=== PATIENT | male | born 1965 | race Caucasian/White ===

== ENCOUNTER → 2017-08-15 | Outpatient (CLI) | payer BC | LOC: M RAD 08:12 | DX: I15.0 Renovascular hypertension (principal); N18.9 Chronic kidney disease, unspecified | CPT/HCPCS: 76775 ==

== ENCOUNTER → 2018-01-09 | Outpatient (REF) | payer BC ==
[2018-01-09 14:30] LABS: ALKALINE PHOSPHATASE 55 U/L (45-117)
[2018-01-14 00:07] LABS: ANGIOTENSIN 1 CONVERTING ENZYM 8 U/L (14-82); VITAMIN D 1,25 DIHYDROXY 38.5 pg/mL (19.9-79.3)
== END ==
LOC: M LAB REF 13:51
DX: E83.52 Hypercalcemia (principal)

== ENCOUNTER → 2018-12-11 | Outpatient (CLI) | payer BC ==
[~2018-12-11] MED LIST: ISOVUE-370 76% 100ML VIAL (Q9967) As Ordered ONE
--- NOTE | 2018-12-11 14:57 | REPVR ---
EXAM: CT Neck With Contrast EXAM DATE/TIME: 12/11/2018 8:09 AM CLINICAL HISTORY: 53 years old, male; Dysphagia / difficulty swallowing TECHNIQUE: Imaging protocol: Axial computed tomography images of the neck with intravenous contrast. Radiation optimization: All CT scans at this facility use at least one of these dose optimization techniques: automated exposure control; mA and/or kV adjustment per patient size (includes targeted exams where dose is matched to clinical indication); or iterative reconstruction. Contrast material: ISOVUE 370; Contrast volume: 75 ml; Contrast route: IV; COMPARISON: No relevant prior studies available. FINDINGS: Brain: The visualized intracranial structures appear grossly unremarkable. Orbits: The globes appear grossly intact, and no definite intraorbital hematoma is identified. Sinuses: Chronic mucosal disease involves the right more than left maxillary sinuses. The right sphenoid sinus is not pneumatized. Minor chronic disease involves the left frontal sinus. The paranasal sinuses are otherwise clear. Nasopharynx: Normal. Oropharynx: Along the left aspect of the oropharynx, there appears to be some asymmetric soft tissue, including along the soft palate. No discrete mass or collection is identified. Hypopharynx: Normal. Larynx: The epiglottis is not significantly thickened. Retropharyngeal space: Normal. Submandibular/Parotid glands: Normal. Glands are normal in size. Thyroid: Normal. No enlarged or calcified nodules. Lymph nodes: A mildly enlarged right submandibular lymph node measures 1.2 cm short axis. Multiple subcentimeter short axis lymph nodes are present elsewhere in the neck. Trachea: Visualized trachea is unremarkable. Lungs: The lung apices demonstrate some scarring with subpleural emphysematous change. Vasculature: Atherosclerotic vascular calcifications are noted. Mastoid air cells: The mastoid air cells are clear. Bones/joints: The temporomandibular joints are normally aligned. The orbital floors and lamina papyracea are intact. No apical pneumothorax is identified. Soft tissues: The prevertebral soft tissues are not significantly swollen. IMPRESSION: 1. Apparent asymmetric soft tissue along the left aspect of the oropharynx, including the soft palate. No discrete mass or collection is identified, and it is unclear whether this could be variant. Recommend direct visualization to exclude pathology. 2. Mildly enlarged right submandibular lymph node, nonspecific. Correlate clinically and followup. 3. Apical pulmonary emphysematous change. Electronically signed by: Harmeet Zuniga On 12/11/2018 14:56:59 PM
== END ==
LOC: M RAD 08:06
PROVIDERS: ATTEND Otolaryngology
DX: R13.10 Dysphagia, unspecified (principal); R59.9 Enlarged lymph nodes, unspecified
CPT/HCPCS: 70491; Q9967

== ENCOUNTER → 2019-04-02 | Outpatient (CLI) | payer BC ==
--- NOTE | 2019-04-02 09:54 | REP ---
CT soft tissue neck: 04/02/2019. Indication: Dysphasia. Comparison: 12/11/2018. Technique: Axial images of the neck soft tissues were obtained following IV administration of 75 ml Isovue 370 with coronal and sagittal reconstructions provided. Findings: Prominent soft tissue is noted within the left vallecula and left piriform sinus with mild thickening of the left aryepiglottic fold. The airway is patent. The epiglottis is unremarkable. No abnormal fluid collections are present within the neck soft tissues. There is no cervical lymphadenopathy. Soft tissue fills the left maxillary sinus. There is periosteal mucosal thickening within the left ethmoid air cells. No significant submandibular or parotid gland abnormalities are present. The thyroid gland is unremarkable. Nodular soft tissue is noted within the left lung apex. Bilateral carotid atherosclerotic disease is present. No significant ocular, intraorbital or intracranial abnormalities are detected. Impression: Abnormal tissue within the left vallecula and left piriform sinus for which direct inspection correlation is recommended. Left maxillary sinus disease. Abnormal soft tissue within the left lung apex which is incompletely evaluated on this study. Scarring is suspected , however, dedicated chest CT is recommended. Electronically Signed by Iglesia Camejo DO 04/02/2019 09:45 A
== END ==
LOC: M RAD 07:30
PROVIDERS: ATTEND Otolaryngology
DX: R13.10 Dysphagia, unspecified (principal)
CPT/HCPCS: 70491; Q9967

== ENCOUNTER → 2019-07-12 | Outpatient (CLI) | payer BC ==
[~2019-07-12] MED LIST changes: +ALLO10TA PO; +AMLO5TAB6 PO; +ATEN50TA2 PO; +ATOR1TAB21 PO; +FLOM0.4C39 PO; +FOLI1TAB11 PO; -ISOVUE-370 76% 100ML VIAL (Q9967) As Ordered ONE; +LISI40TA PO; +SPIR1CAP INH; +VENTAER INH
--- NOTE | 2019-07-13 08:25 | REP ---
PET/CT: History: Evaluation of abnormal lung field findings. CT study of the chest from [facility] read as showing left hilar mass with abnormal opacity extending into the left upper lobe. Lymphadenopathy. COMPARISONS: Comparison CT neck study April 02, 2019. TECHNIQUE: 54 minutes following the intravenous injection of a 8.99 mCi dose of F-18 FDG, three-dimensional PET scintigraphy is acquired from the skull base to the proximal thighs. Triplanar noncontrast CT scanning is acquired through the same anatomic range for attenuation correction, and image registration with scan parameters optimized to minimize radiation exposure to the patient. PET scintigraphy and CT datasets were fused and displayed on a workstation with multiplanar and projection display capability. PET/CT FINDINGS: There is normal variant bilateral diffuse salivary gland uptake. There is abnormal uptake in the supraglottic larynx in the pre-epiglottic space. Maximum standard uptake value 10.95. This corresponds to the area of soft tissue density seen on recent CT study of the neck April 02, 2019. 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 There is no visible cervical lymphadenopathy or neck hypermetabolic uptake. Vascular calcification is observed. In the thorax there is a hypermetabolic rounded left hilar focus consistent with mass or adenopathy. Maximum standard uptake value is 11.11. There is postobstructive atelectasis and consolidation in the left upper lobe as described on recent CT study. There is mildly increased uptake in this atelectatic lung, 3.91. No other abnormal intrathoracic hypermetabolic uptake is seen. In the abdomen and pelvis there is no abnormal hypermetabolic uptake. There is a pin in the right hip and there is a cyst in the left kidney with peripheral cyst wall calcification. No abnormal hypermetabolic uptake is seen in the abdomen or pelvis. No abnormal adrenal uptake. IMPRESSION: 1. There is a suspicious supraglottic lesion with hypermetabolic uptake focus in the supraglottic larynx in the pre-epiglottic space corresponding recent CT findings. 2. There is hypermetabolic uptake and a left hilar mass lesion. There are postobstructive changes in the left upper lobe of the lung. Electronically Signed by Andrade Juan MD 07/13/2019 10:22 A
== END ==
LOC: M PLARAD 07:28
PROVIDERS: ATTEND Family Medicine
DX: R91.8 Other nonspecific abnormal finding of lung field (principal)
CPT/HCPCS: 78815; A9552

== ENCOUNTER → 2019-07-22 | Outpatient (CLI) | payer BC ==
--- NOTE | 2019-07-22 13:15 | PFTRPT ---
Site: [facility], [address] [place], [address] ID: [id number] Name: KAITY AGUAYO Visit Date: 07/22/2019 Second ID: [id number] Referring Doctor: Al Rojas MD Reviewing Doctor: Al Rojas MD Salesperson Hearing Aids: Murray VILLARREAL, MILO Age: 53 : 1965 Sex: Male Race: Height: 73.00 Inches Weight: 195.00 Lbs BSA: 2.13 Order IDs: [id number] Requested Test(s): <RESP-PFT.DLCO> Diagnosis: R91.8 of albuterol for postbronchodilator. The results of this test appear to be valid, although the ATS standard for "end of test" was not met. Review Status: Not Reviewed Pre-Bronch Post-Bronch Pred Actual %Pred Actual %Chng SPIROMETRY FVC (L) 5.42 4.40 81 4.23 -3 FEV1 (L) 4.14 2.62 63 2.72 4 FEV1/FVC (%) 77 59 77 64 8 FEF 25% (L/sec) 7.79 2.73 35 3.04 11 FEF 50% (L/sec) 4.53 1.77 39 2.17 22 FEF 75% (L/sec) 1.58 0.66 41 0.79 19 FEF 25-75% (L/sec) 3.48 1.44 41 1.60 11 FEF Max (L/sec) 10.21 5.88 57 5.65 -3 FIVC (L) 4.38 4.29 -1 FIF 50% (L/sec) 4.83 4.44 91 2.95 -33 FIF Max (L/sec) 4.48 3.05 -31 MVV (L/min) 156 79 50 Expiratory Time (sec) 7.34 5.69 -22 Back Extrap Vol (L) 0.05 0.05 -7 Time To FEFmax (sec) 0.057 0.059 2 LUNG VOLUMES SVC (L) 5.27 4.42 83 IC (L) 3.63 3.79 104 ERV (L) 1.64 0.63 38 TGV (L) 3.96 4.80 121 RV (Pleth) (L) 2.32 4.16 179 TLC (Pleth) (L) 7.59 8.58 113 RV/TLC (Pleth) (%) 31 49 156 DIFFUSION DLCOunc (ml/min/mmHg) 30.68 13.63 44 DLCOcor (ml/min/mmHg) 30.68 14.57 47 DL/VA (ml/min/mmHg/L) 4.04 2.30 56 VA (L) 7.59 6.34 83 BHT (sec) 10.71 IVC (L) 4.18 TLC (SB) (L) 6.49 AIRWAYS RESISTANCE Raw (cmH2O/L/s) 1.45 2.25 155 Gaw (L/s/cmH2O) 1.03 0.46 45 sRaw (cmH2O*s) 4.76 10.81 227 sGaw (1/cmH2O*s) 0.20 0.10 48 BLOOD GASES Hgb (gm/dL) 12.5
== END ==
LOC: M CARPUL 12:24
PROVIDERS: ATTEND Internal Medicine Pulmonary Disease
DX: R91.8 Other nonspecific abnormal finding of lung field (principal)

== ENCOUNTER → 2019-07-27 | Outpatient (CLI) | payer BC ==
--- NOTE | 2019-07-27 10:36 | REP ---
CT CHEST WITHOUT IV CONTRAST: CT chest performed without IV contrast. Saggital and coronal reconstruction images are performed. Comparison made with a prior study of 07/02/2019. Once again, there is a left hilar mass noted. Approximate diameter is 2.3 cm. Postobstructive consolidation in the left upper lobe has mildly improved. No other significant abnormal parenchymal opacities are seen. There are subcentimeter mediastinal lymph nodes present. No axillary adenopathy is seen. Supraglottic mass is again seen on the left. Atherosclerotic calcifications are seen of the thoracic aorta without aneurysm. The heart is normal in size. There is no pleural or pericardial effusion. There are degenerative changes of the spine. Small cyst is noted at the upper pole of the left kidney. IMPRESSION: No definite change left hilar mass. There is mild improvement of postobstructive consolidation in the left upper lobe. Left supraglottic mass again noted. Electronically Signed by Raphael Arreola MD 07/27/2019 10:38 A
== END ==
LOC: M RAD 08:23
PROVIDERS: ATTEND Internal Medicine Pulmonary Disease
DX: R91.1 Solitary pulmonary nodule (principal)

== ENCOUNTER 2019-08-03 07:17 | Day surgery (SDC) | payer BC ==
[~2019-08-03] VITALS: Ht 185.4 cm; Wt 90.7 kg
[~2019-08-03 07:17] MED LIST changes: +CELE1CAP7 PO; +LR 1,000 ML IV ONE; +ROCURONIUM BROMIDE 50 MG/5 ML VIAL As Ordered ONE; +propofoL 200 MG/20 ML VIAL As Ordered ONE
[2019-08-03] MEDS ORDERED: dexameTHASONE 4 MG/ML 1ML VIAL (J1100 PER 1MG) As Ordered ONE (08:08)
[2019-08-03] MEDS ORDERED: ONDANSETRON 4MG/2ML VIAL (J2405) As Ordered ONE (08:10)
[2019-08-03] MEDS ORDERED: MIDAZOLAM INJ 2 MG/2 ML VIAL (J2250) As Ordered ONE (08:11)
[2019-08-03] MEDS ORDERED: fentaNYL 250 MCG/5 ML INJECTION (J3010) As Ordered ONE (08:11)
[2019-08-03] MEDS ORDERED: LIDOCAINE 2% INJ 100 MG/5 ML SDV (FOR ANES.) As Ordered ONE (08:13)
[2019-08-03] MEDS ORDERED: ALBUTEROL SULFATE 2.5 MG/0.5 ML INH NEB SOLN As Ordered ONE (08:16)
[2019-08-03] MEDS ORDERED: ALBUTEROL SULFATE 2.5 MG/0.5 ML INH NEB SOLN INH ONE ×2 (08:30→11:00)
[2019-08-03] MEDS ORDERED: CETACAINE SPRAY 5GM As Ordered ONE (09:39)
[2019-08-03] MEDS ORDERED: LIDOCAINE 1% MDV 20ML VIAL As Ordered ONE (09:39)
[2019-08-03] MEDS ORDERED: EPINEPHrine 1MG/10ML SYRINGE 1.5IN As Ordered ONE (09:40)
[2019-08-03] MEDS ORDERED: THROMBIN SOLN 5,000 UNITS VIAL As Ordered ONE (10:04)
[2019-08-03] MEDS ORDERED: SUGAMMADEX SODIUM 500 MG/5 ML VIAL (BRIDION) As Ordered ONE (10:20)
[2019-08-03] MEDS ORDERED: LEVALBUTEROL 1.25 MG/0.5 ML CONCENTRATE NEB As Ordered ONE (10:34)
--- NOTE | 2019-08-03 10:48 | RO ---
DATE OF PROCEDURE: 08/03/2019 PREOPERATIVE DIAGNOSIS: Left lung mass. POSTOPERATIVE DIAGNOSIS: Left lung mass with chronic obstructive bronchitis. PROCEDURE: Fiberoptic bronchoscopy with washes, brushes, biopsies, and photos. SURGEON: Dr. Al Rojas ACID DUMPER: ANESTHESIA: General. OTHER MEDICATIONS: Topical thrombin 5000 units given via the bronchoscope. Informed consent was obtained prior to the procedure. DESCRIPTION OF PROCEDURE: After the patient identified and the above anesthesia given, the fiberoptic bronchoscope was easily passed via the existing endotracheal tube. The procedure was initially planned for navigational assistance. During the tertiary examination prior to navigation very significant endobronchial disease was identified and therefore, the navigational portion of the procedure was cancelled. The alessandra was mildly broadened. Both mainstem bronchi widely patent. Right lung entered first. Upper lobe somewhat anomalous with four sub segments but all widely patent. Diffuse changes of chronic bronchitis were noted. Bronchus intermedius, middle and lower lobes as well as the subsegmental lower lobe segments all widely patent and without other endobronchial mucosa abnormalities. The left lung was then entered. Proximal left mainstem widely patent. In the lateral portion of the distal left mainstem obvious endobronchial disease was encountered. The left upper lobe bronchus was almost completely compromised in a circumferential fashion with endobronchial tumor burden. It would not admit the scope. Left lower lobe was examined and was widely patent. Some secretions were encountered. Changes of chronic obstructive bronchitis were noted. Attention was then turned to the left upper lobe. Multiple biopsies were taken. Immediate cytologic examination showed tumor to be present. After multiple biopsies, a cytology brush was then produced. It should be noted that prior to the procedure when the scope was first introduced Percepta brushes of the left and right mainstem were done. Mild bleeding was encountered, easily controlled with saline lavage and topical thrombin. When adequate hemostasis was assured, the scope was then withdrawn and the procedure terminated. Care was turned over to anesthesia for extubation. No immediate complications noted.
[2019-08-03] MEDS ORDERED: RACEPINEPHrine 2.25 % UD INHA As Ordered ONE (10:56)
[2019-08-03] MEDS ORDERED: LR 1,000 ML IV SCH (11:00)
[2019-08-03] MEDS ORDERED: RACEPINEPHrine 2.25 % UD INHA INH ONE (11:00)
[2019-08-03] MEDS ORDERED: LEVALBUTEROL 1.25 MG/0.5 ML CONCENTRATE NEB INH ONE (11:00)
[2019-08-03] MEDS ORDERED: ONDANSETRON 4MG/2ML VIAL (J2405) IV PRN (11:00)
[2019-08-03] MEDS ORDERED: fentaNYL 100 MCG/2 ML INJECTION (J3010) IV PRN (11:00)
[2019-08-03 12:35] VITALS: BP 124/66
== END 2019-08-03 12:50 | disposition home or self-care (01) ==
LOC: M SDC 07:17
PROVIDERS: ATTEND Internal Medicine Pulmonary Disease
DX: C34.12 Malignant neoplasm of upper lobe, left bronchus or lung (principal); I12.9 Hypertensive chronic kidney disease with stage 1 through stage 4 chronic kidney disease, or unspecified chronic kidney disease; E78.5 Hyperlipidemia, unspecified; K21.9 Gastro-esophageal reflux disease without esophagitis; N18.9 Chronic kidney disease, unspecified; N40.0 Benign prostatic hyperplasia without lower urinary tract symptoms; F17.218 Nicotine dependence, cigarettes, with other nicotine-induced disorders; Z79.51 Long term (current) use of inhaled steroids; Z79.899 Other long term (current) drug therapy
CPT/HCPCS: 31623; 31625; 87070; 87205; 88104; 88305; J1100; J2250; J2405; J3010

== ENCOUNTER → 2019-08-14 | Outpatient (CLI) | payer BC ==
[~2019-08-14] MED LIST changes: -LR 1,000 ML IV ONE; -ROCURONIUM BROMIDE 50 MG/5 ML VIAL As Ordered ONE; -propofoL 200 MG/20 ML VIAL As Ordered ONE
== END ==
LOC: M LABSMTC 09:53
PROVIDERS: ATTEND Anesthesiology
DX: Z01.818 Encounter for other preprocedural examination (principal); Z11.59 Encounter for screening for other viral diseases

== ENCOUNTER 2019-08-16 09:49 | Day surgery (SDC) | payer BC ==
[~2019-08-16] VITALS: Ht 185.4 cm; Wt 92.0 kg
[~2019-08-16 09:49] MED LIST changes: +LR 1,000 ML IV ONE; +dexameTHASONE 4 MG/ML 1ML VIAL (J1100 PER 1MG) IV ONE
[2019-08-16] MEDS ORDERED: SUGAMMADEX SODIUM 500 MG/5 ML VIAL (BRIDION) As Ordered ONE (10:01)
[2019-08-16] MEDS ORDERED: ROCURONIUM BROMIDE 50 MG/5 ML VIAL As Ordered ONE (10:04)
[2019-08-16] MEDS ORDERED: propofoL 200 MG/20 ML VIAL As Ordered ONE (10:04)
[2019-08-16] MEDS ORDERED: MIDAZOLAM INJ 2MG/2ML VIAL (J2250 PER 1MG) As Ordered ONE ×2 (10:04→10:55)
[2019-08-16] MEDS ORDERED: LIDOCAINE 2% 100MG/5ML SDV (FOR ANES.) As Ordered ONE (10:04)
[2019-08-16] MEDS ORDERED: dexameTHASONE 4 MG/ML 1ML VIAL (J1100 PER 1MG) As Ordered ONE (10:05)
[2019-08-16] MEDS ORDERED: fentaNYL 100 MCG/2 ML INJECTION (J3010) As Ordered ONE ×2 (10:05→11:25)
[2019-08-16] MEDS ORDERED: ONDANSETRON 4MG/2ML VIAL As Ordered ONE (10:05)
[2019-08-16] MEDS ORDERED: LIDOCAINE W/EPINEPHRINE 1% 20ML VIAL As Ordered ONE (10:30)
[2019-08-16] MEDS ORDERED: METHYLENE BLUE 0.5% (5MG/ML) 10 ML AMP (PROVAYBLUE)(Q9968 PER 1MG) As Ordered ONE (10:30)
[2019-08-16] MEDS ORDERED: OXYMETAZOLINE NASAL SPRAY (AFRIN) As Ordered ONE (10:30)
[2019-08-16] MEDS ORDERED: ceFAZolin 1GM VIAL (J0690 PER 500MG) As Ordered ONE (11:33)
[2019-08-16] MEDS ORDERED: metroNIDAZOLE/NACL 500MG(5MG/ML) 100ML BAG (S0030) As Ordered ONE (11:33)
[2019-08-16] MEDS ORDERED: ACETAMINOPHEN 1000MG 100ML IV BTL (OFIRMEV) (J0131 PER 10MG) As Ordered ONE (11:46)
[2019-08-16] MEDS ORDERED: LR 1,000 ML IV SCH ×2 (12:30)
[2019-08-16] MEDS ORDERED: METOCLOPRAMIDE INJ 10MG/2ML VIAL (J2765 PER 1) IV PRN (12:30)
[2019-08-16] MEDS ORDERED: ONDANSETRON 4MG/2ML VIAL IV PRN (12:30)
[2019-08-16] MEDS ORDERED: fentaNYL 100 MCG/2 ML INJECTION (J3010) IV PRN (12:30)
[2019-08-16 14:00] VITALS: BP 119/69
--- NOTE | 2019-08-18 13:14 | RO ---
DATE OF PROCEDURE: 08/16/2019 PREOPERATIVE DIAGNOSIS: Swelling of the left vallecula and left piriformis sinus and abnormal PET scan finding. POSTOPERATIVE DIAGNOSIS: Swelling of the left vallecula and left piriformis sinus and abnormal PET scan finding. PROCEDURE PERFORMED: Direct suspension microlaryngoscopy with biopsy. SURGEON: Hardik Sandhu MD SPOOL MAKER: ANESTHESIA: General. CLINICAL PREAMBLE: This 53-year-old man has a recent diagnosis of bronchogenic carcinoma of the lung is noted to have hypermetabolic activity in the left vallecular area. He also is noted to have abnormal CT finding involving the left vallecula as well as left piriformis sinus. As part of the oncologic workup, the patient would benefit from direct suspension microlaryngoscopy with biopsy. The patient agreed and consented to the procedure. INTRAOPERATIVE FINDING: Abnormal mucosa noted at the left posterior pharyngeal wall at the level of the epiglottis, left base of tongue, and right arytenoid. Biopsies were obtained from these three subsites in the head and neck area. OPERATING ROOM (OR) NARRATION: Patient was identified in preoperative holding and brought to the operating room in stable condition. In supine position on the operating table, he received general anesthesia followed by orotracheal intubation without incident. Patient prepped and draped in the usual fashion for the procedure. Bimanual palpation of the oral tongue, base of tongue, and posterior pharyngeal wall showed some fullness over the left base of tongue extending towards the left posterior pharyngeal wall. Upper dentition was then protected using a dental guard. Using the Dedo-Pilling laryngoscope, inspection of mucosa of the oral cavity, oropharynx, supraglottic and piriformis sinuses was carried out. Mucosal lesion was noted over the left posterior pharyngeal wall, at the level of the epiglottis, at the left of the base of the tongue as well as the right arytenoid area. The Dedo-Pilling laryngoscope was suspended on the Howard stand. Biopsies were performed from the three subsites of the oropharynx and larynx where the abnormal mucosa lesions were noted. Hemostasis was achieved. At the end of procedure, sponge and instrument counts were correct. No complication was encountered. Estimated blood loss less than 5 mL. General anesthesia was reversed, and patient was extubated and brought to recovery room in stable condition.
== END 2019-08-16 14:23 | disposition home or self-care (01) ==
LOC: M SDC 09:49
PROVIDERS: ATTEND Otolaryngology
DX: C13.2 Malignant neoplasm of posterior wall of hypopharynx (principal); C01 Malignant neoplasm of base of tongue; C32.9 Malignant neoplasm of larynx, unspecified; C34.82 Malignant neoplasm of overlapping sites of left bronchus and lung; J44.9 Chronic obstructive pulmonary disease, unspecified; I10 Essential (primary) hypertension; E78.49 Other hyperlipidemia; D64.9 Anemia, unspecified; N40.0 Benign prostatic hyperplasia without lower urinary tract symptoms; F17.218 Nicotine dependence, cigarettes, with other nicotine-induced disorders; Z79.899 Other long term (current) drug therapy; Z79.51 Long term (current) use of inhaled steroids
CPT/HCPCS: 31536; 88305; J0131; J0690; J1100; J2250; J2405; J3010; Q9968

== ENCOUNTER → 2019-08-17 | Outpatient (CLI) | payer BC ==
[~2019-08-17] MED LIST changes: -LR 1,000 ML IV ONE; -dexameTHASONE 4 MG/ML 1ML VIAL (J1100 PER 1MG) IV ONE
[2019-08-17 09:07] LABS: BASO % 0.1 % (0.0-1.0); HEMATOCRIT 36.9 % (42.0-52.0); HEMOGLOBIN 12.4 g/dl (13.5-17.5); LYMPH # 1.4 10^3/uL (1.5-5.0); LYMPH % 9.9 % (24.0-44.0); MEAN CORPUSCULAR HGB CONC 33.6 g/dl (32.0-36.5); MEAN CORPUSCULAR VOLUME 89.1 fl (80.0-96.0); NEUTROPHILS # 11.5 10^3/uL (1.5-8.5); NEUTROPHILS % 81.7 % (36.0-66.0); PLATELET COUNT, AUTOMATED 367 10^3/uL (150-450); RED BLOOD COUNT 4.14 10^6/uL (4.30-6.10); WHITE BLOOD COUNT 14.1 10^3/uL (4.0-10.0)
[2019-08-17 09:43] LABS: ALBUMIN 3.6 GM/DL (3.2-5.2); BILIRUBIN,TOTAL 0.2 MG/DL (0.2-1.0); CALCIUM LEVEL 8.8 MG/DL (8.5-10.1); CREATININE FOR GFR 1.56 MG/DL (0.70-1.30); GLOMERULAR FILTRATION RATE 49.4 (>56); POTASSIUM SERUM 4.8 MEQ/L (3.5-5.1)
== END ==
LOC: M LAB 08:40
PROVIDERS: ATTEND Internal Medicine Hematology
DX: C34.90 Malignant neoplasm of unspecified part of unspecified bronchus or lung (principal)

== ENCOUNTER → 2019-08-19 | Outpatient (CLI) | payer BC ==
--- NOTE | 2019-08-24 19:06 | RADONC ---
RADIATION ONCOLOGY CONSULTATION NOTE DATE: 08/19/2019 This is a telemedicine visit. The patient was informed of the risks including security breech, technological failure, inability to perform a comprehensive physical exam which could delay or prevent an accurate diagnosis, and potential complications from treatment decisions rendered over a telemedicine platform. The patient understands and consented to the use of telehealth services phone only. CHART NUMBER: [id number] DIAGNOSIS: 1. 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 2. Left upper lobe lung cancer. Stage in progress. ECOG PERFORMANCE STATUS: Not evaluated. CONSULTATION NOTE: Mr. 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 He is presenting for discussion of multidisciplinary coordinated attack plan on this disease. HISTORY OF PRESENT ILLNESS: The patient reports that he was generally in his usual state of health until approximately 3 years ago in the summer 2017 when he said he is was having increasing sore throats. This continued over the last 1-1/2 to 2 years or so and continued to get worse. This caused him difficulty with swallowing and significant difficulty with swallowing solid foods. The patient presented for medical evaluation for a sore throat, which included a chest x-ray that showed a mass in the left lung. A CT scan of the neck, however, was done 04/02/2019, which showed the abnormal left soft tissue mass. Subsequent CT scan was done on 07/02/2019. This revealed a central mass measuring 3.7 cm x 2.1 cm x 3.5 cm. There was an opacity extending into the apicoposterior segment of the left upper lobe, which was irregular in shape and had a relatively broad pleural base superiorly and posteriorly. The mass measured 8.9 cm x 3.8 cm x 5.7 cm. The opacity extended into the anterior segment of the left upper lobe measuring 3.6 cm x 5.1 cm x 1.4 cm. This was thought to represent postobstructive pneumonia. Tumor infiltration, however, could not be excluded. A PET scan was done on 07/12/2019, which showed suspicious supraglottic lesion with hypermetabolic focus in the supraglottic larynx in the preepiglottic space. There was also noted to be hypermetabolic uptake in the left hilar mass and post obstructive changes were noted in the left upper lung. On 08/03/2019, the patient underwent a left upper lobe bronchoscopic biopsy of his lung mass and moderately differentiated squamous cell carcinoma was found. The patient was subsequently seen by Dr. Hardik Sandhu and underwent biopsy of his head and neck suspicious areas on 08/16/2019. 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 There was also moderately to well-differentiated invasive squamous cell carcinoma of the left tongue base. In addition, on the contralateral right side, there was right arytenoid biopsy that showed a well to moderately-differentiated invasive squamous cell carcinoma. The patient was seen by Dr. Bliss of medical oncology and is now presenting to me for a discussion and coordination of his care. ALLERGIES: The patient has no known drug allergies. PAST MEDICAL HISTORY: The patient's past medical history is positive for avascular necrosis of the right hip. He has a history of COPD as well as gout. He has a history of pneumonia and arthritis. He had a right hip replacement in the year 1999 at the age of 33. SOCIAL HISTORY: The patient smokes two packs of cigarettes per day since he was 12 years old and continues to smoke. He drinks six alcoholic beverages a day. FAMILY HISTORY: The patient's family history is positive for someone with a brain tumor. REVIEW OF SYSTEMS: The patient's review of systems is positive for shortness of breath with bronchospastic airway disease. He has intermittent coughing. He also has a sore throat. He has difficulty swallowing solid foods. He has weight loss. His review of systems is otherwise noncontributory. He denies nausea, vomiting, fevers, chills, night sweats, diplopia, headaches, anxiety or depression, anorexia, visual disturbances, chest pain, urinary or bowel difficulties, bone pain, or neurological problems. PHYSICAL EXAMINATION: This was a phone consultation. Physical examination was deferred at this time as per COVID-19 precautions. MEDICAL NECESSITY: IMRT/IGRT is clinically indicated for the highly conformal dose planning required. The target volume is in close proximity to critical structures, such as the normal brain, brainstem, eyes, optic nerves, spinal cord, parotid glands, and mandible. The volume of interest must be covered with narrow margins to adequately protect immediately adjacent structures. The plan requires interpretation of complex testing such as CT localization. As noted above, special planning (IMRT) and localizing (IGRT) is required and essential to maximally protect sensitive normal tissue structures which cannot be accomplished using conventional 3-dimensional planning. ASSESSMENT: I had a lengthy discussion with Dr. Bliss, as well as with this patient. I am unclear at this point whether or not we are dealing with multiple primaries or metastatic disease. Either way head and neck region as well as the lung need to obtain control. The patient reports a very long history of problems with throat, which would tend to lead me to the expectation that there was a window of opportunity for development of metastatic disease. The throat complaints go back at least a year and half to [address] Bliss's note puts it back to 2017, which would actually be 3 years at this point. Of note, however, there is no hypermetabolic uptake in the cervical lymph nodes of neck, which would usually be seen before metastatic disease but not always. I think, therefore, we are obliged to take this as being two separate primaries and to treat them accordingly. With regards to the patient's head and neck cancer, radiation therapy would be indicated with the use of IMRT/IGRT. We should be able to obtain local control with that disease. Unfortunately the patient reports that he has rotten teeth and has very poor dental hygiene. Clearly, I have not seen this at this time, but we need to set him up with at least a dentist but preferably an oral surgeon to undertake extractions. If extractions are necessary, and from the patient's description they appear to be, then it will take a period of time to get them fully extracted and subsequently allow for 3 weeks of healing prior to initiation of radiation. This will put the patient off for a significant period of time before we can start radiation to the head and neck. Concern at this time during this COVID-19 crisis, some of the scheduling issues with dental care may be a bit difficult to obtain or may be a little protracted. We will attempt to expedite this as quickly as possible. I have placed an order for dental care to be undertaken even though radiation will not be starting immediately. If this patient is to receive radiation to both the head and neck as well as the lung area, there will be significant difficulty with swallowing. I am, therefore, referring him to either surgery or interventional radiology for consultation and subsequent placement of a feeding tube. The patient already has difficulty swallowing now, and I expect this will worsen. As per my discussion with Dr. Bliss, the patient is being referred for placement of a port for chemotherapy. I do agree with Dr. Ambrosio Bliss's assessment, and I would think that neoadjuvant chemotherapy can treat both areas while he is undergoing the preparation for radiation to the head and neck region. Dr. Bliss is also sending this patient to Dr. José Manuel Contreras, our thoracic surgeon, for consultation to see if there is any benefit this patient could have from surgery. I do not personally believe this patient is a candidate, I will defer to the expertise of Dr. Contreras. Considering his young age, it is best to be very thorough. The patient is scheduled see Dr. Bliss tomorrow, August 19, for discussion of these plans. In addition, he is scheduled to be seen by Dr. Hardik Sandhu on Friday for further discussion as well. In light of the fact that we are not planning to initiate radiation in the immediate future, I have not set up anything specifically in our department. Once these preparatory steps are completed and the patient is approaching completion of neoadjuvant chemotherapy, we will begin treatment planning for the head and neck region and most likely the lung as well pending surgical consultation. cc: MD José Manuel Motley MD Lawrence G. Kramer, MD Hardik Patel, MD
== END ==
LOC: M ONCR 13:04
PROVIDERS: ATTEND Radiology Radiation Oncology
DX: C34.12 Malignant neoplasm of upper lobe, left bronchus or lung (principal)

== ENCOUNTER → 2019-08-30 | Outpatient (CLI) | payer BC ==
[~2019-08-30] MED LIST changes: +DECA4TAB PO; +MIDAZOLAM INJ 2MG/2ML VIAL (J2250 PER 1MG) As Ordered ONE; +ONDA4TAB6 PO; +ceFAZolin 2 GM/D5W 50 ML IV BAG (J0690 PER 500MG) As Ordered ONE; +diphenhydrAMINE 50MG/ML VIAL (J1200) As Ordered ONE; +fentaNYL 100 MCG/2 ML INJECTION (J3010) As Ordered ONE
--- NOTE | 2019-08-30 15:17 | REP ---
IR Ultrasound and fluoroscopy-guided port placement. IR Ultrasound of the neck. IR Moderate sedation. Clinical information: Lung cancer. Physician: Dr. Brandt. Procedure: The patient was advised of the benefits, risks, and alternatives of the procedure and informed consent was obtained. A time-out was performed with verification of the patient's name, MRN, site of procedure and type of procedure to be performed. The patient was positioned in the supine position on the angiographic table. The site was prepped and draped in the usual sterile fashion. Moderate sedation was performed by the physician including the presence of an independent trained observer who assisted and monitored the patient's level of consciousness and physiologic status. Following the administration of fentanyl and Versed, the physician spent 45 minutes of continuous face to face time with the patient. Ultrasound of the neck reveals a patent and compressible right internal jugular vein. A manager mortgage radiograph reveals aerated right lung. The neck and anterior chest wall were anesthetized with lidocaine. The right internal jugular vein was accessed using a microintroducer needle under ultrasound guidance, via a lateral approach. An 018 wire was advanced into the superior vena cava, the needle was removed and a microsheath was placed. An Amplatz wire was then passed into the inferior vena cava. An incision at the internal jugular vein access site and anterior chest wall were made using a scalpel. An incision was made at the anterior chest wall. A small pocket was created using a combination of blunt and sharp dissection. A tunneling device was then used to pass the catheter from the pocket to the neck puncture site. An 8-[place] Angio dynamics Smart power port was then positioned in the pocket. The catheter was then measured and cut. The introducer sheath was exchanged for a peel-away sheath. The catheter was passed through the peel-away sheath into the internal jugular vein and the peel-away sheath was removed. The port tip was positioned at the cavoatrial junction. The port was then accessed with a Gómez needle. The port flushes and aspirates well. The puncture site in the neck was closed. The chest wall incision was then closed with 2-0 Vicryl and 4-0 Monocryl. Glue and Steri-Strips were applied. A sterile dressing was then applied. The patient tolerated the procedure well and was returned to the PRU in stable condition. Estimated blood loss: <5 ml. Complications: None. Conclusion: 1. Successful placement of an 8-[place] Angio dynamics Smart power port via the right internal jugular vein. The port is ready for immediate use. 2. Patient to follow up in IR clinic in 2 weeks. Thank you for this referral. Electronically Signed by Melanie Brandt MD 08/30/2019 03:16 P
--- NOTE | 2019-08-30 16:14 | IRHP ---
[facility] IR Pre-Procedure H & P General Date of Service: August 30, 2019 Procedure: Same Day Surgery Interval History and Physical I have seen the patient and reviewed last H & P performed within 30 days. There is [no significant interval change] [significant interval change including] []. Patient [is stable for procedure] [not appropriate for procedure]. History of Present Illness Chief Complaint The patient is a 53-year-old male admitted with a reason for visit of Lung Ca. PRE-PROCEDURE DIAGNOSIS: lung ca HEART: normal rate. LUNGS: normal breathing at rest. ASA Classification ASA Classification: III-Severe systemic dis. Mallampati Score: II NPO: Yes Problems with prior sedation: No Obstructive Sleep Apnea: No Plan moderate sedation Allergies Coded Allergies: No Known Allergies (Unverified , 08/12/19) Home Medications Scheduled Allopurinol (Allopurinol), 100 MG PO DAILY, (Reported) Amlodipine Besylate (Amlodipine Besylate), 5 MG PO DAILY, (Reported) Atenolol (Atenolol), 25 MG PO DAILY, (Reported) Atorvastatin Calcium (Atorvastatin Calcium), 20 MG PO QPM, (Reported) Celecoxib (Celecoxib), 100 MG PO BID, (Reported) Folic Acid (Folic Acid), 1 MG PO DAILY, (Reported) Lisinopril (Lisinopril), 40 MG PO DAILY, (Reported) Tamsulosin HCl (Flomax), 0.4 MG PO DAILY, (Reported) Tiotropium [place] (Spiriva), 1 INHALATION INH DAILY, (Reported) Scheduled PRN Albuterol Sulfate (Ventolin Hfa), 2 PUFF INH QHS PRN for wheezing, (Reported) VS, I&O, 24H, Fishbone Vital Signs/I&O Vital Signs Date Time Temp Pulse Resp B/P (MAP) Pulse Ox O2 Delivery O2 Flow Rate FiO2 08/30/19 15:10 61 20 99 Room Air 08/30/19 14:45 2 08/30/19 13:14 98.0 KIERA GALVEZ MD August 30, 2019 16:14
[2019-08-30 16:49] VITALS: BP 121/78
== END ==
LOC: M IRPRO 12:46
PROVIDERS: ATTEND Internal Medicine Hematology
DX: C34.90 Malignant neoplasm of unspecified part of unspecified bronchus or lung (principal); Z79.899 Other long term (current) drug therapy
CPT/HCPCS: 36561; 99152; 99153; C1769; C1788; C1894; J0690; J1200; J1642; J1644; J2250; J3010

== ENCOUNTER 2019-09-27 18:06 | Inpatient (IN) | payer BC ==
[~2019-09-27] VITALS: Ht 185.4 cm; Wt 84.5 kg
[~2019-09-27 18:06] MED LIST changes: +LEVO750T13 PO; +MAGICMW SS; -MIDAZOLAM INJ 2MG/2ML VIAL (J2250 PER 1MG) As Ordered ONE; +PRED20TA PO; +SIME80TA PO; +TRAM50TA2 PO; -ceFAZolin 2 GM/D5W 50 ML IV BAG (J0690 PER 500MG) As Ordered ONE; -diphenhydrAMINE 50MG/ML VIAL (J1200) As Ordered ONE; -fentaNYL 100 MCG/2 ML INJECTION (J3010) As Ordered ONE
[2019-09-27] MEDS ORDERED: NS 1,000 ML IV ONE (18:45)
[2019-09-27 19:09] LABS: HEMOGLOBIN 11.6 g/dl (13.5-17.5); MEAN CORPUSCULAR HEMOGLOBIN 31.2 pg (27.0-33.0); MEAN CORPUSCULAR HGB CONC 34.1 g/dl (32.0-36.5); MEAN CORPUSCULAR VOLUME 91.4 fl (80.0-96.0); PLATELET COUNT, AUTOMATED 396 10^3/uL (150-450); RED BLOOD COUNT 3.72 10^6/uL (4.30-6.10); WHITE BLOOD COUNT 20.4 10^3/uL (4.0-10.0)
[2019-09-27 19:23] LABS: INR 1.07; PROTHROMBIN TIME 13.6 SECONDS (11.8-14.0)
[2019-09-27 19:34] LABS: ALBUMIN 3.2 GM/DL (3.2-5.2); BILIRUBIN,DIRECT 0.1 MG/DL (0.0-0.2); BILIRUBIN,TOTAL 0.4 MG/DL (0.2-1.0); CALCIUM LEVEL 8.9 MG/DL (8.5-10.1); CREATININE FOR GFR 2.29 MG/DL (0.70-1.30); GLOMERULAR FILTRATION RATE 31.7 (>56); POTASSIUM SERUM 4.6 MEQ/L (3.5-5.1); TOTAL PROTEIN 6.6 GM/DL (6.4-8.2)
[2019-09-27 19:37] LABS: EOSINOPHILS 1 % (0-3); LYMPHOCYTES 19 % (16-44); METAMYELOCYTES 1 % (0-0); MONOCYTES 3 % (0-5); NEUTROPHILS 74 % (28-66)
[2019-09-27 19:38] LABS: PLATELET CLUMPS MODERATE AMT; PLATELET ESTIMATE INCREASED (NORMAL)
[2019-09-27] MEDS ORDERED: SUCRALFATE SUSP 1GM/10ML UD PO ONE (20:15)
[2019-09-27] MEDS ORDERED: LIDOCAINE VISCOUS 2% SOLN 15ML UDC SS ONE (20:15)
[2019-09-27] MEDS ORDERED: MAGIC MOUTHWASH SUSPENSION BTL SS PRN (20:45)
[2019-09-27] MEDS ORDERED: ALBUTEROL SULFATE 2.5 MG/0.5 ML INH NEB SOLN INH PRN (20:45)
--- NOTE | 2019-09-27 20:52 | HPEPDOC ---
General Date of Admission 09/27/2019 Date of Service: Sep 27, 2019 Chief Complaint The patient is a 53-year-old male admitted with a reason for visit of Abnormal Labs. History of Present Illness Patient is a 53-year-old male with PMHx of Squamous cell carcinoma of oropharynx (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 Rojas), COPD, HTN, DLP, BPH, Gout, presented to the hospital after he was found to have abnormal lab work as an outpatient. Patient was recently admitted to the hospital on 09/12/19 for febrile neutropenia and was ultimately discharged on 09/15/2019. Patient had chemotherapy on Friday, 09/05 to Friday, 09/09. He had docetaxel, cisplatin and 5-fluorouracil. He states he then put his Neulasta on Friday (09/09) and removed it on Friday as instructed. Patient has lab work completed on 09/23 as per oncology. On 09/26 patient was called in because of abnormal lab work was found. Upon arrival to emergency room, repeat lab work was obtained that had shown a BUN of 75, creatinine of 2.29, slightly improved compared to 09/23. At this time patient denies any headache, nausea, vomiting, chest pain, shortness of breath, palpitations, abdominal pain, constipation, diarrhea or urinary discomfort. He has not experienced any fevers or chills. Patient does note that he does continue to experience mouth sores and has run out of his Magic mouthwash.. He has reported that he has had very poor oral intake and drinks less than a glass of water a day. He denies the use of any ibuprofen, Aleve or other NSAIDs. Patient reports that he does have an appetite but cannot eat because of his multiple ulcers. He is unaware of any changes in his weight. Home Medications Scheduled Allopurinol (Allopurinol) 100 Mg Tablet, 100 MG PO DAILY, (Reported) Amlodipine Besylate (Amlodipine Besylate) 5 Mg Tablet, 5 MG PO DAILY, (Reported) Atenolol (Atenolol) 50 Mg Tablet, 25 MG PO DAILY, (Reported) Atorvastatin Calcium (Atorvastatin Calcium) 20 Mg Tablet, 20 MG PO QPM, (Reported) Celecoxib (Celecoxib) 100 Mg Capsule, 100 MG PO BID, (Reported) Folic Acid (Folic Acid) 1 Mg Tablet, 1 MG PO DAILY, (Reported) Lisinopril (Lisinopril) 40 Mg Tablet, 40 MG PO DAILY, (Reported) Tamsulosin HCl (Flomax) 0.4 Mg Capsule, 0.4 MG PO DAILY, (Reported) Tiotropium [place] (Spiriva) 18 Mcg Cap.w.dev, 1 INHALATION INH DAILY, (Reported) Tramadol HCl (Tramadol HCl) 50 Mg Tablet, 50 MG PO QPM, (Reported) Scheduled PRN Albuterol Sulfate (Ventolin Hfa) 18 Gm Hfa.aer.ad, 2 PUFF INH Q6HP PRN for wheezing, (Reported) Allergies Coded Allergies: No Known Allergies (Unverified , 08/12/19) Past Medical History Medical History Squamous cell carcinoma of oropharynx (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 Rojas), COPD, HTN, DLP, BPH, Gout Surgical History Bronchoscopy with biopsy Biopsy of the oropharyngeal mass Right hip replacement Right chest port placed 2020 Family History - Father with a history of heart disease and rheumatic fever. 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 Review of Systems Other systems 10 point review of systems complete, all negative otherwise stated in HPI Vital Signs - Vitals: BP 105/63, HR 87, RR 18, Sat 99%RA, Temp 97.4F - General: Sitting up in bed, No acute distress, Speaking in full sentences, AAOx3 - HEENT: NC, AT, PERRLA, EOMI - CVS: RRR, +S1S2 - Lungs: Fair air entry bilaterally, No appreciable wheezing / rales / rhonchi - Abdomen: Soft, Non-distended, Non-tender - Extremities: No lower extremity edema, No calf tenderness - Neuro: No focal motor or sensory deficit - Skin: No visible rashes Laboratory Data Labs 24H Laboratory Tests 2 09/27/19 18:48: Immature Granulocyte % (Auto) , Neutrophils (%) (Auto) , Nucleated Red Blood Cells % (auto) 0.0, Neutrophils 74H, Band Neutrophils 2, Lymphocytes (Manual) 19, Monocytes (Manual) 3, Eosinophils (Manual) 1, Metamyelocytes 1H, Platelet Estimate INCREASED, Clumped Platelets MODERATE AMT, Prothrombin Time 13.6, Prothromb Time International Ratio 1.07, Anion Gap 10, Glomerular Filtration Rate 31.7L, Calcium Level 8.9, Total Bilirubin 0.4, Direct Bilirubin 0.1, Aspartate Amino Transf (AST/SGOT) 17, Alanine Aminotransferase (ALT/SGPT) 29, Alkaline Phosphatase 80, Total Protein 6.6, Albumin 3.2, Albumin/Globulin Ratio 0.9, Lipase 752H CBC/BMP Laboratory Tests 09/27/19 18:48 Plan / VTE VTE Prophylaxis Ordered?: Yes Plan Plan Acute renal failure - likely 2/2 pre-renal etiology - likely 2/2 decreased PO intake - Presented to the emergency room after he was called in for abnormal lab work - Patient has no new complaints - Patient is hemodynamically stable and afebrile - Baseline creatinine of 1.1-1.2; Cr on admission 2.29; however was 4.31 on 09/24/2019 - Avoid nephrotoxic medications (DC Celecoxib; Hold Lisinopril) - Will check urine electrolytes, urine analysis with reflex culture, renal ultrasound - Will start IV fluid hydration Hyponatremia - likely 2/2 hypotonic hypovolemic etiology - Patient appears to be significantly dehydrated - Will check serum / urine osmolality - c/w IV fluid hydration Non-AG metabolic acidosis - possibly 2/2 Acute renal failure - Delta / Delta of 0.4 - Will check urine anion gap - Will c/w IV fluid hydration Oral ulcers - Will start magic mouth wash to provide some relief PRN Elevated Lipase - Patient is not experiencing any nausea, vomiting or abdominal pain - Lipase is note elevated to >3x upper limits of normal - Unlikely pancreatitis Leukocytosis - likely 2/2 neulasta - ROS negative for source of infection - Hemodynamically stable / afebrile - Will check UA w/ reflex and CXR - Will hold off on antibiotics Normocytic anemia - Hg appears to be at baseline - Will continue to monitor Squamous cell carcinoma of oropharynx - Follows with Dr. Macdonald Squamous cell carcinoma of L Lung - Follows with Dr. Rojas HTN - BP well controlled - Will hold Lisinopril - c/w amlodipine and atenolol with holding parameters BPH - c/w Tamsulosin DLP - c/w Atorvastatin Gout - Will hold Allopurinol COPD - No evidence of exacerbation - Mild wheezing - c/w inhaled therapy as ordered DVT prophylaxis - Will start Heparin RYAN RICH MD Sep 27, 2019 20:52
[2019-09-27] MEDS ORDERED: traMADol 50 MG TAB PO SCH (21:00)
[2019-09-27] MEDS ORDERED: ATORVASTATIN 20 MG TAB PO SCH (21:00)
[2019-09-27] MEDS: HEPARIN SOD (PORCINE) 5000UNITS/ML VIAL (J1644 PER 1000UNITS) SC SCH (22:00)
[2019-09-27 22:25] VITALS: BP 117/66
[2019-09-27] MEDS: NS 1,000 ML IV SCH (22:43)
--- NOTE | 2019-09-28 00:08 | REPVR ---
PROCEDURE INFORMATION: Exam: US Retroperitoneal Limited, Kidneys Exam date and time: 09/27/2019 11:54 PM Age: 53 years old Clinical indication: Abnormal findings; Abnormal lab test; Abnormal kidney function lab tests; Additional info: Mando TECHNIQUE: Imaging protocol: Real-time ultrasound of the retroperitoneum with image documentation. Examination was focused on the kidneys. COMPARISON: 1. RENAL US 08/15/2017 8:[address] ABD PELVIS W/O CONTRAST 09/12/2019 4:44:46 PM FINDINGS: Right kidney: The right kidney is normal in appearance and measures 12.2 cm in length. There is no renal cortical thinning. The renal cortical echogenicity is within normal limits. No renal lesion is seen. There is no hydronephrosis. No obvious stones are seen in the renal collecting system. There is no perinephric fluid collection. Left kidney: The left kidney measures 12.5 cm in length. There is no renal cortical thinning. The renal cortical echogenicity is within normal limits. There is a 5.7 cm x 4.6 cm x 5.1 cm benign-appearing exophytic cyst arising from the inferior pole of the left kidney with rim calcifications that is stable compared to the prior CT abdomen and pelvis on 09/12/2019 allowing for differences in technique and for which further follow-up is not necessary. There is no hydronephrosis. No obvious stones are seen in the renal collecting system. There is no perinephric fluid collection. Bladder: Unremarkable. IMPRESSION: No acute findings. No hydronephrosis. Electronically signed by: Luis Antonio Mckeon On 09/28/2019 00:07:34 AM
--- NOTE | 2019-09-28 01:59 | REP ---
Clinical: Leukocytosis . Comparison: 09/12/2019 . Findings: Ljhvjz-H-Bocr with tip in the SVC. The mediastinum and cardiac silhouette are stable and within normal limits for portable technique. The lung sahni are clear without acute consolidation, effusion, or pneumothorax. Skeletal structures are intact. Impression: No acute cardiopulmonary process appreciated. Electronically Signed by Sy Perla MD 09/28/2019 01:50 A
[2019-09-28] MEDS: HEPARIN SOD (PORCINE) 5000UNITS/ML VIAL (J1644 PER 1000UNITS) SC SCH ×2 (05:17→13:04)
[2019-09-28] MEDS: NS 1,000 ML IV SCH ×2 (05:58→09:45)
[2019-09-28 06:00] VITALS: BP 106/64
[2019-09-28 07:36] LABS: HEMATOCRIT 28.5 % (42.0-52.0); MEAN CORPUSCULAR HEMOGLOBIN 31.1 pg (27.0-33.0); MEAN CORPUSCULAR HGB CONC 33.7 g/dl (32.0-36.5); MEAN CORPUSCULAR VOLUME 92.2 fl (80.0-96.0); PLATELET COUNT, AUTOMATED 312 10^3/uL (150-450); RED BLOOD COUNT 3.09 10^6/uL (4.30-6.10); WHITE BLOOD COUNT 15.4 10^3/uL (4.0-10.0)
[2019-09-28 07:46] LABS: HEMOGLOBIN 9.6 g/dl (13.5-17.5)
[2019-09-28 07:54] LABS: CALCIUM LEVEL 8.2 MG/DL (8.5-10.1); CREATININE FOR GFR 1.58 MG/DL (0.70-1.30); GLOMERULAR FILTRATION RATE 48.7 (>56); MAGNESIUM LEVEL 1.4 MG/DL (1.8-2.4); POTASSIUM SERUM 4.5 MEQ/L (3.5-5.1)
[2019-09-28 08:10] LABS: BASOPHILS 1 % (0-1); LYMPHOCYTES 25 % (16-44); MONOCYTES 2 % (0-5); NEUTROPHILS 72 % (28-66); PLATELET ESTIMATE NORMAL (NORMAL)
[2019-09-28 09:00] VITALS: BP 96/56
[2019-09-28] MEDS ORDERED: TIOTROPIUM INHALER/CAPSULE (SPIRIVA) INH SCH (09:00)
[2019-09-28] MEDS ORDERED: amLODIPine 5 MG TAB PO SCH (09:00)
[2019-09-28] MEDS ORDERED: atenoloL 25 MG TAB PO SCH (09:00)
[2019-09-28] MEDS ORDERED: TAMSULOSIN 0.4 MG CAP PO SCH (09:00)
[2019-09-28] MEDS ORDERED: FOLIC ACID 1 MG TAB PO SCH (09:00)
[2019-09-28] MEDS ORDERED: MAG SULF 1GM/100ML (MAG RUN) 1 GM in IV 1 EA IV ONE (10:45)
--- NOTE | 2019-09-28 10:49 | IPNPDOC ---
Text Note Date of Service The patient was seen on 09/28/19. NOTE Subjective: Patient seen and examined at bedside. Anxious to return home. No new medical complaints. No acute overnight events reported. Objective: General: NAD, sitting comfortably at edge of bed HEENT: NC/AT, EOMI Lungs: CTA B/L Heart: +S1S2, RRR Abd: soft,, NT, +BS Ext: no edema A/P: 53 yo male for JURGEN #Acute renal failure - likely 2/2 pre-renal etiology - likely 2/2 decreased PO intake - Presented to the emergency room after he was called in for abnormal lab work - Patient has no new complaints - Patient is hemodynamically stable and afebrile - Baseline creatinine of 1.1-1.2; Cr on admission 2.29; however was 4.31 on 09/24/2019 - Avoid nephrotoxic medications (DC Celecoxib; Hold Lisinopril) - check urine electrolytes, urine analysis with reflex culture, renal ultrasound - continue IV fluid hydration - creatinine improving - will dc fluids this afternoon - recheck creatinine tomorrow am #Hyponatremia - likely 2/2 hypotonic hypovolemic etiology - Patient appears to be significantly dehydrated - Will check serum / urine osmolality - c/w IV fluid hydration #Non-AG metabolic acidosis - possibly 2/2 Acute renal failure - Delta / Delta of 0.4 - Will check urine anion gap - Will c/w IV fluid hydration #Oral ulcers - magic mouth wash to provide some relief PRN #Elevated Lipase - Patient is not experiencing any nausea, vomiting or abdominal pain - Lipase is note elevated to >3x upper limits of normal - Unlikely pancreatitis #Leukocytosis - likely 2/2 neulasta - ROS negative for source of infection - Hemodynamically stable / afebrile - Will check UA w/ reflex and CXR - Will hold off on antibiotics #Normocytic anemia - Hg appears to be at baseline - Will continue to monitor #Squamous cell carcinoma of oropharynx - Follows with Dr. Macdonald #Squamous cell carcinoma of L Lung - Follows with Dr. Rojas #HTN - BP well controlled - Lisinopril on hold given JURGEN - c/w amlodipine and atenolol with holding parameters #BPH - c/w Tamsulosin #DLP - c/w Atorvastatin #Gout - hold Allopurinol #COPD - No evidence of exacerbation - Mild wheezing - c/w inhaled therapy as ordered #DVT prophylaxis - Heparin SC Dispo: pending renal sono, improvement in creatinine off IV fluids VS,Fishbone, I+O VS, Fishbone, I+O Laboratory Tests 09/27/19 18:48 09/28/19 06:56 Vital Signs Date Time Temp Pulse Resp B/P (MAP) Pulse Ox O2 Delivery O2 Flow Rate FiO2 09/28/19 09:00 77 96/56 09/28/19 06:00 98.1 20 98 09/27/19 22:25 Room Air I&O- Last 24 Hours up to 6 AM 09/28/19 05:59 Intake Total 1250 ml Output Total 300 ml Balance 950 ml BENJAMIN FLORES MD Sep 28, 2019 10:48
[2019-09-28 11:08] VITALS: BP 122/70
--- NOTE | 2019-09-28 14:04 | DS.PDOC ---
Discharge Summary General Date of Admission Sep 27, 2019 at 20:35 Date of Discharge 09/28/19 Discharge Summary PROCEDURES PERFORMED DURING STAY: [None]. ADMITTING DIAGNOSES: 1. JURGEN DISCHARGE DIAGNOSES: 1. . COMPLICATIONS/CHIEF COMPLAINT: Renal Failure. HISTORY OF PRESENT ILLNESS: . HOSPITAL COURSE: . DISCHARGE MEDICATIONS: Please see below. ALLERGIES: Please see below. PHYSICAL EXAMINATION ON DISCHARGE: VITAL SIGNS: Please see below. GENERAL: NAD, lying comfortably in bed, grumpy HEENT: NC/AT, EOMI Lungs: CTA B/L Heart: +S1S2, RRR Abd: soft, NT, +BS Ext: no edema LABORATORY DATA: Please see below. ACTIVITY: [As tolerated]. DIET: DISCHARGE PLAN: DISPOSITION: Against Medical Advice. DISCHARGE INSTRUCTIONS: 1. PCP in 3-5 days DISCHARGE CONDITION: [Stable]. TIME SPENT ON DISCHARGE: 35 minutes. Vital Signs/I&Os Vital Signs Date Time Temp Pulse Resp B/P (MAP) Pulse Ox O2 Delivery O2 Flow Rate FiO2 09/28/19 11:08 122/70 (87) 09/28/19 09:00 77 09/28/19 06:00 98.1 20 98 09/27/19 22:25 Room Air I&O- Last 24 Hours up to 6 AM 09/28/19 06:00 Intake Total 2300 ml Output Total 300 ml Balance 2000 ml Laboratory Data Labs 24H Laboratory Tests 2 09/27/19 18:48: Immature Granulocyte % (Auto) , Neutrophils (%) (Auto) , Nucleated Red Blood Cells % (auto) 0.0, Neutrophils 74H, Band Neutrophils 2, Lymphocytes (Manual) 19, Monocytes (Manual) 3, Eosinophils (Manual) 1, Metamyelocytes 1H, Platelet Estimate INCREASED, Clumped Platelets MODERATE AMT, Prothrombin Time 13.6, Prothromb Time International Ratio 1.07, Anion Gap 10, Glomerular Filtration Rate 31.7L, Osmolality 299H, Calcium Level 8.9, Total Bilirubin 0.4, Direct Bilirubin 0.1, Aspartate Amino Transf (AST/SGOT) 17, Alanine Aminotransferase (ALT/SGPT) 29, Alkaline Phosphatase 80, Total Protein 6.6, Albumin 3.2, Albumin/Globulin Ratio 0.9, Lipase 752H 09/28/19 00:08: Urine Color YELLOW, Urine Appearance CLEAR, Urine pH 5.0, Urine Specific [place] 1.012, Urine Protein NEGATIVE, Urine Glucose (UA) NEGATIVE, Urine Ketones NEGATIVE, Urine Blood NEGATIVE, Urine Nitrite NEGATIVE, Urine Bilirubin NEGATIVE, Urine Urobilinogen 0.2, Urine Leukocyte Esterase NEGATIVE, Urine WBC (Auto) 2, Urine RBC (Auto) 1, Urine Hyaline Casts (Auto) 0, Urine Bacteria (Auto) NEGATIVE, Urine Squamous Epithelial Cells 0, Urine Mucus (Auto) SMALL, Urine Sperm (Auto) , Urine Random Osmolality 465L, Urine Random Creatinine 102.0, Urine Random Sodium 39, Urine Random Potassium 14.0, Urine Random Urea Nitrogen 872 09/28/19 06:56: Immature Granulocyte % (Auto) , Neutrophils (%) (Auto) , Nucleated Red Blood Cells % (auto) 0.0, Neutrophils 72H, Lymphocytes (Manual) 25, Monocytes (Manual) 2, Platelet Estimate NORMAL, Anion Gap 8, Glomerular Filtration Rate 48.7L, Calcium Level 8.2L, Basophils (Manual) 1, Red Blood Cell Morphology NORMAL, Magnesium Level 1.4L CBC/BMP Laboratory Tests 09/27/19 18:48 09/28/19 06:56 Discharge Medications Scheduled Allopurinol (Allopurinol) 100 Mg Tablet, 100 MG PO DAILY, (Reported) Amlodipine Besylate (Amlodipine Besylate) 5 Mg Tablet, 5 MG PO DAILY, (Reported) Atenolol (Atenolol) 50 Mg Tablet, 25 MG PO DAILY, (Reported) Atorvastatin Calcium (Atorvastatin Calcium) 20 Mg Tablet, 20 MG PO QPM, (Reported) Celecoxib (Celecoxib) 100 Mg Capsule, 100 MG PO BID, (Reported) Folic Acid (Folic Acid) 1 Mg Tablet, 1 MG PO DAILY, (Reported) Lisinopril (Lisinopril) 40 Mg Tablet, 40 MG PO DAILY, (Reported) Tamsulosin HCl (Flomax) 0.4 Mg Capsule, 0.4 MG PO DAILY, (Reported) Tiotropium [place] (Spiriva) 18 Mcg Cap.w.dev, 1 INHALATION INH DAILY, (Reported) Tramadol HCl (Tramadol HCl) 50 Mg Tablet, 50 MG PO QPM, (Reported) Scheduled PRN Albuterol Sulfate (Ventolin Hfa) 18 Gm Hfa.aer.ad, 2 PUFF INH Q6HP PRN for wheezing, (Reported) Allergies Coded Allergies: No Known Allergies (Unverified , 08/12/19) BENJAMIN FLORES MD Sep 28, 2019 14:04
== END 2019-09-28 13:57 | disposition left against medical advice (07) | DRG 469 ==
LOC: M ED 18:06 → M MSPAV 20:35 → ENRESERV 20:51
PROVIDERS: ADMIT Internal Medicine; ATTEND Internal Medicine
DX: N17.9 Acute kidney failure, unspecified (principal); E87.2 Acidosis; C34.90 Malignant neoplasm of unspecified part of unspecified bronchus or lung; C10.9 Malignant neoplasm of oropharynx, unspecified; E87.1 Hypo-osmolality and hyponatremia; D64.9 Anemia, unspecified; J44.9 Chronic obstructive pulmonary disease, unspecified; D72.829 Elevated white blood cell count, unspecified; K12.1 Other forms of stomatitis; N40.0 Benign prostatic hyperplasia without lower urinary tract symptoms; M10.9 Gout, unspecified

== ENCOUNTER → 2019-12-31 | Outpatient (CLI) | payer BC, MEDICAID, OTHER ==
[~2019-12-31] MED LIST changes: +AMLO1TAB24 PO; -AMLO5TAB6 PO; +ATIV1TAB10 PO; +CETACAINE SPRAY 5GM As Ordered ONE; +INCR1INH INH; +ISOVUE-370 76% 100ML VIAL As Ordered ONE; +LIDO2.5C15 TOP; +LISI10TA4 PO; +MAGICMW PO; +OMEP-218 PO; +OXYC1SOL3 PO; +[UNRECOGNIZED DRUG - CODE] PO
--- NOTE | 2019-12-31 10:01 | REPVR ---
PROCEDURE INFORMATION: Exam: CT Neck With Contrast Exam date and time: 12/31/2019 8:51 AM Age: 54 years old Clinical indication: Neck pain; Additional info: Head/neck CA, lung CA, restaging TECHNIQUE: Imaging protocol: Computed tomography images of the neck with intravenous contrast. Radiation optimization: All CT scans at this facility use at least one of these dose optimization techniques: automated exposure control; mA and/or kV adjustment per patient size (includes targeted exams where dose is matched to clinical indication); or iterative reconstruction. Contrast material: ISOVUE 370; Contrast volume: 100 ml; Contrast route: INTRAVENOUS (IV); COMPARISON: CT Neck with contrast 04/02/2019 7:59 AM FINDINGS: Sinuses: There is mild sinus disease. Nasopharynx: Unremarkable. Oropharynx: Unremarkable. No significant tonsillar enlargement. Hypopharynx: Unremarkable. Larynx: Unremarkable. Normal epiglottis. Retropharyngeal space: Unremarkable. Submandibular/Parotid glands: Normal. Glands are normal in size. Thyroid: Normal. No enlarged or calcified nodules. Lymph nodes: There are scattered nonspecific cervical lymph nodes, similar to prior study. Trachea: Visualized trachea is unremarkable. Lungs: There are bilateral emphysematous changes. Bones/joints: Unremarkable. No acute fracture. Soft tissues: Unremarkable. No significant soft tissue swelling. IMPRESSION: No acute findings are identified. Please see above report for incidental findings. Electronically signed by: Mike Wagner On 12/31/2019 10:01:01 AM
--- NOTE | 2020-01-19 08:31 | REP ---
CONTRAST ENHANCED CHEST CT CLINICAL: History of head and neck cancer for restaging. TECHNIQUE: Axial contrast enhanced images from the thoracic inlet to the upper abdomen using 100 cc Isovue-370 intravenous contrast material with coronal and sagittal reformations. COMPARISON: 09/13/2019, 07/27/2019, 07/02/2019 FINDINGS: A small residual left suprahilar mass is suggested and currently measures approximately 12 mm maximal diameter which is considerably decreased from prior examinations. The associated postobstructive fibroatelectatic changes and scarring extending along the medial and posterior aspects of the left upper lung zone also appear improved as compared to the prior examinations. Chronic changes in the left apex include elements of bronchiectasis and emphysematous changes. There is a small subpleural nodule along the posterior left upper lobe (image 21) which also appears to be slightly decreased in size and measures approximately 5.5 mm maximal diameter. This may reflect small nodular scarring or small focus of rounded atelectasis, but active nodule cannot be excluded as well. The remainder of the lung sahni are relatively clear and stable with moderate emphysematous changes and bronchiectasis noted. No further suspicious consolidation, nodule, or mass lesions. No effusion. No pneumothorax. Mediastinal lymph nodes are nonspecific in appearance and relatively stable measuring up to approximately 6 mm short axis diameter in the pretracheal space. Further evaluation of the mediastinum demonstrates stable atherosclerotic changes to the thoracic aorta and coronary arteries without aortic aneurysm or cardiomegaly. No pericardial effusion. Surrounding musculoskeletal structures without acute osseous abnormality. Patient's [id number] is identified with tip in the SVC/right atrium. Limited evaluation of the upper abdomen demonstrates normal bilateral adrenal glands. IMPRESSION: * The left suprahilar lesion is decreased from prior examinations, and the associated postobstructive atelectasis and chronic fibrosis/scarring appears improved. * No new suspicious nodule or mass lesion noted throughout the remainder of the lung sahni. * Underlying chronic emphysematous changes remains stable. MTDD
== END ==
LOC: M RAD 08:26
PROVIDERS: ATTEND General Practice
DX: C34.92 Malignant neoplasm of unspecified part of left bronchus or lung (principal)
CPT/HCPCS: 70491; 71260; J1642; Q9967

== ENCOUNTER → 2020-01-04 | Outpatient (CLI) | payer OTHER, BC ==
[~2020-01-04] MED LIST changes: -CETACAINE SPRAY 5GM As Ordered ONE; +CETACAINE SPRAY 5GM XX ONE; -ISOVUE-370 76% 100ML VIAL As Ordered ONE
--- NOTE | 2020-01-04 11:38 | RADONC ---
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 He has received several cycles of induction chemotherapy, which was poorly tolerated, and has delayed receiving dental extractions needed prior to chemoradiation. He is seen today following restaging scans from 12/31/19 showing a favorable response in the lung (shrinking hilar mass), and a iban-hbag-shdnm response in the neck, to discuss treatment and undergo laryngoscopy. Diagnosis/Treatment History Oncologic History Patient is a current everyday smoker. He notes that pain in the throat began in Summer 2017. This led to a CXR which showed a left lung mass. This was followed by CT neck on 04/02/19 which showed a left oropharyngeal lesion. CT chest done on 07/02/19 showed a ~4 cm left hilar mass and a FRANCISCO lesion with a solid component measuring just under 5 cm. PET-CT on 07/12/19 showed corresponding avidity in the lung lesions, as well as in multiple overlapping sites in the left oropharynx and right supraglottic larynx. Bronchoscopy on 08/03/19 revealed SCC in the hilar mass. Dr. Sandhu performed biopsy of the left tongue base left posterior pharyngeal wall and right arytenoid which all showed SCC no comment on P16 status was noted. He then was recommended to have dental extractions, which for various reasons, including COVID, insurance, and his own personal wishes to remain able to chew through the summertime so as to enjoy fresh vegetables (see multiple notes documenting this), were delayed. In the meantime he received 1 cycle of TPF on 09/06/19 complicated by mucositis, neutropenic fever and acute kidney injury. He then had 2 cycles of carbo/taxol last on 10/27/19. Restaging CT scans on 12/31/19 showed interval reduction in the size of the left hilar mass. There appears to be some response in the left oropharynx, particular in the portion of the left tongue base tumor extending inferiorly into the pre- epiglottic space, however despite the formal read on the scan there is still significant asymmetry in the left tongue base concerning for residual tumor, in addition there are multiple new subcentimeter lymph nodes in the BL neck, none of which meet size criteria. The right arytenoid region, which was PET avid and biopsy proven has neither CT correlate of disease on the original CT from 04/02/19, nor on the restaging CT. Interval History Rakan reports he is still able to eat and drink as he pleases despite having the left-sided teeth removed in recent weeks by Dr. Xavier. He has a plan in place to complete the extractions the week of 01/17/20. He has pain in the throat and overall states he has lost 30 lbs in the last year, but in the past 3 months he endorses stable weight and excellent appetite. His throat pain improved in the time around his second and third cycles of chemotherapy (once the mucositis induced by the TPF cycle 1 had healed). He notes no lumps or bumps in the neck. No pain in the mouth itself post-extractions. No fevers, chills, or chest pain. He has a chronic dry cough. He has mild LYON. He continues to smoke. Current Therapy Pending, chemoradiation to both HN and L chest Stage OPX [id number] Stage Nedra FRANCISCO [id number] Stage IIB Social History: Current everyday smoker 2 ppd for last 50 years Drinks 6-10 drinks per day Allergies / Meds Allergies: Coded Allergies: No Known Allergies (Unverified , 08/12/19) Home Meds Active Scripts Lidocaine/Prilocaine (Lidocaine-Prilocaine Cream) 2.5%/2.5% Cream..g., 1 APLCT TOP ASDIRECTED, #30 GRAM apply 2.5 grams over port 30 minutes before chemo Prov:CORINNE WRIGHT MD 10/11/19 Reported Medications Lisinopril (Lisinopril) 10 Mg Tablet, 1-2 TAB PO DAILY for 30 Days, #30 TAB 10/27/19 Tramadol HCl (Tramadol HCl) 50 Mg Tablet, 50 MG PO QPM 09/24/19 Celecoxib (Celecoxib) 100 Mg Capsule, 100 MG PO BID, CAP 07/30/19 Tamsulosin HCl (Flomax) 0.4 Mg Capsule, 0.4 MG PO DAILY, CAP 06/11/19 Atenolol (Atenolol) 50 Mg Tablet, 50 MG PO DAILY, TAB 06/11/19 Albuterol Sulfate (Ventolin Hfa) 18 Gm Hfa.aer.ad, 2 PUFF INH Q6HP PRN for wheezing 06/11/19 Folic Acid (Folic Acid) 1 Mg Tablet, 1 MG PO DAILY 06/11/19 Atorvastatin Calcium (Atorvastatin Calcium) 20 Mg Tablet, 20 MG PO QPM, TAB 06/11/19 Tiotropium [place] (Spiriva) 18 Mcg Cap.w.dev, 1 INHALATION INH DAILY, CAP 06/11/19 Allopurinol (Allopurinol) 100 Mg Tablet, 100 MG PO DAILY, TAB 06/11/19 Review of Systems Review of Systems General: Reports: Normal Appetite; Denies: Chills, Night Sweats, Fatigue, Malaise Eyes: Denies: Vision change HEENT: Reports: Sore Throat; Denies: Head Aches, Ear Pain, Sinus Congestion Skin: Denies: Rash, Lesions Pulmonary: Reports: Dyspnea, Cough; Denies: Pleuritic Chest Pain Cardiovascular: Denies: Chest Pain, Palpitations Gastrointestinal: Denies: Nausea, Vomiting, Abdominal Pain Genitourinary: Denies: Dysuria, Frequency, Incontinence Hematologic: Denies: Bruising, Bleeding Excessively Endocrine: Denies: Polydipsia, Heat Intolerance Musculoskeletal: Denies: Neck pain, Leg pain Neurological: Denies: Weakness, Numbness Psych: Denies: Anxiety, Depression Physical Examination Vital Signs Ht 73" Weight 183.4lb BMI 24 T 98 P 71 RR 20 BP 130/77 O2 97% General Exam: Positive: Alert, Cooperative, No Acute Distress Eye Exam: Positive: PERRLA, EOMI ENT EXAM: Positive: Atraumatic, Mucous membr. moist/pink; Negative: Pharynx Normal (Edentulous left hemimouth. Remaining dentition on the right poor, with multiple caries and broken teeth), Other ENT (No pharyngeal or mucosal lesions noted on exam. No palpable masses in FOM on bimanual exam. Was unable to palpate the BOT due to brisk gag. ) Neck Exam: Positive: Supple; Negative: Thyromegaly, Lymphadenopathy Chest Exam: Positive: Clear to auscultation, Normal air movement Heart Exam: Positive: Rate Normal, Regular Rhythm Abdomen Exam: Positive: Normal bowel sounds, Soft; Negative: Tenderness Extremity Exam: Negative: Edema Skin Exam: Positive: Nl turgor and temperature; Negative: Rash Neuro Exam: Positive: Normal Gait, Normal Speech, Strength at 5/5 X4 ext, Normal Tone, Cranial Nerves 3-12 NL Psych Exam: Positive: Mental status NL, Mood NL; Negative: Anxiety Other Physical Findings Laryngoscopy: Patient gave verbal consent for laryngoscopy to assess EOD in the pharynx as CT unclear. Cetacaine was introduced in the left nare. The scope was passed without difficulty through the nasopharynx with no lesions notes. The posterior pharyngeal wall was visualized and had no ulceration or lesions, there was copious clear mucus adherent. The BOT was well visualized BL, there is a sessile mucosal lesion present on the left without ulceration, there is adherent choi tissue covering the lesion in places consistent with the known primary SCC, the lesion tracks inferiorly from the left BOT to the vallecula and pre- epiglottic space on the left. I did not appreciate any lesions on the right BOT, or in the posterior pharyngeal wall. The epiglottis is WNL as are the function of the vocal folds, there are no lesions of either fold. The piriform sinuses are clear BL. I focused special attention to the right arytenoid region and note no discernable mucosal lesions or asymmetry here. The scope was withdrawn without incident the patient tolerated the procedure well. Diagnostic and Laboratory Diagnostic Review Radiologic images, relevant labs and pathology reports were personally reviewed and discussed with Mr. Hernández. Assessment and Plan Impression Assessment Mr. 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 He has received several cycles of induction chemotherapy, which was poorly tolerated, and has delayed receiving dental extractions needed prior to chemoradiation. He is seen today following restaging scans from 12/31/19 showing a favorable response in the lung (shrinking hilar mass), and a fwmc-knbm-htnib response in the neck, to discuss treatment and undergo laryngoscopy. On exam today he has residual tumor in the left BOT which is consistent with my interpretation of the restaging CT neck. Overall there appears to be some favorable response to the induction chemotherapy both in the HN and the left lung. I reviewed this with him in detail. I do not think a PET-CT would be of much help now given that there is clearly residual tumor in the OPX. I will use the initial PET-CT and restaging CTs to assist in planning his treatment to both sites. He has retained a favorable performance status and ability to eat at will through this diagnosis thus far. He is agreeable to completing his dental extractions and proceeding with treatment. I recommend that we treat both synchronous primaries concurrently to 70 Gy in 35 fractions with concurrent chemo and VMAT planning. We agreed mutually that this is the best way forward given the protracted lead up to definitive therapy. I do not think surgery is a good option for him to either site as he is a smoker (not willing to quit), and this would further extend his clinical course. He agrees. I would advocate for weekly chemo given that it increases the chance he will be able to tolerate the full regimen and treatment of both sites simultaneously. I did discuss that under normal circumstances his weight loss since diagnosis (albeit with much improved appetite and ability to eat in recent months) would necessitate PEG tube prior to treatment, he however strongly wishes to avoid a PEG. Thus we will proceed without one to start. He does agree to having one placed in the midst of treatment if his weight begins to decline and I deem it necessary. We will simulate him for treatment once his dental extractions are complete (scheduled to be complete week of 01/17/20), either later in the week, week of 01/24/20 or the week of 01/31/20. We reviewed the side effects of treatment in detail including fatigue, pneumonitis, mucositis, dysphagia, xerostomia, fibrosis, loss of taste and skin reaction. All his questions were answered and we will move forward with the plan. Performance Status ECOG 0 Plan Complete dental extractions week of 01/17/[address] Xavier Concurrent chemoradiation 70 Gy in 35 fractions to both sites Simulation following dental extractions Defer PEG tube placement for now Mr. Hernández was encouraged to call with questions or concerns in the interim period. JANAK MICHELLE MD Jan 04, 2020 11:37
== END ==
LOC: M ONCR 08:59
PROVIDERS: ATTEND General Practice
DX: C34.02 Malignant neoplasm of left main bronchus (principal); C01 Malignant neoplasm of base of tongue; Z92.3 Personal history of irradiation; Z92.21 Personal history of antineoplastic chemotherapy

== ENCOUNTER 2020-02-18 13:34 | Outpatient (RCR) | payer OTHER ==
[~2020-02-18 13:34] MED LIST changes: -ATIV1TAB10 PO; -CETACAINE SPRAY 5GM XX ONE; -MAGICMW PO; -OMEP-218 PO; -OXYC1SOL3 PO; -[UNRECOGNIZED DRUG - CODE] PO
[2020-02-21] MEDS ORDERED: MAGICMW PO (15:45)
== END 2020-02-19 ==
LOC: M ONCR 13:34
PROVIDERS: ATTEND General Practice
DX: C01 Malignant neoplasm of base of tongue (principal)

== ENCOUNTER 2020-03-17 06:50 | Emergency (ER) | payer MEDICAID, OTHER ==
[~2020-03-17] VITALS: Ht 182.9 cm; Wt 74.0 kg
[~2020-03-17 06:50] MED LIST changes: +ATIV1TAB10 PO; +MAGICMW PO; +OMEP-218 PO; +OXYC1SOL3 PO; +[UNRECOGNIZED DRUG - CODE] PO
[2020-03-17] MEDS ORDERED: LIDO2SOL9 (07:18)
--- NOTE | 2020-03-17 08:18 | REP ---
INDICATION: trouble swallowing, known throat/lung cancer. COMPARISON: None. TECHNIQUE: AP and lateral soft tissue neck radiographs (3 total views) FINDINGS: The prevertebral and surrounding soft tissues are grossly normal. Chronic age-related calcific changes to thyroid, hyoid, and cricoid cartilaginous structures are appreciated. The airway is patent, midline, and without evidence for mass effect or narrowing. No significant foreign bodies identified. Skeletal structures demonstrate moderate to advanced degenerative changes primarily involving C5-6 and C4-5. IMPRESSION: No obvious acute abnormality. <Electronically signed by Sy Perla > 03/17/20 [id number]
[2020-03-17 08:31] VITALS: BP 112/74
== END 2020-03-17 08:44 | disposition home or self-care (01) ==
LOC: M ED 06:50
DX: R13.10 Dysphagia, unspecified (principal); K13.70 Unspecified lesions of oral mucosa; C34.92 Malignant neoplasm of unspecified part of left bronchus or lung; C10.9 Malignant neoplasm of oropharynx, unspecified; J44.9 Chronic obstructive pulmonary disease, unspecified; I10 Essential (primary) hypertension; E78.5 Hyperlipidemia, unspecified; F17.210 Nicotine dependence, cigarettes, uncomplicated; Z79.51 Long term (current) use of inhaled steroids; Z79.899 Other long term (current) drug therapy

== ENCOUNTER → 2020-03-20 | Outpatient (RCR) | payer OTHER ==
--- NOTE | 2020-03-03 14:10 | RADENCPD ---
Date/Time of Encounter Date of Encounter: Mar 03, 2020 Time of Encounter: 13:52 Encounter Rakan was not able to receive treatment of the HN today. Reports he has significant anxiety from wearing the mask, feels it is very tight, provoking panic attack. I will prescribe ativan to be taken 30 min prior to RT which will hopefully facilitate remaining treatments. We will treat the L lung isocenter today as it does not require mask. JANAK MICHELLE MD Mar 03, 2020 14:10
[~2020-03-20] MED LIST changes: +LIDO2SOL9
== END ==
LOC: M ONCR 02-21 14:26
PROVIDERS: ATTEND General Practice
DX: C01 Malignant neoplasm of base of tongue (principal); C34.02 Malignant neoplasm of left main bronchus

== ENCOUNTER 2020-04-13 07:21 | Outpatient (RCR) | payer OTHER ==
--- NOTE | 2020-03-30 14:08 | RADENCPD ---
Date/Time of Encounter Date of Encounter: Mar 30, 2020 Time of Encounter: 13:58 Encounter Asked to see Rakan prior to tx today as he is feeling weak and his left knee and elbow are hurting him. He has not had anything to eat today, but has been taking PO. Stable dysphagia as has been the case for several weeks. He notes no CP or SOB, has a productive cough as before. His left knee and left elbow have arthritis and he was unable to get in touch with his PCP regarding a steroid pulse which usually works well for this. Vitals BP 96/66 P 134 RR 22 T 98 Exam: Breathing unlabored but rapid. No acute distress, pleasant and conversational Assessment: Dehydration 2/2 RT side effects. Would benefit from IVF and steroids. Arthritis left knee and elbow. Plan: 1L NS today and tomorrow 8 mg IV decadron today Tomorrow start 40 mg prednisone x 5 days JANAK MICHELLE MD Mar 30, 2020 14:08
[2020-03-30 14:25] VITALS: BP 98/66
[2020-03-30] MEDS: SODIUM CHLORIDE 0.9% INJ 10 ML SYR IV PRN (15:42)
[2020-03-31 12:28] VITALS: BP 112/77
[2020-03-31] MEDS: SODIUM CHLORIDE 0.9% INJ 10 ML SYR IV PRN (12:32)
--- NOTE | 2020-04-04 15:09 | RADENCPD ---
Date/Time of Encounter Date of Encounter: Apr 04, 2020 Time of Encounter: 15:02 Encounter Rakan has struggled mightily with completing the last 11 radiation fractions to his head and neck primary site (the thoracic fractions have been completed and were not problematic). He has significant anticipatory anxiety from his mask and fear of choking. This has been refractory to ativan 0.5 mg and increased hydration and narcotic pain medications (he has dysphagia and odynophagia from treatment). Today he was unable to complete RT despite the full removal of the anterior portion of his immobilization. We had a mason discussion about whether or not to continue treatment. He was adamant that he wants to complete treatment, states he lost a son to cancer earlier this year, hence his ardent desire to complete this course. As a last ditch effort, and to make up for lost fractions I will accelerate his course, he will receive BID treatment for the remaining fractions. I will premedicate him with 2 mg Ativan PO 15 minutes before each treatment. He will need a skip load driver to and from appointments for this. There will be 6 hours between fractions. He agreed to try. This will start tomorrow. I expect his side effects will intensify, he is ok with this possibility. If he is unable to proceed with treatment even with these extreme measures (I explained that I cannot and will not increase sedatives beyond this level), then we both agreed to cancel his remaining treatments. JANAK MICHELLE MD Apr 04, 2020 15:09
[2020-04-07 09:00] VITALS: BP 81/57
[~2020-04-13 07:21] MED LIST changes: +DEXAMETHASONE 4 MG/ML IV ONE; +LOPE1CAP5 PO; +LORA2CON5 PO; +MORP-69 PO; +NS 1,000 ML IV ONE; +NS BOLUS IV SCH; +ONDANSETRON 4MG/2ML VIAL IV ONE; +SODIUM CHLORIDE 0.9% INJ 10 ML SYR IV PRN; +dexameTHASONE 4 MG/ML 1ML VIAL (J1100 PER 1MG) IV ONE
== END 2020-04-20 ==
LOC: M ONCR 07:21
PROVIDERS: ATTEND General Practice
DX: C01 Malignant neoplasm of base of tongue (principal)

== ENCOUNTER → 2020-04-20 | Outpatient (CLI) | payer OTHER ==
[~2020-04-20] MED LIST changes: -DEXAMETHASONE 4 MG/ML IV ONE; -NS 1,000 ML IV ONE; -NS BOLUS IV SCH; -ONDANSETRON 4MG/2ML VIAL IV ONE; -SODIUM CHLORIDE 0.9% INJ 10 ML SYR IV PRN; -dexameTHASONE 4 MG/ML 1ML VIAL (J1100 PER 1MG) IV ONE
== END ==
LOC: M ONCR 08:57
PROVIDERS: ATTEND General Practice
DX: C01 Malignant neoplasm of base of tongue (principal); C34.02 Malignant neoplasm of left main bronchus

== ENCOUNTER 2020-05-03 10:27 | Inpatient (IN) | payer OTHER ==
[2020-05-03] VITALS (13 sets, daily range): BP systolic 97–110; BP diastolic 67–76
[~2020-05-03] VITALS: Ht 185.4 cm; Wt 68.2 kg
[~2020-05-03 10:27] MED LIST changes: -ELIQ5TAB PO
--- OUTSIDE RECORDS SUMMARY | 2020-05-03 10:35 | CCD ---
Author Author [facility] Organization [facility] Address Unknown Phone Unavailable Care Team Providers Care President Name Role Phone Dread ASNDHU MD Unavailable Unavailable Dread SANDHU MD Unavailable Unavailable Dread SANDHU MD Unavailable Unavailable Dread SANDHU MD Unavailable Unavailable Dread SANDHU MD Unavailable Unavailable Dread SANDHU MD Unavailable Unavailable Dread SANDHU MD Unavailable Unavailable Dread SANDHU MD Unavailable Unavailable Dread SANDHU MD Unavailable Unavailable Dread SANDHU MD Unavailable Unavailable Dread SANDHU MD Unavailable Unavailable Dread SANDHU MD Unavailable Unavailable Dread SANDHU MD Unavailable Unavailable Dread SANDHU MD Unavailable Unavailable Dread SANDHU MD Unavailable Unavailable Dread SANDHU MD Unavailable Unavailable Dread SANDHU MD Unavailable Unavailable Dread SANDHU MD Unavailable Unavailable Dread SANDHU MD Unavailable Unavailable Dread SANDHU MD Unavailable Unavailable Dread SANDHU MD Unavailable Unavailable Dread SANDHU MD Unavailable Unavailable Dread SANDHU MD Unavailable Unavailable Dread SANDHU MD Unavailable Unavailable Dread SADNHU MD Unavailable Unavailable Dread SANDHU MD Unavailable Unavailable Dread SANDHU MD Unavailable Unavailable Dread SANDHU MD Unavailable Unavailable Dread SANDHU MD Unavailable Unavailable Dread SANDHU MD Unavailable Unavailable Dread SANDHU MD Unavailable Unavailable Dread SANDHU MD Unavailable Unavailable Dread SANDHU MD Unavailable Unavailable Dread SANDHU MD Unavailable Unavailable Dread SANDHU MD Unavailable Unavailable OBEN, T MEGHNA MD Unavailable Unavailable OBEN, T MEGHNA MD Unavailable Unavailable OBEN, T MEGHNA MD Unavailable Unavailable OBEN, T MEGHNA MD Unavailable Unavailable OBEN, T MEGHNA MD Unavailable Unavailable OBEN, T MEGHNA MD Unavailable Unavailable OBEN, T MEGHNA MD Unavailable Unavailable OBEN, T MEGHNA MD Unavailable Unavailable OBEN, T MEGHNA MD Unavailable Unavailable OBEN, T MEGHNA MD Unavailable Unavailable OBEN, T MEGHNA MD Unavailable Unavailable OBEN, T MEGHNA MD Unavailable Unavailable OBEN, T MEGHNA MD Unavailable Unavailable OBEN, T MEGHNA MD Unavailable Unavailable OBEN, T MEGHNA MD Unavailable Unavailable OBEN, T MEGHNA MD Unavailable Unavailable OBEN, T MEGHNA MD Unavailable Unavailable OBEN, T MEGHNA MD Unavailable Unavailable OBEN, T MEGHNA MD Unavailable Unavailable OBEN, T MEGHNA MD Unavailable Unavailable OBEN, T MEGHNA MD Unavailable Unavailable OBEN, T MEGHNA MD Unavailable Unavailable OBEN, T MEGHNA MD Unavailable Unavailable OBEN, T MEGHNA MD Unavailable Unavailable OBEN, T MEGHNA MD Unavailable Unavailable OBEN, T MEGHNA MD Unavailable Unavailable OBEN, T MEGHNA MD Unavailable Unavailable OBEN, T MEGHNA MD Unavailable Unavailable OBEN, T MEGHNA MD Unavailable Unavailable OBEN, T MEGHNA MD Unavailable Unavailable OBEN, T MEGHNA MD Unavailable Unavailable OBEN, T MEGHNA MD Unavailable Unavailable OBEN, T MEGHNA MD Unavailable Unavailable OBEN, T MEGHNA MD Unavailable Unavailable OBEN, T MEGHNA MD Unavailable Unavailable OBEN, T MEGHNA MD Unavailable Unavailable OBEN, T MEGHNA MD Unavailable Unavailable OBEN, T MEGHNA MD Unavailable Unavailable OBEN, T MEGHNA MD Unavailable Unavailable OBEN, T MEGHNA MD Unavailable Unavailable OBEN, T MEGHNA MD Unavailable Unavailable OBEN, T MEGHNA MD Unavailable Unavailable OBEN, T MEGHNA MD Unavailable Unavailable OBEN, T MEGHNA MD Unavailable Unavailable OBEN, T MEGHNA MD Unavailable Unavailable OBEN, T MEGHNA MD Unavailable Unavailable OBEN, T MEGHNA MD Unavailable Unavailable OBEN, T MEGHNA MD Unavailable Unavailable OBEN, T MEGHNA MD Unavailable Unavailable OBEN, T MEGHNA Unavailable Unavailable OBEN, T MEGHNA Unavailable Unavailable OBEN, T MEGHNA Unavailable Unavailable OBEN, T MEGHNA Unavailable Unavailable OBEN, T MEGHNA Unavailable Unavailable OBEN, T MEGHNA Unavailable Unavailable OBEN, T MEGHNA Unavailable Unavailable Bartoszewski, Dana Isabelle MS, RPA-C Unavailable Unav ailable Bartoszewski, Dana Isabelle MS, RPA-C Unavailable Unav ailable Bartoszewski, Dana Isabelle MS, RPA-C Unavailable Unav ailable Bartoszewski, Dana Isabelle MS, RPA-C Unavailable Unav ailable Bartoszewski, Dana Isabelle MS, RPA-C Unavailable Unav ailable Bartoszewski, Dana Isabelle MS, RPA-C Unavailable Unav ailable Bartoszewski, Dana Isabelle MS, RPA-C Unavailable Unav ailable Bartoszewski, Dana Isabelle MS, RPA-C Unavailable Unav ailable Bartoszewski, Dana Isabelle MS, RPA-C Unavailable Unav ailable Bartoszewski, Dana Isabelle MS, RPA-C Unavailable Unav ailable Bartoszewski, Dana Isabelle MS, RPA-C Unavailable Unav ailable Bartoszewski, Dana Isabelle MS, RPA-C Unavailable Unav ailable Bartoszewski, Dana Isabelle MS, RPA-C Unavailable Unav ailable Bartoszewski, Dana Isabelle MS, RPA-C Unavailable Unav ailable Bartoszewski, Dana Isabelle MS, RPA-C Unavailable Unav ailable Bartoszewski, Dana Isabelle MS, RPA-C Unavailable Unav ailable Bartoszewski, Dana Isabelle MS, RPA-C Unavailable Unav ailable Bartoszewski, Dana Isabelle MS, RPA-C Unavailable Unav ailable Bartoszewski, Dana Isabelle MS, RPA-C Unavailable Unav ailable Bartoszewski, Dana Isabelle MS, RPA-C Unavailable Unav ailable Bartoszewski, Dana Isabelle MS, RPA-C Unavailable Unav ailable Bartoszewski, Dana Isabelle MS, RPA-C Unavailable Unav ailable Bartoszewski, Dana Isabelle MS, RPA-C Unavailable Unav ailable Bartoszewski, Dana Isabelle MS, RPA-C Unavailable Unav ailable Bartoszewski, Dana Isabelle MS, RPA-C Unavailable Unav ailable Bartoszewski, Dana Isabelle MS, RPA-C Unavailable Unav ailable Bartoszewski, Dana Isabelle MS, RPA-C Unavailable Unav ailable Bartoszewski, Dana Isabelle MS, RPA-C Unavailable Unav ailable Bartoszewski, Dana Isabelle MS, RPA-C Unavailable Unav ailable RICH, LEONARD MD Unavailable Unavailable RICH, LEONARD MD Unavailable Unavailable RICH, LEONARD MD Unavailable Unavailable RICH, LEONARD MD Unavailable Unavailable RICH, LEONARD MD Unavailable Unavailable RICH, LEONARD MD Unavailable Unavailable RICH, LEONARD MD Unavailable Unavailable RICH, LEONARD MD Unavailable Unavailable RICH, LEONARD MD Unavailable Unavailable RICH, LEONARD MD Unavailable Unavailable RICH, LEONARD MD Unavailable Unavailable RICH, LEONARD MD Unavailable Unavailable RICH, LEONARD MD Unavailable Unavailable RICH, LEONARD MD Unavailable Unavailable RICH, LEONARD MD Unavailable Unavailable RICH, LEONARD MD Unavailable Unavailable RICH, LEONARD MD Unavailable Unavailable RICH, LEONARD MD Unavailable Unavailable RICH, LEONARD MD Unavailable Unavailable RICH, LEONARD MD Unavailable Unavailable RICH, LEONARD MD Unavailable Unavailable RICH, LEONARD MD Unavailable Unavailable RICH, LEONARD MD Unavailable Unavailable RICH, LEONARD MD Unavailable Unavailable RICH, LEONARD MD Unavailable Unavailable RICH, LEONARD MD Unavailable Unavailable RICH, LEONARD MD Unavailable Unavailable RICH, LEONARD MD Unavailable Unavailable RICH, LEONARD MD Unavailable Unavailable RICH, LEONARD MD Unavailable Unavailable RICH, LEONARD MD Unavailable Unavailable RICH, LEONARD MD Unavailable Unavailable RICH, LEONARD MD Unavailable Unavailable RICH, LEONARD MD Unavailable Unavailable RICH, LEONARD MD Unavailable Unavailable RICH, LEONARD MD Unavailable Unavailable RICH, LEONARD MD Unavailable Unavailable RICH, LEONARD MD Unavailable Unavailable RICH, LEONARD MD Unavailable Unavailable RICH, LEONARD MD Unavailable Unavailable RICH, LEONARD MD Unavailable Unavailable RICH, LEONARD MD Unavailable Unavailable RICH, LEONARD MD Unavailable Unavailable RICH, LEONARD MD Unavailable Unavailable RICH, LEONARD MD Unavailable Unavailable LEONARD RICH MD Unavailable Unavailable LEONARD RICH MD Unavailable Unavailable LEONARD RICH MD Unavailable Unavailable LEONARD RICH MD Unavailable Unavailable LEONARD RICH MD Unavailable Unavailable LEONARD RICH MD Unavailable Unavailable LEONARD RICH MD Unavailable Unavailable LEONARD RICH MD Unavailable Unavailable LEONARD RICH MD Unavailable Unavailable LEONARD RICH MD Unavailable Unavailable LEONARD RICH MD Unavailable Unavailable LEONARD RICH MD Unavailable Unavailable LEONARD RICH MD Unavailable Unavailable LEONARD RICH MD Unavailable Unavailable LEONARD RICH MD Unavailable Unavailable LEONARD RICH MD Unavailable Unavailable LEONARD RICH MD Unavailable Unavailable LEONARD RICH MD Unavailable Unavailable LEONARD RICH MD Unavailable Unavailable LEONARD RICH MD Unavailable Unavailable LEONARD RICH MD Unavailable Unavailable LEONARD RICH MD Unavailable Unavailable LEONARD RICH MD Unavailable Unavailable Raffi Rojas MD Unavailable Unavailable Raffi Rojas MD Unavailable Unavailable Raffi Rojas MD Unavailable Unavailable Raffi Rojas MD Unavailable Unavailable Raffi Rojas MD Unavailable Unavailable Raffi Rojas MD Unavailable Unavailable Raffi Rojas MD Unavailable Unavailable Raffi Rojas MD Unavailable Unavailable Raffi Rojas MD Unavailable Unavailable Raffi Rojas MD Unavailable Unavailable Raffi Rojas MD Unavailable Unavailable Raffi Rojas MD Unavailable Unavailable Raffi Rojas MD Unavailable Unavailable Raffi Rojas MD Unavailable Unavailable Raffi Rojas MD Unavailable Unavailable Raffi Rojas MD Unavailable Unavailable Raffi Rojas MD Unavailable Unavailable Raffi Rojas MD Unavailable Unavailable Raffi Rojas MD Unavailable Unavailable Raffi Rojas MD Unavailable Unavailable Raffi Rojas MD Unavailable Unavailable Raffi Rojas MD Unavailable Unavailable Raffi Rojas MD Unavailable Unavailable Raffi Rojas MD Unavailable Unavailable Raffi Rojas MD Unavailable Unavailable Raffi Rojas MD Unavailable Unavailable Raffi Rojas MD Unavailable Unavailable Raffi Rojas MD Unavailable Unavailable Raffi Rojas MD Unavailable Unavailable Raffi Rojas MD Unavailable Unavailable Raffi Rojas MD Unavailable Unavailable Raffi Rojas MD Unavailable Unavailable Raffi Rojas MD Unavailable Unavailable Raffi Rojas MD Unavailable Unavailable Raffi Rojas MD Unavailable Unavailable Raffi Rojas MD Unavailable Unavailable Raffi Rojas MD Unavailable Unavailable Raffi Rojas MD Unavailable Unavailable Raffi Rojas MD Unavailable Unavailable Raffi Rojas MD Unavailable Unavailable Raffi Rojas MD Unavailable Unavailable Raffi Rojas MD Unavailable Unavailable Raffi Rojas MD Unavailable Unavailable Raffi Rojas MD Unavailable Unavailable Rojas, Raffi Melendez MD Unavailable Unavailable Rojas, Raffi Melendez MD Unavailable Unavailable Rojas, Raffi Melendez MD Unavailable Unavailable Rojas, Raffi Melendez MD Unavailable Unavailable Rojas, Raffi Melendez MD Unavailable Unavailable Rojas, Raffi Melendez MD Unavailable Unavailable Bartoszewski, Dana Isabelle MS, RPA-C Unavailable Unav ailable Bartoszewski, Dana Isabelle MS, RPA-C Unavailable Unav ailable Bartoszewski, Dana Isabelle MS, RPA-C Unavailable Unav ailable Bartoszewski, Dana Isabelle MS, RPA-C Unavailable Unav ailable Bartoszewski, Dana Isabelle MS, RPA-C Unavailable Unav ailable Bartoszewski, Dana Isabelle MS, RPA-C Unavailable Unav ailable Bartoszewski, Dana Isabelle MS, RPA-C Unavailable Unav ailable Bartoszewski, Dana Isabelle MS, RPA-C Unavailable Unav ailable Bartoszewski, Dana Isabelle MS, RPA-C Unavailable Unav ailable Bartoszewski, Dana Isabelle MS, RPA-C Unavailable Unav ailable Bartoszewski, Dana Isabelle MS, RPA-C Unavailable Unav ailable Bartoszewski, Dana Isabelle MS, RPA-C Unavailable Unav ailable Bartoszewski, Dana Isabelle MS, RPA-C Unavailable Unav ailable Bartoszewski, Dana Isabelle MS, RPA-C Unavailable Unav ailable Bartoszewski, Dana Isabelle MS, RPA-C Unavailable Unav ailable Bartoszewski, Dana Isabelle MS, RPA-C Unavailable Unav ailable Bartoszewski, Dana Isabelle MS, RPA-C Unavailable Unav ailable Bartoszewski, Dana Isabelle MS, RPA-C Unavailable Unav ailable Bartoszewski, Dana Isabelle MS, RPA-C Unavailable Unav ailable Bartoszewski, Dana Isabelle MS, RPA-C Unavailable Unav ailable Bartoszewski, Dana Isabelle MS, RPA-C Unavailable Unav ailable Bartoszewski, Dana Isabelle MS, RPA-C Unavailable Unav ailable Bartoszewski, Dana Isabelle MS, RPA-C Unavailable Unav ailable Bartoszewski, Dana Walton MS, RPA-C Unavailable Unav ailable Bartoszewski, Dana Walton MS, RPA-C Unavailable Unav ailable Bartoszewski, Dana Walton MS, RPA-C Unavailable Unav ailable Bartoszewski, Danapiotr Walton MS, RPA-C Unavailable Unav ailable Bartoszewski, Dana Walton MS, RPA-C Unavailable Unav ailable Bartoszewski, Dana Walton MS, RPA-C Unavailable Unav ailable Re-disclosure Warning The records that you are about to access may contain information from federally-assisted alcohol or drug abuse programs. If such information is present, then the following federally mandated warning applies: This information has been disclosed to you from records protected by federal confidentiality rules (42 CFR part 2). The federal rules prohibit you from making any further disclosure of this information unless further disclosure is expressly permitted by the written consent of the person to whom it pertains or as otherwise permitted by 42 CFR part 2. A general authorization for the release of medical or other information is NOT sufficient for this purpose. The Federal rules restrict any use of the information to criminally investigate or prosecute any alcohol or drug abuse patient.The records that you are about to access may contain highly sensitive health information, the redisclosure of which is protected by Article 27-F of the [facility] Public Health law. If you continue you may have access to information: Regarding HIV / AIDS; Provided by facilities licensed or operated by the [facility] Office of Mental Health; or Provided by the [facility] Office for People With Developmental Disabilities. If such information is present, then the following [facility] mandated warning applies: This information has been disclosed to you from confidential records which are protected by state law. State law prohibits you from making any further disclosure of this information without the specific written consent of the person to whom it pertains, or as otherwise permitted by law. Any unauthorized further disclosure in violation of state law may result in a fine or penitentiary sentence or both. A general authorization for the release of medical or other information is NOT sufficient authorization for further disc losure. Allergies and Adverse Reactions Type Description Substance Reaction Status Data Source(s ) No Known Drug Allergies No Known Drug Allergies [facility] No Known Environmental Allergies No Known Environmental Al lergies [facility] No Known Food Allergies No Known Food Allergies [facility] Family History Family Member Name Family Member Gender Family Member Status Date o f Status Description Data Source(s) Unknown Male Problem [facility] ([facility]) Unknown Female Problem [facility] ([facility]) Unknown Female Problem [facility] ([facility]) Encounters Encounter Providers Location Date Indications Data Source(s ) Outpatient Attender: LEONARD RICH MDConsultant: LEONARD Quintana MD 03/09/2020 07:06:00 AM EST - 03/09/2020 07:06:00 AM EST [facility] Outpatient Attender: MEGHNA RIVAS MDConsultant: LEONARD RICH MD 02/09/2020 07:57:00 AM EDT - 02/09/2020 07:57:00 AM EDT [facility] Outpatient Attender: LEONARD RICH MDConsultant: LEONARD Quintana MD 2019 06:53:00 AM EDT - 2019 06:53:00 AM EDT [facility] Outpatient Attender: LEONARD RICH MDConsultant: LEONARD Quintana MD 10/20/2019 06:48:00 AM EDT - 10/20/2019 06:48:00 AM EDT [facility] Outpatient 10/14/2019 04:48:00 AM EDT [facility] Outpatient 10/14/2019 04:48:00 AM EDT [facility] Outpatient 09/24/2019 05:36:00 AM EDT [facility] Outpatient Attender: LEONARD RICH MD Family Practice 09/22/2019 0 4:00:00 PM EDT [facility] ([facility]) Outpatient Attender: LEONARD RICH MDConsultant: LEONARD Quintana MD 09/22/2019 03:40:00 PM EDT - 09/22/2019 03:40:00 PM EDT [facility] Outpatient 08/10/2019 05:25:00 AM EDT [facility] Outpatient Attender: Al Sandhu/Mariaelena/Chad/Radha hwangl 08/09/2019 08:30:00 AM EDT [facility] ([facility]) Outpatient 07/30/2019 05:46:00 AM EDT [facility] Outpatient Attender: Al Sandhu/Mariaelena/Chad/aRdha hines 07/16/2019 10:00:00 AM EDT [facility] ([facility] ) Outpatient Attender: LEONARD RICH MDConsultant: LEONARD Quintana MD 07/06/2019 07:06:00 AM EDT - 07/06/2019 07:06:00 AM EDT [facility] Outpatient Attender: LEONARD RICH MDConsultant: LEONARD Quintana MD 07/02/2019 09:10:00 AM EDT - 07/02/2019 10:10:00 AM EDT [facility] Outpatient Attender: LEONARD RICH MD Family [facility] 06/29/2019 0 8:20:00 AM EDT [facility] ([facility]) Outpatient Attender: LEONARD RICH MDConsultant: LEONARD Quintana MD 06/29/2019 08:05:00 AM EDT - 06/29/2019 08:05:00 AM EDT [facility] Outpatient Attender: LEONARD RICH MDConsultant: LEONARD Quintana MD 06/16/2019 12:41:00 PM EST - 06/16/2019 12:41:00 PM [facility] Outpatient Attender: MEGHNA RIVAS MDConsultant: LEONARD RICH MD 05/05/2019 08:22:00 AM EST - 05/05/2019 08:22:00 AM [facility] Outpatient Attender: Isabelle Vail MS, RPA-C Family [facility] 05/05/2019 07:30:00 AM EST [facility] ([facility] Outpatient Attender: Isabelle Prajapati i, MS, RPA-CAttender: LEONARD RICH MDReferrer: MEGHNA RIVAS MDConsultant: LEONARD RICH MD 0 05/03/2019 02:07:00 PM EST - 05/03/2019 02:17:00 PM EST [facility] Attender: LEONARD RICH MDConsultant: LEONARD Quintana MD 05/03/2019 07:35:00 AM EST - 05/03/2019 07:35:00 AM EST [facility] Outpatient Attender: JERSON Sandhu/Mariaelena/Chad/Ike quintana 04/28/2019 08:15:00 AM EST [facility] ([facility] Outpatient 04/18/2019 06:26:00 PM EST [facility] Medications Medication Brand Name Start Date Product Form Dose Route Admi nistrative Instructions Pharmacy Instructions Status Indications Reaction Description Data Source(s) 20 mg 04/08/2020 12:00:00 AM EST tablet 10 TAKE TWO TABLETS BY MOUTH EVERY DAY TAKE TWO TABLETS BY MOUTH EVERY DAY SOLD: 04/19/2020 [facility] 4 mg 04/03/2020 12:00:00 AM EST tablet,disintegrating 3 0 DISSOLVE ONE TABLET ON TONGUE EVERY 6 TO 8 HOURS NEEDED FOR NAUSEA/VOMITING DISSOLVE ONE TABLET ON TONGUE EVERY 6 TO 8 HOURS NEEDED FOR NAUSEA/VOMITING SOLD: 04/03/2020 [facility] 20 mg 04/03/2020 12:00:00 AM EST tablet 14 TAKE TWO TABLETS BY MOUTH EVERY DAY FOR 7 DAYS TAKE TWO TABLETS BY MOUTH EVERY DAY FOR 7 DAYS SOLD: 020 [facility] 15 mg 04/03/2020 12:00:00 AM EST tablet extended release 30 TAKE ONE TABLET BY MOUTH TWICE A DAY - MAXIMUM DAILY DOSE = 2 TAKE ONE TABLET BY MOUTH TWICE A DAY - MAXIMUM DAILY DOSE = 2 SOLD: 04/03/2020 [facility] 20 mg 03/30/2020 12:00:00 AM EST tablet 10 TAKE TWO TABLETS BY MOUTH EVERY DAY TAKE TWO TABLETS BY MOUTH EVERY DAY SOLD: 04/03/2020 [facility] 0.5 mg 03/27/2020 12:00:00 AM EST tablet 60 TAKE TWO TABLETS BY MOUTH EVERY DAY NEEDED FOR ANXIETY 30 MINUTES PRIOR TO RADIATION APPTS MAXIMUM DAILY DOSE = 2 TAKE TWO TABLETS BY MOUTH EVERY DAY N EEDED FOR ANXIETY 30 MINUTES PRIOR TO RADIATION APPTS MAXIMUM DAILY DOSE = 2 SOLD: 03/27/2020 [facility] 0.4 mg 03/17/2020 12:00:00 AM EST capsule 30 TAKE ONE CAPSULE BY MOUTH EVERY DAY 30 MINUTES AFTER THE SAME MEAL EACH DAY TAKE ONE CAPSULE BY MOUTH EVERY DAY 30 MINUTES AFTER THE SAME MEAL EACH DAY SOLD: 04/19/2020 [facility] 0.4 mg 03/17/2020 12:00:00 AM EST capsule 30 TAKE ONE CAPSULE BY MOUTH EVERY DAY 30 MINUTES AFTER THE SAME MEAL EACH DAY TAKE ONE CAPSULE BY MOUTH EVERY DAY 30 MINUTES AFTER THE SAME MEAL EACH DAY SOLD: 03/20/2020 [facility] [id number] 03/13/2020 12:00:00 AM EST suspension 480 TAKE 10ML BY MOUTH 4 TIMES DAILY NEEDED FOR MUCOSITIS TAKE 10ML BY MOUTH 4 TIMES DAILY NEED ED FOR MUCOSITIS SOLD: 04/19/2020 [facility] [id number] 03/13/2020 12:00:00 AM EST suspension 480 TAKE 10ML BY MOUTH 4 TIMES DAILY NEEDED FOR MUCOSITIS TAKE 10ML BY MOUTH 4 TIMES DAILY NEED ED FOR MUCOSITIS SOLD: 03/29/2020 [facility] 5 mg/5 mL 03/13/2020 12:00:00 AM EST solution 840 TAKE 10ML BY MOUTH EVERY 4 HOURS FOR PAIN MAXIMUM DAILY DOSE = 60ML TAKE 10ML BY MOUTH EVERY 4 HOURS FOR PAIN MAXIMUM DAILY DOSE = 60ML SOLD: 03/29/2020 [facility] [id number] 03/13/2020 12:00:00 AM EST suspension 480 TAKE 10ML BY MOUTH 4 TIMES DAILY NEEDED FOR MUCOSITIS TAKE 10ML BY MOUTH 4 TIMES DAILY NEED ED FOR MUCOSITIS SOLD: 03/29/2020 [facility] 25 mg 03/10/2020 12:00:00 AM EST tablet 60 TAKE ONE TABLET BY MOUTH EVERY 8 HOURS NEEDED TAKE ONE TABLET BY MOUTH EVERY 8 HOURS NEEDED SOLD: 03/13/2020 [facility] 62.5 mcg/actuation 03/07/2020 12:00:00 AM EST blister with d evice 30 INHALE ONE PUFF BY MOUTH EVERY DAY INHALE ONE PUFF BY MOUTH EVERY DAY SOLD: 04/19/2020 [facility] 62.5 mcg/actuation 03/07/2020 12:00:00 AM EST blister with d evice 30 INHALE ONE PUFF BY MOUTH EVERY DAY INHALE ONE PUFF BY MOUTH EVERY DAY SOLD: 03/29/2020 [facility] 0.5 mg 03/03/2020 12:00:00 AM EST tablet 30 TAKE ONE TABLET BY MOUTH EVERY DAY NEEDED FOR ANXIETY, TAKE 30 MINUTES PRIOR TO RADIATION APPOINTMENTS MAXIMUM DAILY DOSE = 1 TABLET TAKE ONE TABLET BY MOUTH EVERY DAY NE EDED FOR ANXIETY, TAKE 30 MINUTES PRIOR TO RADIATION APPOINTMENTS MAXIMUM DAILY DOSE = 1 TABLET SOLD: 03/05/2020 [facility] 20 mg 03/01/2020 12:00:00 AM EST capsule,delayed release (DR/EC) 30 TAKE ONE CAPSULE BY MOUTH EVERY DAY TAKE ONE CAPSULE BY MOUTH EVERY DAY SOLD: 03/05/2020 [facility] 5 mg/5 mL 02/28/2020 12:00:00 AM EST solution 210 TAKE 5ML BY MOUTH EVERY 4 HOURS FOR PAIN MAXIMUM DAILY DOSE = 30ML TAKE 5ML BY MOUTH EVERY 4 HOURS FOR PAIN MAXIMUM DAILY DOSE = 30ML SOLD: 03/08/2020 [facility] Atenolol 50 MG Oral Tablet ATENOLOL 02/25/2020 12:00:00 AM EST tablet 45 TAKE 1/2 TABLT BY MOUTH ONCE DAILY TAKE 1/2 TABLT BY MOUTH ONCE DAILY SOLD: 02/27/2020 [facility] 4 mg 01/30/2020 12:00:00 AM EDT tablet 40 TAKE 5 TABLETS BY MOUTH NIGHT BEFORE AND MORNING OF CHEMOTHERAPY WEEKLY FOR 6 WEEKS TAKE 5 TABLETS BY MOUTH NIGHT BEFORE AND MORNING OF CHEMOTHERAPY WEEKLY FOR 6 WEEKS SOLD: 01/31/2020 [facility] 5-325 mg 01/21/2020 12:00:00 AM EDT tablet 16 TAKE ONE TABLET BY MOUTH EVERY 6 HOURS NEEDED FOR PAIN MAXIMUM DAILY DOSE = 4 TAKE ONE TABLET BY MOUTH EVERY 6 HOURS NEEDED FOR PAIN MAXIMUM DAILY DOSE = 4 SOLD: 01/24/2020 [facility] 500 mg 01/14/2020 12:00:00 AM EDT tablet 4 TAKE FOUR TABLETS BY MOUTH 1 HOUR PRIOR TO DENTAL PROCEDURE TAKE FOUR TABLETS BY MOUTH 1 HOUR PRIOR TO DENTAL PROCEDURE SOLD: 01/17/2020 [facility] 500 mg 01/14/2020 12:00:00 AM EDT tablet 4 TAKE FOUR TABLETS BY MOUTH 1 HOUR PRIOR TO DENTAL PROCEDURE TAKE FOUR TABLETS BY MOUTH 1 HOUR PRIOR TO DENTAL PROCEDURE SOLD: 01/31/2020 [facility] 90 mcg/actuation 01/12/2020 12:00:00 AM EDT HFA aerosol inha ler 18 INHALE TWO PUFFS BY MOUTH EVERY 4-6 HOURS NEEDED INHALE TWO PUFFS BY MOUTH EVERY 4-6 HOURS NEEDED SOLD: 01/12/2020 [facility] 90 mcg/actuation 01/12/2020 12:00:00 AM EDT HFA aerosol inha ler 18 INHALE TWO PUFFS BY MOUTH EVERY 4-6 HOURS NEEDED INHALE TWO PUFFS BY MOUTH EVERY 4-6 HOURS NEEDED SOLD: 03/29/2020 [facility] 0.12 % 12/10/2019 12:00:00 AM EDT mouthwash 473 SWISH WITH 15 MLS FOR 30 SECONDS AND EXPECTORATE FOUR TIMES A DAY SWISH WITH 15 MLS FOR 30 SECONDS AND EXPECTORATE FOUR TIMES A DAY SOLD: 12/14/2019 [facility] 0.12 % 12/10/2019 12:00:00 AM EDT mouthwash 473 SWISH WITH 15 MLS FOR 30 SECONDS AND EXPECTORATE FOUR TIMES A DAY SWISH WITH 15 MLS FOR 30 SECONDS AND EXPECTORATE FOUR TIMES A DAY SOLD: 01/12/2020 [facility] 5-325 mg 12/10/2019 12:00:00 AM EDT tablet 20 TAKE ONE TABLET BY MOUTH EVERY 6 HOURS NEEDED FOR PAIN MAXIMUM DAILY DOSE = 4 TAKE ONE TABLET BY MOUTH EVERY 6 HOURS NEEDED FOR PAIN MAXIMUM DAILY DOSE = 4 SOLD: 12/14/2019 [facility] 62.5 mcg/actuation 12/06/2019 12:00:00 AM EDT blister with d evice 30 INHALE ONE PUFF BY MOUTH EVERY DAY INHALE ONE PUFF BY MOUTH EVERY DAY SOLD: 12/16/2019 [facility] 62.5 mcg/actuation 12/06/2019 12:00:00 AM EDT blister with d evice 30 INHALE ONE PUFF BY MOUTH EVERY DAY INHALE ONE PUFF BY MOUTH EVERY DAY SOLD: 01/31/2020 [facility] 62.5 mcg/actuation 12/06/2019 12:00:00 AM EDT blister with d evice 30 INHALE ONE PUFF BY MOUTH EVERY DAY INHALE ONE PUFF BY MOUTH EVERY DAY SOLD: 01/03/2020 [facility] 500 mg 2019 12:00:00 AM EDT capsule 4 TAKE FOUR TABLETS BY MOUTH ONE HOUR BEFORE APPOINTMENT TAKE FOUR TABLETS BY MOUTH ONE HOUR BEFORE APPOINTMENT SOLD: 01/03/2020 [facility] 500 mg 2019 12:00:00 AM EDT capsule 4 TAKE FOUR TABLETS BY MOUTH ONE HOUR BEFORE APPOINTMENT TAKE FOUR TABLETS BY MOUTH ONE HOUR BEFORE APPOINTMENT SOLD: 12/14/2019 [facility] 500 mg 2019 12:00:00 AM EDT capsule 4 TAKE FOUR TABLETS BY MOUTH ONE HOUR BEFORE APPOINTMENT TAKE FOUR TABLETS BY MOUTH ONE HOUR BEFORE APPOINTMENT SOLD: 12/14/2019 [facility] 50 mg 11/04/2019 12:00:00 AM EDT tablet 7 TAKE ONE TABLET BY MOUTH AT BEDTIME - MAXIMUM DAILY DOSE = 1 TAKE ONE TABLET BY MOUTH AT BEDTIME - MA XIKHURRAMM DAILY DOSE = 1 SOLD: 11/11/2019 [facility] Lisinopril 10 MG Oral Tablet LISINOPRIL 10/20/2019 12:00:00 AM EDT tab let 30 TAKE ONE TABLET BY MOUTH EVERY DAY TAKE ONE TABLET BY MOUTH EVERY DAY SOLD: 01/12/2020 [facility] 10 mg 10/20/2019 12:00:00 AM EDT tablet 90 TAKE ONE TABLET BY MOUTH EVERY DAY TAKE ONE TABLET BY MOUTH EVERY DAY SOLD: 10/20/2019 [facility] 1,250 mcg (50,000 unit) 10/20/2019 12:00:00 AM EDT capsule 6 TAKE 1 CAPSULE BY MOUTH EVERY OTHER WEEK TAKE 1 CAPSULE BY MOUTH EVERY OTHER WEEK SOLD: 10/20/2019 [facility] 2.5-2.5 % 10/11/2019 12:00:00 AM EDT cream 30 APPLY 2.5GMS OVER PORT 30 MINUTES BEFORE CHEMO APPLY 2.5GMS OVER PORT 30 MINUTES BEFORE CHEMO SOLD: 10/13/2019 [facility] atorvastatin 20 MG Oral Tablet ATORVASTATIN CALCIUM 10/05/2019 1 2:00:00 AM EDT tablet 90 TAKE ONE TABLET BY MOUTH EVERY D AY TAKE ONE TABLET BY MOUTH EVERY DAY SOLD: 10/05/2019 [facility] 100 mg 10/05/2019 12:00:00 AM EDT tablet 90 TAKE ONE TABLET BY MOUTH EVERY DAY TAKE ONE TABLET BY MOUTH EVERY DAY SOLD: 10/05/2019 [facility] [phone] mg/30 mL 09/27/2019 12:00:00 AM EDT mouthwash 237 SWISH AND SPIT 5MLS BY MOUTH EVERY 4 HOURS NEEDED SWISH AND SPIT 5MLS BY MOUTH EVERY 4 HOURS NEEDED SOLD: 10/05/2019 [facility] [phone] mg/30 mL 09/27/2019 12:00:00 AM EDT mouthwash 238 SWISH AND SPIT 5MLS BY MOUTH EVERY 4 HOURS NEEDED SWISH AND SPIT 5MLS BY MOUTH EVERY 4 HOURS NEEDED SOLD: 11/16/2019 [facility] [phone] mg/30 mL 09/27/2019 12:00:00 AM EDT mouthwash 119 SWISH AND SPIT 5MLS BY MOUTH EVERY 4 HOURS NEEDED SWISH AND SPIT 5MLS BY MOUTH EVERY 4 HOURS NEEDED SOLD: 03/29/2020 [facility] [phone] mg/30 mL 09/27/2019 12:00:00 AM EDT mouthwash 119 SWISH AND SPIT 5MLS BY MOUTH EVERY 4 HOURS NEEDED SWISH AND SPIT 5MLS BY MOUTH EVERY 4 HOURS NEEDED SOLD: 03/08/2020 [facility] 50 mg 09/23/2019 12:00:00 AM EDT tablet 7 TAKE ONE TABLET BY MOUTH AT NIGHT MAXIMUM DAILY DOSE = 1 TAKE ONE TABLET BY MOUTH AT NIGHT MAXIMUM DAILY DOSE = 1 SOLD: 09/23/2019 [facility] 50 mg 09/23/2019 12:00:00 AM EDT tablet 7 TAKE ONE TABLET BY MOUTH AT NIGHT MAXIMUM DAILY DOSE = 1 TAKE ONE TABLET BY MOUTH AT NIGHT MAXIMUM DAILY DOSE = 1 SOLD: 02/15/2020 [facility] 20 mg 09/23/2019 12:00:00 AM EDT tablet 10 TAKE TWO TABLETS BY MOUTH EVERY DAY TAKE TWO TABLETS BY MOUTH EVERY DAY SOLD: 09/23/2019 [facility] tramadol hydrochloride 50 MG Oral Tablet Tramadol HCL 09/22/2019 12:00:00 AM EDT ORAL active [facility] ([facility]) 125 mg 09/21/2019 12:00:00 AM EDT tablet,chewable 360 CHEW ONE TABLET BY MOUTH FOUR TIMES A DAY CHEW ONE TABLET BY MOUTH FOUR TIMES A DAY SOLD: 09/25/2019 [facility] Simethicone 125 MG Chewable Tablet Simethicone 09/20/2019 12:00:00 AM EDT ORAL active [facility] ([facility]) 750 mg 09/15/2019 12:00:00 AM EDT tablet 7 TAKE ONE TABLET BY MOUTH EVERY DAY TAKE ONE TABLET BY MOUTH EVERY DAY SOLD: 09/15/2019 [facility] 80 mg 09/15/2019 12:00:00 AM EDT tablet,chewable 20 ONE BY MOUTH THREE TIMES A DAY NEEDED FOR GAS PAIN ONE BY MOUTH THREE TIMES A DAY NEEDED FOR GAS PAIN SOLD: 09/20/2019 [facility] [id number] mg/30 mL 09/15/2019 12:00:00 AM EDT mouthwash 237 SWISH AND SPIT 5ML NEEDED FOR DISCOMFORT SWISH AND SPIT 5ML NEEDED FOR DISCOMFORT SOLD: 09/15/2019 [facility] 0.4 mg 09/06/2019 12:00:00 AM EDT capsule 30 TAKE ONE CAPSULE BY MOUTH EVERY DAY 30 MINUTES AFTER THE SAME MEAL EACH DAY TAKE ONE CAPSULE BY MOUTH EVERY DAY 30 MINUTES AFTER THE SAME MEAL EACH DAY SOLD: 02/15/2020 [facility] 0.4 mg 09/06/2019 12:00:00 AM EDT capsule 30 TAKE ONE CAPSULE BY MOUTH EVERY DAY 30 MINUTES AFTER THE SAME MEAL EACH DAY TAKE ONE CAPSULE BY MOUTH EVERY DAY 30 MINUTES AFTER THE SAME MEAL EACH DAY SOLD: 12/07/2019 [facility] 1 mg 09/06/2019 12:00:00 AM EDT tablet 90 TAKE ONE TABLET BY MOUTH EVERY DAY TAKE ONE TABLET BY MOUTH EVERY DAY SOLD: 09/06/2019 [facility] 0.4 mg 09/06/2019 12:00:00 AM EDT capsule 90 TAKE ONE CAPSULE BY MOUTH EVERY DAY 30 MINUTES AFTER THE SAME MEAL EACH DAY TAKE ONE CAPSULE BY MOUTH EVERY DAY 30 MINUTES AFTER THE SAME MEAL EACH DAY SOLD: 09/06/2019 [facility] 0.4 mg 09/06/2019 12:00:00 AM EDT capsule 30 TAKE ONE CAPSULE BY MOUTH EVERY DAY 30 MINUTES AFTER THE SAME MEAL EACH DAY TAKE ONE CAPSULE BY MOUTH EVERY DAY 30 MINUTES AFTER THE SAME MEAL EACH DAY SOLD: 01/12/2020 [facility] 4 mg 08/30/2019 12:00:00 AM EDT tablet,disintegrating 1 6 DISSOLVE ONE TABLET ON TONGUE EVERY 6 HOURS NEEDED FOR NAUSEA AND VOMITING DISSOLVE ONE TABLET ON TONGUE EVERY 6 HOURS NEEDED FOR NAUSEA AND VOMITING SOLD: 11/11/2019 [facility] 5 mg 08/30/2019 12:00:00 AM EDT tablet 30 TAKE ONE TABLET BY MOUTH EVERY DAY TAKE ONE TABLET BY MOUTH EVERY DAY SOLD: 09/01/2019 [facility] 4 mg 08/30/2019 12:00:00 AM EDT tablet 10 TAKE THREE TABLETS BY MOUTH ON THE DAY PRIOR TO EACH CHEMOTHERAPY CYCLE TAKE THREE TABLETS BY MOUTH ON THE DAY PRIOR TO EACH CHEMOTHERAPY CYCLE SOLD: 09/01/2019 [facility] 4 mg 08/30/2019 12:00:00 AM EDT tablet,disintegrating 1 6 DISSOLVE ONE TABLET ON TONGUE EVERY 6 HOURS NEEDED FOR NAUSEA AND VOMITING DISSOLVE ONE TABLET ON TONGUE EVERY 6 HOURS NEEDED FOR NAUSEA AND VOMITING SOLD: 09/01/2019 [facility] 5 mg 08/30/2019 12:00:00 AM EDT tablet 30 TAKE ONE TABLET BY MOUTH EVERY DAY TAKE ONE TABLET BY MOUTH EVERY DAY SOLD: 10/04/2019 [facility] 5 mg 08/30/2019 12:00:00 AM EDT tablet 30 TAKE ONE TABLET BY MOUTH EVERY DAY TAKE ONE TABLET BY MOUTH EVERY DAY SOLD: 01/03/2020 [facility] 5 mg 08/30/2019 12:00:00 AM EDT tablet 30 TAKE ONE TABLET BY MOUTH EVERY DAY TAKE ONE TABLET BY MOUTH EVERY DAY SOLD: 01/31/2020 [facility] 18 mcg 08/24/2019 12:00:00 AM EDT capsule, w/inhalation d evice 90 INHALE THE CONTENTS OF ONE CAPSULE VIA HANDIHALER BY MOUTH EVERY DAY INHALE THE CONTENTS OF ONE CAPSULE VIA HANDIHALER BY MOUTH EVERY DAY SOLD: 09/01/2019 [facility] 40 mg 08/23/2019 12:00:00 AM EDT tablet 90 TAKE ONE TABLET BY MOUTH EVERY DAY TAKE ONE TABLET BY MOUTH EVERY DAY SOLD: 09/01/2019 [facility] Amoxicillin 875 MG / Clavulanate 125 MG Oral Tablet Am oxicillin/Clavulanate Potassium 08/16/2019 12:00:00 AM EDT ORAL active [facility] ([facility], ) Amoxicillin 875 MG / Clavulanate 125 MG Oral Tablet 87 5-125 mg AMOXICILLIN/POTASSIUM CLAVULANATE 08/16/2019 12:00:00 AM EDT tablet 20 TAKE ONE TABLET BY MOUTH TWICE A DAY FOR 10 DAYS TAKE ONE TABLET BY MOUTH TWICE A DAY FOR 10 DAYS SOLD: 08/16/2019 [facility] 100 mg 07/06/2019 12:00:00 AM EDT capsule 60 TAKE ONE CAPSULE BY MOUTH TWICE A DAY TAKE ONE CAPSULE BY MOUTH TWICE A DAY SOLD: 07/12/2019 [facility] 100 mg 07/06/2019 12:00:00 AM EDT capsule 60 TAKE ONE CAPSULE BY MOUTH TWICE A DAY TAKE ONE CAPSULE BY MOUTH TWICE A DAY SOLD: 08/16/2019 [facility] 100 mg 07/06/2019 12:00:00 AM EDT capsule 60 TAKE ONE CAPSULE BY MOUTH TWICE A DAY TAKE ONE CAPSULE BY MOUTH TWICE A DAY SOLD: 09/07/2019 [facility] celecoxib 100 MG Oral Capsule Celecoxib 07/06/2019 12:00:00 AM EDT ORAL active [facility] ([facility]) Prednisone 20 MG Oral Tablet Prednisone 06/29/2019 12:00:00 AM EDT ORAL active [facility] ([facility]) 20 mg 06/29/2019 12:00:00 AM EDT tablet 10 TAKE TWO TABLETS BY MOUTH EVERY DAY TAKE TWO TABLETS BY MOUTH EVERY DAY SOLD: 07/05/2019 [facility] Levofloxacin 750 MG Oral Tablet Levofloxacin 06/16/2019 12:00:[address] ORAL completed [facility] ([facility]) 750 mg 06/16/2019 12:00:00 AM EST tablet 7 TAKE ONE TABLET BY MOUTH EVERY DAY FOR 7 DAYS TAKE ONE TABLET BY MOUTH EVERY DAY FOR 7 DAYS SOLD: 06/21/2019 [facility] sildenafil 50 MG Oral Tablet Sildenafil Citrate 05/26/2019 12:00:00 A M EST active [facility] ([facility]) 50 mg 05/26/2019 12:00:00 AM EST tablet 6 TAKE ONE TABLET BY MOUTH EVERY DAY NEEDED TAKE ONE TABLET BY MOUTH EVERY DAY NEEDED SOLD: 05/31/2019 [facility] 5 mg 05/05/2019 12:00:00 AM EST tablet 30 TAKE ONE TABLET BY MOUTH EVERY DAY TAKE ONE TABLET BY MOUTH EVERY DAY SOLD: 07/31/2019 [facility] 5 mg 05/05/2019 12:00:00 AM EST tablet 30 TAKE ONE TABLET BY MOUTH EVERY DAY TAKE ONE TABLET BY MOUTH EVERY DAY SOLD: 05/11/2019 [facility] 5 mg 05/05/2019 12:00:00 AM EST tablet 30 TAKE ONE TABLET BY MOUTH EVERY DAY TAKE ONE TABLET BY MOUTH EVERY DAY SOLD: 07/03/2019 [facility] 5 mg 05/05/2019 12:00:00 AM EST tablet 30 TAKE ONE TABLET BY MOUTH EVERY DAY TAKE ONE TABLET BY MOUTH EVERY DAY SOLD: 05/31/2019 [facility] atorvastatin 20 MG Oral Tablet ATORVASTATIN CALCIUM 03/08/2019 1 2:00:00 AM EST tablet 90 TAKE ONE TABLET BY MOUTH EVERY D AY TAKE ONE TABLET BY MOUTH EVERY DAY SOLD: 06/21/2019 [facility] 100 mg 03/08/2019 12:00:00 AM EST tablet 90 TAKE ONE TABLET BY MOUTH EVERY DAY TAKE ONE TABLET BY MOUTH EVERY DAY SOLD: 03/17/2019 [facility] 100 mg 03/08/2019 12:00:00 AM EST tablet 90 TAKE ONE TABLET BY MOUTH EVERY DAY TAKE ONE TABLET BY MOUTH EVERY DAY SOLD: 06/21/2019 [facility] atorvastatin 20 MG Oral Tablet ATORVASTATIN CALCIUM 03/08/2019 1 2:00:00 AM EST tablet 90 TAKE ONE TABLET BY MOUTH EVERY D AY TAKE ONE TABLET BY MOUTH EVERY DAY SOLD: 03/17/2019 [facility] 0.4 mg 02/23/2019 12:00:00 AM EST capsule 90 TAKE ONE CAPSULE BY MOUTH EVERY DAY 30 MINUTES AFTER THE SAME MEAL EACH DAY TAKE ONE CAPSULE BY MOUTH EVERY DAY 30 MINUTES AFTER THE SAME MEAL EACH DAY SOLD: 06/21/2019 [facility] 50 mg 02/23/2019 12:00:00 AM EST tablet 45 TAKE ONE-HALF TABLET BY MOUTH EVERY DAY TAKE ONE-HALF TABLET BY MOUTH EVERY DAY SOLD: 05/31/2019 [facility] 50 mg 02/23/2019 12:00:00 AM EST tablet 45 TAKE ONE-HALF TABLET BY MOUTH EVERY DAY TAKE ONE-HALF TABLET BY MOUTH EVERY DAY SOLD: 09/07/2019 [facility] 50 mg 02/23/2019 12:00:00 AM EST tablet 45 TAKE ONE-HALF TABLET BY MOUTH EVERY DAY TAKE ONE-HALF TABLET BY MOUTH EVERY DAY SOLD: 12/07/2019 [facility] 40 mg 02/23/2019 12:00:00 AM EST tablet 90 TAKE ONE TABLET BY MOUTH EVERY DAY TAKE ONE TABLET BY MOUTH EVERY DAY SOLD: 05/31/2019 [facility] 18 mcg 02/23/2019 12:00:00 AM EST capsule, w/inhalation d evice 90 INHALE THE CONTENTS OF TWO BY MOUTH EVERY DAY INHALE THE CONTENTS OF TWO BY MOUTH EVER Y DAY SOLD: 05/31/2019 [facility] 5 mg 12/28/2018 12:00:00 AM EDT tablet 30 TAKE ONE TABLET BY MOUTH EVERY DAY TAKE ONE TABLET BY MOUTH EVERY DAY SOLD: 04/06/2019 [facility] 1 mg 11/25/2018 12:00:00 AM EDT tablet 90 TAKE ONE TABLET BY MOUTH EVERY DAY TAKE ONE TABLET BY MOUTH EVERY DAY SOLD: 06/21/2019 [facility] 1 mg 11/25/2018 12:00:00 AM EDT tablet 90 TAKE ONE TABLET BY MOUTH EVERY DAY TAKE ONE TABLET BY MOUTH EVERY DAY SOLD: 03/17/2019 [facility] 90 mcg/actuation 11/18/2018 12:00:00 AM EDT HFA aerosol inha ler 18 INHALE TWO PUFFS BY MOUTH EVERY 4-6 HOURS NEEDED INHALE TWO PUFFS BY MOUTH EVERY 4-6 HOURS NEEDED SOLD: 10/04/2019 [facility] 90 mcg/actuation 11/18/2018 12:00:00 AM EDT HFA aerosol inha ler 18 INHALE TWO PUFFS BY MOUTH EVERY 4-6 HOURS NEEDED INHALE TWO PUFFS BY MOUTH EVERY 4-6 HOURS NEEDED SOLD: 07/31/2019 [facility] 100-50 mcg/dose 11/18/2018 12:00:00 AM EDT blister with lu ce 60 INHALE ONE PUFF BY MOUTH TWICE A DAY INHALE ONE PUFF BY MOUTH TWICE A DAY SOLD: 04/15/2019 [facility] Insurance Providers Payer name Policy type / Coverage type Policy ID Covered libertarian ID Covered libertarian's relationship to pena Policy Pena Plan Information OMKAR [id number] SP [id number] EMEDNY [id number] SP [id number] [place]/307 [id number] SP [id number] [place] [id number] S [id number] [place] [id number] 18 [id number] [place] MAN -PHYSICIAN [place] [id number] 18 [id number] EXCELL[place] BCBS B [id number] S [id number] [place] P[place]/307 [id number] SP [id number] BLUE CROSS BLUE SHIELD [place] BS [id number] 18 [id number] BLUE CROSS BLUE SHIELD-O/P [id number] 18 [id number] BLUE CROSS BLUE SHIELD-O/P [id number] 18 [id number] [place]/307 [id number] SP [id number] [place]/307 [id number] SP [id number] [employer] BCBS Health Maintenance Organization (HMO) [id number] Self [id number] Blue Cross Blue Shield CL Commercial [id number] Self [id number] BLUE CROSS BLUE SHIELD-O/P [id number] 18 [id number] Blue Cross Blue Shield CL Commercial [id number] Self [id number] Blue Cross Blue Shield CL Commercial [id number] Self [id number] Blue Cross Blue Shield CL Commercial [id number] Self [id number] BLUE CROSS BLUE SHIELD -O/P BS [id number] 18 [id number] BLUE CROSS BLUE [employer]IELD CL BS [id number] 18 [id number] Blue Cross Blue Shield CL Commercial [id number] Self [id number] Blue Cross Blue Shield CL Commercial [id number] Self [id number] [place]/307 [id number] SP [id number] Blue Cross Blue Shield CL Commercial [id number] Self [id number] Blue Cross Blue Shield CL Commercial [id number] Self [id number] Blue Cross Blue Shield CL Commercial [id number] Self [id number] EXCELLUS C [id number] Self [id number] [place] P[place] 302/307 [id number] SP [id number] Blue Cross Blue Shield CL Commercial [id number] Self [id number] Blue Cross Blue Shield CL Commercial [id number] Self [id number] Blue Cross Blue Shield CL Commercial [id number] Self [id number] Blue Cross Blue Shield CL Commercial [id number] Self [id number] Blue Cross Blue Shield CL Commercial [id number] Self [id number] BLUE CROSS BLUE SHIELD -PHYSICIAN [id number] 18 [id number] Blue Cross Blue Shield CL Commercial [id number] Self [id number] Blue Cross Blue Shield CL Commercial [id number] Self [id number] BLUE CROSS BLUE SHIELD-CLINIC [id number] 18 [id number] BLUE CROSS BLUE SHIELD CL BS [id number] 18 [id number] Blue Cross Blue Shield CL Commercial [id number] Self [id number] Blue Cross Blue Shield CL Commercial Self EXCELLUS BCBS B [id number] S [id number] 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 [id number] SP [id number] ANJELICA CONCRETE [id number] SP [id number] [place] PPO 302/307 [id number] SP [id number] OTHER WORKERS COMPENSATION [id number] SP [id number] BLUE CROSS BLUE SHIELD-O/P [id number] 18 [id number] BLUE CROSS BLUE SHIELD-CLINIC [id number] 18 [id number] BLUE CROSS BLUE SHIELD-CLINIC [id number] 18 [id number] BLUE CROSS BLUE SHIELD -RECURRING [id number] 18 [id number] BLUE CROSS BLUE SHIELD-O/P [id number] 18 [id number] BLUE CROSS BLUE SHIELD-O/P [id number] 18 [id number] Problems, Conditions, and Diagnoses Code Display Name Description Problem Type Effective Dates Data Source(s) G4700 Insomnia, unspecified Insomnia, unspecified Diagnosis 03/09/2020 07:06:00 AM [facility] E559 Vitamin D deficiency, unspecified Vitamin D defi ciency, unspecified Diagnosis 03/09/2020 07:06:00 AM [facility] I10 Essential (primary) hypertension Essential (primary) h ypertension Diagnosis 03/09/2020 07:06:00 AM [facility] N400 Benign prostatic hyperplasia without low er urinary tract symptoms Benign prostatic hyperplasia without lower urinary tract symptoms Diagnosis 03/09/2020 07:06:00 AM 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 C3490 Malignant neoplasm of unspecified part o f unspecified bronchus or lung Malignant neoplasm of unspecified part of unspecified bronchus or lung Diagnosis 03/09/2020 07:06:00 AM [facility] R9720 Elevated prostate specific antigen [PSA] Elevated prostate specific antigen [PSA] Diagnosis 02/09/2020 07:57:00 AM EDT [facility] [id number] Nicotine dependence, cigarettes, uncompl icated Nicotine dependence, cigarettes, uncomplicated Diagnosis 2019 06:53:00 AM EDT [facility] J449 Chronic obstructive pulmonary disease, u nspecified Chronic obstructive pulmonary disease, unspecified Diagnosis 2019 06:53:00 AM EDT [facility] N183 Chronic kidney disease, stage 3 (moderat e) Chronic kidney disease, stage 3 (moderate) Diagnosis 2019 06:53:00 AM EDT [facility] 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, left elbow Idiopathic gout, left elbo w Diagnosis 2019 06:53:00 AM EDT [facility] E785 Hyperlipidemia, unspecified Hyperlipidemia, unspecifie d Diagnosis 2019 06:53:00 AM EDT [facility] 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 Secondary malignant neoplasm of other specified sites Diagnosis 10/20/2019 06:48:00 AM EDT [facility] 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, left b ronchus or lung Malignant neoplasm of upper lobe, left bronchus or lung Diagnosis 10/20/2019 06:48:00 AM [facility] R918 Other nonspecific abnormal finding of cynthia ng field Other nonspecific abnormal finding of lung field Diagnosis 07/06/2019 07:06:00 AM EDT [facility] 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, left knee Ost eochondritis dissecans, left knee Diagnosis 07/06/2019 07:06:00 AM EDT [facility] J189 Pneumonia, unspecified organism Pneumonia, unspecified organism Diagnosis 07/02/2019 09:10:00 AM EDT [facility] R911 Solitary pulmonary nodule Solitary pulmonary nodule Di agnosis 07/02/2019 09:10:00 AM [facility] [id number] Effusion, left knee Effusion, left knee Diagnosis 0 06/29/2019 08:05:00 AM [facility] C77481 Encounter for other preprocedural examin ation Encounter for other preprocedural examination Diagnosis 06/16/2019 12:41:00 PM [facility] Surgeries/Procedures Procedure Description Date Indications Data Source(s) Bronchoscopy W/Brushing Or Protected Brushings 020 12:00:00 AM EDT [facility] ) Bronchoscopy W/Transbronchial Lung Biopsy 08/03/2019 1 2:00:00 AM EDT [facility] Spirometry 07/16/2019 12:00:00 AM EDT [facility] ([facility] ) Electrocardiogram Complete 06/16/2019 12:00:00 AM EST [facility] ([facility]) LARYNGOSCOPY FLEXIBLE FIBEROPTIC DIAGNOSTIC 04/28/2019 12:00:00 AM [facility] ([facility]) Results ID Date Data Source [id number] 11/24/2019 02:33:00 PM EDT [facility] Name Value Range Interpretation Code Description Data Elizabeth rce(s) Supporting Document(s) Prostate specific Ag [Mass/volume] in Serum or Plasma 6.5 ng/mL 0.0- 4.0 H [facility] Mark ECLIA methodology.According to the [place] [employer], Serum PSA shoulddecrease and remain at undetectable levels after radicalprostatectomy. The AUA defines biochemical recurrence as an initialPSA value 0.2 ng/mL or greater followed by a subsequent confirmatoryPSA value 0.2 ng/mL or greater.Values obtained with different assay methods or kits cannot be usedinterchangeably. Results cannot be interpreted as absolute evidenceof the presence or absence of malignant disease. Reflex Criteria COMMENT [facility] The percent free PSA is performed on a r eflex basis only when thetotal PSA is between 4.0 and 10.0 ng/mL. Prostate Specific Ag Free [Mass/volume] in Serum or Plasma 1.15 ng/mL N/A [facility] Mark ECLIA methodology. Prostate Specific Ag Free/Prostate specific Ag.total in Seru m or Plasma 17.7 % [facility] The table below lists the probability of prostate cancer formen with non- suspicious ANGELO results and total PSA between4 and 10 ng/mL, by patient age (Denise et al, ZOEY 1998,279:1542). % Free PSA 50-64 yr 65-75 yr 0.00-10.00% 56% 55% 10.01-15.00% 24% 35% 15.01-20.00% 17% 23% 20.01-25.00% 10% 20% >25.00% 5% 9%Please note: Denise et al did not make specific recommendations regarding the use of percent free PSA for any other population of men. ID Date Data Source [id number] 2019 01:40:00 PM EDT [facility] Name Value Range Interpretation Code Description Data Elizabeth rce(s) Supporting Document(s) COMPREHENSIVE METABOLIC PANEL [facility] COMPREHENSIVE METABOLIC PANEL Sodium [Moles/volume] in Serum or Plasma 133 mEq/L 134 - 153 L [facility] Potassium [Moles/volume] in Serum or Plasma 5.1 mEq/L 3.6 - 5.0 H [facility] Chloride [Moles/volume] in Serum or Plasma 98 mEq/L 98 - 107 [facility] Carbon dioxide, total [Moles/volume] in Serum or Plasma 23 MEQ/L 22 - 30 [facility] Glucose [Mass/volume] in Serum or Plasma 99 MG/DL 65 - 110 [facility] BUN 15 MG/DL [facility] Creatinine [Mass/volume] in Serum or Plasma 1.7 MG/DL 0.7 - 1.5 H [facility] BUN/CREAT 9 8 - 27 [facility] Protein [Mass/volume] in Serum or Plasma 6.6 G/DL 6.3 - 8.2 [facility] Albumin [Mass/volume] in Serum or Plasma 4.3 G/DL 3.9 - 5.0 [facility] Globulin [Mass/volume] in Serum by calculation 2.3 GM/DL 2.4 - 3.2 L [facility] A/G RATIO 1.9 0.8 - 2.0 [facility] Calcium [Mass/volume] in Serum or Plasma 9.7 MG/DL 8.4 - 10.2 [facility] Bilirubin.total [Mass/volume] in Serum or Plasma <0.7 MG/DL 0.2 - 1.3 [facility] Alkaline phosphatase [Enzymatic activity/volume] in Serum or Plasma 77 U/L 38 - 126 [facility] Aspartate aminotransferase [Enzymatic activity/volume] in Serum or Plasma 19 U/L 5 - 40 [facility] Alanine aminotransferase [Enzymatic activity/volume] in Seru m or Plasma 17 U/L 7 - 56 [facility] Anion gap 3 in Serum or Plasma 12.0 mmol/L 8.0 - 16.0 [facility] [address] [facility] 45 mL/min [facility] AFR AMER GFR 54 mL/min [facility] Male GFR In terprentation 20-49 yrs >60 mL/min Normal 50-59 yrs >56 mL/min Normal 60-69 yrs >49 mL/min Normal 70-79yrs >42 mL/min Normal 80 and above >35 mL/min Normal Female GFR Interpretation 20-39 yrs >60 mL/min Normal 40-49 yrs >58 mL/min Normal 50-59 yrs >51 mL/min Normal 60-69 yrs >45 mL/min Normal 70-79 yrs >39 mL/min Normal 80 and above >32 mL/min Normal ID Date Data Source [id number] 2019 01:36:00 PM EDT [facility] Name Value Range Interpretation Code Description Data Elizabeth rce(s) Supporting Document(s) Thyroxine (T4) free index in Serum or Plasma by calculation 1.01 NG/DL 0.93 - 1.70 [facility] ID Date Data Source [id number] 2019 01:36:00 PM EDT [facility] Name Value Range Interpretation Code Description Data Elizabeth rce(s) Supporting Document(s) Thyrotropin [Units/volume] in Serum or Plasma by Detec tion limit <= 0.05 mIU/L 3.45 uIU/mL 0.47 - 5.01 [facility] ID Date Data Source [id number] 2019 01:29:00 PM EDT [facility] [facility] Name Value Range Interpretation Code Description Data Elizabeth rce(s) Supporting Document(s) CVE PANEL [facility] al LIPID PANEL Cholesterol [Mass/volume] in Serum or Plasma 183 MG/DL 131 - 200 [facility] Deprecated Triglyceride [Mass/volume] in Serum or Plasma 113 MG/DL 3 5 - 160 [facility] HDL 44 MG[facility]DL 29 - [facility] Ch[facility] in LDL [Mass/volume] in Serum or Plasma by Direc t assay 120 mg/dL 65 - 175 [facility] Cholesterol.total/Cholesterol in HDL [Mass Ratio] in Serum o r Plasma 4.2 3.4 - 4.9 [facility] LDL/HDL 2.73 1.00 - 3.55 [facility] ital CVE RISK CHOL/HDL LDL/HDLMEN: 1/2 AVERAGE 3.43 1.00 AVERAGE 4.97 3.55 2X AVERAGE 9.55 6.25 3X AVERAGE 23.99 7.99WOMEN: 1/2 AVERAGE 3.27 1.47 AVERAGE 4.44 3.22 2X AVERAGE 7.05 5.03 3X AVERAGE 11.04 6.14 ID Date Data Source [id number] 09/24/2019 08:43:00 AM EDT [facility] ([facility]) Name Value Range Interpretation Code Description Data Elizabeth rce(s) Supporting Document(s) Magnesium [Mass/volume] in Serum or Plasma 2.2 mg/dL 1.8-2 .4 Normal (applies to non-numeric results) [facility]) ID Date Data Source [id number] 09/24/2019 08:43:00 AM EDT [facility] ([facility]) Name Value Range Interpretation Code Description Data Elizabeth rce(s) Supporting Document(s) Blood Urea Nitrogen 100 mg/dL 7-18 Above high normal [facility] ([facility]) Glucose, Fasting 113 mg/dL 70-100 Above high normal [facility] ([facility]) Creatinine For GFR 4.31 mg/dL 0.70-1.30 Above high normal [facility] ([facility]) Sodium Level 133 meq/L 136-145 Below low normal [facility] ([facility]) Glomerular Filtration Rate 15.3 Below low normal [facility] ([facility]) <content>Units are mL/min/1.73 m2</content>
<content></content>
<content>Chronic Kidney Disease Staging per NKF:</content>
<content></content>
<content>Stage I & II GFR >=60 Normal to Mildly Decreased</content>
<content>Stage III GFR 30- 59 Moderately Decreased</content>
<content>Stage IV GFR 15-29 Severely Decreased</content>
<content>Stage V GFR <15 Very Little GFR Left</content>
<content>ESRD GFR <15 on ADMINISTRATION VICE PRESIDENT</content>
<content></content> Carbon Dioxide Level 14 meq/L 21-32 Below low normal [facility] ([facility]) Chloride Level 102 meq/L 98-107 Normal (applies to non-numeric r esults) [facility] ([facility]) Potassium Serum 5.3 meq/L 3.5-5.1 Above high normal [facility] ([facility]) Anion Gap 17 meq/L 8-16 Above high normal [facility] ([facility]) Calcium Level 9.3 mg/dL 8.5-10.1 Normal (applies to non-numeric re sults) [facility] ([facility]) Ast/Sgot 15 U/L 7-37 Normal (applies to non-numeric resul ts) [facility] ([facility]) Alt/SGPT 28 U/L 12-78 Normal (applies to non-numeric resul ts) [facility] ([facility]) Bilirubin,Total 0.4 mg/dL 0.2-1.0 Normal (applies to non-numeric results) [facility] ([facility]) Alkaline Phosphatase 93 U/L 45-117 Normal (applies to non-num mercy results) [facility] ([facility]) Albumin/Globulin Ratio 0.7 Normal (applies to non-n umeric results) [facility] ([facility]) Total Protein 6.5 GM/DL 6.4-8.2 Normal (applies to non-numeric re sults) [facility] ([facility]) Albumin 2.6 GM/DL 3.2-5.2 Below low normal [facility] ( [facility]) ID Date Data Source [id number] 09/24/2019 08:43:00 AM EDT [facility] ([facility]) Name Value Range Interpretation Code Description Data Elizabeth rce(s) Supporting Document(s) Neutrophils % 75.6 % 36.0-66.0 Above high normal [facility] ([facility]) Eos % 0.0 % 0.0-3.0 Normal (applies to non-numeric resul ts) [facility] ([facility]) Lymph % 5.1 % 24.0-44.0 Below low normal [facility] ( [facility]) Garza % 1.3 % 0.0-5.0 Normal (applies to non-numeric resul ts) [facility] ([facility]) Baso % 0.2 % 0.0-1.0 Normal (applies to non-numeric resul ts) [facility] ([facility]) Immature Granulocyte % 17.8 % 0-3.0 Above high normal [facility] ([facility]) Lymph # 1.1 10 1.5-5.0 Below low normal [facility] ( [facility]) Neutrophils # 16.7 10 1.5-8.5 Above high normal [facility] ([facility]) Garza # 0.3 10 0.0-0.8 Normal (applies to non-numeric resul ts) [facility] ([facility]) Baso # 0.0 10 0.0-0.2 Normal (applies to non-numeric resul ts) [facility] ([facility]) Eos # 0.0 10 0.0-0.5 Normal (applies to non-numeric resul ts) [facility] ([facility]) ID Date Data Source [id number] 09/24/2019 08:43:00 AM EDT [facility] ([facility]) Name Value Range Interpretation Code Description Data Elizabeth rce(s) Supporting Document(s) Red Blood Count 3.64 10 4.30-6.10 Below low normal [facility] ([facility]) White Blood Count 22.1 10 4.0-10.0 Above high normal [facility] ([facility]) Hemoglobin 11.1 g/dL 13.5-17.5 Below low normal [facility] ( [facility]) Mean Corpuscular Volume 91.5 fl 80.0-96.0 Normal ( applies to non-numeric results) [facility] ([facility]) Hematocrit 33.3 % 42.0-52.0 Below low [facility] Red Cell Distribution Width 15.2 % 11.5-14.5 Above high normal [facility] ([facility]) Mean Corpuscular Hemoglobin 30.5 pg 27.0-33.0 Norm al (applies to non-numeric results) [facility] ([facility]) Mean Corpuscular HGB Conc 33.3 g/dL 32.0-36.5 Normal (applies to non-numeric results) [facility] ([facility]) Nucleated Red Blood Cell % 0.0 % 0-0 Normal (applies to n on-numeric results) [facility] ([facility]) Platelet Count, Automated 463 10 150-450 Above high normal [facility] ([facility]) ID Date Data Source [id number] 09/12/2019 04:34:00 PM EDT [facility] ([facility]) Name Value Range Interpretation Code Description Data Elizabeth rce(s) Supporting Document(s) Laboratory test finding (navigational concept) 35.0 % 3 8.0-51.0 Below low normal [facility] ([facility]) Laboratory test finding (navigational concept) 129 meq/L 1 36-145 Below low normal [facility] ([facility]) Laboratory test finding (navigational concept) 97 mg/dL 7 0-105 Normal (applies to non-numeric results) [facility]) Laboratory test finding (navigational concept) 4.1 meq/L 3 .5-5.1 Normal (applies to non-numeric results) [facility]) Laboratory test finding (navigational concept) 97 meq/L 98-109 Below low normal [facility] ([facility]) Laboratory test finding (navigational concept) 18.0 MM/L 2 3.0-27.0 Below low normal [facility] ([facility]) Laboratory test finding (navigational concept) 4.4 mg/dL 4 .5-5.3 Below low normal [facility] ([facility]) Laboratory test finding (navigational concept) 1.2 mg/dL 0 .6-1.3 Normal (applies to non-numeric results) [facility]) Laboratory test finding (navigational concept) 19 mg/dL 8 -26 Normal (applies to non-numeric results) [facility] ([facility]) ID Date Data Source [id number] 09/12/2019 04:33:00 PM EDT [facility] ([facility]) Name Value Range Interpretation Code Description Data Elizabeth rce(s) Supporting Document(s) Color, Urine RFX Laboratory test result Normal ( applies to non-numeric results) [facility] ([facility]) Appearance, Urine RFX Laboratory test result Nor mal (applies to non-numeric results) [facility] ([facility]) Specific [place] Ur Auto RFX 1.012 1.002-1.035 Nor mal (applies to non-numeric results) [facility] ([facility]) PH,Urine RFX 6.0 units 5.0-9.0 Normal (applies to non-numeric res ults) [facility] ([facility]) Protein, Urine Auto RFX Laboratory test result N ormal (applies to non-numeric results) [facility] ([facility]) Glucose, Urine (Ua) Auto RFX Laboratory test result Normal (applies to non- numeric results) [facility] ([facility]) Ketone, Urine Auto RFX Laboratory test result No rmal (applies to non-numeric results) [facility] ([facility]) Urobilinogen, Urine Auto RFX 0.2 mg/dL 0.0-2.0 Nor mal (applies to non-numeric results) [facility] ([facility]) Bilirubin, Urine Auto RFX Laboratory test result Normal (applies to non- numeric results) [facility] ([facility]) Nitrite, Urine Auto RFX Laboratory test result N ormal (applies to non-numeric results) [facility]) WBC, Urine Auto RFX 1 /HPF 0-3 Normal (applies to non-nume radha results) [facility] ([facility]) Leukocyte Esterase Ur Auto RFX Laboratory test result Normal (applies to non- numeric results) [facility] ([facility]) Blood, Urine Blood RFX Laboratory test result Above high n ormal [facility] ([facility]) Bacteria, Urine Auto RFX Laboratory test result Normal (applies to non-numeric results) [facility] ([facility]) RBC, Urine Auto RFX 1 /HPF 0-3 Normal (applies to non-nume radha results) [facility] ([facility]) Squam Epithelial Cell Ur Aurfx 0 /HPF 0-6 N ormal (applies to non-numeric results) [facility] ([facility]) Hyaline Cast, Urine Auto RFX 0 /LPF 0-1 Normal (appl ies to non-numeric results) [facility] ([facility]) Mucus, Urine RFX Laboratory test result Normal ( applies to non-numeric results) [facility] ([facility]) ID Date Data Source [id number] 09/12/2019 04:13:00 PM EDT [facility] ([facility]) Name Value Range Interpretation Code Description Data Elizabeth rce(s) Supporting Document(s) White Blood Count 0.8 10 4.0-10.0 Below lower panic limits [facility] ([facility]) Red Blood Count 3.67 10 4.30-6.10 Below low normal [facility] ([facility]) Hemoglobin 11.2 g/dL 13.5-17.5 Below low normal [facility] ( [facility]) Hematocrit 32.2 % 42.0-52.0 Below low normal [facility] ( [facility]) Mean Corpuscular HGB Conc 34.8 g/dL 32.0-36.5 Normal (applies to non-numeric results) [facility] ([facility]) Mean Corpuscular Volume 87.7 fl 80.0-96.0 Normal ( applies to non-numeric results) [facility] ([facility]) Mean Corpuscular Hemoglobin 30.5 pg 27.0-33.0 Norm al (applies to non-numeric results) [facility] ([facility]) Red Cell Distribution Width 14.6 % 11.5-14.5 Above high normal [facility] ([facility]) Platelet Count, Automated 107 10 150-450 Below low normal [facility] ([facility]) Nucleated Red Blood Cell % 0.0 % 0-0 Normal (applies to n on-numeric results) [facility] ([facility]) ID Date Data Source [id number] 09/12/2019 04:13:00 PM EDT [facility] ([facility]) Name Value Range Interpretation Code Description Data Eilzabeth rce(s) Supporting Document(s) Neutrophils 13 % 28-66 Below low normal [facility] ([facility]) Bands 1 % Normal (applies to non-numeric resul ts) [facility] ([facility]) Lymphocytes 81 % 16-44 Above high normal [facility] ([facility]) Eosinophils 2 % 0-3 Normal (applies to non-numeric resu lts) [facility] ([facility]) Monocytes 1 % 0-5 Normal (applies to non-numeric resul ts) [facility] ([facility]) Basophils 2 % 0-1 Above high normal [facility] ([facility]) RBC Morphology Laboratory test result Normal (applies to non-numeric results) [facility] ([facility]) ID Date Data Source [id number] 09/12/2019 04:13:00 PM EDT [facility] ([facility]) Name Value Range Interpretation Code Description Data Elizabeth rce(s) Supporting Document(s) Platelets [#/volume] in Blood by Estimate Laboratory test result Normal (applies to non-numeric results) [facility] ([facility]) ID Date Data Source [id number] 09/12/2019 04:13:00 PM EDT [facility] ([facility]) Name Value Range Interpretation Code Description Data Elizabeth rce(s) Supporting Document(s) CPK Creatine Phosphokinase 66 U/L 39-308 Adelia l (applies to non-numeric results) [facility] ([facility]) CK-MB Value Mass Laboratory test result Normal ( applies to non-numeric results) [facility] ([facility]) MB/CK Relative Index 1.52 Normal (applies to non-num mercy results) [facility] ([facility]) <content>DIAGNOSIS CRITERIA</content>
<content>MMB ng/ml Relative Index (RI)</content>
<content>NON-AMI < or = 5 N/A</content>
<content>STRONG ZONE > 5 < or = 4</content>
<content>AMI > 5 > 4</content>
<content></content> Troponin I Laboratory test result Normal (applies to non-n umeric results) [facility] ([facility]) <content>Troponin I Reference Interval f or [employer]ens [place] LOCI:</content>
<content></content>
<content>99th Percentile= 0.00-0.045 ng/ml</content>
<content></content>
<content>Risk Stratification:</content>
<content><= 0.10 ng/ml Decreased Risk for Adverse Clinical</content>
<content>Events.</content>
<content>0.10-1.50 ng/ml Increased Risk for Adverse Clinical</content>
<content>Events. Evaluation of additional</content>
<content>criterion and/or repeat testing in 2-6</content>
<content>hours is suggested to rule out myocardial</content>
<content>damage.</content>
<content>>= 1.50 ng/ml Indicative of Myocardial Injury.</content>
<content></content> ID Date Data Source [id number] 09/12/2019 04:13:00 PM EDT [facility] ([facility]) Name Value Range Interpretation Code Description Data Elizabeth rce(s) Supporting Document(s) Ast/Sgot 20 U/L 7-37 Normal (applies to non-numeric resul ts) [facility] ([facility]) Alt/SGPT 33 U/L 12-78 Normal (applies to non-numeric resul ts) [facility] ([facility]) Bilirubin,Total 0.6 mg/dL 0.2-1.0 Normal (applies to non-numeric results) [facility] ([facility]) Alkaline Phosphatase 58 U/L 45-117 Normal (applies to non-num mercy results) [facility] ([facility]) Bilirubin,Direct 0.2 mg/dL 0.0-0.2 Normal (applies to non-numeric results) [facility] ([facility]) Albumin/Globulin Ratio 1.0 Normal (applies to non-n umeric results) [facility] ([facility]) Total Protein 6.3 GM/DL 6.4-8.2 Below low normal [facility] ([facility]) Albumin 3.1 GM/DL 3.2-5.2 Below low normal [facility] ID Date Data Source [id number] 09/12/2019 04:13:00 PM EDT [facility] ([facility]) Name Value Range Interpretation Code Description Data Elizabeth rce(s) Supporting Document(s) Thyrotropin [Units/volume] in Serum or Plasma 1.590 uIU/ML 0. 358-3.740 Normal (applies to non-numeric results) [facility] ([facility]) Thyroxine (T4) [Mass/volume] in Serum or Plasma 8.4 ug/dL 4.5-12.0 Normal (applies to non-numeric results) [facility] ([facility]) Lactate [Mass/volume] in Serum or Plasma 0.6 mmol/L 0.4-2.0 Normal (applies to non-numeric results) [facility] ([facility]) Y/N query for Sepsis Lactate Rule: Y ID Date Data Source [id number] 09/10/2019 08:22:00 AM EDT [facility] ([facility]) Name Value Range Interpretation Code Description Data Elizabeth rce(s) Supporting Document(s) Glucose, Fasting 107 mg/dL 70-100 Above high normal [facility] ([facility]) Creatinine For GFR 1.20 mg/dL 0.70-1.30 Normal (applies to non -numeric results) [facility] ([facility]) Blood Urea Nitrogen 25 mg/dL 7-18 Above high normal [facility] ([facility]) Sodium Level 134 meq/L 136-145 Below low normal [facility] ([facility]) Glomerular Filtration Rate Laboratory test result Normal (applies to non- numeric results) [facility] ([facility]) <content>Units are mL/min/1.73 m2</content>
<content></content>
<content>Chronic Kidney Disease Staging per NKF:</content>
<content></content>
<content>Stage I & II GFR >=60 Normal to Mildly Decreased</content>
<content>Stage III GFR 30- 59 Moderately Decreased</content>
<content>Stage IV GFR 15-29 Severely Decreased</content>
<content>Stage V GFR <15 Very Little GFR Left</content>
<content>ESRD GFR <15 on ADMINISTRATION VICE PRESIDENT</content>
<content></content> Potassium Serum 3.7 meq/L 3.5-5.1 Normal (applies to non-numeric results) [facility] ([facility]) Chloride Level 104 meq/L 98-107 Normal (applies to non-numeric r esults) [facility] ([facility]) Carbon Dioxide Level 21 meq/L 21-32 Normal (applies to non-num mercy results) [facility] Calcium Level 7.4 mg/dL 8.5-10.1 Below low normal [facility] ([facility]) Anion Gap 9 meq/L 8-16 Normal (applies to non-numeric resul ts) [facility] ([facility]) Alkaline Phosphatase 62 U/L 45-117 Normal (applies to non-num emrcy results) [facility] ([facility]) Alt/SGPT 47 U/L 12-78 Normal (applies to non-numeric resul ts) [facility] ([facility]) Ast/Sgot 35 U/L 7-37 Normal (applies to non-numeric resul ts) [facility] ([facility]) Bilirubin,Total 0.5 mg/dL 0.2-1.0 Normal (applies to non-numeric results) [facility] ([facility]) Total Protein 6.1 GM/DL 6.4-8.2 Below low normal [facility] ([facility]) Albumin 3.0 GM/DL 3.2-5.2 Below low normal [facility] ( [facility]) Albumin/Globulin Ratio 1.0 Normal (applies to non-n umeric results) [facility] ([facility]) ID Date Data Source [id number] 09/08/2019 08:14:00 AM EDT [facility] ([facility]) Name Value Range Interpretation Code Description Data Elizabeth rce(s) Supporting Document(s) Glucose, Fasting 110 mg/dL 70-100 Above high normal [facility] ([facility]) Blood Urea Nitrogen 17 mg/dL 7-18 Normal (applies to non-nume radha results) [facility] ([facility]) Glomerular Filtration Rate Laboratory test result Normal (applies to non- numeric results) [facility] ([facility]) <content>Units are mL/min/1.73 m2</content>
<content></content>
<content>Chronic Kidney Disease Staging per NKF:</content>
<content></content>
<content>Stage I & II GFR >=60 Normal to Mildly Decreased</content>
<content>Stage III GFR 30- 59 Moderately Decreased</content>
<content>Stage IV GFR 15-29 Severely Decreased</content>
<content>Stage V GFR <15 Very Little GFR Left</content>
<content>ESRD GFR <15 on ADMINISTRATION VICE PRESIDENT</content>
<content></content> Creatinine For GFR 1.28 mg/dL 0.70-1.30 Normal (applies to non -numeric results) [facility] ([facility]) Sodium Level 136 meq/L 136-145 Normal (applies to non-numeric res ults) [facility] ([facility]) Potassium Serum 3.8 meq/L 3.5-5.1 Normal (applies to non-numeric results) [facility] ([facility]) Chloride Level 106 meq/L 98-107 Normal (applies to non-numeric r esults) [facility] ([facility]) Carbon Dioxide Level 20 meq/L 21-32 Below low normal [facility] ([facility]) Ast/Sgot 27 U/L 7-37 Normal (applies to non-numeric resul ts) [facility] ([facility]) Calcium Level 7.3 mg/dL 8.5-10.1 Below low normal [facility] ([facility]) Anion Gap 10 meq/L 8-16 Normal (applies to non-numeric resul ts) [facility] ([facility]) Alt/SGPT 40 U/L 12-78 Normal (applies to non-numeric resul ts) [facility] ([facility]) Bilirubin,Total 0.4 mg/dL 0.2-1.0 Normal (applies to non-numeric results) [facility] Alkaline Phosphatase 63 U/L 45-117 Normal (applies to non-num mercy results) [facility] ([facility]) Total Protein 6.6 GM/DL 6.4-8.2 Normal (applies to non-numeric re sults) [facility] ([facility]) Albumin 3.2 GM/DL 3.2-5.2 Normal (applies to non-numeric resul ts) [facility] ([facility]) Albumin/Globulin Ratio 0.9 Normal (applies to non-n umeric results) [facility] ([facility]) ID Date Data Source [id number] 09/07/2019 10:25:00 AM EDT [facility] ([facility]) Name Value Range Interpretation Code Description Data Elizabeth rce(s) Supporting Document(s) Glucose, Fasting 118 mg/dL 70-100 Above high normal [facility] ([facility]) Blood Urea Nitrogen 16 mg/dL 7-18 Normal (applies to non-nume radha results) [facility] ([facility]) Creatinine For GFR 1.14 mg/dL 0.70-1.30 Normal (applies to non -numeric results) [facility] ([facility]) Glomerular Filtration Rate Laboratory test result Normal (applies to non- numeric results) [facility]) <content>Units are mL/min/1.73 m2</content>
<content></content>
<content>Chronic Kidney Disease Staging per NKF:</content>
<content></content>
<content>Stage I & II GFR >=60 Normal to Mildly Decreased</content>
<content>Stage III GFR 30- 59 Moderately Decreased</content>
<content>Stage IV GFR 15-29 Severely Decreased</content>
<content>Stage V GFR <15 Very Little GFR Left</content>
<content>ESRD GFR <15 on ADMINISTRATION VICE PRESIDENT</content>
<content></content> Sodium Level 137 meq/L 136-145 Normal (applies to non-numeric res ults) [facility] ([facility]) Potassium Serum 4.5 meq/L 3.5-5.1 Normal (applies to non-numeric results) [facility] ([facility]) Chloride Level 110 meq/L 98-107 Above high normal [facility] ([facility]) Carbon Dioxide Level 21 meq/L 21-32 Normal (applies to non-num mercy results) [facility] ([facility]) Ast/Sgot 23 U/L 7-37 Normal (applies to non-numeric resul ts) [facility] ([facility]) Calcium Level 7.1 mg/dL 8.5-10.1 [facility] ([facility]) Anion Gap 6 meq/L 8-16 Below low normal [facility] ( [facility]) Alkaline Phosphatase 65 U/L 45-117 Normal (applies to non-num mercy results) [facility] ([facility]) Alt/SGPT 36 U/L 12-78 Normal (applies to non-numeric resul ts) [facility] ([facility]) Bilirubin,Total 0.3 mg/dL 0.2-1.0 Normal (applies to non-numeric results) [facility] ([facility]) Total Protein 6.3 GM/DL 6.4-8.2 Below low normal [facility] ([facility]) Albumin 3.1 GM/DL 3.2-5.2 Below low normal [facility] ( [facility]) Albumin/Globulin Ratio 1.0 Normal (applies to non-n umeric results) [facility] ([facility]) ID Date Data Source [id number] 09/06/2019 07:49:00 AM EDT [facility] ([facility]) Name Value Range Interpretation Code Description Data Elizabeth rce(s) Supporting Document(s) Magnesium [Mass/volume] in Serum or Plasma 1.2 mg/dL 1.8-2.4 [place] w low normal [facility] ([facility]) ID Date Data Source [id number] 09/06/2019 07:49:00 AM EDT [facility] ([facility]) Name Value Range Interpretation Code Description Data Elizabeth rce(s) Supporting Document(s) Blood Urea Nitrogen 18 mg/dL 7-18 Normal (applies to non-nume radha results) [facility] ([facility]) Glucose, Fasting 183 mg/dL 70-100 Above high normal [facility] ([facility]) Creatinine For GFR 1.54 mg/dL 0.70-1.30 Above high normal [facility] ([facility]) Sodium Level 132 meq/L 136-145 Below low normal [facility] ([facility]) Glomerular Filtration Rate 50.2 Below low normal [facility] ([facility]) <content>Units are mL/min/1.73 m2</content>
<content></content>
<content>Chronic Kidney Disease Staging per NKF:</content>
<content></content>
<content>Stage I & II GFR >=60 Normal to Mildly Decreased</content>
<content>Stage III GFR 30- 59 Moderately Decreased</content>
<content>Stage IV GFR 15-29 Severely Decreased</content>
<content>Stage V GFR <15 Very Little GFR Left</content>
<content>ESRD GFR <15 on ADMINISTRATION VICE PRESIDENT</content>
<content></content> Carbon Dioxide Level 20 meq/L 21-32 Below low normal [facility] ([facility]) Chloride Level 104 meq/L 98-107 Normal (applies to non-numeric r esults) [facility] ([facility]) Potassium Serum 5.2 meq/L 3.5-5.1 Above high normal [facility] ([facility]) Ast/Sgot 15 U/L 7-37 Normal (applies to non-numeric resul ts) [facility] ([facility]) Calcium Level 8.9 mg/dL 8.5-10.1 Normal (applies to non-numeric re sults) [facility] ([facility]) Anion Gap 8 meq/L 8-16 Normal (applies to non-numeric resul ts) [facility] ([facility]) Alkaline Phosphatase 83 U/L 45-117 Normal (applies to non-num mercy results) [facility] ([facility]) Alt/SGPT 39 U/L 12-78 Normal (applies to non-numeric resul ts) [facility] ([facility]) Bilirubin,Total 0.3 mg/dL 0.2-1.0 Normal (applies to non-numeric results) [facility] ([facility]) Total Protein 7.3 GM/DL 6.4-8.2 Normal (applies to non-numeric re sults) [facility] ([facility]) Albumin 3.5 GM/DL 3.2-5.2 Normal (applies to non-numeric resul ts) [facility] ([facility]) Albumin/Globulin Ratio 0.9 Normal (applies to non-n umeric results) [facility] ([facility]) ID Date Data Source [id number] 09/06/2019 07:49:00 AM EDT [facility] ([facility]) Name Value Range Interpretation Code Description Data Elizabeth rce(s) Supporting Document(s) Lymph % 9.2 % 24.0-44.0 Below low normal [facility] ( [facility]) Garza % 1.0 % 0.0-5.0 Normal (applies to non-numeric resul ts) [facility] ([facility]) Neutrophils % 88.1 % 36.0-66.0 Above high normal [facility] ([facility]) Eos % 0.0 % 0.0-3.0 Normal (applies to non-numeric resul ts) [facility] ([facility]) Baso % 0.1 % 0.0-1.0 Normal (applies to non-numeric resul ts) [facility] ([facility]) Lymph # 0.9 10 1.5-5.0 Below low normal [facility] ( [facility]) Neutrophils # 8.5 10 1.5-8.5 Normal (applies to non-numeric re sults) [facility] ([facility]) Immature Granulocyte % 1.6 % 0-3.0 Normal (applies to non-n umeric results) [facility] ([facility]) Garza # 0.1 10 0.0-0.8 Normal (applies to non-numeric resul ts) [facility] ([facility]) Eos # 0.0 10 0.0-0.5 Normal (applies to non-numeric resul ts) [facility] ([facility]) Baso # 0.0 10 0.0-0.2 Normal (applies to non-numeric resul ts) [facility] ([facility]) ID Date Data Source [id number] 09/06/2019 07:49:00 AM EDT [facility] ([facility]) Name Value Range Interpretation Code Description Data Elizabeth rce(s) Supporting Document(s) Red Blood Count 4.16 10 4.30-6.10 Below low normal [facility] ([facility]) White Blood Count 9.7 10 4.0-10.0 Normal (applies to non-numeri c results) [facility] ([facility]) Hemoglobin 12.7 g/dL 13.5-17.5 Below low normal [facility] Mean Corpuscular Volume 89.9 fl 80.0-96.0 Normal ( applies to non-numeric results) [facility] ([facility]) Hematocrit 37.4 % 42.0-52.0 Below low normal [facility] Mean Corpuscular Hemoglobin 30.5 pg 27.0-33.0 Norm al (applies to non-numeric results) [facility] ([facility]) Mean Corpuscular HGB Conc 34.0 g/dL 32.0-36.5 Normal (applies to non-numeric results) [facility] ([facility]) Red Cell Distribution Width 15.2 % 11.5-14.5 Above high normal [facility] ([facility]) Nucleated Red Blood Cell % 0.0 % 0-0 Normal (applies to n on-numeric results) [facility] ([facility]) Platelet Count, Automated 301 10 150-450 Normal (applies to non-numeric results) [facility] ([facility]) ID Date Data Source [id number] 08/27/2019 11:22:00 AM EDT [facility] ([facility]) Name Value Range Interpretation Code Description Data Elizabeth rce(s) Supporting Document(s) Prothrombin Time 12.5 s 11.8-14.0 Normal (applies to non-numeric results) [facility] ([facility]) Inr 0.96 Normal (applies to non-numeric resul ts) [facility] ([facility]) THERAPUTIC HUMAN INR VALUES INDICATIONS NORMAL RANGES PROPHYLAXIS/TREATMENT OF: VENOUS THROMBOSIS 2.0-3.0 PULMONARY EMBOLISM 2.0-3.0 PREVENTION OF SYSTEMIC EMBOLISM FROM: TISSUE HEART VALVES 2.0-3.0 ACUTE MYOCARDIAL INFARCTION 2.0-3.0 VALVULAR HEART DISEASE 2.0-3.0 ATRIAL FIBRILLATION 2.0-3.0 MECHANICAL VALVES(HIGH RISK) 2.5-3.5 RECURRENT MYOCARDIAL INFARCTION 2.5-3.5 Partial Thromboplastin Time 34.2 s 25.0-38.4 Norm al (applies to non-numeric results) [facility]) ID Date Data Source [id number] 08/27/2019 09:11:00 AM EDT [facility] ([facility]) Name Value Range Interpretation Code Description Data Elizabeth rce(s) Supporting Document(s) Red Blood Count 4.22 10 4.30-6.10 Below low normal [facility] ([facility]) White Blood Count 7.6 10 4.0-10.0 Normal (applies to non-numeri c results) [facility] ([facility]) Hematocrit 38.1 % 42.0-52.0 Below low normal [facility] ( [facility]) Hemoglobin 13.1 g/dL 13.5-17.5 Below low normal [facility] ( [facility]) Mean Corpuscular Volume 90.3 fl 80.0-96.0 Normal ( applies to non-numeric results) [facility] ([facility]) Mean Corpuscular HGB Conc 34.4 g/dL 32.0-36.5 Normal (applies to non-numeric results) [facility] ([facility]) Red Cell Distribution Width 16.8 % 11.5-14.5 Above high normal [facility] Mean Corpuscular Hemoglobin 31.0 pg 27.0-33.0 Norm al (applies to non-numeric results) [facility] ([facility]) Nucleated Red Blood Cell % 0.0 % 0-0 Normal (applies to n on-numeric results) [facility] ([facility]) Platelet Count, Automated 318 10 150-450 Normal (applies to non-numeric results) [facility] ([facility]) ID Date Data Source [id number] 08/27/2019 09:11:00 AM EDT [facility] ([facility]) Name Value Range Interpretation Code Description Data Elizabeth rce(s) Supporting Document(s) Neutrophils % 61.4 % 36.0-66.0 Normal (applies to non-numeric re sults) [facility] ([facility]) Lymph % 27.4 % 24.0-44.0 Normal (applies to non-numeric resul ts) [facility] ([facility]) Garza % 7.9 % 0.0-5.0 Above high normal [facility] ([facility]) Baso % 0.8 % 0.0-1.0 Normal (applies to non-numeric resul ts) [facility] ([facility]) Eos % 1.8 % 0.0-3.0 Normal (applies to non-numeric resul ts) [facility] ([facility]) Immature Granulocyte % 0.7 % 0-3.0 Normal (applies to non-n umeric results) [facility]) Lymph # 2.1 10 1.5-5.0 Normal (applies to non-numeric resul ts) [facility]) Garza # 0.6 10 0.0-0.8 Normal (applies to non-numeric resul ts) [facility]) Neutrophils # 4.7 10 1.5-8.5 Normal (applies to non-numeric re sults) [facility] ([facility]) Eos # 0.1 10 0.0-0.5 Normal (applies to non-numeric resul ts) [facility] ([facility]) Baso # 0.1 10 0.0-0.2 Normal (applies to non-numeric resul ts) [facility] ([facility]) ID Date Data Source [id number] 08/27/2019 09:11:00 AM EDT [facility] ([facility]) Name Value Range Interpretation Code Description Data Elizabeth rce(s) Supporting Document(s) Blood Urea Nitrogen 15 mg/dL 7-18 Normal (applies to non-nume radha results) [facility] ([facility]) Glucose, Fasting 93 mg/dL 70-100 Normal (applies to non-numeric results) [facility] ([facility]) Glomerular Filtration Rate Laboratory test result Normal (applies to non- numeric results) [facility] ([facility]) <content>Units are mL/min/1.73 m2</content>
<content></content>
<content>Chronic Kidney Disease Staging per NKF:</content>
<content></content>
<content>Stage I & II GFR >=60 Normal to Mildly Decreased</content>
<content>Stage III GFR 30- 59 Moderately Decreased</content>
<content>Stage IV GFR 15-29 Severely Decreased</content>
<content>Stage V GFR <15 Very Little GFR Left</content>
<content>ESRD GFR <15 on ADMINISTRATION VICE PRESIDENT</content>
<content></content> Sodium Level 131 meq/L 136-145 Below low normal [facility] ([facility]) Creatinine For GFR 1.24 mg/dL 0.70-1.30 Normal (applies to non -numeric results) [facility] ([facility]) Potassium Serum 5.2 meq/L 3.5-5.1 Above high normal [facility] ([facility]) Carbon Dioxide Level 23 meq/L 21-32 Normal (applies to non-num mercy results) [facility] ([facility]) Chloride Level 103 meq/L 98-107 Normal (applies to non-numeric r esults) [facility] ([facility]) Ast/Sgot 13 U/L 7-37 Normal (applies to non-numeric resul ts) [facility] ([facility]) Calcium Level 9.3 mg/dL 8.5-10.1 Normal (applies to non-numeric re sults) [facility] ([facility]) Anion Gap 5 meq/L 8-16 Below low normal [facility] Bilirubin,Total 0.5 mg/dL 0.2-1.0 Normal (applies to non-numeric results) [facility] ([facility]) Alkaline Phosphatase 82 U/L 45-117 Normal (applies to non-num mercy results) [facility] ([facility]) Alt/SGPT 31 U/L 12-78 Normal (applies to non-numeric resul ts) [facility] ([facility]) Total Protein 7.4 GM/DL 6.4-8.2 Normal (applies to non-numeric re sults) [facility] ([facility]) Albumin 3.5 GM/DL 3.2-5.2 Normal (applies to non-numeric resul ts) [facility] ([facility]) Albumin/Globulin Ratio 0.90 1.00-1.93 Below low normal [facility] ([facility]) ID Date Data Source [id number] 08/27/2019 09:11:00 AM EDT [facility] ([facility]) Name Value Range Interpretation Code Description Data Elizabeth rce(s) Supporting Document(s) Magnesium [Mass/volume] in Serum or Plasma 1.4 mg/dL 1.8-2.4 Belo w low normal [facility] ([facility]) Carcinoembryonic Ag [Mass/volume] in Serum or Plasma 2.0 ng/mL Normal (applies to non-numeric results) [facility]) THE CEA ASSAY IS PERFORMED ON THE [employer] BY CHEMILUMINESCENCE AND SHOULD NOT BE COMPARED INTERCHANGEABLY WITH OTHER METHODS. IT SHOULD NOT BE USED ALONE A SCREENING TEST OR DIAGNOSIS FOR THE PRESENCE OR ABSENCE OF MALIGNANT DISEASE. PREDICTIONS OF DISEASE RECURRENCE SHOULD NOT BE BASED SOLELY ON VALUES OBTAINED FROM SERIAL PATIENT SERUM VALUES. ID Date Data Source [id number] 08/17/2019 08:50:00 AM EDT [facility] ([facility]) Name Value Range Interpretation Code Description Data Elizabeth rce(s) Supporting Document(s) Carcinoembryonic Ag [Mass/volume] in Serum or Plasma 1.6 ng/mL Normal (applies to non-numeric results) [facility] ([facility]) THE CEA ASSAY IS PERFORMED ON THE [employer] BY CHEMILUMINESCENCE AND SHOULD NOT BE COMPARED INTERCHANGEABLY WITH OTHER METHODS. IT SHOULD NOT BE USED ALONE A SCREENING TEST OR DIAGNOSIS FOR THE PRESENCE OR ABSENCE OF MALIGNANT DISEASE. PREDICTIONS OF DISEASE RECURRENCE SHOULD NOT BE BASED SOLELY ON VALUES OBTAINED FROM SERIAL PATIENT SERUM VALUES. ID Date Data Source [id number] 08/17/2019 08:50:00 AM EDT [facility] ([facility]) Name Value Range Interpretation Code Description Data Elizabeth rce(s) Supporting Document(s) Glucose, Fasting 103 mg/dL 70-100 Above high normal [facility] ([facility]) Creatinine For GFR 1.56 mg/dL 0.70-1.30 Above high normal [facility] ([facility]) Blood Urea Nitrogen 20 mg/dL 7-18 Above high normal [facility] ([facility]) Glomerular Filtration Rate 49.4 Below low normal [facility] ([facility]) <content>Units are mL/min/1.73 m2</content>
<content></content>
<content>Chronic Kidney Disease Staging per NKF:</content>
<content></content>
<content>Stage I & II GFR >=60 Normal to Mildly Decreased</content>
<content>Stage III GFR 30- 59 Moderately Decreased</content>
<content>Stage IV GFR 15-29 Severely Decreased</content>
<content>Stage V GFR <15 Very Little GFR Left</content>
<content>ESRD GFR <15 on ADMINISTRATION VICE PRESIDENT</content>
<content></content> Potassium Serum 4.8 meq/L 3.5-5.1 Normal (applies to non-numeric results) [facility] ([facility]) Sodium Level 133 meq/L 136-145 Below low normal [facility] ([facility]) Chloride Level 103 meq/L 98-107 Normal (applies to non-numeric r esults) [facility] ([facility]) Carbon Dioxide Level 23 meq/L 21-32 Normal (applies to non-num mercy results) [facility] ([facility]) Anion Gap 7 meq/L 8-16 Below low normal [facility] ( [facility]) Calcium Level 8.8 mg/dL 8.5-10.1 Normal (applies to non-numeric re sults) [facility] ([facility]) Ast/Sgot 8 U/L 7-37 Normal (applies to non-numeric resul ts) [facility] ([facility]) Alt/SGPT 27 U/L 12-78 Normal (applies to non-numeric resul ts) [facility] ([facility]) Alkaline Phosphatase 78 U/L 45-117 Normal (applies to non-num mercy results) [facility] ([facility]) Total Protein 7.0 GM/DL 6.4-8.2 Normal (applies to non-numeric re sults) [facility] ([facility]) Bilirubin,Total 0.2 mg/dL 0.2-1.0 Normal (applies to non-numeric results) [facility] ([facility]) Albumin 3.6 GM/DL 3.2-5.2 Normal (applies to non-numeric resul ts) [facility] ([facility]) Albumin/Globulin Ratio 1.06 1.00-1.93 Normal (applies to non-numeric results) [facility] ([facility]) ID Date Data Source [id number] 08/17/2019 08:50:00 AM EDT [facility] ([facility]) Name Value Range Interpretation Code Description Data Elizabeth rce(s) Supporting Document(s) Lymph % 9.9 % 24.0-44.0 Below low normal [facility] ( [facility]) Garza % 7.0 % 0.0-5.0 Above high normal [facility] ([facility]) Neutrophils % 81.7 % 36.0-66.0 Above high normal [facility] ([facility]) Immature Granulocyte % 1.3 % 0-3.0 Normal (applies to non-n umeric results) [facility] ([facility]) Baso % 0.1 % 0.0-1.0 Normal (applies to non-numeric resul ts) [facility] ([facility]) Eos % 0.0 % 0.0-3.0 Normal (applies to non-numeric resul ts) [facility] ([facility]) Neutrophils # 11.5 10 1.5-8.5 Above high normal [facility] ([facility]) Lymph # 1.4 10 1.5-5.0 Below low normal [facility] ( [facility]) Garza # 1.0 10 0.0-0.8 Above high normal [facility] ([facility]) Eos # 0.0 10 0.0-0.5 Normal (applies to non-numeric resul ts) [facility] ([facility]) Baso # 0.0 10 0.0-0.2 Normal (applies to non-numeric resul ts) [facility] ([facility]) ID Date Data Source [id number] 08/17/2019 08:50:00 AM EDT [facility] ([facility]) Name Value Range Interpretation Code Description Data Elizabeth rce(s) Supporting Document(s) White Blood Count 14.1 10 4.0-10.0 Above high normal [facility] ([facility]) Red Blood Count 4.14 10 4.30-6.10 Below low normal [facility] ([facility]) Hematocrit 36.9 % 42.0-52.0 Below low normal [facility] ( [facility]) Hemoglobin 12.4 g/dL 13.5-17.5 Below low normal [facility] ( [facility]) Mean Corpuscular Volume 89.1 fl 80.0-96.0 Normal ( applies to non-numeric results) [facility] ([facility]) Mean Corpuscular Hemoglobin 30.0 pg 27.0-33.0 Norm al (applies to non-numeric results) [facility] ([facility]) Mean Corpuscular HGB Conc 33.6 g/dL 32.0-36.5 Normal (applies to non-numeric results) [facility] ([facility]) Red Cell Distribution Width 16.3 % 11.5-14.5 Above high normal [facility] ([facility]) Platelet Count, Automated 367 10 150-450 Normal (applies to non-numeric results) [facility] ([facility]) Nucleated Red Blood Cell % 0.0 % 0-0 Normal (applies to n on-numeric results) [facility] ([facility]) ID Date Data Source [id number] 08/16/2019 12:14:00 PM EDT [facility] ([facility]) Name Value Range Interpretation Code Description Data Elizabeth rce(s) Supporting Document(s) Surgical pathology study Laboratory test result [facility] ([facility]) FINAL DIAGNOSIS A - Left posterior pharyngeal wall, biopsy: Invasive squamous cell carcinoma, 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 B - Left tongue base, biopsy: Invasive squamous cell carcinoma, well to moderately differentiated C - Right arytenoid, biopsy: Invasive squamous cell carcinoma, well to moderately differentiated. 08/17/2019 - 1304 CLINICAL DIAGNOSIS Sore throat with fullness of left vallecula 08/16/2019 - 1524 GROSS DIAGNOSIS A - Received in formalin labeled "left posterior pharyngeal wall" consists of fragments of tissue, 0.5 x 0.3 x 0.2 cm in aggregate. All in one. B - Received in formalin labeled "left tongue base" consists of fragments of tissue 0.6 x 0.4 x 0.2 cm in aggregate. All in one. C - Received in formalin labeled "right arytenoid" consists of a fragment of tissue, 0.4 x 0.2 x 0.2 cm in aggregate. All in one. -OA 08/16/2019 - [address] CASTRO MD 08/17/2019 1304 ID Date Data Source [id number] 08/03/2019 11:07:00 AM EDT [facility] ([facility]) Name Value Range Interpretation Code Description Data Elizabeth rce(s) Supporting Document(s) Microscopic observation [Identifier] in Unspecified specimen by Non- gynecological cytology method Laboratory test result [facility] ([facility]) SPECIMEN: Bronchial washing ( left upper lobe) 8ml Red SPECIMEN ADEQUACY: Satisfactory for evaluation CATEGORIZATION: Positive for Malignancy DESCRIPTIONS: Scattered small keratinized cells noted exhibiting high n/c ratios and hyperchronmatic nuclei in a background of abundant blood. COMMENTS: Findings consistent witjh sqaumous cell carcinoma. 08/04/2019 - 1029 Signed AN RENTERIA(ASCP) 08/04/2019 1029 (Prelim) Signed Nola Clark M.D. 08/04/2019 1202 ID Date Data Source [id number] 08/03/2019 11:05:00 AM EDT [facility] ([facility]) Name Value Range Interpretation Code Description Data Elizabeth rce(s) Supporting Document(s) Microscopic observation [Identifier] in Unspecified specimen by Non- gynecological cytology method Laboratory test result [facility] ([facility]) SPECIMEN: Bronchial brushing (left upper lobe) lung [place] in vial received SPECIMEN ADEQUACY: Satisfactory for evaluation CATEGORIZATION: Positive for Malignancy DESCRIPTIONS: Abundant malignant cells noted appearing adina and in groups. Some cells are keratinized and and have very high n/c ratios and hyperchromatic nuclei. 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 08/04/2019 - 1199 Signed AN RENTERIA(ASCP) 08/04/2019 1026 (Prelim) Signed Nola Clark M.D. 08/04/2019 1200 ID Date Data Source [id number] 08/03/2019 11:05:00 AM EDT [facility] ([facility]) Name Value Range Interpretation Code Description Data Elizabeth rce(s) Supporting Document(s) Microscopic observation [Identifier] in Unspecified specimen by Non- gynecological cytology method Laboratory test result [facility] ([facility]) SPECIMEN: Bronchial brushing (left upper lobe) lung [place] in vial received SPECIMEN ADEQUACY: Satisfactory for evaluation CATEGORIZATION: Positive for Malignancy DESCRIPTIONS: Abundant malignant cells noted appearing adina and in groups. Some cells are keratinized and and have very high n/c ratios and hyperchromatic nuclei. 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 08/04/2019 - [address](ASCP) 08/04/2019 1026 (Prelim) Signed Nola Clark M.D. 08/04/2019 1200 ID Date Data Source [id number] 08/03/2019 10:30:00 AM EDT [facility] ([facility]) Name Value Range Interpretation Code Description Data Elizabeth rce(s) Supporting Document(s) Gram Stain Laboratory test result Normal (applies to non-n umeric results) [facility] ([facility]) MANY RBCS MODERATE WBCS FEW GRAM POSITIVE COCCI FEW GRAM POSITIVE RODS Laboratory test finding (navigational concept) Laboratory test r esult Normal (applies to non-numeric results) [facility] ([facility]) FULL REPORT IN LAB NOTES (eCW and [facility] ). NORMAL TEODORO PRESENT ID Date Data Source [id number] 08/03/2019 10:30:00 AM EDT [facility] ([facility]) Name Value Range Interpretation Code Description Data Elizabeth rce(s) Supporting Document(s) Gram Stain Laboratory test result Normal (applies to non-n umeric results) [facility] ([facility]) MANY RBCS MODERATE WBCS FEW GRAM POSITIVE COCCI FEW GRAM POSITIVE RODS Bronchial Wash Culture Laboratory test result No rmal (applies to non-numeric results) [facility] ([facility]) FULL REPORT IN LAB NOTES ([facility]CW and [facility] ). NORMAL TEODORO PRESENT ID Date Data Source [id number] 08/03/2019 10:23:00 AM EDT [facility] ([facility]) Name Value Range Interpretation Code Description Data Elizabeth rce(s) Supporting Document(s) Surgical pathology study Laboratory test result [facility] ([facility]) Addendum 1 Entered: 08/30/2019-0814 PD-L1: No expression. No BRAF V600 mutation was detected in the provided specimen Negative for a rearrangement involving the ROS1 gene. Negative for a rearrangement involving the ALK gene No EGFR mutation was detected in the provided specimen. No loss of nuclear expression of MMR proteins. See EMR for detailed reports. 08/30/2019 - 8[address] AVE CASTRO MD 08/30/201915 FINAL DIAGNOSIS Lung mass, left upper lobe, bronchoscopic biopsy: Squamous cell carcinoma, moderately differentiated. -4/tr See note. Note: Due to limited tissue, no additional studies were performed at current time. Please contact lab. if any specific study is indicated clinically. 08/04/2019845 CLINICAL DIAGNOSIS Abnormal x-ray 08/03/20191518 GROSS DIAGNOSIS Received in formalin labeled "left upper lobe forceps biopsy" are a few fragments of bagged soft tissue, aggregating approximately 0.5 x 0.3 x 0.1 cm. All in one. -YZ 08/03/20191518 Signed Nola Clark M.D. 08/04/2019845 ID Date Data Source [id number] 07/06/2019 10:05:00 AM EDT [facility] ([facility]) Name Value Range Interpretation Code Description Data Elizabeth rce(s) Supporting Document(s) PET CT Laboratory test result [facility] ([facility]) ID Date Data Source [id number] 07/02/2019 04:09:00 [place] [address] PHONE: [phone] FAX: [phone] Name .................. : DEDE [place] Acct Number.................. : [id number] ROOM. ................. : MR Number ................... : [id number] Stay type ............. : O/P Discharge Date......... ... : 07/02/19 Admit Date ......... : 07/02/19 Admit Phys .................... : RICH HARD Date of ....... : 1965 Family Phys ................... : HILARIO HARD Phone .................. : [phone] Age ................................ : 53 Film# .................. .:[id number] Sex ................................. : M Unsigned transcriptions are preliminary reports and do not represent a medical or legal document CT THORAX W/CONTRAST [id number] COMPLETE:07/02/19 10:55 JO [id number] PULMONARY NODULE; PNEUMONIA CT SCAN OF THE CHEST WITH CONTRAST: TECHNIQUE: CT scan of the chest is performed following administration of intravenous contrast. COMPARISON: 09/29/17 FINDINGS: There is mass-like opacity which appears to extend from or to the left hilum into both the apicoposterior segments of the left upper lobe as well as to a somewhat lesser degree of the anterior segment. The central mass like component measures 3.7 x 2.1 x 3.5 cm. The opacity extending into the apicoposterior segment of the left upper lobe is somewhat irregular in shape and has a relatively broad pleural base superiorly and posteriorly, but measures approximately 8.9 x 3.8 x 5.7 cm. The opacity extending into the anterior segment of the left upper lobe measures 3.6 x 5.1 x 1.4 cm. This opacity does have some air bronchograms within and could be related to post obstructive pneumonitis. Tumor infiltration is not excluded and follow up with PET scanning is suggested for further evaluation. There are no pleural effusions. The lungs are hyperexpanded bilaterally. There is no discrete mediastinal, right hilar or axillary adenopathy by CT size criteria. There is aortic and coronary artery calcification. The aorta is ectatic and tortuous. No mass is appreciated in the visualized portion of the liver, spleen or adrenal glands. The right kidney is not identified. There appear to be perinephric stranding about the partially visualized left kidney. T here is a small benign-appearing 1.5 cm low attenuation probable cyst in the upper pole of the left kidney. Evaluation of the visualized skeleton demonstrates bony demineralization and degenerative changes. IMPRESSION: Page 1 of 2 [facility] [address] [place] [address] PHONE: [phone] FAX: [phone] Name .................. : DEDE [place] Acct Number.................. : [id number] ROOM. ................. : MR Number ................... : [id number] Stay type ............. : O/P Discharge Date......... ... : 07/02/19 Admit Date ......... : 07/02/19 Admit Phys .................... : Anki Date of ....... : 1965 Family Phys ................... : Anki Phone .................. : [phone] Age ................................ : 53 Film# .................. .:[id number] Sex ................................. : M Unsigned transcriptions are preliminary reports and do not represent a medical or legal document CT THORAX W/CONTRAST [id number] COMPLETE:07/02/19 10:55 JO 45750 PULMONARY NODULE; PNEUMONIA Left hilar mass with abnormal opacity extending into the left upper lobe and the possibility of malignancy is suggested. Suggest PET scanning for further evaluation. While performing the above CT examination, radiation dose reduction was accomplished utilizing automated exposure control, adjusting of the mA and kV based on the patient's body size and/or the use of imperative reconstructive techniques. CT dose: 501 mGycm Contrast agent in mL: 75 Isovue 370 Method of administration: I ntravenous Electronically Reviewed and Signed By Wilbert Reinoso MD , 07/02/19 16:09, [facility] Transcribe Initials: MERCEDES , Transcribe Date: 07/02/19 13:02, Dictation Date: Copy for: [address] [place] [address] REC Page 2 of 2 Name Value Range Interpretation Code Description Data Elizabeth rce(s) Supporting Document(s) ID Date Data Source [id number] 06/29/2019 11:54:00 AM EDT [facility] [address] [place] [address] PHONE: [phone] FAX: [phone] Name .................. : DEDE [place] Acct Number.................. : [id number] ROOM. ................. : MR Number ................... : [id number] Stay type ............. : CLINIC Discharge Date......... ... : 06/29/19 Admit Date ......... : 06/29/19 Admit Phys .................... : RICH HARD Date of ....... : 1965 Family Phys ................... : RICH HARD Phone .................. : [phone] Age ................................ : 53 Film# .................. .:[id number] Sex ................................. : M Unsigned transcriptions are preliminary reports and do not represent a medical or legal document KNEE COMPLETE-4 OR MORE S L [id number] COMPLETE:06/29/19 09:51 KBO 39781 (REASON FOR PROCESS: EFFUSION LEFT KNEE SERIES: FINDINGS: There is an osteochondral defect noted in the medial femoral condyle, most consistent with osteochondritis dessicans. Fracture or dislocation is not seen. Soft tissue calcification is seen in the proximal aspect of the lateral collateral ligament that is most consistent with prior ligamentous injury. Join effusion is not seen. There is a small to medium size suprapatellar joint effusion. 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 Small to medium size joint effusion. Lateral collateral ligament calcification suspicious for prior injury. Electronically Reviewed and Signed By Anshu Mario MD , 06/29/19 11:55, [facility] Transcribe Initials: MERCEDES , Transcribe Date: 06/29/19 11:09, Dictation Date: Page 1 of 1 Name Value Range Interpretation Code Description Data Elizabeth rce(s) Supporting Document(s) ID Date Data Source [id number] 06/29/2019 11:54:00 [place] [address] PHONE: [phone] FAX: [phone] Name .................. : DEDE [place] Acct Number.................. : [id number] ROOM. ................. : Number ................... : [id number] Stay type ............. : CLINIC Discharge Date......... ... : 06/29/19 Admit Date ......... : 06/29/19 Admit Phys .................... : RICH HARD Date of ....... : 1965 Family Phys ................... : RICH HARD Phone .................. : [phone] Age ................................ : 53 Film# .................. .:[id number] Sex ................................. : M Unsigned transcriptions are preliminary reports and do not represent a medical or legal document CHEST 2 VIEWS 61281 COMPLETE:06/29/19 09:51 KBO 03720 (REASON FOR CHEST: PNEUMONIA CHEST X-RAY: 2-VIEWS COMPARISON: 06/16/19 FINDINGS: Frontal and lateral views of the chest are performed. Emphysematous changes are once again seen. In the left upper lobe, opacities are seen without change, likely post inflammatory in nature. Pneumothorax, pleural effusion, cardiomegaly or acute osseous abnormality is not seen. IMPRESSION: COPD changes. Left upper lobe opacities most consistent with post inflammatory changes. Consider additional evaluation with CT chest if there is concern for underlying malignancy that results in chronic opacities in the left upper lobe. Electronically Reviewed and Signed By Anshu Mario MD , 06/29/19 11:54, [facility] Transcribe Initials: MERCEDES , Transcribe Date: 06/29/19 11:06, Dictation Date: Page 1 of 1 Name Value Range Interpretation Code Description Data Elizabeth rce(s) Supporting Document(s) ID Date Data Source [id number] 06/29/2019 08:40:00 AM EDT [facility] ([facility]) Name Value Range Interpretation Code Description Data Elizabeth rce(s) Supporting Document(s) Erythrocyte sedimentation rate by Westergren method <pending> [facility] ([facility]) C reactive protein [Mass/volume] in Serum or Plasma by High sensitivity method 18.30 mg/L 1.00-3.00 Above high normal [facility] ([facility]) <content>CDC/S HS-CRP CUT-OFF: RELATIVE RISK:</content>
<content><1.0 mg/L Low</content>
<content>1.0 - 3.0 mg/L Average</lucrecia nt>
<content>>3.0 mg/L High</content>
<content>Optimally, the average of HS-CRP results repeated</content>
<content>two weeks apart should be used for risk assessment.</content>
<content></content> Urate [Mass/volume] in Serum or Plasma 6.8 mg/dL 2.5-8.5 [facility] ([facility]) ID Date Data Source [id number] 06/29/2019 08:40:00 AM EDT [facility] ([facility]) Name Value Range Interpretation Code Description Data Elizabeth rce(s) Supporting Document(s) Sed Rate 14 mm/hr 0-20 [facility] ([facility]) Sed Rate Reenter 14 [facility] ([facility]) ID Date Data Source [id number] 06/29/2019 08:40:00 AM EDT [facility] ([facility]) Name Value Range Interpretation Code Description Data Elizabeth rce(s) Supporting Document(s) WBC 9.4 10^3/uL 4.2-11.0 [facility] ([facility]) CBC W/Automated Diff Laboratory test result [facility] ([facility]) COMPLETE BLOOD COUNT Hemoglobin 11.8 g/dL 14.0-16.0 Below low normal [facility] ( [facility]) RBC 4.15 10^6/uL 4.50-6.30 Below low normal [facility] ([facility]) Hematocrit 35.7 % 41.0-51.0 Below low normal [facility] ( [facility]) MCH 28.4 pg 27.0-34.0 [facility] ([facility]) MCHC 33.1 g/dL 31.0-36.0 [facility] ([facility]) MCV 86.0 fL 80.0-94.0 [facility] ([facility]) RDW 15.8 % 11.5-14.8 Above high normal [facility] ([facility]) Platelets 363 10^3/uL 150-450 [facility] ([facility]) MPV 8.7 fL 7.4-10.4 [facility] ([facility]) Garza 5.7 % 3.0-8.0 [facility] ([facility]) Lymph 23.9 % 25.0-40.0 Below low normal [facility] ( [facility]) Neut 65.2 % 37.0-80.0 [facility] ([facility]) %NRBC 0.0 % 0.0-0.0 [facility] ([facility]) Baso 1.3 % 0.0-2.0 [facility] ([facility]) %Ig 1.4 % 0.0-0.0 Above high normal [facility] ([facility]) Eos 2.5 % 0.0-7.0 [facility] ([facility]) #Lymph 2.23 10^3/uL 0.60-3.40 [facility] ([facility]) #Neut 6.11 10^3/uL 2.00-6.90 [facility] ([facility]) #Garza 0.53 10^3/uL 0.00-0.90 [facility] ([facility]) #Baso 0.12 10^3/uL 0.00-0.20 [facility] ([facility]) #Ig 0.13 10^3/uL 0.00-0.10 Above high normal [facility] ([facility]) #Eos 0.23 10^3/uL 0.00-0.70 [facility] ([facility]) RBC Morph Laboratory test result [facility] ([facility]) #NRBC 0.00 10^3/uL 0.00-0.00 [facility] Manual Diff [facility] ID Date Data Source [id number] 06/29/2019 08:40:00 AM EDT [facility] ([facility]) Name Value Range Interpretation Code Description Data Elizabeth rce(s) Supporting Document(s) Rheumatoid factor [Units/volume] in Serum or Plasma 14 IU/ml 0-14 [facility] ([facility]) Nuclear Ab [Presence] in Serum Laboratory test result [facility] ([facility]) Borrelia burgdorferi C6 Ab [Units/volume] in Serum by Immunoassay Laboratory test result 0.00-0.90 [facility] <content>Negative <0.91</content >
<content>Equivocal 0.91 - 1.09</content>
<content>Positive >1.09</content>
<content></content> ID Date Data Source [id number] 07/03/2019 08:11:00 AM EDT [facility] Value Range Interpretation Code Description Data Elizabeth rce(s) Supporting Document(s) Nuclear Ab [Presence] in Serum Negative Negative [facility] ID Date Data Source [id number] 07/03/2019 08:11:00 AM EDT [facility] Value Range Interpretation Code Description Data Elizabeth rce(s) Supporting Document(s) Borrelia burgdorferi C6 Ab [Units/volume] in Serum by Immuno assay <0.91 index 0.00-0.90 [facility] Negative <0.91 Equivocal 0.91 - 1.09 Positive >1.09 ID Date Data Source [id number] 06/29/2019 03:03:00 PM EDT [facility] Value Range Interpretation Code Description Data Elizabeth rce(s) Supporting Document(s) Erythrocyte sedimentation rate by Westergren method 14 mm/hr 0 - 20 [facility] SED RATE REENTER 14 [facility] ID Date Data Source [id number] 06/29/2019 02:25:00 PM EDT [facility] Name Value Range Interpretation Code Description Data Elizabeth rce(s) Supporting Document(s) C reactive protein [Mass/volume] in Serum or Plasma by High sensitivity method 18.30 MG/L 1.00 - 3.00 H [facility] CDC/S HS-CRP CUT-OFF: RELATIVE RISK: <1.0 mg/L Low 1.0 - 3.0 mg/L Average >3.0 mg/L High Optimally, the average of HS-CRP results repeated two weeks apart should be used for risk assessment. ID Date Data Source [id number] 06/29/2019 02:23:00 PM EDT [facility] Name Value Range Interpretation Code Description Data Elizabeth rce(s) Supporting Document(s) RA QUANT 14 IU/mL 0 - 14 [facility] ID Date Data Source [id number] 06/29/2019 02:23:00 PM EDT [facility] Name Value Range Interpretation Code Description Data Elizabeth rce(s) Supporting Document(s) Urate [Mass/volume] in Serum or Plasma 6.8 MG/DL 2.5 - 8.5 [facility] ID Date Data Source [id number] 06/29/2019 02:08:00 PM T [facility] Name Value Range Interpretation Code Description Data Elizabeth rce(s) Supporting Document(s) CBC W/AUTOMATED DIFF [facility] COMPLETE BLOOD COUNT Leukocytes [#/volume] in Blood by Automated count 9.4 10^3/uL 4.2 - 1 1.0 [facility] Erythrocytes [#/volume] in Blood by Automated count 4.15 10^6/uL 4. 50 - 6.30 L [facility] Hemoglobin [Mass/volume] in Blood 11.8 g/dL 14.0 - 16.0 L [facility] Hematocrit [Volume Fraction] of Blood by Automated count 35.7 % 4 1.0 - 51.0 L [facility] Erythrocyte mean corpuscular volume [Entitic volume] by Auto mated count 86.0 fL 80.0 - 94.0 [facility] Erythrocyte mean corpuscular hemoglobin [Entitic mass] by Automated count 28.4 pg 27.0 - 34.0 [facility] Erythrocyte mean corpuscular hemoglobin concentration [Mass/volume] by Automated count 33.1 g/dL 31.0 - 36.0 [facility] Erythrocyte distribution width [Ratio] by Automated count 15.8 % 11.5 - 14.8 H [facility] Platelets [#/volume] in Blood by Automated count 363 10^3/uL 150 - 45 0 [facility] Platelet mean volume [Entitic volume] in Blood by Automated count 8.7 fL 7.4 - 10.4 [facility] Neutrophils/100 leukocytes in Blood by Automated count 65.2 % 37. 0 - 80.0 [facility] Lymphocytes/100 leukocytes in Blood by Manual count 23.9 % 25.0 - 40.0 L [facility] Monocytes/100 leukocytes in Blood by Automated count 5.7 % 3.0 - 8.0 [facility] Eosinophils/100 leukocytes in Blood by Automated count 2.5 % 0.0 - 7.0 [facility] Basophils/100 leukocytes in Blood by Automated count 1.3 % 0.0 - 2.0 [facility] %IG 1.4 % 0.0 - 0.[address] [facility] %NRBC 0.0 % 0.0 - 0.0 [facility] al Neutrophils [#/volume] in Blood by Automated count 6.11 10^3/uL 2.00 - 6.90 [facility] Lymphocytes [#/volume] in Blood by Automated count 2.23 10^3/uL 0.60 - 3.40 [facility] Monocytes [#/volume] in Blood by Automated count 0.53 10^3/uL 0.00 - 0.90 [facility] Eosinophils [#/volume] in Blood by Automated count 0.23 10^3/uL 0.00 - 0.70 [facility] Basophils [#/volume] in Blood by Automated count 0.12 10^3/uL 0.00 - 0.20 [facility] #IG 0.13 10^3/uL 0.00 - 0.10 [facility] #NRBC 0.00 10^3/uL 0.00 - 0.00 [facility] MANUAL DIFF NOT INDICATED [facility] RBC MORPH NOT INDICATED [facility] ID Date Data Source [id number] 06/29/2019 08:30:00 AM EDT [facility] ([facility]) Name Value Range Interpretation Code Description Data Elizabeth rce(s) Supporting Document(s) Chest Xray 2 Views <pending> [facility] ([facility]) Knee Complete-4 Or More VWS LT <pending> [facility] ([facility]) ID Date Data Source [id number] 06/18/2019 10:37:00 AM EST [facility] [address] [place] [address] PHONE: [phone] FAX: [phone] Name .................. : DEDE [place] Acct Number.................. : [id number] ROOM. ................. : MR Number ................... : [id number] Stay type ............. : CLINIC Discharge Date......... ... : 06/16/19 Admit Date ......... : 06/16/19 Admit Phys .................... : RICH HARD Date of ....... : 1965 Family Phys ................... : RICH HARD Phone .................. : [phone] Age ................................ : 53 Film# .................. .:[id number] Sex ................................. : M Unsigned transcriptions are preliminary reports and do not represent a medical or legal document CHEST 2 VIEWS [id number] COMPLETE:06/16/19 16:41 SRG [id number] (REASON FOR CHEST: HTN CHEST X-RAY: 2-VIEWS INDICATION: Hypertension. FINDINGS: The lungs are well- expanded. There is a patchy infiltrate in the left upper lobe. The cardiac silhouette is normal in size and contour. No acute osseous abnormality. IMPRESSION: Left upper lobe pneumonia. Electronically Reviewed and Signed By Papo Das M.D. , 06/18/19 10:37, [facility] Transcribe Initials: DZ , Transcribe Date: 06/16/19 21:09, Dictation Date: Page 1 of 1 Name Value Range Interpretation Code Description Data Elizabeth rce(s) Supporting Document(s) ID Date Data Source [id number] 06/16/2019 01:23:00 PM EST [facility] ([facility]) Name Value Range Interpretation Code Description Data Elizabeth rce(s) Supporting Document(s) Inhouse EKG Laboratory test result [facility] ([facility]) ID Date Data Source [id number] 06/16/2019 01:11:00 PM EST [facility] ([facility]) Name Value Range Interpretation Code Description Data Elizabeth rce(s) Supporting Document(s) Chest Xray 2 Views <pending> [facility] ([facility]) ID Date Data Source [id number] 06/16/2019 01:07:00 PM EST [facility] ([facility]) Name Value Range Interpretation Code Description Data Elizabeth rce(s) Supporting Document(s) Protime 12.1 s 11.0-15.5 [facility] ([facility]) Is patient fasting? N PTT 33.6 s 24.8-36.7 [facility] ([facility]) Is patient fasting? N Inr 0.89 0.93-1.23 Below low normal [facility] ([facility]) Is patient fasting? N ID Date Data Source [id number] 06/16/2019 01:07:00 PM EST [facility] ([facility]) Name Value Range Interpretation Code Description Data Elizabeth rce(s) Supporting Document(s) Comprehensive [employer]abo Laboratory test result [facility] ([facility]) Is patient fasting? N Sodium 127 meq/L 134-153 Below low normal [facility] ( [facility]) Is patient fasting? N Potassium 5.2 meq/L 3.6-5.0 Above high normal [facility] ([facility]) Is patient fasting? N Co2 19 meq/L 22-30 Below low normal [facility] ([facility]) Is patient fasting? N Chloride 98 meq/L 98-107 [facility] ([facility]) Is patient fasting? N Glucose 89 mg/dL 65-110 [facility] ([facility]) Is patient fasting? N BUN 18 mg/dL 7-21 [facility] ([facility]) Is patient fasting? N Creatinine 1.2 mg/dL 0.7-1.5 [facility] ([facility]) Is patient fasting? N Albumin 4.3 g/dL 3.9-5.0 [facility] Is patient fasting? N Total Protein 7.4 g/dL 6.3-8.2 [facility] ([facility]) Is patient fasting? N BUN/Creat 15 8-27 [facility] ([facility]) Is patient fasting? N Globulin 3.1 GM/DL 2.4-3.2 [facility] ([facility]) Is patient fasting? N A/G Ratio 1.4 0.8-2.0 [facility] ([facility]) Is patient fasting? N Calcium 10.0 mg/dL 8.4-10.2 [facility] ([facility]) Is patient fasting? N Total Bili Laboratory test result 0.2-1.3 [facility] ([facility]) Is patient fasting? N Sgot/Ast 16 U/L 5-40 [facility] ([facility]) Is patient fasting? N Alkaline Phos 82 U/L 38-126 [facility] ([facility]) Is patient fasting? N SGPT/Alt 22 U/L 7-56 [facility] ([facility]) Is patient fasting? N Anion Gap 10.0 mmol/L 8.0-16.0 [facility] ([facility]) Is patient fasting? N Afr Amer GFR Laboratory test result [facility] ([facility]) Is patient fasting? N Non-Aa GFR Laboratory test result [facility] ([facility]) Is patient fasting? N Age 53 yrs [facility] ([facility]) Is patient fasting? N ID Date Data Source [id number] 06/16/2019 01:07:00 PM EST [facility] ([facility]) Name Value Range Interpretation Code Description Data Elizabeth rce(s) Supporting Document(s) CBC W/Automated Diff Laboratory test result [facility] ([facility]) Is patient fasting? N RBC 4.10 10^6/uL 4.50-6.30 Below low normal [facility] ([facility]) Is patient fasting? N Hemoglobin 11.6 g/dL 14.0-16.0 Below low normal [facility] ( [facility]) Is patient fasting? N WBC 9.7 10^3/uL 4.2-11.0 [facility] Is patient fasting? N MCV 87.8 fL 80.0-94.0 [facility] ([facility]) Is patient fasting? N Hematocrit 36.0 % 41.0-51.0 Below low normal [facility] ( [facility]) Is patient fasting? N MCH 28.3 pg 27.0-34.0 [facility] ([facility]) Is patient fasting? N MCHC 32.2 g/dL 31.0-36.0 [facility] ([facility]) Is patient fasting? N RDW 15.6 % 11.5-14.8 Above high normal [facility] ([facility]) Is patient fasting? N Platelets 489 10^3/uL 150-450 Above high normal [facility] ([facility]) Is patient fasting? N MPV 8.5 fL 7.4-10.4 [facility] ([facility]) Is patient fasting? N Neut 64.8 % 37.0-80.0 [facility] ([facility]) Is patient fasting? N Garza 5.2 % 3.0-8.0 [facility] ([facility]) Is patient fasting? N Eos 2.2 % 0.0-7.0 [facility] ([facility]) Is patient fasting? N Lymph 25.8 % 25.0-40.0 [facility] ([facility]) Is patient fasting? N Baso 1.0 % 0.0-2.0 [facility] ([facility]) Is patient fasting? N %NRBC 0.0 % 0.0-0.0 [facility] ([facility]) Is patient fasting? N %Ig 1.0 % 0.0-0.0 Above high normal [facility] ([facility]) Is patient fasting? N #Lymph 2.49 10^3/uL 0.60-3.40 [facility] ([facility]) Is patient fasting? N #Garza 0.50 10^3/uL 0.00-0.90 [facility] ([facility]) Is patient fasting? N #Neut 6.26 10^3/uL 2.00-6.90 [facility] ([facility]) Is patient fasting? N #Baso 0.10 10^3/uL 0.00-0.20 [facility] ([facility]) Is patient fasting? N #Eos 0.21 10^3/uL 0.00-0.70 [facility] ([facility]) Is patient fasting? N #Ig 0.10 10^3/uL 0.00-0.10 [facility] ([facility]) Is patient fasting? N Manual Diff Laboratory test result [facility] ([facility]) Is patient fasting? N #NRBC 0.00 10^3/uL 0.00-0.00 [facility] ([facility]) Is patient fasting? N RBC Morph Laboratory test result [facility] ([facility]) Is patient fasting? N ID Date Data Source [id number] 06/16/2019 05:59:00 PM EST [facility] Name Value Range Interpretation Code Description Data Elizabeth rce(s) Supporting Document(s) Prothrombin time (PT) 12.1 SECONDS 11.0 - 15.5 [facility] INR in Platelet poor plasma by Coagulation assay 0.89 0.93 - 1. 23 L [facility] aPTT in Blood by Coagulation assay 33.6 SECONDS 24.8 - 36.7 [facility] \\BLDo\\INR INTERPRETATION\\BLDx\\ Therapeutic range for Coumadin and related oral anticoagulants. - International Normalized Ratio (INR): 2.0 - 3.0 for Venous Thrombosis, Pulmonary Embolus, Tissue heart valves, Acute CO Atrial Fibrillation, Valvular heart disease and recurrent Systemic Embolism. - International Normalized Ratio (INR): 2.5 - 3.5 for Mechanical Prosthetic valve. \\BLDo\\PTT INTERPRETATION\\BLDx\\ Critical results for patients not on therapy: >50 seconds Critical results for patients on therapy: >119 seconds Therapeutic range for patients on therapy: 58 - 90 seconds Coag kary dies from line draws may not be accurate due to Heparin and other interferences. ID Date Data Source [id number] 06/16/2019 05:54:00 PM EST [facility] Name Value Range Interpretation Code Description Data Elizabeth rce(s) Supporting Document(s) COMPREHENSIVE METABOLIC PANEL [facility] COMPREHENSIVE METABOLIC PANEL Sodium [Moles/volume] in Serum or Plasma 127 mEq/L 134 - 153 L [facility] Potassium [Moles/volume] in Serum or Plasma 5.2 mEq/L 3.6 - 5.0 H [facility] Chloride [Moles/volume] in Serum or Plasma 98 mEq/L 98 - 107 [facility] Carbon dioxide, total [Moles/volume] in Serum or Plasma 19 MEQ/L 22 - 30 L [facility] Glucose [Mass/volume] in Serum or Plasma 89 MG/DL 65 - 110 [facility] BUN 18 MG/DL 7 [facility] Creat[facility] [Mass/volume] in Serum or Plasma 1.2 MG/DL 0.7 - 1.5 [facility] BUN/CREAT 15 8 - [facility] Protein [Mass/volume] in Serum or Plasma 7.4 G/DL 6.3 - 8.2 [facility] Albumin [Mass/volume] in Serum or Plasma 4.3 G/DL 3.9 - 5.0 [facility] Globulin [Mass/volume] in Serum by calculation 3.1 GM/DL 2.4 - 3.2 [facility] A/G RATIO 1.4 0.8 - 2.0 [facility] al Calcium [Mass/volume] in Serum or Plasma 10.0 MG/DL 8.4 - 10.2 [facility] Bilirubin.total [Mass/volume] in Serum or Plasma <0.7 MG/DL 0.2 - 1.3 [facility] Alkaline phosphatase [Enzymatic activity/volume] in Serum or Plasma 82 U/L 38 - 126 [facility] Aspartate aminotransferase [Enzymatic activity/volume] in Serum or Plasma 16 U/L 5 - 40 [facility] Alanine aminotransferase [Enzymatic activity/volume] in Seru m or Plasma 22 U/L 7 - 56 [facility] Anion gap 3 in Serum or Plasma 10.0 mmol/L 8.0 - 16.0 [facility] AGE [address] [facility] NON[facility] GFR >60 mL/min [facility] AFR AMER GFR >60 mL/min [facility] spital Male GFR In terprentation 20-49 yrs >60 mL/min Normal 50-59 yrs >56 mL/min Normal 60-69 yrs >49 mL/min Normal 70-79yrs >42 mL/min Normal 80 and above >35 mL/min Normal Female GFR Interpretation 20-39 yrs >60 mL/min Normal 40-49 yrs >58 mL/min Normal 50-59 yrs >51 mL/min Normal 60-69 yrs >45 mL/min Normal 70-79 yrs >39 mL/min Normal 80 and above >32 mL/min Normal ID Date Data Source [id number] 06/16/2019 05:31:00 PM EST [facility] Name Value Range Interpretation Code Description Data Elizabeth rce(s) Supporting Document(s) CBC W/AUTOMATED DIFF [facility] COMPLETE BLOOD COUNT Leukocytes [#/volume] in Blood by Automated count 9.7 10^3/uL 4.2 - 1 1.0 [facility] Erythrocytes [#/volume] in Blood by Automated count 4.10 10^6/uL 4. 50 - 6.30 L [facility] Hemoglobin [Mass/volume] in Blood 11.6 g/dL 14.0 - 16.0 L [facility] Hematocrit [Volume Fraction] of Blood by Automated count 36.0 % 4 1.0 - 51.0 L [facility] Erythrocyte mean corpuscular volume [Entitic volume] by Auto mated count 87.8 fL 80.0 - 94.0 [facility] Erythrocyte mean corpuscular hemoglobin [Entitic mass] by Automated count 28.3 pg 27.0 - 34.0 [facility] Erythrocyte mean corpuscular hemoglobin concentration [Mass/volume] by Automated count 32.2 g/dL 31.0 - 36.0 [facility] Erythrocyte distribution width [Ratio] by Automated count 15.6 % 11.5 - 14.8 H [facility] Platelets [#/volume] in Blood by Automated count 489 10^3/uL 150 - 45 0 H [facility] Platelet mean volume [Entitic volume] in Blood by Automated count 8.5 fL 7.4 - 10.4 [facility] Neutrophils/100 leukocytes in Blood by Automated count 64.8 % 37. 0 - 80.0 [facility] Lymphocytes/100 leukocytes in Blood by Manual count 25.8 % 25.0 - 40.0 [facility] Monocytes/100 leukocytes in Blood by Automated count 5.2 % 3.0 - 8.0 [facility] Eosinophils/100 leukocytes in Blood by Automated count 2.2 % 0.0 - 7.0 [facility] Basophils/100 leukocytes in Blood by Automated count 1.0 % 0.0 - 2.0 [facility] %IG 1.0 % 0.0 - 0.[address] [facility] %NRBC 0.0 % 0.0 - 0.0 [facility] al Neutrophils [#/volume] in Blood by Automated count 6.26 10^3/uL 2.00 - 6.90 [facility] Lymphocytes [#/volume] in Blood by Automated count 2.49 10^3/uL 0.60 - 3.40 [facility] Monocytes [#/volume] in Blood by Automated count 0.50 10^3/uL 0.00 - 0.90 [facility] Eosinophils [#/volume] in Blood by Automated count 0.21 10^3/uL 0.00 - 0.70 [facility] Basophils [#/volume] in Blood by Automated count 0.10 10^3/uL 0.00 - 0.20 [facility] #IG 0.10 10^3/uL 0.00 - 0.10 [facility] ospital #NRBC 0.00 10^3/uL 0.00 - 0.00 [facility] ospital MANUAL DIFF NOT INDICATED [facility] RBC MORPH NOT INDICATED [facility] spital ID Date Data Source [id number] 05/05/2019 08:53:00 AM EST [facility] ([facility]) Name Value Range Interpretation Code Description Data Elizabeth rce(s) Supporting Document(s) Color of Urine Laboratory test result [facility] ([facility]) Appearance of Urine Laboratory test result [facility] ([facility]) Leukocytes Laboratory test result [facility] ([facility]) [facility] [place] [facility] pH of Urine by Test strip 5 [facility] ([facility]) Protein [Presence] in Urine by Test strip Laboratory test result [facility] ([facility]) Inhouse Glucose Laboratory test result [facility] ([facility]) Nitrate [Presence] in Urine Laboratory test result [facility] ([facility]) Bilirubin.total [Presence] in Urine by Test strip Laboratory test res ult [facility] ([facility]) Urobilinogen Laboratory test result [facility] ([facility]) Ketones [Presence] in Urine by Test strip Laboratory test result [facility] ([facility]) Blood type and Indirect antibody screen panel - Blood Laboratory test result [facility] ([facility]) ID Date Data Source [id number] 05/03/2019 07:13:00 AM EST [facility] ([facility]) Name Value Range Interpretation Code Description Data Elizabeth rce(s) Supporting Document(s) Prostate specific Ag [Mass/volume] in Serum or Plasma 4.14 ng/mL 0.00-4.00 Above upper panic limits [facility] \\BLDo\\PSA INTERPRETATION\\BLDx\\ The PSA assay should not be used alone for a screening test or diagnosis for presence or absence of malignant disease. Predictions of disease recurrence should not be based solely on values obtained from serial patient serum values. The PSA result was determined by "[employer]", on the [employer] 6000. Values obtained with different assay methods or kits cannot be used interchangeably. ID Date Data Source [id number] 05/03/2019 10:14:00 PM EST [facility] Name Value Range Interpretation Code Description Data Elizabeth rce(s) Supporting Document(s) Prostate specific Ag [Mass/volume] in Serum or Plasma 4.14 ng/mL 0.00 - 4.00 [facility] \\BLDo\\PSA INTERPRETA TION\\BLDx\\ The PSA assay should not be used alone for a screening test or diagnosis for presence or absence of malignant disease. Predictions of disease recurrence should not be based solely on values obtained from serial patient serum values. The PSA result was determined by "[employer]", on the [employer]000. Values obtained with different assay methods or kits cannot be used interchangeably. Procedure Vital Signs ID Date Data Source UNK Name Value Range Interpretation Code Description Data Source(s) Body surface area 2.12 m2 2.12 m2 [facility] ([facility]) Body mass index (BMI) [Ratio] 25.5 kg/m2 25.5 k g/m2 [facility] ([facility]) Body height 73 [in_i] 73 [in_i] [facility] ([facility]) 6'1" Body weight 87.545 kg 87.545 kg [facility] ([facility]) Body weight 193.00 [lb_av] 193.00 [lb_av] [facility] ([facility]) Oxygen saturation in Arterial blood by Pulse oximetry 98 % 98 % [facility] ([facility]) Respiratory rate 24 /min 24 /min [facility] ( [facility]) Body temperature 98.4 [degF] 98.4 [degF] [facility] ([facility]) Heart rate 94 /min 94 /min [facility] ([facility]) Diastolic blood pressure 50 mm[Hg] 50 mm[Hg] [facility] ([facility]) Systolic blood pressure 112 mm[Hg] 112 mm[Hg] [facility] Body weight 90.720 kg 90.720 kg [facility] ([facility]) Body mass index (BMI) [Ratio] 26.4 kg/m2 26.4 k g/m2 [facility] ([facility]) Body weight 200.00 [lb_av] 200.00 [lb_av] [facility] ([facility]) Body height 73 [in_i] 73 [in_i] [facility] ([facility]) 6'1" Body temperature 97.5 [degF] 97.5 [degF] [facility] ([facility]) Oxygen saturation in Arterial blood by Pulse oximetry 98 % 98 % [facility] ([facility]) Room Air Heart rate 74 /min 74 /min [facility] ([facility]) Diastolic blood pressure 80 mm[Hg] 80 mm[Hg] [facility] ([facility]) Systolic blood pressure 130 mm[Hg] 130 mm[Hg] M [facility] ([facility]) Body weight 88.452 kg 88.452 kg [facility] ([facility]) Body mass index (BMI) [Ratio] 25.7 kg/m2 25.7 k g/m2 [facility] ([facility]) Body weight 195.00 [lb_av] 195.00 [lb_av] [facility] ([facility]) Body height 73 [in_i] 73 [in_i] [facility] ([facility]) 6'1" Body temperature 98.1 [degF] 98.1 [degF] [facility] ([facility]) Oxygen saturation in Arterial blood by Pulse oximetry 98 % 98 % [facility] ([facility]) Room Air Heart rate 78 /min 78 /min [facility] ([facility]) Diastolic blood pressure 80 mm[Hg] 80 mm[Hg] [facility] ([facility]) Systolic blood pressure 130 mm[Hg] 130 mm[Hg] M [facility] ([facility], ) Body surface area 2.13 m2 2.13 m2 [facility] Body mass index (BMI) [Ratio] 25.9 kg/m2 25.9 k g/m2 [facility]) Body height 73 [in_i] 73 [in_i] [facility] 6'1" Body weight 88.906 kg 88.906 kg [facility] ([facility]) Body weight 196.00 [lb_av] 196.00 [lb_av] [facility] ([facility]) Oxygen saturation in Arterial blood by Pulse oximetry 99 % 99 % [facility]) Respiratory rate 18 /min 18 /min [facility] ( [facility]) Body temperature 98.7 [degF] 98.7 [degF] [facility] ([facility]) Heart rate 56 /min 56 /min [facility]) Diastolic blood pressure 62 mm[Hg] 62 mm[Hg] [facility] ([facility]) Systolic blood pressure 132 mm[Hg] 132 mm[Hg] M [facility] ([facility]) Body surface area 2.11 m2 2.11 m2 [facility] ([facility]) Body mass index (BMI) [Ratio] 25.3 kg/m2 25.3 k g/m2 [facility] ([facility]) Body height 73 [in_i] 73 [in_i] [facility] 6'1" Body weight 87.091 kg 87.091 kg [facility] ([facility]) Body weight 192.00 [lb_av] 192.00 [lb_av] [facility] ([facility]) Oxygen saturation in Arterial blood by Pulse oximetry 95 % 95 % [facility]) Respiratory rate 18 /min 18 /min [facility] ( [facility]) Body temperature 98.7 [degF] 98.7 [degF] [facility] ([facility]) Heart rate 77 /min 77 /min [facility] ([facility]) Diastolic blood pressure 60 mm[Hg] 60 mm[Hg] [facility] ([facility]) Systolic blood pressure 118 mm[Hg] 118 mm[Hg] M [facility] ([facility]) Body surface area 2.11 m2 2.11 m2 [facility] ([facility]) Body mass index (BMI) [Ratio] 25.2 kg/m2 25.2 k g/m2 [facility] ([facility]) Body height 73 [in_i] 73 [in_i] [facility] ([facility]) 6'1" Body weight 86.638 kg 86.638 kg [facility] ([facility]) Body weight 191.00 [lb_av] 191.00 [lb_av] [facility] ([facility]) Oxygen saturation in Arterial blood by Pulse oximetry 97 % 97 % [facility] ([facility]) Respiratory rate 18 /min 18 /min [facility] ( [facility]) Body temperature 97.3 [degF] 97.3 [degF] [facility] ([facility]) Heart rate 80 /min 80 /min [facility]) Diastolic blood pressure 74 mm[Hg] 74 mm[Hg] [facility] Systolic blood pressure 132 mm[Hg] 132 mm[Hg] [facility] ([facility]) Body surface area 2.11 m2 2.11 m2 [facility] ([facility]) Body mass index (BMI) [Ratio] 25.3 kg/m2 25.3 k g/m2 [facility] ([facility]) Body height 73 [in_i] 73 [in_i] [facility] ([facility]) 6'1" Body weight 87.091 kg 87.091 kg [facility] ([facility]) Body weight 192.00 [lb_av] 192.00 [lb_av] [facility] ([facility]) Oxygen saturation in Arterial blood by Pulse oximetry 97 % 97 % [facility] ([facility]) Respiratory rate 20 /min 20 /min [facility] ( [facility]) Body temperature 97.0 [degF] 97.0 [degF] [facility] ([facility]) Heart rate 73 /min 73 /min [facility] ([facility]) Diastolic blood pressure 68 mm[Hg] 68 mm[Hg] [facility] ([facility]) Systolic blood pressure 115 mm[Hg] 115 mm[Hg] M [facility] ([facility]) Body weight 88.452 kg 88.452 kg [facility] ([facility], ) Body mass index (BMI) [Ratio] 25.7 kg/m2 25.7 k g/m2 [facility] ([facility], ) Body weight 195.00 [lb_av] 195.00 [lb_av] [facility] Body height 73 [in_i] 73 [in_i] [facility] ([facility], ) 6'1"
[2020-05-03] MEDS ORDERED: NS 500 ML IV ONE (11:15)
[2020-05-03 11:42] LABS: BASO % 0.3 % (0.0-1.0); EOS % 0.2 % (0.0-3.0); LYMPH # 0.2 10^3/uL (1.5-5.0); LYMPH % 3.7 % (24.0-44.0); MEAN CORPUSCULAR HEMOGLOBIN 29.9 pg (27.0-33.0); MEAN CORPUSCULAR HGB CONC 31.6 g/dl (32.0-36.5); MEAN CORPUSCULAR VOLUME 94.6 fl (80.0-96.0); MONO # 0.4 10^3/uL (0.0-0.8); MONO % 6.6 % (0.0-5.0); NEUTROPHILS # 5.2 10^3/uL (1.5-8.5); NEUTROPHILS % 87.2 % (36.0-66.0); PLATELET COUNT, AUTOMATED 200 10^3/uL (150-450); RED BLOOD COUNT 2.04 10^6/uL (4.30-6.10); WHITE BLOOD COUNT 5.9 10^3/uL (4.0-10.0)
[2020-05-03 11:45] LABS: HEMATOCRIT 19.3 % (42.0-52.0); HEMOGLOBIN 6.1 g/dl (13.5-17.5)
[2020-05-03 11:54] LABS: INR 1.12; PROTHROMBIN TIME 14.7 SECONDS (12.5-14.3)
[2020-05-03 11:55] LABS: PARTIAL THROMBOPLASTIN TIME 41.2 SECONDS (24.2-38.5)
[2020-05-03 12:11] LABS: ALBUMIN 2.8 GM/DL (3.2-5.2); ALT/SGPT 14 U/L (12-78); BILIRUBIN,DIRECT 0.2 MG/DL (0.0-0.2); BILIRUBIN,TOTAL 0.6 MG/DL (0.2-1.0); CK-MB VALUE MASS 1.6 NG/ML (<3.6); CPK CREATINE PHOSPHOKINASE 18 U/L (39-308); LIPASE 89 U/L (73-393); MB/CK RELATIVE INDEX 8.89 (< OR =4); TROPONIN I < 0.02 NG/ML (< 0.10)
--- OUTSIDE RECORDS SUMMARY | 2020-05-03 12:16 | CCD ---
Author Author [facility] Organization [facility] Address Unknown Phone Unavailable Care Team Providers Care Stretcher Drier Operator Name Role Phone Dread SANDHU MD Unavailable Unavailable Dread SANDHU [...] Isabelle MS, RPA-C Unavailable Unav ailable Bartoszewski, Daan Isabelle MS, RPA-C Unavailable Unav ailable RICH, [...] Unavailable RICH, LEONARD MD Unavailable Unavailable RICH, LEONADR MD Unavailable Unavailable RICH, LEONARD MD Unavailable [...] is protected by Article 27-F of the [facility] Public Health law. If you continue you may have access to information: Regarding HIV / AIDS; Provided by facilities licensed or operated by the [facility] Office of Mental Health; or Provided by the [facility] Office for People With Developmental Disabilities. If such information is present, then the following [facility] mandated warning applies: This information has been [...] law may result in a fine or fdc sentence or both. A general authorization for the release of medical or other information is NOT sufficient authorization for further disc losure. Allergies and Adverse Reactions Type Description Substance Reaction Status Data Source(s ) No Known Drug Allergies No Known Drug Allergies [facility] No Known Environmental Allergies No Known Environmental Al lergies [facility] No Known Food Allergies No Known Food Allergies [facility] Family History Family Member Name Family Member Gender Family Member Status Date o f Status Description Data Source(s) Unknown Male Problem [facility] ([facility]) Unknown Female Problem [facility] ([facility]) Unknown Female Problem [facility] ([facility]) Encounters Encounter Providers Location Date Indications Data Source(s ) Outpatient Attender: LEONARD RICH MDConsultant: LEONARD Quintana MD 03/09/2020 07:06:00 AM EST - 03/09/2020 07:06:00 AM EST [facility] Outpatient Attender: MEGHNA RIVAS MDConsultant: LEONARD RICH MD 02/09/2020 07:57:00 AM EDT - 02/09/2020 07:57:00 AM EDT [facility] Outpatient Attender: LEONARD RICH MDConsultant: LEONARD Quintana MD 2019 06:53:00 AM EDT - 2019 06:53:00 AM EDT [facility] Outpatient Attender: LEONARD RICH MDConsultant: LEONARD Quintana MD 10/20/2019 06:48:00 AM EDT - 10/20/2019 06:48:00 AM EDT [facility] Outpatient 10/14/2019 04:48:00 AM EDT [facility] 10/14/2019 04:48:00 AM EDT [facility] 09/24/2019 05:36:00 AM EDT [facility] Attender: LEONARD RICH MD Family Practice 09/22/2019 0 4:00:00 PM EDT [facility] ([facility]) Outpatient Attender: LEONARD RICH MDConsultant: LEONARD Quintana MD 09/22/2019 03:40:00 PM EDT - 09/22/2019 03:40:00 PM EDT [facility] Outpatient 08/10/2019 05:25:00 AM EDT [facility] Attender: Al Sandhu/Mariaelena/Chad/Radha hwangl 08/09/2019 08:30:00 AM EDT [facility] ([facility]) Outpatient 07/30/2019 05:46:00 AM EDT [facility] Outpatient Attender: Al Sandhu/Mariaelena/Chad/Radha hines 07/16/2019 10:00:00 AM EDT [facility] ([facility], ) Outpatient Attender: LEONARD RICH MDConsultant: LEONARD Quintana MD 07/06/2019 07:06:00 AM EDT - 07/06/2019 07:06:00 AM EDT [facility] Outpatient Attender: LEONARD RICH MDConsultant: LEONARD Quintana MD 07/02/2019 09:10:00 AM EDT - 07/02/2019 10:10:00 AM EDT [facility] Outpatient Attender: LEONARD RICH MD Family [facility] 06/29/2019 0 8:20:00 AM EDT [facility] ([facility]) Outpatient Attender: LEONARD RICH MDConsultant: LEONARD Quintana MD 06/29/2019 08:05:00 AM EDT - 06/29/2019 08:05:00 AM EDT [facility] Outpatient Attender: LEONARD RICH MDConsultant: LEONARD Quintana MD 06/16/2019 12:41:00 PM EST - 06/16/2019 12:41:[address] [facility] Outpatient Attender: MEGHNA RIVAS MDConsultant: LEONARD RICH MD 05/05/2019 08:22:00 AM EST - 05/05/2019 08:22:[address] [facility] Outpatient Attender: Isabelle Vail MS, RPA-C Family [facility] 05/05/2019 07:30:00 AM EST [facility] ([facility] Outpatient Attender: Isabelle Prajapati i, MS, RPA-CAttender: LEONARD RICH MDReferrer: MEGHNA RIVAS MDConsultant: LEONARD RICH MD 0 05/03/2019 02:07:00 PM EST - 05/03/2019 02:17:00 PM EST [facility] Attender: LEONARD RICH MDConsultant: LEONARD Quintana MD 05/03/2019 07:35:00 AM EST - 05/03/2019 07:35:00 AM EST [facility] Outpatient Attender: JERSON Sandhu/aMriaelena/Chad/Ike quintana 04/28/2019 08:15:00 AM EST [facility] ([facility] Outpatient 04/18/2019 06:26:00 PM EST [...] MEAL EACH DAY SOLD: 03/20/2020 [facility] [id number] 03/13/2020 12:00:00 AM EST suspension 480 TAKE 10ML BY MOUTH 4 TIMES DAILY NEEDED FOR MUCOSITIS TAKE 10ML BY MOUTH 4 TIMES DAILY NEED ED FOR MUCOSITIS SOLD: 04/19/2020 [facility] [id number] 03/13/2020 12:00:00 AM EST suspension 480 TAKE [...] DOSE = 60ML SOLD: 03/29/2020 [facility] [id number] 03/13/2020 12:00:00 AM EST suspension 480 TAKE [...] MOUTH EVERY DAY SOLD: 10/05/2019 [facility] [id number] mg/30 mL 09/27/2019 12:00:00 AM EDT mouthwash 237 SWISH AND SPIT 5MLS BY MOUTH EVERY 4 HOURS NEEDED SWISH AND SPIT 5MLS BY MOUTH EVERY 4 HOURS NEEDED SOLD: 10/05/2019 [facility] 462-74-054-40 mg/30 mL 09/27/2019 12:00:00 AM EDT mouthwash 238 SWISH AND SPIT 5MLS BY MOUTH EVERY 4 HOURS NEEDED SWISH AND SPIT 5MLS BY MOUTH EVERY 4 HOURS NEEDED SOLD: 11/16/2019 [facility] 539-19-630-40 mg/30 mL 09/27/2019 12:00:00 AM EDT mouthwash 119 SWISH AND SPIT 5MLS BY MOUTH EVERY 4 HOURS NEEDED SWISH AND SPIT 5MLS BY MOUTH EVERY 4 HOURS NEEDED SOLD: 03/29/2020 [facility] 322-41-421-40 mg/30 mL 09/27/2019 12:00:00 AM EDT mouthwash [...] 09/22/2019 12:00:00 AM EDT ORAL active [facility] ([facility]) 125 mg 09/21/2019 12:00:00 AM EDT tablet,chewable 360 CHEW ONE TABLET BY MOUTH FOUR TIMES A DAY CHEW ONE TABLET BY MOUTH FOUR TIMES A DAY SOLD: 09/25/2019 [facility] Simethicone 125 MG Chewable Tablet Simethicone 09/20/2019 12:00:00 AM EDT ORAL active [facility] ([facility]) 750 mg 09/15/2019 12:00:00 AM EDT tablet 7 TAKE ONE TABLET BY MOUTH EVERY DAY TAKE ONE TABLET BY MOUTH EVERY DAY SOLD: 09/15/2019 [facility] 80 mg 09/15/2019 12:00:00 AM EDT tablet,chewable 20 ONE BY MOUTH THREE TIMES A DAY NEEDED FOR GAS PAIN ONE BY MOUTH THREE TIMES A DAY NEEDED FOR GAS PAIN SOLD: 09/20/2019 [facility] [id number] mg/30 mL 09/15/2019 12:00:00 AM EDT mouthwash [...] NEEDED FOR NAUSEA AND VOMITING SOLD: 09/01/2019 [facility] 5 mg 08/30/2019 12:00:00 AM [...] 08/16/2019 12:00:00 AM EDT ORAL active [facility] ([facility] ) Amoxicillin 875 MG / Clavulanate [...] 07/06/2019 12:00:00 AM EDT ORAL active [facility] ([facility]) Prednisone 20 MG Oral Tablet Prednisone 06/29/2019 12:00:00 AM EDT ORAL active [facility] ([facility]) 20 mg 06/29/2019 12:00:00 AM EDT tablet 10 TAKE TWO TABLETS BY MOUTH EVERY DAY TAKE TWO TABLETS BY MOUTH EVERY DAY SOLD: 07/05/2019 [facility] Levofloxacin 750 MG Oral Tablet Levofloxacin 06/16/2019 12:00:[address] ORAL completed [facility] ([facility]) 750 mg 06/16/2019 12:00:00 AM EST tablet 7 TAKE ONE TABLET BY MOUTH EVERY DAY FOR 7 DAYS TAKE ONE TABLET BY MOUTH EVERY DAY FOR 7 DAYS SOLD: 06/21/2019 [facility] sildenafil 50 MG Oral Tablet Sildenafil Citrate 05/26/2019 12:00:00 A M EST active [facility] ([facility]) 50 mg 05/26/2019 12:00:00 AM EST tablet 6 TAKE ONE TABLET BY MOUTH EVERY DAY NEEDED TAKE ONE TABLET BY MOUTH EVERY DAY NEEDED SOLD: 05/31/2019 [facility] 5 mg 05/05/2019 12:00:00 AM EST tablet 30 TAKE ONE TABLET BY MOUTH EVERY DAY TAKE ONE TABLET BY MOUTH EVERY DAY SOLD: 07/31/2019 [facility] 5 mg 05/05/2019 12:00:00 AM [...] type / Coverage type Policy ID Covered constitution party ID Covered constitution party's relationship to pena Policy Pena Plan Information OMKAR [id number] SP [id number] SP [id number] [place] PPO 302/307 [id number] SP [id number] [place] O [id number] S [id number] [place] [id number] 18 [id number] [place] MAN -PHYSICIAN [place] [id number] 18 [id number] EXCELLUS BCBS B [id number] S [id number] [place] PPO 302/307 [id number] SP [id number] BLUE CROSS BLUE SHIELD CL BS [id number] 18 [id number] BLUE CROSS BLUE SHIELD-O/P [id number] 18 [id number] BLUE CROSS BLUE SHIELD-O/P [id number] 18 [id number] [place] PPO 302/307 [id number] SP [id number] [place] PPO 302/307 [id number] SP [id number] Excellus BCBS Health Maintenance Organization (HMO) [id number] Self [id number] Blue Cross Blue Shield CL Commercial [id number] Self [id number] BLUE CROSS BLUE SHIELD-O/P [id number] 18 [id number] Blue Cross Blue Shield CL Commercial [id number] Self [id number] Blue Cross Blue Shield CL Commercial [id number] Self [id number] Blue Cross Blue Shield CL Commercial [id number] Self [id number] BLUE CROSS BLUE SHIELD -O/P BS [id number] 18 [id number] BLUE CROSS BLUE SHIELD CL BS [id number] 18 [id number] Blue Cross Blue Shield CL Commercial [id number] Self [id number] Blue Cross Blue Shield CL Commercial [id number] Self [id number] [place] PPO 302/307 [id number] SP [id number] Blue Cross Blue Shield CL Commercial [id number] Self [id number] Blue Cross Blue Shield CL Commercial [id number] Self [id number] Blue Cross Blue Shield CL Commercial [id number] Self [id number] EXCELLUS C [id number] Self [id number] BCBS [place] PPO 302/307 [id number] SP [id number] Blue Cross Blue Shield CL Commercial [id number] Self [id number] Blue Cross Blue Shield CL Commercial [id number] Self [id number] Blue Cross Blue Shield CL Commercial [id number] Self [id number] Blue Cross Blue Shield CL Commercial [id number] Self [id number] Blue Cross Blue Shield CL Commercial [id number] Self [id number] BLUE CROSS BLUE SHIELD -PHYSICIAN [id number] 18 [id number] Blue Cross Blue Shield CL Commercial [id number] Self [id number] Blue Cross Blue Shield CL Commercial [id number] Self [id number] BLUE CROSS BLUE SHIELD-CLINIC [id number] 18 [id number] BLUE CROSS BLUE SHIELD CL BS [id number] 18 [id number] Blue Cross Blue Shield CL Commercial [id number] Self [id number] Blue Cross Blue Shield CL Commercial Self EXCELLUS BCBS B [id number] S [id number] 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 [id number] SP [id number] ANJELICA CONCRETE [id number] SP [id number] BCBS [place] PPO 302/307 [id number] SP [id number] OTHER WORKERS COMPENSATION [id number] SP [id number] BLUE CROSS BLUE SHIELD-O/P [id number] 18 [id number] BLUE CROSS BLUE SHIELD-CLINIC [id number] 18 [id number] BLUE CROSS BLUE SHIELD-CLINIC [id number] 18 [id number] BLUE CROSS BLUE SHIELD -RECURRING [id number] 18 [id number] BLUE CROSS BLUE SHIELD-O/P [id number] 18 [id number] BLUE CROSS BLUE SHIELD-O/P [id number] 18 [id number] Problems, Conditions, and Diagnoses Code Display Name Description Problem Type Effective Dates Data Source(s) G4700 Insomnia, unspecified Insomnia, unspecified Diagnosis 03/09/2020 07:06:[address] [facility] E559 Vitamin D deficiency, unspecified Vitamin D defi ciency, unspecified Diagnosis 03/09/2020 07:06:[address] [facility] I10 Essential (primary) hypertension Essential (primary) h ypertension Diagnosis 03/09/2020 07:06:[address] [facility] N400 Benign prostatic hyperplasia without low er urinary tract symptoms Benign prostatic hyperplasia without lower urinary tract symptoms Diagnosis 03/09/2020 07:06:[address] 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 C3490 Malignant neoplasm of unspecified part o f unspecified bronchus or lung Malignant neoplasm of unspecified part of unspecified bronchus or lung Diagnosis 03/09/2020 07:06:[address] [facility] R9720 Elevated prostate specific antigen [PSA] Elevated prostate specific antigen [PSA] Diagnosis 02/09/2020 07:57:00 AM EDT [facility] [id number] Nicotine dependence, cigarettes, uncompl icated Nicotine dependence, cigarettes, uncomplicated Diagnosis 2019 06:53:00 AM EDT [facility] J449 Chronic obstructive pulmonary disease, u nspecified Chronic obstructive pulmonary disease, unspecified Diagnosis 2019 06:53:00 AM EDT [facility] N183 Chronic kidney disease, stage 3 (moderat e) Chronic kidney disease, stage 3 (moderate) Diagnosis 2019 06:53:00 AM EDT [facility] 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, left elbow Idiopathic gout, left elbo w Diagnosis 2019 06:53:00 AM EDT [facility] E785 Hyperlipidemia, unspecified Hyperlipidemia, unspecifie d Diagnosis 2019 06:53:00 AM EDT [facility] 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 Secondary malignant neoplasm of other specified sites Diagnosis 10/20/2019 06:48:00 AM EDT [facility] 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, left b ronchus or lung Malignant neoplasm of upper lobe, left bronchus or lung Diagnosis 10/20/2019 06:48:00 AM [facility] R918 Other nonspecific abnormal finding of cynthia ng field Other nonspecific abnormal finding of lung field Diagnosis 07/06/2019 07:06:00 AM EDT [facility] 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, left knee Ost eochondritis dissecans, left knee Diagnosis 07/06/2019 07:06:00 AM EDT [facility] J189 Pneumonia, unspecified organism Pneumonia, unspecified organism Diagnosis 07/02/2019 09:10:00 AM EDT [facility] R911 Solitary pulmonary nodule Solitary pulmonary nodule Di agnosis 07/02/2019 09:10:00 AM [facility] Y11940 Effusion, left knee Effusion, left knee Diagnosis 0 06/29/2019 08:05:00 AM [facility] S73214 Encounter for other preprocedural examin ation Encounter for other preprocedural examination Diagnosis 06/16/2019 12:41:00 PM [facility] Surgeries/Procedures Procedure Description Date Indications Data Source(s) Bronchoscopy W/Brushing Or Protected Brushings 020 12:00:00 AM EDT [facility] ([facility] ) Bronchoscopy W/Transbronchial Lung Biopsy 08/03/2019 1 2:00:00 AM EDT [facility] ([facility] ) Spirometry 07/16/2019 12:00:00 AM EDT [facility] ([facility] ) Electrocardiogram Complete 06/16/2019 12:00:00 AM EST [facility] ([facility]) LARYNGOSCOPY FLEXIBLE FIBEROPTIC DIAGNOSTIC 04/28/2019 12:00:00 AM [facility] ([facility]) Results ID Date Data Source [id number] 11/24/2019 02:33:00 PM EDT [facility] Name Value Range Interpretation Code Description Data Elizabeth rce(s) Supporting Document(s) Prostate specific Ag [Mass/volume] in Serum or Plasma 6.5 ng/mL 0.0- 4.0 H [facility] Mark ECLIA methodology.According to the [place] [employer], Serum PSA shoulddecrease and remain at undetectable levels after radicalprostatectomy. The AUA defines biochemical recurrence as an initialPSA value 0.2 ng/mL or greater followed by a subsequent confirmatoryPSA value 0.2 ng/mL or greater.Values obtained with different assay methods or kits cannot be usedinterchangeably. Results cannot be interpreted as absolute evidenceof the presence or absence of malignant disease. Reflex Criteria COMMENT [facility] The percent free PSA is performed on a r eflex basis only when thetotal PSA is between 4.0 and 10.0 ng/mL. Prostate Specific Ag Free [Mass/volume] in Serum or Plasma 1.15 ng/mL N/A [facility] Mark ECLIA methodology. Prostate Specific Ag Free/Prostate specific Ag.total in Seru m or Plasma 17.7 % [facility] The table below lists the probability of [...] population of men. ID Date Data Source [id number] 2019 01:40:00 PM EDT [facility] Name Value Range Interpretation Code Description Data Elizabeth rce(s) Supporting Document(s) COMPREHENSIVE METABOLIC PANEL [facility] COMPREHENSIVE METABOLIC PANEL Sodium [Moles/volume] in Serum or Plasma 133 mEq/L 134 - 153 L [facility] Potassium [Moles/volume] in Serum or Plasma 5.1 mEq/L 3.6 - 5.0 H [facility] Chloride [Moles/volume] in Serum or Plasma 98 mEq/L 98 - 107 [facility] Carbon dioxide, total [Moles/volume] in Serum or Plasma 23 MEQ/L 22 - 30 [facility] Glucose [Mass/volume] in Serum or Plasma 99 MG/DL 65 - 110 [facility] BUN 15 MG/DL 7 - 21 [facility] Creatinine [Mass/volume] in Serum or Plasma 1.7 MG/DL 0.7 - 1.5 H [facility] BUN/CREAT 9 8 - 27 [facility] al Protein [Mass/volume] in Serum or Plasma 6.6 G/DL 6.3 - 8.2 [facility] Albumin [Mass/volume] in Serum or Plasma 4.3 G/DL 3.9 - 5.0 [facility] Globulin [Mass/volume] in Serum by calculation 2.3 GM/DL 2.4 - 3.2 L [facility] A/G RATIO 1.9 0.8 - 2.0 [facility] Calcium [Mass/volume] in Serum or Plasma 9.7 MG/DL 8.4 - 10.2 [facility] Bilirubin.total [Mass/volume] in Serum or Plasma <0.7 MG/DL 0.2 - 1.3 [facility] Alkaline phosphatase [Enzymatic activity/volume] in Serum or Plasma 77 U/L 38 - 126 [facility] Aspartate aminotransferase [Enzymatic activity/volume] in Serum or Plasma 19 U/L 5 - 40 [facility] Alanine aminotransferase [Enzymatic activity/volume] in Seru m or Plasma 17 U/L 7 - 56 [facility] Anion gap 3 in Serum or Plasma 12.0 mmol/L 8.0 - 16.0 [facility]GE 54 [facility] G[facility] 45 mL/min [facility] AFR AMER GFR 54 mL/min [facility] Male GFR In terprentation 20-49 [...] >32 mL/min Normal ID Date Data Source [id number] 2019 01:36:00 PM EDT [facility] Name Value Range Interpretation Code Description Data Elizabeth rce(s) Supporting Document(s) Thyroxine (T4) free index in Serum or Plasma by calculation 1.01 NG/DL 0.93 - 1.70 [facility] ID Date Data Source [id number] 2019 01:36:00 PM EDT [facility] Name Value Range Interpretation Code Description Data Elizabeth rce(s) Supporting Document(s) Thyrotropin [Units/volume] in Serum or Plasma by Detec tion limit <= 0.05 mIU/L 3.45 uIU/mL 0.47 - 5.01 [facility] ID Date Data Source [id number] 2019 01:29:00 PM EDT [facility] Name Value Range Interpretation Code Description Data Elizabeth rce(s) Supporting Document(s) CVE PANEL [facility] al LIPID PANEL Cholesterol [Mass/volume] in Serum or Plasma 183 MG/DL 131 - 200 [facility] Deprecated Triglyceride [Mass/volume] in Serum or Plasma 113 MG/DL 3 5 - 160 [facility] HDL 44 MG/DL 29 - 86 [facility] Cholesterol in LDL [Mass/volume] in Serum or Plasma by Direc t assay 120 mg/dL 65 - 175 [facility] Cholesterol.total/Cholesterol in HDL [Mass Ratio] in Serum o r Plasma 4.2 3.4 - 4.9 [facility] LDL/HDL 2.73 1.00 - 3.55 [facility] CVE RISK CHOL/HDL LDL/HDLMEN: 1/2 AVERAGE 3.43 1.00 AVERAGE 4.97 3.55 2X AVERAGE 9.55 6.25 3X AVERAGE 23.99 7.99WOMEN: 1/2 AVERAGE 3.27 1.47 AVERAGE 4.44 3.22 2X AVERAGE 7.05 5.03 3X AVERAGE 11.04 6.14 ID Date Data Source [id number] 09/24/2019 08:43:00 AM EDT [facility] ([facility]) Name Value Range Interpretation Code Description Data Elizabeth rce(s) Supporting Document(s) Magnesium [Mass/volume] in Serum or Plasma 2.2 mg/dL 1.8-2 .4 Normal (applies to non-numeric results) [facility] ([facility]) ID Date Data Source [id number] 09/24/2019 08:43:00 AM EDT [facility] ([facility]) Name Value Range Interpretation Code Description Data Elizabeth rce(s) Supporting Document(s) Blood Urea Nitrogen 100 mg/dL 7-18 Above high normal [facility] ([facility]) Glucose, Fasting 113 mg/dL 70-100 Above high normal [facility] ([facility]) Creatinine For GFR 4.31 mg/dL 0.70-1.30 Above high normal [facility] ([facility]) Sodium Level 133 meq/L 136-145 Below low normal [facility] ([facility]) Glomerular Filtration Rate 15.3 Below low normal [facility] ([facility]) <content>Units are mL/min/1.73 m2</content>
<content></content>
<content>Chronic Kidney Disease Staging per NKF:</content>
<content></content>
<content>Stage I & II GFR >=60 Normal to Mildly Decreased</content>
<content>Stage III GFR 30- 59 Moderately Decreased</content>
<content>Stage IV GFR 15-29 Severely Decreased</content>
<content>Stage V GFR <15 Very Little GFR Left</content>
<content>ESRD GFR <15 on SEAM FINISHER</content>
<content></content> Carbon Dioxide Level 14 meq/L 21-32 Below low normal [facility] ([facility]) Chloride Level 102 meq/L 98-107 Normal (applies to non-numeric r esults) [facility] ([facility]) Potassium Serum 5.3 meq/L 3.5-5.1 Above high normal [facility] ([facility]) Anion Gap 17 meq/L 8-16 Above high normal [facility] ([facility]) Calcium Level 9.3 mg/dL 8.5-10.1 Normal (applies to non-numeric re sults) [facility] ([facility]) Ast/Sgot 15 U/L 7-37 Normal (applies to non-numeric resul ts) [facility] ([facility]) Alt/SGPT 28 U/L 12-78 Normal (applies to non-numeric resul ts) [facility] ([facility]) Bilirubin,Total 0.4 mg/dL 0.2-1.0 Normal (applies to non-numeric results) [facility] ([facility]) Alkaline Phosphatase 93 U/L 45-117 Normal (applies to non-num mercy results) [facility] ([facility]) Albumin/Globulin Ratio 0.7 Normal (applies to non-n umeric results) [facility] ([facility]) Total Protein 6.5 GM/DL 6.4-8.2 Normal (applies to non-numeric re sults) [facility] ([facility]) Albumin 2.6 GM/DL 3.2-5.2 Below low normal [facility] ( [facility]) ID Date Data Source [id number] 09/24/2019 08:43:00 AM EDT [facility] ([facility]) Name Value Range Interpretation Code Description Data Elizabeth rce(s) Supporting Document(s) Neutrophils % 75.6 % 36.0-66.0 Above high normal [facility] ([facility]) Eos % 0.0 % 0.0-3.0 Normal (applies to non-numeric resul ts) [facility] ([facility]) Lymph % 5.1 % 24.0-44.0 Below low normal [facility] ( [facility]) [place] % 1.3 % 0.0-5.0 Normal (applies to non-numeric resul ts) [facility] ([facility]) Baso % 0.2 % 0.0-1.0 Normal (applies to non-numeric resul ts) [facility] ([facility]) Immature Granulocyte % 17.8 % 0-3.0 Above high normal [facility] ([facility]) Lymph # 1.1 10 1.5-5.0 Below low normal [facility] ( [facility]) Neutrophils # 16.7 10 1.5-8.5 Above high normal MED[facility] NT ([facility]) [place] # 0.3 10 0.0-0.8 Normal (applies to non-numeric resul ts) [facility] ([facility]) Baso # 0.0 10 0.0-0.2 Normal (applies to non-numeric resul ts) [facility] ([facility]) Eos # 0.0 10 0.0-0.5 Normal (applies to non-numeric resul ts) [facility] ([facility]) ID Date Data Source [id number] 09/24/2019 08:43:00 AM EDT [facility] ([facility]) Name Value Range Interpretation Code Description Data Elizabeth rce(s) Supporting Document(s) Red Blood Count 3.64 10 4.30-6.10 Below low normal [facility] ([facility]) White Blood Count 22.1 10 4.0-10.0 Above high normal [facility] ([facility]) Hemoglobin 11.1 g/dL 13.5-17.5 Below low normal [facility] ( [facility]) Mean Corpuscular Volume 91.5 fl 80.0-96.0 Normal ( applies to non-numeric results) [facility] ([facility]) Hematocrit 33.3 % 42.0-52.0 [facility] Red Cell Distribution Width 15.2 % 11.5-14.[address] [facility] ([facility]) Mean Corpuscular Hemoglobin 30.5 pg 27.0-33.0 Norm al (applies to non-numeric results) [facility] ([facility]) Mean Corpuscular HGB Conc 33.3 g/dL 32.0-36.5 Normal (applies to non-numeric results) [facility] ([facility]) Nucleated Red Blood Cell % 0.0 % 0-0 Normal (applies to n on-numeric results) [facility] ([facility]) Platelet Count, Automated 463 10 150-[address] [facility] ([facility]) ID Date Data Source [id number] 09/12/2019 04:34:00 PM EDT [facility] ([facility]) Name Value Range Interpretation Code Description Data Elizabeth rce(s) Supporting Document(s) Laboratory test finding (navigational concept) 35.0 % 3 8.0-51.0 Below low normal [facility] ([facility]) Laboratory test finding (navigational concept) 129 meq/L 1 36-[address] [facility] ([facility]) Laboratory test finding (navigational concept) 97 mg/dL 7 0-105 Normal (applies to non-numeric results) [facility] ([facility]) Laboratory test finding (navigational concept) 4.1 meq/L 3 .5-5.1 Normal (applies to non-numeric results) [facility] ([facility]) Laboratory test finding (navigational concept) 97 meq/L 98-109 Below low normal [facility] ([facility]) Laboratory test finding (navigational concept) 18.0 MM/L 2 3.0-27.0 Below low normal [facility] ([facility]) Laboratory test finding (navigational concept) 4.4 mg/dL 4 .5-5.3 Below low normal [facility] ([facility]) Laboratory test finding (navigational concept) 1.2 mg/dL 0 .6-1.3 Normal (applies to non-numeric results) [facility]) Laboratory test finding (navigational concept) 19 mg/dL 8 -26 Normal (applies to non-numeric results) [facility] ([facility]) ID Date Data Source [id number] 09/12/2019 04:33:[address] [facility] ([facility]) Name Value Range Interpretation Code Description Data Elizabeth rce(s) Supporting Document(s) Color, Urine RFX Laboratory test result Normal ( applies to non-numeric results) [facility] ([facility]) Appearance, Urine RFX Laboratory test result Nor mal (applies to non-numeric results) [facility] ([facility]) Specific [place] Ur Auto RFX 1.012 1.002-1.035 Nor mal (applies to non-numeric results) [facility] ([facility]) PH,Urine RFX 6.0 units 5.0-9.0 Normal (applies to non-numeric res ults) [facility] ([facility]) Protein, Urine Auto RFX Laboratory test result N ormal (applies to non-numeric results) [facility] ([facility]) Glucose, Urine (Ua) Auto RFX Laboratory test result Normal (applies to non- numeric results) [facility] ([facility]) Ketone, Urine Auto RFX Laboratory test result No rmal (applies to non-numeric results) [facility] ([facility]) Urobilinogen, Urine Auto RFX 0.2 mg/dL 0.0-2.0 Nor mal (applies to non-numeric results) [facility] ([facility]) Bilirubin, Urine Auto RFX Laboratory test result Normal (applies to non- numeric results) [facility] ([facility]) Nitrite, Urine Auto RFX Laboratory test result N ormal (applies to non-numeric results) [facility]) WBC, Urine Auto RFX 1 /HPF 0-3 Normal (applies to non-nume radha results) [facility] ([facility]) Leukocyte Esterase Ur Auto RFX Laboratory test result Normal (applies to non- numeric results) [facility] ([facility]) Blood, Urine Blood RFX Laboratory test result Above high n ormal [facility] ([facility]) Bacteria, Urine Auto RFX Laboratory test result Normal (applies to non-numeric results) [facility] ([facility]) RBC, Urine Auto RFX 1 /HPF 0-3 Normal (applies to non-nume radha results) [facility] ([facility]) Squam Epithelial Cell Ur Aurfx 0 /HPF 0-6 N ormal (applies to non-numeric results) [facility] ([facility]) Hyaline Cast, Urine Auto RFX 0 /LPF 0-1 Normal (appl ies to non-numeric results) [facility] ([facility]) Mucus, Urine RFX Laboratory test result Normal ( applies to non-numeric results) [facility] ([facility]) ID Date Data Source [id number] 09/12/2019 04:13:[address] [facility] ([facility]) Name Value Range Interpretation Code Description Data Elizabeth rce(s) Supporting Document(s) White Blood Count 0.8 10 4.0-10.0 Below lower panic limits [facility] ([facility]) Red Blood Count 3.67 10 4.30-6.10 Below low normal [facility] ([facility]) Hemoglobin 11.2 g/dL 13.5-17.5 Below low normal [facility] ( [facility]) Hematocrit 32.2 % 42.0-52.[address] [facility] ( [facility]) Mean Corpuscular HGB Conc 34.8 g/dL 32.0-36.5 Normal (applies to non-numeric results) [facility] ([facility]) Mean Corpuscular Volume 87.7 fl 80.0-96.0 Normal ( applies to non-numeric results) [facility] ([facility]) Mean Corpuscular Hemoglobin 30.5 pg 27.0-33.0 Norm al (applies to non-numeric results) [facility] ([facility]) Red Cell Distribution Width 14.6 % 11.5-14.5 Above high normal [facility] ([facility]) Platelet Count, Automated 107 10 150-450 Below low normal [facility] ([facility]) Nucleated Red Blood Cell % 0.0 % 0-0 Normal (applies to n on-numeric results) [facility] ([facility]) ID Date Data Source [id number] 09/12/2019 04:13:00 PM EDT [facility] ([facility]) Name Value Range Interpretation Code Description Data Elizabeth rce(s) Supporting Document(s) Neutrophils 13 % 28-66 Below low normal [facility] ([facility]) Bands 1 % Normal (applies to non-numeric resul ts) [facility] ([facility]) Lymphocytes 81 % 16-44 Above high normal [facility] ([facility]) Eosinophils 2 % 0-3 Normal (applies to non-numeric resu lts) [facility] ([facility]) Monocytes 1 % 0-5 Normal (applies to non-numeric resul ts) [facility] ([facility]) Basophils 2 % 0-1 Above high normal [facility] ([facility]) RBC Morphology Laboratory test result Normal (applies to non-numeric results) [facility] ([facility]) ID Date Data Source [id number] 09/12/2019 04:13:00 PM EDT [facility] ([facility]) Name Value Range Interpretation Code Description Data Elizabeth rce(s) Supporting Document(s) Platelets [#/volume] in Blood by Estimate Laboratory test result Normal (applies to non-numeric results) [facility] ([facility]) ID Date Data Source [id number] 09/12/2019 04:13:00 PM EDT [facility] ([facility]) Name Value Range Interpretation Code Description Data Elizabeth rce(s) Supporting Document(s) CPK Creatine Phosphokinase 66 U/L 39-308 Adelia l (applies to non-numeric results) [facility] ([facility]) CK-MB Value Mass Laboratory test result Normal ( applies to non-numeric results) [facility] ([facility]) MB/CK Relative Index 1.52 Normal (applies to non-num [facility] results) [facility] ([facility]) <content>DIAGNOSIS CRITERIA</content>
<content>MMB ng/ml Relative Index (RI)</content>
<content>NON-AMI < or = 5 N/A</content>
<content>STRONG ZONE > 5 < or = 4</content>
<content>AMI > 5 > 4</content>
<content></content> Troponin I Laboratory test result Normal (applies to non-n umeric results) [facility] ([facility]) <content>Troponin I Reference Interval f or [employer] [place] LOCI:</content>
<content></content>
<content>99th Percentile= 0.00-0.045 ng/ml</content>
<content></content>
<content>Risk Stratification:</content>
<content><= 0.10 ng/ml Decreased Risk for Adverse Clinical</content>
<content>Events.</content>
<content>0.10-1.50 ng/ml Increased Risk for Adverse Clinical</content>
<content>Events. Evaluation of additional</content>
<content>criterion and/or repeat testing in 2-6</content>
<content>hours is suggested to rule out myocardial</content>
<content>damage.</content>
<content>>= 1.50 ng/ml Indicative of Myocardial Injury.</content>
<content></content> ID Date Data Source [id number] 09/12/2019 04:13:00 PM EDT [facility] ([facility]) Name Value Range Interpretation Code Description Data Elizabeth rce(s) Supporting Document(s) Ast/Sgot 20 U/L 7-37 Normal (applies to non-numeric resul ts) [facility] ([facility]) Alt/SGPT 33 U/L 12-78 Normal (applies to non-numeric resul ts) [facility] ([facility]) Bilirubin,Total 0.6 mg/dL 0.2-1.0 Normal (applies to non-numeric results) [facility] ([facility]) Alkaline Phosphatase 58 U/L 45-117 Normal (applies to non-num mercy results) [facility] ([facility]) Bilirubin,Direct 0.2 mg/dL 0.0-0.2 Normal (applies to non-numeric results) [facility] ([facility]) Albumin/Globulin Ratio 1.0 Normal (applies to non-n umeric results) [facility] ([facility]) Total Protein 6.3 GM/DL 6.4-8.2 Below low normal [facility] ([facility]) Albumin 3.1 GM/DL 3.2-5.2 Below low normal [facility] ID Date Data Source [id number] 09/12/2019 04:13:[address] [facility] ([facility]) Name Value Range Interpretation Code Description Data Elizabeth rce(s) Supporting Document(s) Thyrotropin [Units/volume] in Serum or Plasma 1.590 uIU/ML 0. 358-3.740 Normal (applies to non-numeric results) [facility] ([facility]) Thyroxine (T4) [Mass/volume] in Serum or Plasma 8.4 ug/dL 4.5-12.0 Normal (applies to non-numeric results) [facility] ([facility]) Lactate [Mass/volume] in Serum or Plasma 0.6 mmol/L 0.4-2.0 Normal (applies to non-numeric results) [facility] ([facility]) Y/N query for Sepsis Lactate Rule: Y ID Date Data Source [id number] 09/10/2019 08:22:[address] [facility] ([facility]) Name Value Range Interpretation Code Description Data Elizabeth rce(s) Supporting Document(s) Glucose, Fasting 107 mg/dL 70-100 Above high normal [facility] ([facility]) Creatinine For GFR 1.20 mg/dL 0.70-1.30 Normal (applies to non -numeric results) [facility] ([facility]) Blood Urea Nitrogen 25 mg/dL 7-[address] [facility] ([facility]) Sodium Level 134 meq/L 136-[address] [facility] ([facility]) Glomerular Filtration Rate Laboratory test result Normal (applies to non- numeric results) [facility] ([facility]) <content>Units are mL/min/1.73 m2</content>
<content></content>
<content>Chronic Kidney Disease Staging per NKF:</content>
<content></content>
<content>Stage I & II GFR >=60 Normal to Mildly Decreased</content>
<content>Stage III GFR 30- 59 Moderately Decreased</content>
<content>Stage IV GFR 15-29 Severely Decreased</content>
<content>Stage V GFR <15 Very Little GFR Left</content>
<content>ESRD GFR <15 on SEAM FINISHER</content>
<content></content> Potassium Serum 3.7 meq/L 3.5-5.1 Normal (applies to non-numeric results) [facility] ([facility]) Chloride Level 104 meq/L 98-107 Normal (applies to non-numeric r esults) [facility] ([facility]) Carbon Dioxide Level 21 meq/L 21-32 Normal (applies to non-num [facility] results) [facility] Calcium Level 7.4 mg/dL 8.5-10.1 Below low normal [facility] ([facility]) Anion Gap 9 meq/L 8-16 Normal (applies to non-numeric resul ts) [facility] ([facility]) Alkaline Phosphatase 62 U/L 45-117 Normal (applies to non-num mercy results) [facility] ([facility]) Alt/SGPT 47 U/L 12-78 Normal (applies to non-numeric resul ts) [facility] ([facility]) Ast/Sgot 35 U/L 7-37 Normal (applies to non-numeric resul ts) [facility] ([facility]) Bilirubin,Total 0.5 mg/dL 0.2-1.0 Normal (applies to non-numeric results) [facility] ([facility]) Total Protein 6.1 GM/DL 6.4-8.2 Below low normal [facility] ([facility]) Albumin 3.0 GM/DL 3.2-5.2 Below low normal [facility] ( [facility]) Albumin/Globulin Ratio 1.0 Normal (applies to non-n umeric results) [facility] ([facility]) ID Date Data Source [id number] 09/08/2019 08:14:00 AM EDT [facility] ([facility]) Name Value Range Interpretation Code Description Data Elizabeth rce(s) Supporting Document(s) Glucose, Fasting 110 mg/dL 70-100 Above high normal [facility] ([facility]) Blood Urea Nitrogen 17 mg/dL 7-18 Normal (applies to non-nume radha results) [facility] ([facility]) Glomerular Filtration Rate Laboratory test result Normal (applies to non- numeric results) [facility] ([facility]) <content>Units are mL/min/1.73 m2</content>
<content></content>
<content>Chronic Kidney Disease Staging per NKF:</content>
<content></content>
<content>Stage I & II GFR >=60 Normal to Mildly Decreased</content>
<content>Stage III GFR 30- 59 Moderately Decreased</content>
<content>Stage IV GFR 15-29 Severely Decreased</content>
<content>Stage V GFR <15 Very Little GFR Left</content>
<content>ESRD GFR <15 on SEAM FINISHER</content>
<content></content> Creatinine For GFR 1.28 mg/dL 0.70-1.30 Normal (applies to non -numeric results) [facility] ([facility]) Sodium Level 136 meq/L 136-145 Normal (applies to non-numeric res ults) [facility] ([facility]) Potassium Serum 3.8 meq/L 3.5-5.1 Normal (applies to non-numeric results) [facility] ([facility]) Chloride Level 106 meq/L 98-107 Normal (applies to non-numeric r esults) [facility] ([facility]) Carbon Dioxide Level 20 meq/L 21-32 Below low normal [facility] ([facility]) Ast/Sgot 27 U/L 7-37 Normal (applies to non-numeric resul ts) [facility] ([facility]) Calcium Level 7.3 mg/dL 8.5-10.1 Below low normal [facility] ([facility]) Anion Gap 10 meq/L 8-16 Normal (applies to non-numeric resul ts) [facility] ([facility]) Alt/SGPT 40 U/L 12-78 Normal (applies to non-numeric resul ts) [facility] ([facility]) Bilirubin,Total 0.4 mg/dL 0.2-1.0 Normal (applies to non-numeric results) [facility] Alkaline Phosphatase 63 U/L 45-117 Normal (applies to non-num mercy results) [facility] ([facility]) Total Protein 6.6 GM/DL 6.4-8.2 Normal (applies to non-numeric re sults) [facility] ([facility]) Albumin 3.2 GM/DL 3.2-5.2 Normal (applies to non-numeric resul ts) [facility] ([facility]) Albumin/Globulin Ratio 0.9 Normal (applies to non-n umeric results) [facility] ([facility]) ID Date Data Source [id number] 09/07/2019 10:25:[address] [facility] ([facility]) Name Value Range Interpretation Code Description Data Elizabeth rce(s) Supporting Document(s) Glucose, Fasting 118 mg/dL 70-100 Above high normal [facility] ([facility]) Blood Urea Nitrogen 16 mg/dL 7-18 Normal (applies to non-nume radha results) [facility] ([facility]) Creatinine For GFR 1.14 mg/dL 0.70-1.30 Normal (applies to non -numeric results) [facility] ([facility]) Glomerular Filtration Rate Laboratory test result Normal (applies to non- numeric results) [facility]) <content>Units are mL/min/1.73 m2</content>
<content></content>
<content>Chronic Kidney Disease Staging per NKF:</content>
<content></content>
<content>Stage I & II GFR >=60 Normal to Mildly Decreased</content>
<content>Stage III GFR 30- 59 Moderately Decreased</content>
<content>Stage IV GFR 15-29 Severely Decreased</content>
<content>Stage V GFR <15 Very Little GFR Left</content>
<content>ESRD GFR <15 on SEAM FINISHER</content>
<content></content> Sodium Level 137 meq/L 136-145 Normal (applies to non-numeric res ults) [facility] ([facility]) Potassium Serum 4.5 meq/L 3.5-5.1 Normal (applies to non-numeric results) [facility] ([facility]) Chloride Level 110 meq/L 98-107 Above high normal [facility] ([facility]) Carbon Dioxide Level 21 meq/L 21-32 Normal (applies to non-num mercy results) [facility] ([facility]) Ast/Sgot 23 U/L 7-37 Normal (applies to non-numeric resul ts) [facility] ([facility]) Calcium Level 7.1 mg/dL 8.5-10.1 [facility] ([facility]) Anion Gap 6 meq/L 8-16 Below low normal [facility] ( [facility]) Alkaline Phosphatase 65 U/L 45-117 Normal (applies to non-num mercy results) [facility] ([facility]) Alt/SGPT 36 U/L 12-78 Normal (applies to non-numeric resul ts) [facility] ([facility]) Bilirubin,Total 0.3 mg/dL 0.2-1.0 Normal (applies to non-numeric results) [facility] ([facility]) Total Protein 6.3 GM/DL 6.4-8.2 Below low normal [facility] ([facility]) Albumin 3.1 GM/DL 3.2-5.2 Below low normal [facility] ( [facility]) Albumin/Globulin Ratio 1.0 Normal (applies to non-n umeric results) [facility] ([facility]) ID Date Data Source [id number] 09/06/2019 07:49:00 AM EDT [facility] ([facility]) Name Value Range Interpretation Code Description Data Elizabeth rce(s) Supporting Document(s) Magnesium [Mass/volume] in Serum or Plasma 1.2 mg/dL 1.8-2.4 Belo w low normal [facility] ([facility]) ID Date Data Source [id number] 09/06/2019 07:49:00 AM EDT [facility] ([facility]) Name Value Range Interpretation Code Description Data Elizabeth rce(s) Supporting Document(s) Blood Urea Nitrogen 18 mg/dL 7-18 Normal (applies to non-nume radha results) [facility] ([facility]) Glucose, Fasting 183 mg/dL 70-100 Above high normal [facility] ([facility]) Creatinine For GFR 1.54 mg/dL 0.70-1.30 Above high normal [facility] ([facility]) Sodium Level 132 meq/L 136-145 Below low normal [facility] ([facility]) Glomerular Filtration Rate 50.2 Below low normal [facility] ([facility]) <content>Units are mL/min/1.73 m2</content>
<content></content>
<content>Chronic Kidney Disease Staging per NKF:</content>
<content></content>
<content>Stage I & II GFR >=60 Normal to Mildly Decreased</content>
<content>Stage III GFR 30- 59 Moderately Decreased</content>
<content>Stage IV GFR 15-29 Severely Decreased</content>
<content>Stage V GFR <15 Very Little GFR Left</content>
<content>ESRD GFR <15 on SEAM FINISHER</content>
<content></content> Carbon Dioxide Level 20 meq/L 21-32 Below low normal [facility] ([facility]) Chloride Level 104 meq/L 98-107 Normal (applies to non-numeric r esults) [facility] ([facility]) Potassium Serum 5.2 meq/L 3.5-5.1 Above high normal [facility] ([facility]) Ast/Sgot 15 U/L 7-37 Normal (applies to non-numeric resul ts) [facility] ([facility]) Calcium Level 8.9 mg/dL 8.5-10.1 Normal (applies to non-numeric re sults) [facility] ([facility]) Anion Gap 8 meq/L 8-16 Normal (applies to non-numeric resul ts) [facility] ([facility]) Alkaline Phosphatase 83 U/L 45-117 Normal (applies to non-num mercy results) [facility] ([facility]) Alt/SGPT 39 U/L 12-78 Normal (applies to non-numeric resul ts) [facility] ([facility]) Bilirubin,Total 0.3 mg/dL 0.2-1.0 Normal (applies to non-numeric results) [facility] ([facility]) Total Protein 7.3 GM/DL 6.4-8.2 Normal (applies to non-numeric re sults) [facility] ([facility]) Albumin 3.5 GM/DL 3.2-5.2 Normal (applies to non-numeric resul ts) [facility] ([facility]) Albumin/Globulin Ratio 0.9 Normal (applies to non-n umeric results) [facility] ([facility]) ID Date Data Source [id number] 09/06/2019 07:49:00 AM EDT [facility] ([facility]) Name Value Range Interpretation Code Description Data Elizabeth rce(s) Supporting Document(s) Lymph % 9.2 % 24.0-44.0 Below low normal [facility] ( [facility]) [place] % 1.0 % 0.0-5.0 Normal (applies to non-numeric resul ts) [facility] ([facility]) Neutrophils % 88.1 % 36.0-66.0 Above high normal MEDE NT ([facility]) Eos % 0.0 % 0.0-3.0 Normal (applies to non-numeric resul ts) [facility] ([facility]) Baso % 0.1 % 0.0-1.0 Normal (applies to non-numeric resul ts) [facility] ([facility]) Lymph # 0.9 10 1.5-5.0 Below low normal [facility] ( [facility]) Neutrophils # 8.5 10 1.5-8.5 Normal (applies to non-numeric re sults) [facility] ([facility]) Immature Granulocyte % 1.6 % 0-3.0 Normal (applies to non-n umeric results) [facility] ([facility]) [place] # 0.1 10 0.0-0.8 Normal (applies to non-numeric resul ts) [facility] ([facility]) Eos # 0.0 10 0.0-0.5 Normal (applies to non-numeric resul ts) [facility] ([facility]) Baso # 0.0 10 0.0-0.2 Normal (applies to non-numeric resul ts) [facility] ([facility]) ID Date Data Source [id number] 09/06/2019 07:49:00 AM EDT [facility] ([facility]) Name Value Range Interpretation Code Description Data Elizabeth rce(s) Supporting Document(s) Red Blood Count 4.16 10 4.30-6.10 Below low normal MED ENT ([facility]) White Blood Count 9.7 10 4.0-10.0 Normal (applies to non-numeri c results) [facility] ([facility]) Hemoglobin 12.7 g/dL 13.5-17.5 Below low [facility] Mean Corpuscular Volume 89.9 fl 80.0-96.0 Normal ( applies to non-numeric results) [facility] ([facility]) Hematocrit 37.4 % 42.0-52.0 Below low normal [facility] Mean Corpuscular Hemoglobin 30.5 pg 27.0-33.0 Norm al (applies to non-numeric results) [facility] ([facility]) Mean Corpuscular HGB Conc 34.0 g/dL 32.0-36.5 Normal (applies to non-numeric results) [facility] ([facility]) Red Cell Distribution Width 15.2 % 11.5-14.5 Above high normal [facility] ([facility]) Nucleated Red Blood Cell % 0.0 % 0-0 Normal (applies to n on-numeric results) [facility] ([facility]) Platelet Count, Automated 301 10 150-450 Normal (applies to non-numeric results) [facility] ([facility]) ID Date Data Source [id number] 08/27/2019 11:22:[address] [facility] ([facility]) Name Value Range Interpretation Code Description Data Elizabeth rce(s) Supporting Document(s) Prothrombin Time 12.5 s 11.8-14.0 Normal (applies to non-numeric results) [facility] ([facility]) Inr 0.96 Normal (applies to non-numeric resul ts) [facility] ([facility]) THERAPUTIC HUMAN INR VALUES INDICATIONS NORMAL RANGES PROPHYLAXIS/TREATMENT OF: VENOUS THROMBOSIS 2.0-3.0 PULMONARY EMBOLISM 2.0-3.0 PREVENTION OF SYSTEMIC EMBOLISM FROM: TISSUE HEART VALVES 2.0-3.0 ACUTE MYOCARDIAL INFARCTION 2.0-3.0 VALVULAR HEART DISEASE 2.0-3.0 ATRIAL FIBRILLATION 2.0-3.0 MECHANICAL VALVES(HIGH RISK) 2.5-3.5 RECURRENT MYOCARDIAL INFARCTION 2.5-3.5 Partial Thromboplastin Time 34.2 s 25.0-38.4 Norm al (applies to non-numeric results) [facility]) ID Date Data Source [id number] 08/27/2019 09:11:[address] [facility] ([facility]) Name Value Range Interpretation Code Description Data Elizabeth rce(s) Supporting Document(s) Red Blood Count 4.22 10 4.30-6.10 Below low normal [facility] ([facility]) White Blood Count 7.6 10 4.0-10.0 Normal (applies to non-numeri c results) [facility] ([facility]) Hematocrit 38.1 % 42.0-52.[address] [facility] ( [facility]) Hemoglobin 13.1 g/dL 13.5-17.[address] [facility] ( [facility]) Mean Corpuscular Volume 90.3 fl 80.0-96.0 Normal ( applies to non-numeric results) [facility] ([facility]) Mean Corpuscular HGB Conc 34.4 g/dL 32.0-36.5 Normal (applies to non-numeric results) [facility] ([facility]) Red Cell Distribution Width 16.8 % 11.5-14.5 Above high normal [facility] Mean Corpuscular Hemoglobin 31.0 pg 27.0-33.0 Norm al (applies to non-numeric results) [facility] ([facility]) Nucleated Red Blood Cell % 0.0 % 0-0 Normal (applies to n on-numeric results) [facility] ([facility]) Platelet Count, Automated 318 10 150-450 Normal (applies to non-numeric results) [facility] ([facility]) ID Date Data Source [id number] 08/27/2019 09:11:00 AM EDT [facility] ([facility]) Name Value Range Interpretation Code Description Data Elizabeth rce(s) Supporting Document(s) Neutrophils % 61.4 % 36.0-66.0 Normal (applies to non-numeric re sults) [facility] ([facility]) Lymph % 27.4 % 24.0-44.0 Normal (applies to non-numeric resul ts) [facility] ([facility]) [place] % 7.9 % 0.0-5.0 Above high normal [facility] ([facility]) Baso % 0.8 % 0.0-1.0 Normal (applies to non-numeric resul ts) [facility] ([facility]) Eos % 1.8 % 0.0-3.0 Normal (applies to non-numeric resul ts) [facility] ([facility]) Immature Granulocyte % 0.7 % 0-3.0 Normal (applies to non-n umeric results) [facility]) Lymph # 2.1 10 1.5-5.0 Normal (applies to non-numeric resul ts) [facility]) [place] # 0.6 10 0.0-0.8 Normal (applies to non-numeric resul ts) [facility]) Neutrophils # 4.7 10 1.5-8.5 Normal (applies to non-numeric re sults) [facility] ([facility]) Eos # 0.1 10 0.0-0.5 Normal (applies to non-numeric resul ts) [facility] ([facility]) Baso # 0.1 10 0.0-0.2 Normal (applies to non-numeric resul ts) [facility] ([facility]) ID Date Data Source [id number] 08/27/2019 09:11:00 AM EDT [facility] ([facility]) Name Value Range Interpretation Code Description Data Elizabeth rce(s) Supporting Document(s) Blood Urea Nitrogen 15 mg/dL 7-18 Normal (applies to non-nume radha results) [facility] ([facility]) Glucose, Fasting 93 mg/dL 70-100 Normal (applies to non-numeric results) [facility] ([facility]) Glomerular Filtration Rate Laboratory test result Normal (applies to non- numeric results) [facility] ([facility]) <content>Units are mL/min/1.73 m2</content>
<content></content>
<content>Chronic Kidney Disease Staging per NKF:</content>
<content></content>
<content>Stage I & II GFR >=60 Normal to Mildly Decreased</content>
<content>Stage III GFR 30- 59 Moderately Decreased</content>
<content>Stage IV GFR 15-29 Severely Decreased</content>
<content>Stage V GFR <15 Very Little GFR Left</content>
<content>ESRD GFR <15 on SEAM FINISHER</content>
<content></content> Sodium Level 131 meq/L 136-145 Below low normal [facility] ([facility]) Creatinine For GFR 1.24 mg/dL 0.70-1.30 Normal (applies to non -numeric results) [facility] ([facility]) Potassium Serum 5.2 meq/L 3.5-5.1 Above high normal [facility] ([facility]) Carbon Dioxide Level 23 meq/L 21-32 Normal (applies to non-num mercy results) [facility] ([facility]) Chloride Level 103 meq/L 98-107 Normal (applies to non-numeric r esults) [facility] ([facility]) Ast/Sgot 13 U/L 7-37 Normal (applies to non-numeric resul ts) [facility] ([facility]) Calcium Level 9.3 mg/dL 8.5-10.1 Normal (applies to non-numeric re sults) [facility] ([facility]) Anion Gap 5 meq/L 8-16 Below low normal [facility] Bilirubin,Total 0.5 mg/dL 0.2-1.0 Normal (applies to non-numeric results) [facility] ([facility]) Alkaline Phosphatase 82 U/L 45-117 Normal (applies to non-num mercy results) [facility] ([facility]) Alt/SGPT 31 U/L 12-78 Normal (applies to non-numeric resul ts) [facility] ([facility]) Total Protein 7.4 GM/DL 6.4-8.2 Normal (applies to non-numeric re sults) [facility] ([facility]) Albumin 3.5 GM/DL 3.2-5.2 Normal (applies to non-numeric resul ts) [facility] ([facility]) Albumin/Globulin Ratio 0.90 1.00-1.93 Below low normal [facility] ([facility]) ID Date Data Source [id number] 08/27/2019 09:11:[address] [facility] ([facility]) Name Value Range Interpretation Code Description Data Elizabeth rce(s) Supporting Document(s) Magnesium [Mass/volume] in Serum or Plasma 1.4 mg/dL 1.8-2.4 Belo w low normal [facility] ([facility]) Carcinoembryonic Ag [Mass/volume] in Serum or Plasma 2.0 ng/mL Normal (applies to non-numeric results) [facility] ([facility]) THE CEA ASSAY IS PERFORMED ON THE Gusto BY CHEMILUMINESCENCE AND SHOULD NOT BE COMPARED INTERCHANGEABLY WITH OTHER METHODS. IT SHOULD NOT BE USED ALONE A SCREENING TEST OR DIAGNOSIS FOR THE PRESENCE OR ABSENCE OF MALIGNANT DISEASE. PREDICTIONS OF DISEASE RECURRENCE SHOULD NOT BE BASED SOLELY ON VALUES OBTAINED FROM SERIAL PATIENT SERUM VALUES. ID Date Data Source [id number] 08/17/2019 08:50:00 AM EDT [facility] ([facility]) Name Value Range Interpretation Code Description Data Elizabeth rce(s) Supporting Document(s) Carcinoembryonic Ag [Mass/volume] in Serum or Plasma 1.6 ng/mL Normal (applies to non-numeric results) [facility] ([facility]) THE CEA ASSAY IS PERFORMED ON THE [employer]flow[employer]AUR BY CHEMILUMINESCENCE AND SHOULD NOT BE COMPARED INTERCHANGEABLY WITH OTHER METHODS. IT SHOULD NOT BE USED ALONE A SCREENING TEST OR DIAGNOSIS FOR THE PRESENCE OR ABSENCE OF MALIGNANT DISEASE. PREDICTIONS OF DISEASE RECURRENCE SHOULD NOT BE BASED SOLELY ON VALUES OBTAINED FROM SERIAL PATIENT SERUM VALUES. ID Date Data Source [id number] 08/17/2019 08:50:00 AM EDT [facility] ([facility]) Name Value Range Interpretation Code Description Data Elizabeth rce(s) Supporting Document(s) Glucose, Fasting 103 mg/dL 70-100 Above high normal [facility] ([facility]) Creatinine For GFR 1.56 mg/dL 0.70-1.30 Above high normal [facility] ([facility]) Blood Urea Nitrogen 20 mg/dL 7-18 Above high normal [facility] ([facility]) Glomerular Filtration Rate 49.4 Below low normal [facility] ([facility]) <content>Units are mL/min/1.73 m2</content>
<content></content>
<content>Chronic Kidney Disease Staging per NKF:</content>
<content></content>
<content>Stage I & II GFR >=60 Normal to Mildly Decreased</content>
<content>Stage III GFR 30- 59 Moderately Decreased</content>
<content>Stage IV GFR 15-29 Severely Decreased</content>
<content>Stage V GFR <15 Very Little GFR Left</content>
<content>ESRD GFR <15 on SEAM FINISHER</content>
<content></content> Potassium Serum 4.8 meq/L 3.5-5.1 Normal (applies to non-numeric results) [facility] ([facility]) Sodium Level 133 meq/L 136-145 Below low normal [facility] ([facility]) Chloride Level 103 meq/L 98-107 Normal (applies to non-numeric r esults) [facility] ([facility]) Carbon Dioxide Level 23 meq/L 21-32 Normal (applies to non-num mercy results) [facility] ([facility]) Anion Gap 7 meq/L 8-16 Below low normal [facility] ( [facility]) Calcium Level 8.8 mg/dL 8.5-10.1 Normal (applies to non-numeric re sults) [facility] ([facility]) Ast/Sgot 8 U/L 7-37 Normal (applies to non-numeric resul ts) [facility] ([facility]) Alt/SGPT 27 U/L 12-78 Normal (applies to non-numeric resul ts) [facility] ([facility]) Alkaline Phosphatase 78 U/L 45-117 Normal (applies to non-num mercy results) [facility] ([facility]) Total Protein 7.0 GM/DL 6.4-8.2 Normal (applies to non-numeric re sults) [facility] ([facility]) Bilirubin,Total 0.2 mg/dL 0.2-1.0 Normal (applies to non-numeric results) [facility] ([facility]) Albumin 3.6 GM/DL 3.2-5.2 Normal (applies to non-numeric resul ts) [facility] ([facility]) Albumin/Globulin Ratio 1.06 1.00-1.93 Normal (applies to non-numeric results) [facility] ([facility]) ID Date Data Source [id number] 08/17/2019 08:50:00 AM EDT [facility] ([facility]) Name Value Range Interpretation Code Description Data Elizabeth rce(s) Supporting Document(s) Lymph % 9.9 % 24.0-44.0 Below low normal [facility] ( [facility]) [place] % 7.0 % 0.0-5.0 Above high normal [facility] ([facility]) Neutrophils % 81.7 % 36.0-66.0 Above high normal [facility] ([facility]) Immature Granulocyte % 1.3 % 0-3.0 Normal (applies to non-n umeric results) [facility] ([facility]) Baso % 0.1 % 0.0-1.0 Normal (applies to non-numeric resul ts) [facility] ([facility]) Eos % 0.0 % 0.0-3.0 Normal (applies to non-numeric resul ts) [facility] ([facility]) Neutrophils # 11.5 10 1.5-8.5 Above high normal [facility] ([facility]) Lymph # 1.4 10 1.5-5.0 Below low normal [facility] ( [facility]) [place] # 1.0 10 0.0-0.8 Above high normal [facility] ([facility]) Eos # 0.0 10 0.0-0.5 Normal (applies to non-numeric resul ts) [facility] ([facility]) Baso # 0.0 10 0.0-0.2 Normal (applies to non-numeric resul ts) [facility] ([facility]) ID Date Data Source [id number] 08/17/2019 08:50:00 AM EDT [facility] ([facility]) Name Value Range Interpretation Code Description Data Elizabeth rce(s) Supporting Document(s) White Blood Count 14.1 10 4.0-10.0 Above high normal [facility] ([facility]) Red Blood Count 4.14 10 4.30-6.10 Below low normal [facility] ([facility]) Hematocrit 36.9 % 42.0-52.0 Below low normal [facility] ( [facility]) Hemoglobin 12.4 g/dL 13.5-17.5 Below low normal [facility] ( [facility]) Mean Corpuscular Volume 89.1 fl 80.0-96.0 Normal ( applies to non-numeric results) [facility] ([facility]) Mean Corpuscular Hemoglobin 30.0 pg 27.0-33.0 Norm al (applies to non-numeric results) [facility] ([facility]) Mean Corpuscular HGB Conc 33.6 g/dL 32.0-36.5 Normal (applies to non-numeric results) [facility] ([facility]) Red Cell Distribution Width 16.3 % 11.5-14.5 Above high normal [facility] ([facility]) Platelet Count, Automated 367 10 150-450 Normal (applies to non-numeric results) [facility] ([facility]) Nucleated Red Blood Cell % 0.0 % 0-0 Normal (applies to n on-numeric results) [facility] ([facility]) ID Date Data Source [id number] 08/16/2019 12:14:[address] [facility] ([facility]) Name Value Range Interpretation Code Description Data Elizabeth rce(s) Supporting Document(s) Surgical pathology study Laboratory test result [facility] ([facility]) FINAL DIAGNOSIS A - Left posterior pharyngeal [...] MD 08/17/2019 1304 ID Date Data Source [id number] 08/03/2019 11:07:[address] [facility] ([facility]) Name Value Range Interpretation Code Description Data Elizabeth rce(s) Supporting Document(s) Microscopic observation [Identifier] in Unspecified specimen by Non- gynecological cytology method Laboratory test result [facility] ([facility]) SPECIMEN: Bronchial washing ( left upper lobe) 8ml Red SPECIMEN ADEQUACY: Satisfactory for evaluation CATEGORIZATION: Positive for Malignancy DESCRIPTIONS: Scattered small keratinized cells noted exhibiting high n/c ratios and hyperchronmatic nuclei in a background of abundant blood. COMMENTS: Findings consistent witjh sqaumous cell carcinoma. 08/04/2019 - 1029 Signed AN RENTERIA(ASCP) 08/04/2019 1029 (Prelim) Signed Nola Clark M.D. 08/04/2019 1202 ID Date Data Source [id number] 08/03/2019 11:05:00 AM EDT [facility] ([facility]) Name Value Range Interpretation Code Description Data Elizabeth rce(s) Supporting Document(s) Microscopic observation [Identifier] in Unspecified specimen by Non- gynecological cytology method Laboratory test result [facility] ([facility]) SPECIMEN: Bronchial brushing (left upper lobe) lung [place] in vial received SPECIMEN ADEQUACY: Satisfactory for evaluation CATEGORIZATION: Positive for Malignancy DESCRIPTIONS: Abundant malignant cells noted appearing adina and in groups. Some cells are keratinized and and have very high n/c ratios and hyperchromatic nuclei. 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 08/04/2019 - 1199 Signed AN RENTERIA(ASCP) 08/04/2019 1026 (Prelim) Signed Nola Clark M.D. 08/04/2019 1200 ID Date Data Source [id number] 08/03/2019 11:05:00 AM EDT [facility] ([facility]) Name Value Range Interpretation Code Description Data Elizabeth rce(s) Supporting Document(s) Microscopic observation [Identifier] in Unspecified specimen by Non- gynecological cytology method Laboratory test result [facility] ([facility]) SPECIMEN: Bronchial brushing (left upper lobe) lung [place] in vial received SPECIMEN ADEQUACY: Satisfactory for [...] M.D. 08/04/2019 1200 ID Date Data Source [id number] 08/03/2019 10:30:00 AM EDT [facility] ([facility]) Name Value Range Interpretation Code Description Data Elizabeth rce(s) Supporting Document(s) Gram Stain Laboratory test result Normal (applies to non-n umeric results) [facility] ([facility]) MANY RBCS MODERATE WBCS FEW GRAM POSITIVE COCCI FEW GRAM POSITIVE RODS Laboratory test finding (navigational concept) Laboratory test r esult Normal (applies to non-numeric results) [facility] ([facility]) FULL REPORT IN LAB NOTES (eCW and [facility] ). NORMAL TEODORO PRESENT ID Date Data Source [id number] 08/03/2019 10:30:00 AM EDT [facility] ([facility]) Name Value Range Interpretation Code Description Data Elizabeth rce(s) Supporting Document(s) Gram Stain Laboratory test result Normal (applies to non-n umeric results) [facility] ([facility]) MANY RBCS MODERATE WBCS FEW GRAM POSITIVE COCCI FEW GRAM POSITIVE RODS Bronchial Wash Culture Laboratory test result No rmal (applies to non-numeric results) [facility] ([facility]) FULL REPORT IN LAB NOTES ([facility] and [facility] ). NORMAL TEODORO PRESENT ID Date Data Source [id number] 08/03/2019 10:23:00 AM EDT [facility] ([facility]) Name Value Range Interpretation Code Description Data Elizabeth rce(s) Supporting Document(s) Surgical pathology study Laboratory test result [facility] ([facility]) Addendum 1 Entered: 08/30/2019-0814 PD-L1: No expression. [...] Clark M.D. 08/04/2019845 ID Date Data Source [id number] 07/06/2019 10:05:00 AM EDT [facility] ([facility]) Name Value Range Interpretation Code Description Data Elizabeth rce(s) Supporting Document(s) PET CT Laboratory test result [facility] ([facility]) ID Date Data Source [id number] 07/02/2019 04:09:00 [place] [address] PHONE: [phone] FAX: [phone] Name .................. : [place]E [place] Acct Number.................. : [id number] ROOM. ................. : MR Number ................... : [id number] Stay type ............. : O/P Discharge Date......... ... : 07/02/19 Admit Date ......... : 07/02/19 Admit Phys .................... : RICH HARD Date of ....... : 1965 Family Phys ................... : HILARIO HARD Phone .................. : [phone] Age ................................ : 53 Film# .................. .:[id number] Sex ................................. : M Unsigned transcriptions are preliminary reports and do not represent a medical or legal document CT THORAX W/CONTRAST [id number] COMPLETE:07/02/19 10:55 [place] [id number] PULMONARY NODULE; PNEUMONIA CT SCAN OF THE [...] degenerative changes. IMPRESSION: Page 1 of [address] [facility] [address] [place] [address] PHONE: [phone] FAX: [phone] Name .................. : DEDE [place] Acct Number.................. : [id number] ROOM. ................. : MR Number ................... : [id number] Stay type ............. : O/P Discharge Date......... ... : 07/02/19 Admit Date ......... : 07/02/19 Admit Phys .................... : [employer] Date of ....... : 1965 Family Phys ................... : [employer] Phone .................. : [phone] Age ................................ : 53 Film# .................. .:[id number] Sex ................................. : M Unsigned transcriptions are preliminary reports and do not represent a medical or legal document CT THORAX W/CONTRAST [id number] COMPLETE:07/02/19 10:55 JO [id number] PULMONARY NODULE; PNEUMONIA Left hilar mass with [...] Reinoso MD , 07/02/19 16:09, [facility] Transcribe Initials: MERCEDES , Transcribe Date: 07/02/19 13:02, Dictation Date: Copy for: [address] [place] [address] REC Page 2 of 2 Name Value Range Interpretation Code Description Data Elizabeth rce(s) Supporting Document(s) ID Date Data Source [id number] 06/29/2019 11:54:00 AM EDT [facility] [address] [place] [address] PHONE: [phone] FAX: [phone] Name .................. : DEDE [place] Acct Number.................. : [id number] ROOM. ................. : MR Number ................... : [id number] Stay type ............. : CLINIC Discharge Date......... ... : 06/29/19 Admit Date ......... : 06/29/19 Admit Phys .................... : RICH HARD Date of ....... : 1965 Family Phys ................... : RICH HARD Phone .................. : [phone] Age ................................ : 53 Film# .................. .:[id number] Sex ................................. : M Unsigned transcriptions are preliminary reports and do not represent a medical or legal document KNEE COMPLETE-4 OR MORE S L [id number] COMPLETE:06/29/19 09:51 KBO 52113 (REASON FOR PROCESS: EFFUSION LEFT KNEE SERIES: [...] rce(s) Supporting Document(s) ID Date Data Source [id number] 06/29/2019 11:54:00 [place] [address] PHONE: [phone] FAX: [phone] Name .................. : DEDE [place] Acct Number.................. : [id number] ROOM. ................. : Number ................... : [id number] Stay type ............. : CLINIC Discharge Date......... ... : 06/29/19 Admit Date ......... : 06/29/19 Admit Phys .................... : RICH HARD Date of ....... : 1965 Family Phys ................... : RICH HARD Phone .................. : [phone] Age ................................ : 53 Film# .................. .:[id number] Sex ................................. : M Unsigned transcriptions are preliminary reports and do not represent a medical or legal document CHEST 2 VIEWS 87901 COMPLETE:06/29/19 09:51 KBO [id number] (REASON FOR CHEST: PNEUMONIA CHEST X-RAY: 2-VIEWS [...] rce(s) Supporting Document(s) ID Date Data Source [id number] 06/29/2019 08:40:00 AM EDT [facility] ([facility]) Name Value Range Interpretation Code Description Data Elizabeth rce(s) Supporting Document(s) Erythrocyte sedimentation rate by Westergren method <pending> [facility] ([facility]) C reactive protein [Mass/volume] in Serum or Plasma by High sensitivity method 18.30 mg/L 1.00-3.00 Above high normal [facility] ([facility]) <content>CDC/S HS-CRP CUT-OFF: RELATIVE RISK:</content>
<content><1.0 mg/L Low</content>
<content>1.0 - 3.0 mg/L Average</lucrecia nt>
<content>>3.0 mg/L High</content>
<content>Optimally, the average of HS-CRP results repeated</content>
<content>two weeks apart should be used for risk assessment.</content>
<content></content> Urate [Mass/volume] in Serum or Plasma 6.8 mg/dL 2.5-8.5 [facility] ([facility]) ID Date Data Source [id number] 06/29/2019 08:40:00 AM EDT [facility] ([facility]) Name Value Range Interpretation Code Description Data Elizabeth rce(s) Supporting Document(s) Sed Rate 14 mm/hr 0-20 [facility] ([facility]) Sed Rate Reenter 14 [facility] ([facility]) ID Date Data Source [id number] 06/29/2019 08:40:00 AM EDT [facility] ([facility]) Name Value Range Interpretation Code Description Data Elizabeth rce(s) Supporting Document(s) WBC 9.4 10^3/uL 4.2-11.0 [facility] ([facility]) CBC W/Automated Diff Laboratory test result [facility] ([facility]) COMPLETE BLOOD COUNT Hemoglobin 11.8 g/dL 14.0-16.0 Below low normal [facility] ( [facility]) RBC 4.15 10^6/uL 4.50-6.30 Below low normal [facility] ([facility]) Hematocrit 35.7 % 41.0-51.0 Below low normal [facility] ( [facility]) MCH 28.4 pg 27.0-34.0 [facility] ([facility]) MCHC 33.1 g/dL 31.0-36.0 [facility] ([facility]) MCV 86.0 fL 80.0-94.0 [facility] ([facility]) RDW 15.8 % 11.5-14.8 Above high normal [facility] ([facility]) Platelets 363 10^3/uL 150-450 [facility] ([facility]) MPV 8.7 fL 7.4-10.4 [facility] ([facility]) Stutsman 5.7 % 3.0-8.0 [facility] ([facility]) Lymph 23.9 % 25.0-40.0 Below low normal [facility] ( [facility]) Neut 65.2 % 37.0-80.0 [facility] ([facility]) %NRBC 0.0 % 0.0-0.0 [facility] ([facility]) Baso 1.3 % 0.0-2.0 [facility] ([facility]) %Ig 1.4 % 0.0-0.0 Above high normal [facility] ([facility]) Eos 2.5 % 0.0-7.0 [facility] ([facility]) #Lymph 2.23 10^3/uL 0.60-3.40 [facility] ([facility]) #Neut 6.11 10^3/uL 2.00-6.90 [facility] ([facility]) #Stutsman 0.53 10^3/uL 0.00-0.90 [facility] ([facility]) #Baso 0.12 10^3/uL 0.00-0.20 [facility] ([facility]) #Ig 0.13 10^3/uL 0.00-0.10 Above high normal [facility] ([facility]) #Eos 0.23 10^3/uL 0.00-0.70 [facility] ([facility]) RBC Morph Laboratory test result [facility] ([facility]) #NRBC 0.00 10^3/uL 0.00-0.00 [facility] ([facility]) Manual Diff Laboratory test result [facility]) ID Date Data Source [id number] 06/29/2019 08:40:00 AM EDT [facility] ([facility]) Name Value Range Interpretation Code Description Data Elizabeth rce(s) Supporting Document(s) Rheumatoid factor [Units/volume] in Serum or Plasma 14 IU/ml 0-14 [facility] ([facility]) Nuclear Ab [Presence] in Serum Laboratory test result [facility] ([facility]) Borrelia burgdorferi C6 Ab [Units/volume] in Serum by Immunoassay Laboratory test result 0.00-0.90 [facility] <content>Negative <0.91</content >
<content>Equivocal 0.91 - 1.09</content>
<content>Positive >1.09</content>
<content></content> ID Date Data Source [id number] 07/03/2019 08:11:00 AM EDT [facility] Value Range Interpretation Code Description Data Elizabeth rce(s) Supporting Document(s) Nuclear Ab [Presence] in Serum Negative Negative [facility] ID Date Data Source [id number] 07/03/2019 08:11:00 AM EDT [facility] Value Range Interpretation Code Description Data Elizabeth rce(s) Supporting Document(s) Borrelia burgdorferi C6 Ab [Units/volume] in Serum by Immuno assay <0.91 index 0.00-0.90 [facility] Negative <0.91 Equivocal 0.91 - 1.09 Positive >1.09 ID Date Data Source [id number] 06/29/2019 03:03:00 PM EDT [facility] Value Range Interpretation Code Description Data Elizabeth rce(s) Supporting Document(s) Erythrocyte sedimentation rate by Westergren method 14 mm/hr 0 - 20 [facility] SED RATE REENTER 14 [facility] ID Date Data Source [id number] 06/29/2019 02:25:00 PM EDT [facility] Name Value Range Interpretation Code Description Data Elizabeth rce(s) Supporting Document(s) C reactive protein [Mass/volume] in Serum or Plasma by High sensitivity method 18.30 MG/L 1.00 - 3.00 H [facility] CDC/S HS-CRP CUT-OFF: RELATIVE RISK: <1.0 mg/L Low 1.0 - 3.0 mg/L Average >3.0 mg/L High Optimally, the average of HS-CRP results repeated two weeks apart should be used for risk assessment. ID Date Data Source [id number] 06/29/2019 02:23:00 PM EDT [facility] Name Value Range Interpretation Code Description Data Elizabeth rce(s) Supporting Document(s) RA QUANT 14 IU/mL 0 - 14 [facility] ID Date Data Source [id number] 06/29/2019 02:23:00 PM EDT [facility] Name Value Range Interpretation Code Description Data Elizabeth rce(s) Supporting Document(s) Urate [Mass/volume] in Serum or Plasma 6.8 MG/DL 2.5 - 8.5 [facility] ID Date Data Source [id number] 06/29/2019 02:08:00 PM T [facility] Name Value Range Interpretation Code Description Data Elizabeth rce(s) Supporting Document(s) CBC W/AUTOMATED DIFF [facility] COMPLETE BLOOD COUNT Leukocytes [#/volume] in Blood by Automated count 9.4 10^3/uL 4.2 - 1 1.0 [facility] Erythrocytes [#/volume] in Blood by Automated count 4.15 10^6/uL 4. 50 - 6.30 L [facility] Hemoglobin [Mass/volume] in Blood 11.8 g/dL 14.0 - 16.0 L [facility] Hematocrit [Volume Fraction] of Blood by Automated count 35.7 % 4 1.0 - 51.0 L [facility] Erythrocyte mean corpuscular volume [Entitic volume] by Auto mated count 86.0 fL 80.0 - 94.0 [facility] Erythrocyte mean corpuscular hemoglobin [Entitic mass] by Automated count 28.4 pg 27.0 - 34.0 [facility] Erythrocyte mean corpuscular hemoglobin concentration [Mass/volume] by Automated count 33.1 g/dL 31.0 - 36.0 [facility] Erythrocyte distribution width [Ratio] by Automated count 15.8 % 11.5 - 14.8 H [facility] Platelets [#/volume] in Blood by Automated count 363 10^3/uL 150 - 45 0 [facility] Platelet mean volume [Entitic volume] in Blood by Automated count 8.7 fL 7.4 - 10.4 [facility] Neutrophils/100 leukocytes in Blood by Automated count 65.2 % 37. 0 - 80.0 [facility] Lymphocytes/100 leukocytes in Blood by Manual count 23.9 % 25.0 - 40.0 L [facility] Monocytes/100 leukocytes in Blood by Automated count 5.7 % 3.0 - 8.0 [facility] Eosinophils/100 leukocytes in Blood by Automated count 2.5 % 0.0 - 7.0 [facility] Basophils/100 leukocytes in Blood by Automated count 1.3 % 0.0 - 2.0 [facility] %IG 1.4 % 0.0 - 0.0 [facility] %NRBC 0.0 % 0.0 - 0.0 [facility] al Neutrophils [#/volume] in Blood by Automated count 6.11 10^3/uL 2.00 - 6.90 [facility] Lymphocytes [#/volume] in Blood by Automated count 2.23 10^3/uL 0.60 - 3.40 [facility] Monocytes [#/volume] in Blood by Automated count 0.53 10^3/uL 0.00 - 0.90 [facility] Eosinophils [#/volume] in Blood by Automated count 0.23 10^3/uL 0.00 - 0.70 [facility] Basophils [#/volume] in Blood by Automated count 0.12 10^3/uL 0.00 - 0.20 [facility] #IG 0.13 10^3/uL 0.00 - 0.10 [facility] #NRBC 0.00 10^3/uL 0.00 - 0.00 [facility] MANUAL DIFF NOT INDICATED [facility] RBC MORPH NOT INDICATED [facility] ID Date Data Source [id number] 06/29/2019 08:30:00 AM EDT [facility] ([facility]) Name Value Range Interpretation Code Description Data Elizabeth rce(s) Supporting Document(s) Chest Xray 2 Views <pending> [facility] ([facility]) Knee Complete-4 Or More VWS LT <pending> [facility] ([facility]) ID Date Data Source [id number] 06/18/2019 10:37:00 AM EST [facility] [address] [place] [address] PHONE: [phone] FAX: [phone] Name .................. : DEDE [place] Acct Number.................. : [id number] ROOM. ................. : MR Number ................... : [id number] Stay type ............. : CLINIC Discharge Date......... ... : 06/16/19 Admit Date ......... : 06/16/19 Admit Phys .................... : RICH HARD Date of ....... : 1965 Family Phys ................... : RICH HARD Phone .................. : [phone] Age ................................ : 53 Film# .................. .:[id number] Sex ................................. : M Unsigned transcriptions are preliminary reports and do not represent a medical or legal document CHEST 2 VIEWS [id number] COMPLETE:06/16/19 16:41 SRG [id number] (REASON FOR CHEST: HTN CHEST X-RAY: 2-VIEWS INDICATION: Hypertension. FINDINGS: The lungs are well- expanded. There is a patchy infiltrate in the left upper lobe. The cardiac silhouette is normal in size and contour. No acute osseous abnormality. IMPRESSION: Left upper lobe pneumonia. Electronically Reviewed and Signed By Papo Das M.D. , 06/18/19 10:37, [facility] Transcribe Initials: DZ , Transcribe Date: 06/16/19 21:09, Dictation Date: Page 1 of 1 Name Value Range Interpretation Code Description Data Elizabeth rce(s) Supporting Document(s) ID Date Data Source [id number] 06/16/2019 01:23:00 PM EST [facility] ([facility]) Name Value Range Interpretation Code Description Data Elizabeth rce(s) Supporting Document(s) Inhouse EKG Laboratory test result M [facility] ([facility]) ID Date Data Source [id number] 06/16/2019 01:11:00 PM EST [facility] ([facility]) Name Value Range Interpretation Code Description Data Elizabeth rce(s) Supporting Document(s) Chest Xray 2 Views <pending> [facility] ([facility]) ID Date Data Source [id number] 06/16/2019 01:07:00 PM EST [facility] ([facility]) Name Value Range Interpretation Code Description Data Elizabeth rce(s) Supporting Document(s) Protime 12.1 s 11.0-15.5 [facility] ([facility]) Is patient fasting? N PTT 33.6 s 24.8-36.7 [facility] ([facility]) Is patient fasting? N Inr 0.89 0.93-1.23 Below low normal [facility] ([facility]) Is patient fasting? N ID Date Data Source [id number] 06/16/2019 01:07:00 PM EST [facility] ([facility]) Name Value Range Interpretation Code Description Data Elizabeth rce(s) Supporting Document(s) Comprehensive [employer]abo Laboratory test result [facility] ([facility]) Is patient fasting? N Sodium 127 meq/L 134-153 Below low normal [facility] ( [facility]) Is patient fasting? N Potassium 5.2 meq/L 3.6-5.0 Above high normal [facility] ([facility]) Is patient fasting? N Co2 19 meq/L 22-30 Below low normal [facility] ([facility]) Is patient fasting? N Chloride 98 meq/L 98-107 [facility] ([facility]) Is patient fasting? N Glucose 89 mg/dL 65-110 [facility] ([facility]) Is patient fasting? N BUN 18 mg/dL 7-21 [facility] ([facility]) Is patient fasting? N Creatinine 1.2 mg/dL 0.7-1.5 [facility] ([facility]) Is patient fasting? N Albumin 4.3 g/dL 3.9-5.0 [facility] ([facility]) Is patient fasting? N Total Protein 7.4 g/dL 6.3-8.2 [facility] ([facility]) Is patient fasting? N BUN/Creat 15 8-27 [facility] ([facility]) Is patient fasting? N Globulin 3.1 GM/DL 2.4-3.2 [facility] ([facility]) Is patient fasting? N A/G Ratio 1.4 0.8-2.0 [facility] ([facility]) Is patient fasting? N Calcium 10.0 mg/dL 8.4-10.2 [facility] ([facility]) Is patient fasting? N Total Bili Laboratory test result 0.2-1.3 [facility] ([facility]) Is patient fasting? N Sgot/Ast 16 U/L 5-40 [facility] ([facility]) Is patient fasting? N Alkaline Phos 82 U/L 38-126 [facility] ([facility]) Is patient fasting? N SGPT/Alt 22 U/L 7-56 [facility] ([facility]) Is patient fasting? N Anion Gap 10.0 mmol/L 8.0-16.0 [facility] ([facility]) Is patient fasting? N Afr Amer GFR Laboratory test result [facility] ([facility]) Is patient fasting? N Non-Aa GFR Laboratory test result [facility] ([facility]) Is patient fasting? N Age 53 yrs [facility] ([facility]) Is patient fasting? N ID Date Data Source [id number] 06/16/2019 01:07:00 PM EST [facility] ([facility]) Name Value Range Interpretation Code Description Data Elizabeth rce(s) Supporting Document(s) CBC W/Automated Diff Laboratory test result [facility] ([facility]) Is patient fasting? N RBC 4.10 10^6/uL 4.50-6.30 Below low normal [facility] ([facility]) Is patient fasting? N Hemoglobin 11.6 g/dL 14.0-16.0 Below low normal [facility] ( [facility]) Is patient fasting? N WBC 9.7 10^3/uL 4.2-11.0 [facility] Is patient fasting? N MCV 87.8 fL 80.0-94.0 [facility] ([facility]) Is patient fasting? N Hematocrit 36.0 % 41.0-51.0 Below low normal [facility] ( [facility]) Is patient fasting? N MCH 28.3 pg 27.0-34.0 [facility] ([facility]) Is patient fasting? N MCHC 32.2 g/dL 31.0-36.0 [facility] ([facility]) Is patient fasting? N RDW 15.6 % 11.5-14.8 Above high normal [facility] ([facility]) Is patient fasting? N Platelets 489 10^3/uL 150-450 Above high normal [facility] ([facility]) Is patient fasting? N MPV 8.5 fL 7.4-10.4 [facility] ([facility]) Is patient fasting? N Neut 64.8 % 37.0-80.0 [facility] ([facility]) Is patient fasting? N Stutsman 5.2 % 3.0-8.0 [facility] ([facility]) Is patient fasting? N Eos 2.2 % 0.0-7.0 [facility] ([facility]) Is patient fasting? N Lymph 25.8 % 25.0-40.0 [facility] ([facility]) Is patient fasting? N Baso 1.0 % 0.0-2.0 [facility] ([facility]) Is patient fasting? N %NRBC 0.0 % 0.0-0.0 [facility] ([facility]) Is patient fasting? N %Ig 1.0 % 0.0-0.0 Above high normal [facility] ([facility]) Is patient fasting? N #Lymph 2.49 10^3/uL 0.60-3.40 [facility] ([facility]) Is patient fasting? N #Stutsman 0.50 10^3/uL 0.00-0.90 [facility] ([facility]) Is patient fasting? N #Neut 6.26 10^3/uL 2.00-6.90 [facility] ([facility]) Is patient fasting? N #Baso 0.10 10^3/uL 0.00-0.20 [facility] ([facility]) Is patient fasting? N #Eos 0.21 10^3/uL 0.00-0.70 [facility] ([facility]) Is patient fasting? N #Ig 0.10 10^3/uL 0.00-0.10 [facility] ([facility]) Is patient fasting? N Manual Diff Laboratory test result [facility] ([facility]) Is patient fasting? N #NRBC 0.00 10^3/uL 0.00-0.00 [facility] ([facility]) Is patient fasting? N RBC Morph Laboratory test result [facility] ([facility]) Is patient fasting? N ID Date Data Source [id number] 06/16/2019 05:59:00 PM EST [facility] Name Value Range Interpretation Code Description Data Elizabeth rce(s) Supporting Document(s) Prothrombin time (PT) 12.1 SECONDS 11.0 - 15.5 [facility] INR in Platelet poor plasma by Coagulation assay 0.89 0.93 - 1. 23 L [facility] aPTT in Blood by Coagulation assay 33.6 SECONDS 24.8 - 36.7 [facility] \\BLDo\\INR INTERPRETATION\\BLDx\\ Therapeutic range for Coumadin and related oral anticoagulants. - International Normalized Ratio (INR): 2.0 - 3.0 for Venous Thrombosis, Pulmonary Embolus, Tissue heart valves, Acute RI Atrial Fibrillation, Valvular heart disease and recurrent [...] and other interferences. ID Date Data Source [id number] 06/16/2019 05:54:00 PM EST [facility] Name Value Range Interpretation Code Description Data Elizabeth rce(s) Supporting Document(s) COMPREHENSIVE METABOLIC PANEL [facility] COMPREHENSIVE METABOLIC PANEL Sodium [Moles/volume] in Serum or Plasma 127 mEq/L 134 - 153 L [facility] Potassium [Moles/volume] in Serum or Plasma 5.2 mEq/L 3.6 - 5.0 H [facility] Chloride [Moles/volume] in Serum or Plasma 98 mEq/L 98 - 107 [facility] Carbon dioxide, total [Moles/volume] in Serum or Plasma 19 MEQ/L 22 - 30 L [facility] Glucose [Mass/volume] in Serum or Plasma 89 MG/DL 65 - 110 [facility] BUN 18 MG/DL 7 - 21 [facility] Creatinine [Mass/volume] in Serum or Plasma 1.2 MG/DL 0.7 - 1.5 [facility] BUN/CREAT 15 8 - 27 [facility] Protein [Mass/volume] in Serum or Plasma 7.4 G/DL 6.3 - 8.2 [facility] Albumin [Mass/volume] in Serum or Plasma 4.3 G/DL 3.9 - 5.0 [facility] Globulin [Mass/volume] in Serum by calculation 3.1 GM/DL 2.4 - 3.2 [facility] A/G RATIO 1.4 0.8 - 2.0 [facility] al Calcium [Mass/volume] in Serum or Plasma 10.0 MG/DL 8.4 - 10.2 [facility] Bilirubin.total [Mass/volume] in Serum or Plasma <0.7 MG/DL 0.2 - 1.3 [facility] Alkaline phosphatase [Enzymatic activity/volume] in Serum or Plasma 82 U/L 38 - 126 [facility] Aspartate aminotransferase [Enzymatic activity/volume] in Serum or Plasma 16 U/L 5 - 40 [facility] Alanine aminotransferase [Enzymatic activity/volume] in Seru m or Plasma 22 U/L 7 - 56 [facility] Anion gap 3 in Serum or Plasma 10.0 mmol/L 8.0 - 16.0 [facility]GE 53 yrs [facility] NON-AA GFR >60 mL/min [facility] ital AFR AMER GFR >60 mL/min [facility] Male GFR In terprentation 20-49 [...] >32 mL/min Normal ID Date Data Source [id number] 06/16/2019 05:31:00 PM EST [facility] Name Value Range Interpretation Code Description Data Elizabeth rce(s) Supporting Document(s) CBC W/AUTOMATED DIFF [facility] COMPLETE BLOOD COUNT Leukocytes [#/volume] in Blood by Automated count 9.7 10^3/uL 4.2 - 1 1.0 [facility] Erythrocytes [#/volume] in Blood by Automated count 4.10 10^6/uL 4. 50 - 6.30 L [facility] Hemoglobin [Mass/volume] in Blood 11.6 g/dL 14.0 - 16.0 L [facility] Hematocrit [Volume Fraction] of Blood by Automated count 36.0 % 4 1.0 - 51.0 L [facility] Erythrocyte mean corpuscular volume [Entitic volume] by Auto mated count 87.8 fL 80.0 - 94.0 [facility] Erythrocyte mean corpuscular hemoglobin [Entitic mass] by Automated count 28.3 pg 27.0 - 34.0 [facility] Erythrocyte mean corpuscular hemoglobin concentration [Mass/volume] by Automated count 32.2 g/dL 31.0 - 36.0 [facility] Erythrocyte distribution width [Ratio] by Automated count 15.6 % 11.5 - 14.8 H [facility] Platelets [#/volume] in Blood by Automated count 489 10^3/uL 150 - 45 0 H [facility] Platelet mean volume [Entitic volume] in Blood by Automated count 8.5 fL 7.4 - 10.4 [facility] Neutrophils/100 leukocytes in Blood by Automated count 64.8 % 37. 0 - 80.0 [facility] Lymphocytes/100 leukocytes in Blood by Manual count 25.8 % 25.0 - 40.0 [facility] Monocytes/100 leukocytes in Blood by Automated count 5.2 % 3.0 - 8.0 [facility] Eosinophils/100 leukocytes in Blood by Automated count 2.2 % 0.0 - 7.0 [facility] Basophils/100 leukocytes in Blood by Automated count 1.0 % 0.0 - 2.0 [facility] %IG 1.0 % 0.0 - 0.0 [facility] %NRBC 0.0 % 0.0 - 0.0 [facility] al Neutrophils [#/volume] in Blood by Automated count 6.26 10^3/uL 2.00 - 6.90 [facility] Lymphocytes [#/volume] in Blood by Automated count 2.49 10^3/uL 0.60 - 3.40 [facility] Monocytes [#/volume] in Blood by Automated count 0.50 10^3/uL 0.00 - 0.90 [facility] Eosinophils [#/volume] in Blood by Automated count 0.21 10^3/uL 0.00 - 0.70 [facility] Basophils [#/volume] in Blood by Automated count 0.10 10^3/uL 0.00 - 0.20 [facility] #IG 0.10 10^3/uL 0.00 - 0.10 [facility] #NRBC 0.00 10^3/uL 0.00 - 0.00 [facility]spital MANUAL DIFF NOT INDICATED [facility] RBC MORPH NOT INDICATED [facility] spital ID Date Data Source [id number] 05/05/2019 08:53:00 AM EST [facility] ([facility]) Name Value Range Interpretation Code Description Data Elizabeth rce(s) Supporting Document(s) Color of Urine Laboratory test result [facility] ([facility]) Appearance of Urine Laboratory test result [facility] ([facility]) Leukocytes Laboratory test result [facility] ([facility]) [facility] [place] [facility] pH of Urine by Test strip 5 [facility] NT ([facility]) Protein [Presence] in Urine by Test strip Laboratory test result [facility] ([facility]) Inhouse Glucose Laboratory test result [facility] ([facility]) Nitrate [Presence] in Urine Laboratory test result [facility] ([facility]) Bilirubin.total [Presence] in Urine by Test strip Laboratory test res ult [facility] ([facility]) Urobilinogen Laboratory test result [facility] ([facility]) Ketones [Presence] in Urine by Test strip Laboratory test result [facility] ([facility]) Blood type and Indirect antibody screen panel - Blood Laboratory test result [facility] ([facility]) ID Date Data Source [id number] 05/03/2019 07:13:00 AM EST [facility] ([facility]) Name Value Range Interpretation Code Description Data Elizabeth rce(s) Supporting Document(s) Prostate specific Ag [Mass/volume] in Serum or Plasma 4.14 ng/mL 0.00-4.00 Above upper panic limits [facility] \\BLDo\\PSA INTERPRETATION\\BLDx\\ The PSA assay should not [...] be used interchangeably. ID Date Data Source [id number] 05/03/2019 10:14:00 PM EST [facility] Name Value Range Interpretation Code Description Data Elizabeth rce(s) Supporting Document(s) Prostate specific Ag [Mass/volume] in Serum or Plasma 4.14 ng/mL 0.00 - 4.00 [facility] \\BLDo\\PSA INTERPRETA TION\\BLDx\\ The PSA assay should [...] Body surface area 2.[address] [facility] ([facility]) Body mass index (BMI) [Ratio] 25.5 kg/m2 25.5 k g/m2 [facility] ([facility]) Body height 73 [in_i] 73 [in_i] [facility] ([facility]) 6'1" Body weight 87.[address] [facility] ([facility]) Body weight 193.00 [lb_av] 193.00 [lb_av] [facility] ([facility]) Oxygen saturation in Arterial blood by Pulse oximetry 98 % 98 % [facility] ([facility]) Respiratory rate 24 /min 24 /min [facility] ( [facility]) Body temperature 98.4 [degF] 98.4 [degF] [facility] ([facility]) Heart rate 94 /min 94 /min [facility] ([facility]) Diastolic blood pressure 50 mm[Hg] 50 mm[Hg] [facility] ([facility]) Systolic blood pressure 112 mm[Hg] 112 mm[Hg] [facility]) Body weight 90.[address] [facility] ([facility]) Body mass index (BMI) [Ratio] 26.4 kg/m2 26.4 k g/m2 [facility] ([facility]) Body weight 200.00 [lb_av] 200.00 [lb_av] [facility] ([facility]) Body height 73 [in_i] 73 [in_i] [facility] ([facility]) 6'1" Body temperature 97.5 [degF] 97.5 [degF] [facility] ([facility]) Oxygen saturation in Arterial blood by Pulse oximetry 98 % 98 % [facility] ([facility]) Room Air Heart rate 74 /min 74 /min [facility] ([facility]) Diastolic blood pressure 80 mm[Hg] 80 mm[Hg] [facility] ([facility]) Systolic blood pressure 130 mm[Hg] 130 mm[Hg] [facility] ([facility]) Body weight 88.[address] [facility] ([facility]) Body mass index (BMI) [Ratio] 25.7 kg/m2 25.7 k g/m2 [facility] ([facility]) Body weight 195.00 [lb_av] 195.00 [lb_av] [facility] ([facility]) Body height 73 [in_i] 73 [in_i] [facility] ([facility]) 6'1" Body temperature 98.1 [degF] 98.1 [degF] [facility] ([facility]) Oxygen saturation in Arterial blood by Pulse oximetry 98 % 98 % [facility] ([facility]) Room Air Heart rate 78 /min 78 /min [facility] ([facility]) Diastolic blood pressure 80 mm[Hg] 80 mm[Hg] [facility] ([facility]) Systolic blood pressure 130 mm[Hg] 130 mm[Hg] [facility] ([facility], ) Body surface area 2.13 m2 2.13 m2 [facility] ([facility]) Body mass index (BMI) [Ratio] 25.9 kg/m2 25.9 k g/m2 [facility] ([facility]) Body height 73 [in_i] 73 [in_i] [facility] ([facility]) 6'1" Body weight 88.906 kg 88.906 kg [facility] ([facility]) Body weight 196.00 [lb_av] 196.00 [lb_av] [facility] ([facility]) Oxygen saturation in Arterial blood by Pulse oximetry 99 % 99 % [facility] ([facility]) Respiratory rate 18 /min 18 /min [facility] ( [facility]) Body temperature 98.7 [degF] 98.7 [degF] [facility] ([facility]) Heart rate 56 /min 56 /min [facility] ([facility]) Diastolic blood pressure 62 mm[Hg] 62 mm[Hg] [facility] ([facility]) Systolic blood pressure 132 mm[Hg] 132 mm[Hg] [facility] ([facility]) Body surface area 2.[address] [facility] ([facility]) Body mass index (BMI) [Ratio] 25.3 kg/m2 25.3 k g/m2 [facility] ([facility]) Body height 73 [in_i] 73 [in_i] [facility] ([facility]) 6'1" Body weight 87.091 kg 87.091 kg [facility] ([facility]) Body weight 192.00 [lb_av] 192.00 [lb_av] [facility] ([facility]) Oxygen saturation in Arterial blood by Pulse oximetry 95 % 95 % [facility] ([facility]) Respiratory rate 18 /min 18 /min [facility] ( [facility]) Body temperature 98.7 [degF] 98.7 [degF] [facility] ([facility]) Heart rate 77 /min 77 /min [facility] ([facility]) Diastolic blood pressure 60 mm[Hg] 60 mm[Hg] [facility] ([facility]) Systolic blood pressure 118 mm[Hg] 118 mm[Hg] [facility] ([facility]) Body surface area 2.[address] [facility] ([facility]) Body mass index (BMI) [Ratio] 25.2 kg/m2 25.2 k g/m2 [facility] ([facility]) Body height 73 [in_i] 73 [in_i] [facility] ([facility]) 6'1" Body weight 86.638 kg 86.638 kg [facility] ([facility]) Body weight 191.00 [lb_av] 191.00 [lb_av] [facility] ([facility]) Oxygen saturation in Arterial blood by Pulse oximetry 97 % 97 % [facility] ([facility]) Respiratory rate 18 /min 18 /min [facility] ( [facility]) Body temperature 97.3 [degF] 97.3 [degF] [facility] ([facility]) Heart rate 80 /min 80 /min [facility] ([facility]) Diastolic blood pressure 74 mm[Hg] 74 mm[Hg] [facility] Systolic blood pressure 132 mm[Hg] 132 mm[Hg] [facility] ([facility]) Body surface area 2.[address] [facility] ([facility]) Body mass index (BMI) [Ratio] 25.3 kg/m2 25.3 k g/m2 [facility] ([facility]) Body height 73 [in_i] 73 [in_i] [facility] ([facility]) 6'1" Body weight 87.091 kg 87.091 kg [facility] ([facility]) Body weight 192.00 [lb_av] 192.00 [lb_av] [facility] ([facility]) Oxygen saturation in Arterial blood by Pulse oximetry 97 % 97 % [facility] ([facility]) Respiratory rate 20 /min 20 /min [facility] ( [facility]) Body temperature 97.0 [degF] 97.0 [degF] [facility] ([facility]) Heart rate 73 /min 73 /min [facility] ([facility]) Diastolic blood pressure 68 mm[Hg] 68 mm[Hg] [facility] ([facility]) Systolic blood pressure 115 mm[Hg] 115 mm[Hg] [facility] ([facility]) Body weight 88.[address] [facility] ([facility], ) Body mass index (BMI) [Ratio] 25.7 kg/m2 25.7 k g/m2 [facility] ([facility], ) Body weight 195.00 [lb_av] 195.00 [lb_av] [facility] Body height 73 [in_i] 73 [in_i] [facility] ([facility], ) 6'1"
[2020-05-03 12:26] LABS: RSV AMPLIFICATION NEGATIVE (NEGATIVE)
[2020-05-03 13:07] LABS: BLOOD UREA NITROGEN 38 MG/DL (7-18); CARBON DIOXIDE LEVEL 22 MEQ/L (21-32); CHLORIDE LEVEL 98 MEQ/L (98-107); CREATININE FOR GFR 1.76 MG/DL (0.70-1.30); FERRITIN 832 NG/ML (26-388); GLOMERULAR FILTRATION RATE 42.9 (>56); GLUCOSE, FASTING 88 MG/DL (70-100); IRON (FE) 29 UG/DL (65-175); PERCENT SATURATION 17.2 % (19.7-50.0); POTASSIUM SERUM 4.1 MEQ/L (3.5-5.1); SODIUM LEVEL 132 MEQ/L (136-145); TOTAL IRON BINDING CAPACITY 169 UG/DL (250-450)
--- OUTSIDE RECORDS SUMMARY | 2020-05-03 13:37 | CCD ---
Author Author [facility] Organization [facility] Address Unknown Phone Unavailable Care Team Providers Care Margin Trimmer Name Role Phone Dread SANDHU MD Unavailable [...] T MEGHNA MD Unavailable Unavailable OBEN, T MEGNHA MD Unavailable Unavailable OBEN, T MEGHNA MD [...] Unavailable LEONARD RICH MD Unavailable Unavailable LEONARD RCIH MD Unavailable Unavailable LEONARD RICH MD Unavailable [...] is protected by Article 27-F of the [facility] Public Health law. If you continue you may have access to information: Regarding HIV / AIDS; Provided by facilities licensed or operated by the [facility] Office of Mental Health; or Provided by the [facility] Office for People With Developmental Disabilities. If such information is present, then the following [facility] mandated warning applies: This information has [...] law may result in a fine or residential sentence or both. A general authorization for the release of medical or other information is NOT sufficient authorization for further disc losure. Allergies and Adverse Reactions Type Description Substance Reaction Status Data Source(s ) No Known Drug Allergies No Known Drug Allergies [facility] No Known Environmental Allergies No Known Environmental Al lergies [facility] No Known Food Allergies No Known Food Allergies [facility] Family History Family Member Name Family Member Gender Family Member Status Date o f Status Description Data Source(s) Unknown Male Problem [facility] ([facility]) Unknown Female Problem [facility] ([facility]) Unknown Female Problem [facility] ([facility]) Encounters Encounter Providers Location Date Indications Data Source(s ) Outpatient Attender: LEONARD RICH MDConsultant: LEONARD Quintana MD 03/09/2020 07:06:00 AM EST - 03/09/2020 07:06:00 AM EST [facility] Outpatient Attender: MEGHNA RIVAS MDConsultant: LEONARD RICH MD 02/09/2020 07:57:00 AM EDT - 02/09/2020 07:57:00 AM EDT [facility] Outpatient Attender: LEONARD RICH MDConsultant: LEONARD Quintana MD 2019 06:53:00 AM EDT - 2019 06:53:00 AM EDT [facility] Outpatient Attender: LEONARD RICH MDConsultant: LEONARD Quintana MD 10/20/2019 06:48:00 AM EDT - 10/20/2019 06:48:00 AM EDT [facility] Outpatient 10/14/2019 04:48:00 AM EDT [facility] Out[facility] 10/14/2019 04:48:00 AM EDT [facility] 09/24/2019 05:36:00 AM EDT [facility] Outpatient Attender: LEONARD RICH MD Family Practice 09/22/2019 0 4:00:00 PM EDT [facility] ([facility]) Outpatient Attender: LEONARD RICH MDConsultant: LEONARD Quintana MD 09/22/2019 03:40:00 PM EDT - 09/22/2019 03:40:00 PM EDT [facility] Outpatient 08/10/2019 05:25:00 AM EDT [facility] Outpatient Attender: Al Sandhu/Mariaelena/Chad/Radha hwangl 08/09/2019 08:30:00 AM EDT [facility] ([facility]) Outpatient 07/30/2019 05:46:00 AM EDT [facility] Outpatient Attender: Al Sandhu/Mariaelena/Chad/Radha hines 07/16/2019 10:00:00 AM EDT [facility] ([facility] ) Outpatient Attender: LEONARD RICH MDConsultant: LEONARD Quintana MD 07/06/2019 07:06:00 AM EDT - 07/06/2019 07:06:00 AM EDT [facility] Outpatient Attender: LEONARD RICH MDConsultant: LEONARD Quintana MD 07/02/2019 09:10:00 AM EDT - 07/02/2019 10:10:00 AM EDT [facility] Outpatient Attender: LEONARD RICH MD Family [facility] 06/29/2019 0 8:20:00 AM EDT [facility] ([facility]) Outpatient Attender: LEONARD RICH MDConsultant: LEONARD Quintana MD 06/29/2019 08:05:00 AM EDT - 06/29/2019 08:05:00 AM EDT [facility] Outpatient Attender: LEONARD RICH MDConsultant: LEONARD Quintana MD 06/16/2019 12:41:00 PM EST - 06/16/2019 12:41:00 PM [facility] Outpatient Attender: MEGHNA RIVAS MDConsultant: LEONARD RICH MD 05/05/2019 08:22:00 AM EST - 05/05/2019 08:22:00 AM [facility] Outpatient Attender: Isabelle Vail MS, RPA-C Family [facility] 05/05/2019 07:30:00 AM EST [facility] ([facility] Outpatient Attender: Isabelle Prajapati i, MS, RPA-CAttender: LEONARD RICH MDReferrer: MEGHNA RIVAS MDConsultant: LEONARD RICH MD 0 05/03/2019 02:07:00 PM EST - 05/03/2019 02:17:00 PM EST [facility] Outpatient Attender: LEONARD RICH MDConsultant: LEONARD Quintana MD 05/03/2019 07:35:00 AM EST - 05/03/2019 07:35:00 AM EST [facility] Outpatient Attender: JERSON Sandhu/Mariaelena/Chad/Ike quintana 04/28/2019 08:15:00 AM EST [facility] ([facility] Outpatient 04/18/2019 06:26:00 PM EST [...] MEAL EACH DAY SOLD: 03/20/2020 [facility] [id number] 03/13/2020 12:00:00 AM EST suspension 480 TAKE 10ML BY MOUTH 4 TIMES DAILY NEEDED FOR MUCOSITIS TAKE 10ML BY MOUTH 4 TIMES DAILY NEED ED FOR MUCOSITIS SOLD: 04/19/2020 [facility] [id number] 03/13/2020 12:00:00 AM EST suspension 480 TAKE [...] DOSE = 60ML SOLD: 03/29/2020 [facility] [id number] 03/13/2020 12:00:00 AM EST suspension 480 TAKE [...] MOUTH EVERY DAY SOLD: 10/05/2019 [facility] 926-00-937-40 mg/30 mL 09/27/2019 12:00:00 AM EDT mouthwash 237 SWISH AND SPIT 5MLS BY MOUTH EVERY 4 HOURS NEEDED SWISH AND SPIT 5MLS BY MOUTH EVERY 4 HOURS NEEDED SOLD: 10/05/2019 [facility] 942-25-349-40 mg/30 mL 09/27/2019 12:00:00 AM EDT mouthwash 238 SWISH AND SPIT 5MLS BY MOUTH EVERY 4 HOURS NEEDED SWISH AND SPIT 5MLS BY MOUTH EVERY 4 HOURS NEEDED SOLD: 11/16/2019 [facility] 406-56-566-40 mg/30 mL 09/27/2019 12:00:00 AM EDT mouthwash 119 SWISH AND SPIT 5MLS BY MOUTH EVERY 4 HOURS NEEDED SWISH AND SPIT 5MLS BY MOUTH EVERY 4 HOURS NEEDED SOLD: 03/29/2020 [facility] 470-95-124-40 mg/30 mL 09/27/2019 12:00:00 AM EDT mouthwash [...] 09/22/2019 12:00:00 AM EDT ORAL active [facility] ([facility]) 125 mg 09/21/2019 12:00:00 AM EDT tablet,chewable 360 CHEW ONE TABLET BY MOUTH FOUR TIMES A DAY CHEW ONE TABLET BY MOUTH FOUR TIMES A DAY SOLD: 09/25/2019 [facility] Simethicone 125 MG Chewable Tablet Simethicone 09/20/2019 12:00:00 AM EDT ORAL active [facility] ([facility]) 750 mg 09/15/2019 12:00:00 AM EDT tablet 7 TAKE ONE TABLET BY MOUTH EVERY DAY TAKE ONE TABLET BY MOUTH EVERY DAY SOLD: 09/15/2019 [facility] 80 mg 09/15/2019 12:00:00 AM EDT tablet,chewable 20 ONE BY MOUTH THREE TIMES A DAY NEEDED FOR GAS PAIN ONE BY MOUTH THREE TIMES A DAY NEEDED FOR GAS PAIN SOLD: 09/20/2019 [facility] 510-31-328-40 mg/30 mL 09/15/2019 12:00:00 AM EDT mouthwash 237 SWISH AND SPIT 5ML NEEDED FOR DISCOMFORT SWISH AND SPIT 5ML NEEDED FOR DISCOMFORT SOLD: 09/15/2019 [facility] 0.4 mg 09/06/2019 12:00:00 AM EDT [...] 08/16/2019 12:00:00 AM EDT ORAL active [facility] ([facility], ) Amoxicillin 875 MG / Clavulanate 125 [...] 07/06/2019 12:00:00 AM EDT ORAL active [facility] ([facility]) Prednisone 20 MG Oral Tablet Prednisone 06/29/2019 12:00:00 AM EDT ORAL active [facility] ([facility]) 20 mg 06/29/2019 12:00:00 AM EDT tablet 10 TAKE TWO TABLETS BY MOUTH EVERY DAY TAKE TWO TABLETS BY MOUTH EVERY DAY SOLD: 07/05/2019 [facility] Levofloxacin 750 MG Oral Tablet Levofloxacin 06/16/2019 12:00:[address] ORAL completed [facility] ([facility]) 750 mg 06/16/2019 12:00:00 AM EST tablet 7 TAKE ONE TABLET BY MOUTH EVERY DAY FOR 7 DAYS TAKE ONE TABLET BY MOUTH EVERY DAY FOR 7 DAYS SOLD: 06/21/2019 [facility] sildenafil 50 MG Oral Tablet Sildenafil Citrate 05/26/2019 12:00:00 A M EST active [facility] ([facility]) 50 mg 05/26/2019 12:00:00 AM EST [...] type / Coverage type Policy ID Covered republican ID Covered republican's relationship to pena Policy Pena Plan Information OMKAR [id number] SP [id number] SP [id number] [place] P[place] 302/307 [id number] SP [id number] [place] O [id number] S [id number] [place] [id number] 18 [id number] [place] MAN -PHYSICIAN [place] [id number] 18 [id number] EXCELLUS BCBS B [id number] S [id number] [place] PPO 302/307 [id number] SP [id number] BLUE CROSS BLUE SHIELD CL BS [id number] 18 [id number] BLUE CROSS BLUE SHIELD-O/P [id number] 18 [id number] BLUE CROSS BLUE SHIELD-O/P [id number] 18 [id number] [place]/307 [id number] SP [id number] [place]/307 [id number] SP [id number] [employer] BCBS Health Maintenance Organization (HMO) [id number] Self [id number] Blue Cross Blue Shield CL Commercial [id number] Self [id number] BLUE CROSS BLUE SHIELD-O/P [id number] 18 [id number] Blue Cross Blue Shield CL Commercial [id number] Self [id number] Blue Cross Blue Shield CL Commercial [id number] Self [id number] Blue Cross Blue Shield CL Commercial [id number] Self [id number] BLUE CROSS BLUE SHIELD -O/P BS [id number] 18 [id number] BLUE CROSS BLUE SHIELD CL BS [id number] 18 [id number] Blue Cross Blue Shield CL Commercial [id number] Self [id number] Blue Cross Blue Shield CL Commercial [id number] Self [id number] [place]PO [place]/307 [id number] SP [id number] Blue Cross Blue Shield CL Commercial [id number] Self [id number] Blue Cross Blue Shield CL Commercial [id number] Self [id number] Blue Cross Blue Shield CL Commercial [id number] Self [id number] EXCELLUS C [id number] Self [id number] BC[place] PPO 302/307 [id number] SP [id number] Blue Cross Blue Shield CL Commercial [id number] Self [id number] Blue Cross Blue Shield CL Commercial [id number] Self [id number] Blue Cross Blue Shield CL Commercial [id number] Self [id number] Blue Cross Blue Shield CL Commercial [id number] Self [id number] Blue Cross Blue Shield CL Commercial [id number] Self [id number] BLUE CROSS BLUE SHIELD -PHYSICIAN [id number] 18 [id number] Blue Cross Blue Shield CL Commercial [id number] Self [id number] Blue Cross Blue Shield CL Commercial [id number] Self [id number] BLUE CROSS BLUE SHIELD-CLINIC [id number] 18 [id number] BLUE CROSS BLUE SHIELD CL BS [id number] 18 [id number] Blue Cross Blue Shield CL Commercial [id number] Self [id number] Blue Cross Blue Shield CL Commercial Self EXCELLUS BCBS B [id number] S [id number] 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 [id number] SP [id number] ANJELICA CONCRETE [id number] SP [id number] BCBS [place] PPO 302/307 [id number] SP [id number] OTHER WORKERS COMPENSATION [id number] SP [id number] BLUE CROSS BLUE SHIELD-O/P [id number] 18 [id number] BLUE CROSS BLUE SHIELD-CLINIC [id number] 18 [id number] BLUE CROSS BLUE SHIELD-CLINIC [id number] 18 [id number] BLUE CROSS BLUE SHIELD -RECURRING [id number] 18 [id number] BLUE CROSS BLUE SHIELD-O/P [id number] 18 [id number] BLUE CROSS BLUE SHIELD-O/P [id number] 18 [id number] Problems, Conditions, and Diagnoses Code Display Name Description Problem Type Effective Dates Data Source(s) G4700 Insomnia, unspecified Insomnia, unspecified Diagnosis 03/09/2020 07:06:00 AM [facility] E559 Vitamin D deficiency, unspecified Vitamin D defi ciency, unspecified Diagnosis 03/09/2020 07:06:00 AM [facility] I10 Essential (primary) hypertension Essential (primary) h ypertension Diagnosis 03/09/2020 07:06:00 AM [facility] N400 Benign prostatic hyperplasia without low er urinary tract symptoms Benign prostatic hyperplasia without lower urinary tract symptoms Diagnosis 03/09/2020 07:06:00 AM [facility] 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, unspec ified Malignant neoplasm of oropharynx, unspecified Diagnosis 03/09/2020 07:06:00 AM [facility] C3490 Malignant neoplasm of unspecified part o f unspecified bronchus or lung Malignant neoplasm of unspecified part of unspecified bronchus or lung Diagnosis 03/09/2020 07:06:00 AM [facility] R9720 Elevated prostate specific antigen [PSA] Elevated prostate specific antigen [PSA] Diagnosis 02/09/2020 07:57:00 AM EDT [facility] G63997 Nicotine dependence, cigarettes, uncompl icated Nicotine dependence, cigarettes, uncomplicated Diagnosis 2019 06:53:00 AM EDT [facility] J449 Chronic obstructive pulmonary disease, u nspecified Chronic obstructive pulmonary disease, unspecified Diagnosis 2019 06:53:00 AM EDT [facility] N183 Chronic kidney disease, stage 3 (moderat e) Chronic kidney disease, stage 3 (moderate) Diagnosis 2019 06:53:00 AM EDT [facility] 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, left elbow Idiopathic gout, left elbo w Diagnosis 2019 06:53:00 AM EDT [facility] E785 Hyperlipidemia, unspecified Hyperlipidemia, unspecifie d Diagnosis 2019 06:53:00 AM EDT [facility] 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 Secondary malignant neoplasm of other specified sites Diagnosis 10/20/2019 06:48:00 AM EDT [facility] 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, left b ronchus or lung Malignant neoplasm of upper lobe, left bronchus or lung Diagnosis 10/20/2019 06:48:00 AM [facility] R918 Other nonspecific abnormal finding of cynthia ng field Other nonspecific abnormal finding of lung field Diagnosis 07/06/2019 07:06:00 AM EDT [facility] 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, left knee Ost eochondritis dissecans, left knee Diagnosis 07/06/2019 07:06:00 AM EDT [facility] J189 Pneumonia, unspecified organism Pneumonia, unspecified organism Diagnosis 07/02/2019 09:10:00 AM EDT [facility] R911 Solitary pulmonary nodule Solitary pulmonary nodule Di agnosis 07/02/2019 09:10:00 AM [facility] M10542 Effusion, left knee Effusion, left knee Diagnosis 0 06/29/2019 08:05:00 AM [facility] Y20113 Encounter for other preprocedural examin ation Encounter for other preprocedural examination Diagnosis 06/16/2019 12:41:00 PM [facility] Surgeries/Procedures Procedure Description Date Indications Data Source(s) Bronchoscopy W/Brushing Or Protected Brushings 020 12:00:00 AM EDT [facility], ) Bronchoscopy W/Transbronchial Lung Biopsy 08/03/2019 1 2:00:00 AM EDT [facility] ) Spirometry 07/16/2019 12:00:00 AM EDT M [facility] ([facility], ) Electrocardiogram Complete 06/16/2019 12:00:00 AM EST [facility] ([facility]) LARYNGOSCOPY FLEXIBLE FIBEROPTIC DIAGNOSTIC 04/28/2019 12:00:00 AM [facility] ([facility]) Results ID Date Data Source [id number] 11/24/2019 02:33:00 PM EDT [facility] Name Value Range Interpretation Code Description Data Elizabeth rce(s) Supporting Document(s) Prostate specific Ag [Mass/volume] in Serum or Plasma 6.5 ng/mL 0.0- 4.0 H [facility] Mark ECLIA methodology.According to the [place] [employer], Serum PSA shoulddecrease and remain at undetectable levels after radicalprostatectomy. The AUA defines biochemical recurrence as an initialPSA value 0.2 ng/mL or greater followed by a subsequent confirmatoryPSA value 0.2 ng/mL or greater.Values obtained with different assay methods or kits cannot be usedinterchangeably. Results cannot be interpreted as absolute evidenceof the presence or absence of malignant disease. Reflex Criteria COMMENT [facility] The percent free PSA is performed on a r eflex basis only when thetotal PSA is between 4.0 and 10.0 ng/mL. Prostate Specific Ag Free [Mass/volume] in Serum or Plasma 1.15 ng/mL N/A [facility] Mark ECLIA methodology. Prostate Specific Ag Free/Prostate specific Ag.total in Seru m or Plasma 17.7 % [facility] The table below lists the probability of [...] population of men. ID Date Data Source [id number] 2019 01:40:00 PM EDT [facility] Name Value Range Interpretation Code Description Data Elizabeth rce(s) Supporting Document(s) COMPREHENSIVE METABOLIC PANEL [facility] COMPREHENSIVE METABOLIC PANEL Sodium [Moles/volume] in Serum or Plasma 133 mEq/L 134 - 153 L [facility] Potassium [Moles/volume] in Serum or Plasma 5.1 mEq/L 3.6 - 5.0 H [facility] Chloride [Moles/volume] in Serum or Plasma 98 mEq/L 98 - 107 [facility] Carbon dioxide, total [Moles/volume] in Serum or Plasma 23 MEQ/L 22 - 30 [facility] Glucose [Mass/volume] in Serum or Plasma 99 MG/DL 65 - 110 [facility] BUN 15 MG/DL 7 - [facility] Creatinine [Mass/volume] in Serum or Plasma 1.7 MG/DL 0.7 - 1.5 H [facility] BUN/CREAT 9 8 - 27 [facility] al Protein [Mass/volume] in Serum or Plasma 6.6 G/DL 6.3 - 8.2 [facility] Albumin [Mass/volume] in Serum or Plasma 4.3 G/DL 3.9 - 5.0 [facility] Globulin [Mass/volume] in Serum by calculation 2.3 GM/DL 2.4 - 3.2 L [facility] A/G RATIO 1.9 0.8 - 2.0 [facility] Calcium [Mass/volume] in Serum or Plasma 9.7 MG/DL 8.4 - 10.2 [facility] Bilirubin.total [Mass/volume] in Serum or Plasma <0.7 MG/DL 0.2 - 1.3 [facility] Alkaline phosphatase [Enzymatic activity/volume] in Serum or Plasma 77 U/L 38 - 126 [facility] Aspartate aminotransferase [Enzymatic activity/volume] in Serum or Plasma 19 U/L 5 - 40 [facility] Alanine aminotransferase [Enzymatic activity/volume] in Seru m or Plasma 17 U/L 7 - 56 [facility] Anion gap 3 in Serum or Plasma 12.0 mmol/L 8.0 - 16.0 [facility] AGE 54 yrs [facility] 45 mL/min [facility] AFR AMER GFR 54 mL/min [facility] Male GFR In terprentation [...] >32 mL/min Normal ID Date Data Source [id number] 2019 01:36:00 PM EDT [facility] Name Value Range Interpretation Code Description Data Elizabeth rce(s) Supporting Document(s) Thyroxine (T4) free index in Serum or Plasma by calculation 1.01 NG/DL 0.93 - 1.70 [facility] ID Date Data Source [id number] 2019 01:36:00 PM EDT [facility] Name Value Range Interpretation Code Description Data Elizabeth rce(s) Supporting Document(s) Thyrotropin [Units/volume] in Serum or Plasma by Detec tion limit <= 0.05 mIU/L 3.45 uIU/mL 0.47 - 5.01 [facility] ID Date Data Source [id number] 2019 01:29:00 PM EDT [facility] Name Value Range Interpretation Code Description Data Elizabeth rce(s) Supporting Document(s) CVE PANEL [facility] LIPID PANEL Cholesterol [Mass/volume] in Serum or Plasma 183 MG/DL 131 - 200 [facility] Deprecated Triglyceride [Mass/volume] in Serum or Plasma 113 MG/DL 3 5 - 160 [facility] HDL 44 MG/DL 29 - 86 [facility] Cholesterol in LDL [Mass/volume] in Serum or Plasma by Direc t assay 120 mg/dL 65 - 175 [facility] Cholesterol.total/Cholesterol in HDL [Mass Ratio] in Serum o r Plasma 4.2 3.4 - 4.9 [facility] LDL/HDL 2.73 1.00 - 3.55 [facility] CVE RISK CHOL/HDL LDL/HDLMEN: 1/2 AVERAGE 3.43 1.00 AVERAGE 4.97 3.55 2X AVERAGE 9.55 6.25 3X AVERAGE 23.99 7.99WOMEN: 1/2 AVERAGE 3.27 1.47 AVERAGE 4.44 3.22 2X AVERAGE 7.05 5.03 3X AVERAGE 11.04 6.14 ID Date Data Source [id number] 09/24/2019 08:43:00 AM EDT [facility] ([facility]) Name Value Range Interpretation Code Description Data Elizabeth rce(s) Supporting Document(s) Magnesium [Mass/volume] in Serum or Plasma 2.2 mg/dL 1.8-2 .4 Normal (applies to non-numeric results) [facility] ID Date Data Source [id number] 09/24/2019 08:43:00 AM EDT [facility] ([facility]) Name Value Range Interpretation Code Description Data Elizabeth rce(s) Supporting Document(s) Blood Urea Nitrogen 100 mg/dL 7-18 Above high normal [facility] ([facility]) Glucose, Fasting 113 mg/dL 70-100 Above high normal [facility] ([facility]) Creatinine For GFR 4.31 mg/dL 0.70-1.30 Above high normal [facility] ([facility]) Sodium Level 133 meq/L 136-145 Below low normal [facility] ([facility]) Glomerular Filtration Rate 15.3 Below low normal [facility] ([facility]) <content>Units are mL/min/1.73 m2</content>
<content></content>
<content>Chronic Kidney Disease Staging per NKF:</content>
<content></content>
<content>Stage I & II GFR >=60 Normal to Mildly Decreased</content>
<content>Stage III GFR 30- 59 Moderately Decreased</content>
<content>Stage IV GFR 15-29 Severely Decreased</content>
<content>Stage V GFR <15 Very Little GFR Left</content>
<content>ESRD GFR <15 on PATHOLOGY LABORATORY DIRECTOR</content>
<content></content> Carbon Dioxide Level 14 meq/L 21-32 Below low normal [facility] ([facility]) Chloride Level 102 meq/L 98-107 Normal (applies to non-numeric r esults) [facility] ([facility]) Potassium Serum 5.3 meq/L 3.5-5.1 Above high normal [facility] ([facility]) Anion Gap 17 meq/L 8-16 Above high normal [facility] ([facility]) Calcium Level 9.3 mg/dL 8.5-10.1 Normal (applies to non-numeric re sults) [facility] ([facility]) Ast/Sgot 15 U/L 7-37 Normal (applies to non-numeric resul ts) [facility] ([facility]) Alt/SGPT 28 U/L 12-78 Normal (applies to non-numeric resul ts) [facility] ([facility]) Bilirubin,Total 0.4 mg/dL 0.2-1.0 Normal (applies to non-numeric results) [facility] ([facility]) Alkaline Phosphatase 93 U/L 45-117 Normal (applies to non-num mercy results) [facility] ([facility]) Albumin/Globulin Ratio 0.7 Normal (applies to non-n umeric results) [facility] ([facility]) Total Protein 6.5 GM/DL 6.4-8.2 Normal (applies to non-numeric re sults) [facility] ([facility]) Albumin 2.6 GM/DL 3.2-5.2 Below low normal [facility] ( [facility]) ID Date Data Source [id number] 09/24/2019 08:43:00 AM EDT [facility] ([facility]) Name Value Range Interpretation Code Description Data Elizabeth rce(s) Supporting Document(s) Neutrophils % 75.6 % 36.0-66.0 Above high normal [facility] ([facility]) Eos % 0.0 % 0.0-3.0 Normal (applies to non-numeric resul ts) [facility] ([facility]) Lymph % 5.1 % 24.0-44.0 Below low normal [facility] ( [facility]) [place] % 1.3 % 0.0-5.0 Normal (applies to non-numeric resul ts) [facility] ([facility]) Baso % 0.2 % 0.0-1.0 Normal (applies to non-numeric resul ts) [facility] ([facility]) Immature Granulocyte % 17.8 % 0-3.0 Above high normal [facility] ([facility]) Lymph # 1.1 10 1.5-5.0 Below low normal [facility] ( [facility]) Neutrophils # 16.7 10 1.5-8.5 Above high normal [facility] ([facility]) [place] # 0.3 10 0.0-0.8 Normal (applies to non-numeric resul ts) [facility] ([facility]) Baso # 0.0 10 0.0-0.2 Normal (applies to non-numeric resul ts) [facility] ([facility]) Eos # 0.0 10 0.0-0.5 Normal (applies to non-numeric resul ts) [facility] ([facility]) ID Date Data Source [id number] 09/24/2019 08:43:00 AM EDT [facility] ([facility]) Name Value Range Interpretation Code Description Data Elizabeth rce(s) Supporting Document(s) Red Blood Count 3.64 10 4.30-6.10 Below low normal [facility] ([facility]) White Blood Count 22.1 10 4.0-10.0 Above high normal [facility] ([facility]) Hemoglobin 11.1 g/dL 13.5-17.5 Below low normal [facility] ( [facility]) Mean Corpuscular Volume 91.5 fl 80.0-96.0 Normal ( applies to non-numeric results) [facility] ([facility]) Hematocrit 33.3 % 42.0-52.0 Below low [facility] [facility]) Red Cell Distribution Width 15.2 % 11.5-14.5 Above high normal [facility] ([facility]) Mean Corpuscular Hemoglobin 30.5 pg 27.0-33.0 Norm al (applies to non-numeric results) [facility] ([facility]) Mean Corpuscular HGB Conc 33.3 g/dL 32.0-36.5 Normal (applies to non-numeric results) [facility] ([facility]) Nucleated Red Blood Cell % 0.0 % 0-0 Normal (applies to n on-numeric results) [facility] ([facility]) Platelet Count, Automated 463 10 150-450 Above high normal [facility] ([facility]) ID Date Data Source [id number] 09/12/2019 04:34:00 PM EDT [facility] ([facility]) Name Value Range Interpretation Code Description Data Elizabeth rce(s) Supporting Document(s) Laboratory test finding (navigational concept) 35.0 % 3 8.0-51.0 Below low normal [facility] ([facility]) Laboratory test finding (navigational concept) 129 meq/L 1 36-145 Below low normal [facility] ([facility]) Laboratory test finding (navigational concept) 97 mg/dL 7 0-105 Normal (applies to non-numeric results) [facility] ([facility]) Laboratory test finding (navigational concept) 4.1 meq/L 3 .5-5.1 Normal (applies to non-numeric results) [facility]) Laboratory test finding (navigational concept) 97 meq/L 98-109 Below low normal [facility] ([facility]) Laboratory test finding (navigational concept) 18.0 MM/L 2 3.0-27.0 Below low normal [facility] ([facility]) Laboratory test finding (navigational concept) 4.4 mg/dL 4 .5-5.3 Below low normal [facility] ([facility]) Laboratory test finding (navigational concept) 1.2 mg/dL 0 .6-1.3 Normal (applies to non-numeric results) [facility] ([facility]) Laboratory test finding (navigational concept) 19 mg/dL 8 -26 Normal (applies to non-numeric results) [facility] ([facility]) ID Date Data Source [id number] 09/12/2019 04:33:00 PM EDT [facility] ([facility]) Name Value Range Interpretation Code Description Data Elizabeth rce(s) Supporting Document(s) Color, Urine RFX Laboratory test result Normal ( applies to non-numeric results) [facility] ([facility]) Appearance, Urine RFX Laboratory test result Nor mal (applies to non-numeric results) [facility] ([facility]) Specific [place] Ur Auto RFX 1.012 1.002-1.035 Nor mal (applies to non-numeric results) [facility] ([facility]) PH,Urine RFX 6.0 units 5.0-9.0 Normal (applies to non-numeric res ults) [facility] ([facility]) Protein, Urine Auto RFX Laboratory test result N ormal (applies to non-numeric results) [facility] ([facility]) Glucose, Urine (Ua) Auto RFX Laboratory test result Normal (applies to non- numeric results) [facility] ([facility]) Ketone, Urine Auto RFX Laboratory test result No rmal (applies to non-numeric results) [facility] ([facility]) Urobilinogen, Urine Auto RFX 0.2 mg/dL 0.0-2.0 Nor mal (applies to non-numeric results) [facility] ([facility]) Bilirubin, Urine Auto RFX Laboratory test result Normal (applies to non- numeric results) [facility] ([facility]) Nitrite, Urine Auto RFX Laboratory test result N ormal (applies to non-numeric results) [facility]) WBC, Urine Auto RFX 1 /HPF 0-3 Normal (applies to non-nume radha results) [facility] ([facility]) Leukocyte Esterase Ur Auto RFX Laboratory test result Normal (applies to non- numeric results) [facility] ([facility]) Blood, Urine Blood RFX Laboratory test result Above high n ormal [facility] ([facility]) Bacteria, Urine Auto RFX Laboratory test result Normal (applies to non-numeric results) [facility] ([facility]) RBC, Urine Auto RFX 1 /HPF 0-3 Normal (applies to non-nume radha results) [facility] ([facility]) Squam Epithelial Cell Ur Aurfx 0 /HPF 0-6 N ormal (applies to non-numeric results) [facility] ([facility]) Hyaline Cast, Urine Auto RFX 0 /LPF 0-1 Normal (appl ies to non-numeric results) [facility] ([facility]) Mucus, Urine RFX Laboratory test result Normal ( applies to non-numeric results) [facility] ([facility]) ID Date Data Source [id number] 09/12/2019 04:13:00 PM EDT [facility] ([facility]) Name Value Range Interpretation Code Description Data Elizabeth rce(s) Supporting Document(s) White Blood Count 0.8 10 4.0-10.0 Below lower panic limits [facility] ([facility]) Red Blood Count 3.67 10 4.30-6.10 Below low normal [facility] ([facility]) Hemoglobin 11.2 g/dL 13.5-17.5 Below low normal [facility] ( [facility]) Hematocrit 32.2 % 42.0-52.0 Below low normal [facility] ( [facility]) Mean Corpuscular HGB Conc 34.8 g/dL 32.0-36.5 Normal (applies to non-numeric results) [facility] ([facility]) Mean Corpuscular Volume 87.7 fl 80.0-96.0 Normal ( applies to non-numeric results) [facility] ([facility]) Mean Corpuscular Hemoglobin 30.5 pg 27.0-33.0 Norm al (applies to non-numeric results) [facility] ([facility]) Red Cell Distribution Width 14.6 % 11.5-14.5 Above high normal [facility] ([facility]) Platelet Count, Automated 107 10 150-450 Below low normal [facility] ([facility]) Nucleated Red Blood Cell % 0.0 % 0-0 Normal (applies to n on-numeric results) [facility] ([facility]) ID Date Data Source [id number] 09/12/2019 04:13:00 PM EDT [facility] ([facility]) Name Value Range Interpretation Code Description Data Elizabeth rce(s) Supporting Document(s) Neutrophils 13 % 28-66 Below low normal [facility] ([facility]) Bands 1 % Normal (applies to non-numeric resul ts) [facility] ([facility]) Lymphocytes 81 % 16-44 Above high normal [facility] ([facility]) Eosinophils 2 % 0-3 Normal (applies to non-numeric resu lts) [facility] ([facility]) Monocytes 1 % 0-5 Normal (applies to non-numeric resul ts) [facility] ([facility]) Basophils 2 % 0-1 Above high normal [facility] ([facility]) RBC Morphology Laboratory test result Normal (applies to non-numeric results) [facility] ([facility]) ID Date Data Source [id number] 09/12/2019 04:13:00 PM EDT [facility] ([facility]) Name Value Range Interpretation Code Description Data Elizabeth rce(s) Supporting Document(s) Platelets [#/volume] in Blood by Estimate Laboratory test result Normal (applies to non-numeric results) [facility] ([facility]) ID Date Data Source [id number] 09/12/2019 04:13:00 PM EDT [facility] ([facility]) Name Value Range Interpretation Code Description Data Elizabeth rce(s) Supporting Document(s) CPK Creatine Phosphokinase 66 U/L 39-308 Adelia l (applies to non-numeric results) [facility] ([facility]) CK-MB Value Mass Laboratory test result Normal ( applies to non-numeric results) [facility] ([facility]) MB/CK Relative Index 1.52 Normal (applies to non-num mercy results) [facility] ([facility]) <content>DIAGNOSIS CRITERIA</content>
<content>MMB ng/ml Relative Index (RI)</content>
<content>NON-AMI < or = 5 N/A</content>
<content>STRONG ZONE > 5 < or = 4</content>
<content>AMI > 5 > 4</content>
<content></content> Troponin I Laboratory test result Normal (applies to non-n umeric results) [facility] ([facility]) <content>Troponin I Reference Interval f or Siemens [place] LOCI:</content>
<content></content>
<content>99th Percentile= 0.00-0.045 ng/ml</content>
<content></content>
<content>Risk Stratification:</content>
<content><= 0.10 ng/ml Decreased Risk for Adverse Clinical</content>
<content>Events.</content>
<content>0.10-1.50 ng/ml Increased Risk for Adverse Clinical</content>
<content>Events. Evaluation of additional</content>
<content>criterion and/or repeat testing in 2-6</content>
<content>hours is suggested to rule out myocardial</content>
<content>damage.</content>
<content>>= 1.50 ng/ml Indicative of Myocardial Injury.</content>
<content></content> ID Date Data Source [id number] 09/12/2019 04:13:00 PM EDT [facility] ([facility]) Name Value Range Interpretation Code Description Data Elizabeth rce(s) Supporting Document(s) Ast/Sgot 20 U/L 7-37 Normal (applies to non-numeric resul ts) [facility] ([facility]) Alt/SGPT 33 U/L 12-78 Normal (applies to non-numeric resul ts) [facility] ([facility]) Bilirubin,Total 0.6 mg/dL 0.2-1.0 Normal (applies to non-numeric results) [facility] ([facility]) Alkaline Phosphatase 58 U/L 45-117 Normal (applies to non-num mercy results) [facility] ([facility]) Bilirubin,Direct 0.2 mg/dL 0.0-0.2 Normal (applies to non-numeric results) [facility] ([facility]) Albumin/Globulin Ratio 1.0 Normal (applies to non-n umeric results) [facility] ([facility]) Total Protein 6.3 GM/DL 6.4-8.2 Below low normal [facility] ([facility]) Albumin 3.1 GM/DL 3.2-5.2 Below low normal [facility] ID Date Data Source [id number] 09/12/2019 04:13:00 PM EDT [facility] ([facility]) Name Value Range Interpretation Code Description Data Elizabeth rce(s) Supporting Document(s) Thyrotropin [Units/volume] in Serum or Plasma 1.590 uIU/ML 0. 358-3.740 Normal (applies to non-numeric results) [facility] ([facility]) Thyroxine (T4) [Mass/volume] in Serum or Plasma 8.4 ug/dL 4.5-12.0 Normal (applies to non-numeric results) [facility] ([facility]) Lactate [Mass/volume] in Serum or Plasma 0.6 mmol/L 0.4-2.0 Normal (applies to non-numeric results) [facility] ([facility]) Y/N query for Sepsis Lactate Rule: Y ID Date Data Source [id number] 09/10/2019 08:22:00 AM EDT [facility] ([facility]) Name Value Range Interpretation Code Description Data Elizabeth rce(s) Supporting Document(s) Glucose, Fasting 107 mg/dL 70-100 Above high normal [facility] ([facility]) Creatinine For GFR 1.20 mg/dL 0.70-1.30 Normal (applies to non -numeric results) [facility] ([facility]) Blood Urea Nitrogen 25 mg/dL 7-18 Above high normal [facility] ([facility]) Sodium Level 134 meq/L 136-145 Below low normal [facility] ([facility]) Glomerular Filtration Rate Laboratory test result Normal (applies to non- numeric results) [facility] ([facility]) <content>Units are mL/min/1.73 m2</content>
<content></content>
<content>Chronic Kidney Disease Staging per NKF:</content>
<content></content>
<content>Stage I & II GFR >=60 Normal to Mildly Decreased</content>
<content>Stage III GFR 30- 59 Moderately Decreased</content>
<content>Stage IV GFR 15-29 Severely Decreased</content>
<content>Stage V GFR <15 Very Little GFR Left</content>
<content>ESRD GFR <15 on PATHOLOGY LABORATORY DIRECTOR</content>
<content></content> Potassium Serum 3.7 meq/L 3.5-5.1 Normal (applies to non-numeric results) [facility] ([facility]) Chloride Level 104 meq/L 98-107 Normal (applies to non-numeric r esults) [facility] ([facility]) Carbon Dioxide Level 21 meq/L 21-32 Normal (applies to non-num [facility] results) [facility] Calcium Level 7.4 mg/dL 8.5-10.1 Below low normal [facility] ([facility]) Anion Gap 9 meq/L 8-16 Normal (applies to non-numeric resul ts) [facility] ([facility]) Alkaline Phosphatase 62 U/L 45-117 Normal (applies to non-num mercy results) [facility] ([facility]) Alt/SGPT 47 U/L 12-78 Normal (applies to non-numeric resul ts) [facility] ([facility]) Ast/Sgot 35 U/L 7-37 Normal (applies to non-numeric resul ts) [facility] ([facility]) Bilirubin,Total 0.5 mg/dL 0.2-1.0 Normal (applies to non-numeric results) [facility] ([facility]) Total Protein 6.1 GM/DL 6.4-8.2 Below low normal [facility] ([facility]) Albumin 3.0 GM/DL 3.2-5.2 Below low normal [facility] ( [facility]) Albumin/Globulin Ratio 1.0 Normal (applies to non-n umeric results) [facility] ([facility]) ID Date Data Source [id number] 09/08/2019 08:14:00 AM EDT [facility] ([facility]) Name Value Range Interpretation Code Description Data Elizabeth rce(s) Supporting Document(s) Glucose, Fasting 110 mg/dL 70-100 Above high normal [facility] ([facility]) Blood Urea Nitrogen 17 mg/dL 7-18 Normal (applies to non-nume radha results) [facility] ([facility]) Glomerular Filtration Rate Laboratory test result Normal (applies to non- numeric results) [facility] ([facility]) <content>Units are mL/min/1.73 m2</content>
<content></content>
<content>Chronic Kidney Disease Staging per NKF:</content>
<content></content>
<content>Stage I & II GFR >=60 Normal to Mildly Decreased</content>
<content>Stage III GFR 30- 59 Moderately Decreased</content>
<content>Stage IV GFR 15-29 Severely Decreased</content>
<content>Stage V GFR <15 Very Little GFR Left</content>
<content>ESRD GFR <15 on PATHOLOGY LABORATORY DIRECTOR</content>
<content></content> Creatinine For GFR 1.28 mg/dL 0.70-1.30 Normal (applies to non -numeric results) [facility] ([facility]) Sodium Level 136 meq/L 136-145 Normal (applies to non-numeric res ults) [facility] ([facility]) Potassium Serum 3.8 meq/L 3.5-5.1 Normal (applies to non-numeric results) [facility] ([facility]) Chloride Level 106 meq/L 98-107 Normal (applies to non-numeric r esults) [facility] ([facility]) Carbon Dioxide Level 20 meq/L 21-32 Below low normal [facility] ([facility]) Ast/Sgot 27 U/L 7-37 Normal (applies to non-numeric resul ts) [facility] ([facility]) Calcium Level 7.3 mg/dL 8.5-10.1 Below low normal [facility] ([facility]) Anion Gap 10 meq/L 8-16 Normal (applies to non-numeric resul ts) [facility] ([facility]) Alt/SGPT 40 U/L 12-78 Normal (applies to non-numeric resul ts) [facility] ([facility]) Bilirubin,Total 0.4 mg/dL 0.2-1.0 Normal (applies to non-numeric results) [facility] Alkaline Phosphatase 63 U/L 45-117 Normal (applies to non-num mercy results) [facility] ([facility]) Total Protein 6.6 GM/DL 6.4-8.2 Normal (applies to non-numeric re sults) [facility] ([facility]) Albumin 3.2 GM/DL 3.2-5.2 Normal (applies to non-numeric resul ts) [facility] ([facility]) Albumin/Globulin Ratio 0.9 Normal (applies to non-n umeric results) [facility] ([facility]) ID Date Data Source [id number] 09/07/2019 10:25:00 AM EDT [facility] ([facility]) Name Value Range Interpretation Code Description Data Elizabeth rce(s) Supporting Document(s) Glucose, Fasting 118 mg/dL 70-100 Above high normal [facility] ([facility]) Blood Urea Nitrogen 16 mg/dL 7-18 Normal (applies to non-nume radha results) [facility] ([facility]) Creatinine For GFR 1.14 mg/dL 0.70-1.30 Normal (applies to non -numeric results) [facility] ([facility]) Glomerular Filtration Rate Laboratory test result Normal (applies to non- numeric results) [facility]) <content>Units are mL/min/1.73 m2</content>
<content></content>
<content>Chronic Kidney Disease Staging per NKF:</content>
<content></content>
<content>Stage I & II GFR >=60 Normal to Mildly Decreased</content>
<content>Stage III GFR 30- 59 Moderately Decreased</content>
<content>Stage IV GFR 15-29 Severely Decreased</content>
<content>Stage V GFR <15 Very Little GFR Left</content>
<content>ESRD GFR <15 on PATHOLOGY LABORATORY DIRECTOR</content>
<content></content> Sodium Level 137 meq/L 136-145 Normal (applies to non-numeric res ults) [facility] ([facility]) Potassium Serum 4.5 meq/L 3.5-5.1 Normal (applies to non-numeric results) [facility] ([facility]) Chloride Level 110 meq/L 98-107 Above high normal [facility] ([facility]) Carbon Dioxide Level 21 meq/L 21-32 Normal (applies to non-num mercy results) [facility] ([facility]) Ast/Sgot 23 U/L 7-37 Normal (applies to non-numeric resul ts) [facility] ([facility]) Calcium Level 7.1 mg/dL 8.5-10.1 [facility] ([facility]) Anion Gap 6 meq/L 8-16 Below low normal [facility] ( [facility]) Alkaline Phosphatase 65 U/L 45-117 Normal (applies to non-num mercy results) [facility] ([facility]) Alt/SGPT 36 U/L 12-78 Normal (applies to non-numeric resul ts) [facility] ([facility]) Bilirubin,Total 0.3 mg/dL 0.2-1.0 Normal (applies to non-numeric results) [facility] ([facility]) Total Protein 6.3 GM/DL 6.4-8.2 Below low normal [facility] ([facility]) Albumin 3.1 GM/DL 3.2-5.2 Below low normal [facility] ( [facility]) Albumin/Globulin Ratio 1.0 Normal (applies to non-n umeric results) [facility] ([facility]) ID Date Data Source [id number] 09/06/2019 07:49:00 AM EDT [facility] ([facility]) Name Value Range Interpretation Code Description Data Elizabeth rce(s) Supporting Document(s) Magnesium [Mass/volume] in Serum or Plasma 1.2 mg/dL 1.8-2.4 [place] w low normal [facility] ([facility]) ID Date Data Source [id number] 09/06/2019 07:49:00 AM EDT [facility] ([facility]) Name Value Range Interpretation Code Description Data Elizabeth rce(s) Supporting Document(s) Blood Urea Nitrogen 18 mg/dL 7-18 Normal (applies to non-nume radha results) [facility] ([facility]) Glucose, Fasting 183 mg/dL 70-100 Above high normal [facility] ([facility]) Creatinine For GFR 1.54 mg/dL 0.70-1.30 Above high normal [facility] ([facility]) Sodium Level 132 meq/L 136-145 Below low normal [facility] ([facility]) Glomerular Filtration Rate 50.2 Below low normal [facility] ([facility]) <content>Units are mL/min/1.73 m2</content>
<content></content>
<content>Chronic Kidney Disease Staging per NKF:</content>
<content></content>
<content>Stage I & II GFR >=60 Normal to Mildly Decreased</content>
<content>Stage III GFR 30- 59 Moderately Decreased</content>
<content>Stage IV GFR 15-29 Severely Decreased</content>
<content>Stage V GFR <15 Very Little GFR Left</content>
<content>ESRD GFR <15 on PATHOLOGY LABORATORY DIRECTOR</content>
<content></content> Carbon Dioxide Level 20 meq/L 21-32 Below low normal [facility] ([facility]) Chloride Level 104 meq/L 98-107 Normal (applies to non-numeric r esults) [facility] ([facility]) Potassium Serum 5.2 meq/L 3.5-5.1 Above high normal [facility] ([facility]) Ast/Sgot 15 U/L 7-37 Normal (applies to non-numeric resul ts) [facility] ([facility]) Calcium Level 8.9 mg/dL 8.5-10.1 Normal (applies to non-numeric re sults) [facility] ([facility]) Anion Gap 8 meq/L 8-16 Normal (applies to non-numeric resul ts) [facility] ([facility]) Alkaline Phosphatase 83 U/L 45-117 Normal (applies to non-num mercy results) [facility] ([facility]) Alt/SGPT 39 U/L 12-78 Normal (applies to non-numeric resul ts) [facility] ([facility]) Bilirubin,Total 0.3 mg/dL 0.2-1.0 Normal (applies to non-numeric results) [facility] ([facility]) Total Protein 7.3 GM/DL 6.4-8.2 Normal (applies to non-numeric re sults) [facility] ([facility]) Albumin 3.5 GM/DL 3.2-5.2 Normal (applies to non-numeric resul ts) [facility] ([facility]) Albumin/Globulin Ratio 0.9 Normal (applies to non-n umeric results) [facility] ([facility]) ID Date Data Source [id number] 09/06/2019 07:49:00 AM EDT [facility] ([facility]) Name Value Range Interpretation Code Description Data Elizabeth rce(s) Supporting Document(s) Lymph % 9.2 % 24.0-44.0 Below low normal [facility] ( [facility]) [place] % 1.0 % 0.0-5.0 Normal (applies to non-numeric resul ts) [facility] ([facility]) Neutrophils % 88.1 % 36.0-66.0 Above high normal [facility] ([facility]) Eos % 0.0 % 0.0-3.0 Normal (applies to non-numeric resul ts) [facility] ([facility]) Baso % 0.1 % 0.0-1.0 Normal (applies to non-numeric resul ts) [facility] ([facility]) Lymph # 0.9 10 1.5-5.0 Below low normal [facility] ( [facility]) Neutrophils # 8.5 10 1.5-8.5 Normal (applies to non-numeric re sults) [facility] ([facility]) Immature Granulocyte % 1.6 % 0-3.0 Normal (applies to non-n umeric results) [facility] ([facility]) [place] # 0.1 10 0.0-0.8 Normal (applies to non-numeric resul ts) [facility] ([facility]) Eos # 0.0 10 0.0-0.5 Normal (applies to non-numeric resul ts) [facility] ([facility]) Baso # 0.0 10 0.0-0.2 Normal (applies to non-numeric resul ts) [facility] ([facility]) ID Date Data Source [id number] 09/06/2019 07:49:00 AM EDT [facility] ([facility]) Name Value Range Interpretation Code Description Data Elizabeth rce(s) Supporting Document(s) Red Blood Count 4.16 10 4.30-6.10 Below low normal [facility] ([facility]) White Blood Count 9.7 10 4.0-10.0 Normal (applies to non-numeri c results) [facility] ([facility]) Hemoglobin 12.7 g/dL 13.5-17.5 Below low normal [facility] Mean Corpuscular Volume 89.9 fl 80.0-96.0 Normal ( applies to non-numeric results) [facility] ([facility]) Hematocrit 37.4 % 42.0-52.0 Below low normal [facility]) Mean Corpuscular Hemoglobin 30.5 pg 27.0-33.0 Norm al (applies to non-numeric results) [facility] ([facility]) Mean Corpuscular HGB Conc 34.0 g/dL 32.0-36.5 Normal (applies to non-numeric results) [facility] ([facility]) Red Cell Distribution Width 15.2 % 11.5-14.5 Above high normal [facility] ([facility]) Nucleated Red Blood Cell % 0.0 % 0-0 Normal (applies to n on-numeric results) [facility] ([facility]) Platelet Count, Automated 301 10 150-450 Normal (applies to non-numeric results) [facility] ([facility]) ID Date Data Source [id number] 08/27/2019 11:22:00 AM EDT [facility] ([facility]) Name Value Range Interpretation Code Description Data Elizabeth rce(s) Supporting Document(s) Prothrombin Time 12.5 s 11.8-14.0 Normal (applies to non-numeric results) [facility] ([facility]) Inr 0.96 Normal (applies to non-numeric resul ts) [facility] ([facility]) THERAPUTIC HUMAN INR VALUES INDICATIONS NORMAL RANGES PROPHYLAXIS/TREATMENT OF: VENOUS THROMBOSIS 2.0-3.0 PULMONARY EMBOLISM 2.0-3.0 PREVENTION OF SYSTEMIC EMBOLISM FROM: TISSUE HEART VALVES 2.0-3.0 ACUTE MYOCARDIAL INFARCTION 2.0-3.0 VALVULAR HEART DISEASE 2.0-3.0 ATRIAL FIBRILLATION 2.0-3.0 MECHANICAL VALVES(HIGH RISK) 2.5-3.5 RECURRENT MYOCARDIAL INFARCTION 2.5-3.5 Partial Thromboplastin Time 34.2 s 25.0-38.4 Norm al (applies to non-numeric results) [facility]) ID Date Data Source [id number] 08/27/2019 09:11:00 AM EDT [facility] ([facility]) Name Value Range Interpretation Code Description Data Elizabeth rce(s) Supporting Document(s) Red Blood Count 4.22 10 4.30-6.10 Below low normal [facility] ([facility]) White Blood Count 7.6 10 4.0-10.0 Normal (applies to non-numeri c results) [facility] ([facility]) Hematocrit 38.1 % 42.0-52.0 Below low normal [facility] ( [facility]) Hemoglobin 13.1 g/dL 13.5-17.5 Below low normal [facility] ( [facility]) Mean Corpuscular Volume 90.3 fl 80.0-96.0 Normal ( applies to non-numeric results) [facility] ([facility]) Mean Corpuscular HGB Conc 34.4 g/dL 32.0-36.5 Normal (applies to non-numeric results) [facility] ([facility]) Red Cell Distribution Width 16.8 % 11.5-14.5 Above high normal [facility] Mean Corpuscular Hemoglobin 31.0 pg 27.0-33.0 Norm al (applies to non-numeric results) [facility] ([facility]) Nucleated Red Blood Cell % 0.0 % 0-0 Normal (applies to n on-numeric results) [facility] ([facility]) Platelet Count, Automated 318 10 150-450 Normal (applies to non-numeric results) [facility] ([facility]) ID Date Data Source [id number] 08/27/2019 09:11:00 AM EDT [facility] ([facility]) Name Value Range Interpretation Code Description Data Elizabeth rce(s) Supporting Document(s) Neutrophils % 61.4 % 36.0-66.0 Normal (applies to non-numeric re sults) [facility] ([facility]) Lymph % 27.4 % 24.0-44.0 Normal (applies to non-numeric resul ts) [facility] ([facility]) [place] % 7.9 % 0.0-5.0 Above high normal [facility] ([facility]) Baso % 0.8 % 0.0-1.0 Normal (applies to non-numeric resul ts) [facility] ([facility]) Eos % 1.8 % 0.0-3.0 Normal (applies to non-numeric resul ts) [facility] ([facility]) Immature Granulocyte % 0.7 % 0-3.0 Normal (applies to non-n umeric results) [facility]) Lymph # 2.1 10 1.5-5.0 Normal (applies to non-numeric resul ts) [facility]) [place] # 0.6 10 0.0-0.8 Normal (applies to non-numeric resul ts) [facility]) Neutrophils # 4.7 10 1.5-8.5 Normal (applies to non-numeric re sults) [facility] ([facility]) Eos # 0.1 10 0.0-0.5 Normal (applies to non-numeric resul ts) [facility] ([facility]) Baso # 0.1 10 0.0-0.2 Normal (applies to non-numeric resul ts) [facility] ([facility]) ID Date Data Source [id number] 08/27/2019 09:11:00 AM EDT [facility] ([facility]) Name Value Range Interpretation Code Description Data Elizabeth rce(s) Supporting Document(s) Blood Urea Nitrogen 15 mg/dL 7-18 Normal (applies to non-nume radha results) [facility] ([facility]) Glucose, Fasting 93 mg/dL 70-100 Normal (applies to non-numeric results) [facility] ([facility]) Glomerular Filtration Rate Laboratory test result Normal (applies to non- numeric results) [facility] ([facility]) <content>Units are mL/min/1.73 m2</content>
<content></content>
<content>Chronic Kidney Disease Staging per NKF:</content>
<content></content>
<content>Stage I & II GFR >=60 Normal to Mildly Decreased</content>
<content>Stage III GFR 30- 59 Moderately Decreased</content>
<content>Stage IV GFR 15-29 Severely Decreased</content>
<content>Stage V GFR <15 Very Little GFR Left</content>
<content>ESRD GFR <15 on PATHOLOGY LABORATORY DIRECTOR</content>
<content></content> Sodium Level 131 meq/L 136-145 Below low normal [facility] ([facility]) Creatinine For GFR 1.24 mg/dL 0.70-1.30 Normal (applies to non -numeric results) [facility] ([facility]) Potassium Serum 5.2 meq/L 3.5-5.1 Above high normal [facility] ([facility]) Carbon Dioxide Level 23 meq/L 21-32 Normal (applies to non-num mercy results) [facility] ([facility]) Chloride Level 103 meq/L 98-107 Normal (applies to non-numeric r esults) [facility] ([facility]) Ast/Sgot 13 U/L 7-37 Normal (applies to non-numeric resul ts) [facility] ([facility]) Calcium Level 9.3 mg/dL 8.5-10.1 Normal (applies to non-numeric re sults) [facility] ([facility]) Anion Gap 5 meq/L 8-16 Below low normal [facility] Bilirubin,Total 0.5 mg/dL 0.2-1.0 Normal (applies to non-numeric results) [facility] ([facility]) Alkaline Phosphatase 82 U/L 45-117 Normal (applies to non-num mercy results) [facility] ([facility]) Alt/SGPT 31 U/L 12-78 Normal (applies to non-numeric resul ts) [facility] ([facility]) Total Protein 7.4 GM/DL 6.4-8.2 Normal (applies to non-numeric re sults) [facility] ([facility]) Albumin 3.5 GM/DL 3.2-5.2 Normal (applies to non-numeric resul ts) [facility] ([facility]) Albumin/Globulin Ratio 0.90 1.00-1.93 Below low normal [facility] ([facility]) ID Date Data Source [id number] 08/27/2019 09:11:00 AM EDT [facility] ([facility]) Name Value Range Interpretation Code Description Data Elizabeth rce(s) Supporting Document(s) Magnesium [Mass/volume] in Serum or Plasma 1.4 mg/dL 1.8-2.4 Belo w low normal [facility] ([facility]) Carcinoembryonic Ag [Mass/volume] in Serum or Plasma 2.0 ng/mL Normal (applies to non-numeric results) [facility] ([facility]) THE CEA ASSAY IS PERFORMED ON THE [email or web address] BY CHEMILUMINESCENCE AND SHOULD NOT BE COMPARED INTERCHANGEABLY WITH OTHER METHODS. IT SHOULD NOT BE USED ALONE A SCREENING TEST OR DIAGNOSIS FOR THE PRESENCE OR ABSENCE OF MALIGNANT DISEASE. PREDICTIONS OF DISEASE RECURRENCE SHOULD NOT BE BASED SOLELY ON VALUES OBTAINED FROM SERIAL PATIENT SERUM VALUES. ID Date Data Source [id number] 08/17/2019 08:50:00 AM EDT [facility] ([facility]) Name Value Range Interpretation Code Description Data Elizabeth rce(s) Supporting Document(s) Carcinoembryonic Ag [Mass/volume] in Serum or Plasma 1.6 ng/mL Normal (applies to non-numeric results) [facility] ([facility]) THE CEA ASSAY IS PERFORMED ON THE [employer] BY CHEMILUMINESCENCE AND SHOULD NOT BE COMPARED INTERCHANGEABLY WITH OTHER METHODS. IT SHOULD NOT BE USED ALONE A SCREENING TEST OR DIAGNOSIS FOR THE PRESENCE OR ABSENCE OF MALIGNANT DISEASE. PREDICTIONS OF DISEASE RECURRENCE SHOULD NOT BE BASED SOLELY ON VALUES OBTAINED FROM SERIAL PATIENT SERUM VALUES. ID Date Data Source [id number] 08/17/2019 08:50:00 AM EDT [facility] ([facility]) Name Value Range Interpretation Code Description Data Elizabeth rce(s) Supporting Document(s) Glucose, Fasting 103 mg/dL 70-100 Above high normal [facility] ([facility]) Creatinine For GFR 1.56 mg/dL 0.70-1.30 Above high normal [facility] ([facility]) Blood Urea Nitrogen 20 mg/dL 7-18 Above high normal [facility] ([facility]) Glomerular Filtration Rate 49.4 Below low normal [facility] ([facility]) <content>Units are mL/min/1.73 m2</content>
<content></content>
<content>Chronic Kidney Disease Staging per NKF:</content>
<content></content>
<content>Stage I & II GFR >=60 Normal to Mildly Decreased</content>
<content>Stage III GFR 30- 59 Moderately Decreased</content>
<content>Stage IV GFR 15-29 Severely Decreased</content>
<content>Stage V GFR <15 Very Little GFR Left</content>
<content>ESRD GFR <15 on PATHOLOGY LABORATORY DIRECTOR</content>
<content></content> Potassium Serum 4.8 meq/L 3.5-5.1 Normal (applies to non-numeric results) [facility] ([facility]) Sodium Level 133 meq/L 136-145 Below low normal [facility] ([facility]) Chloride Level 103 meq/L 98-107 Normal (applies to non-numeric r esults) [facility] ([facility]) Carbon Dioxide Level 23 meq/L 21-32 Normal (applies to non-num mercy results) [facility] ([facility]) Anion Gap 7 meq/L 8-16 Below low normal [facility] ( [facility]) Calcium Level 8.8 mg/dL 8.5-10.1 Normal (applies to non-numeric re sults) [facility] ([facility]) Ast/Sgot 8 U/L 7-37 Normal (applies to non-numeric resul ts) [facility] ([facility]) Alt/SGPT 27 U/L 12-78 Normal (applies to non-numeric resul ts) [facility] ([facility]) Alkaline Phosphatase 78 U/L 45-117 Normal (applies to non-num mercy results) [facility] ([facility]) Total Protein 7.0 GM/DL 6.4-8.2 Normal (applies to non-numeric re sults) [facility] ([facility]) Bilirubin,Total 0.2 mg/dL 0.2-1.0 Normal (applies to non-numeric results) [facility] ([facility]) Albumin 3.6 GM/DL 3.2-5.2 Normal (applies to non-numeric resul ts) [facility] ([facility]) Albumin/Globulin Ratio 1.06 1.00-1.93 Normal (applies to non-numeric results) [facility] ([facility]) ID Date Data Source [id number] 08/17/2019 08:50:00 AM EDT [facility] ([facility]) Name Value Range Interpretation Code Description Data Elizabeth rce(s) Supporting Document(s) Lymph % 9.9 % 24.0-44.0 Below low normal [facility] ( [facility]) [place] % 7.0 % 0.0-5.0 Above high normal [facility] ([facility]) Neutrophils % 81.7 % 36.0-66.0 Above high normal [facility] ([facility]) Immature Granulocyte % 1.3 % 0-3.0 Normal (applies to non-n umeric results) [facility] ([facility]) Baso % 0.1 % 0.0-1.0 Normal (applies to non-numeric resul ts) [facility] ([facility]) Eos % 0.0 % 0.0-3.0 Normal (applies to non-numeric resul ts) [facility] ([facility]) Neutrophils # 11.5 10 1.5-8.5 Above high normal [facility] ([facility]) Lymph # 1.4 10 1.5-5.0 Below low normal [facility] ( [facility]) [place] # 1.0 10 0.0-0.8 Above high normal [facility] ([facility]) Eos # 0.0 10 0.0-0.5 Normal (applies to non-numeric resul ts) [facility] ([facility]) Baso # 0.0 10 0.0-0.2 Normal (applies to non-numeric resul ts) [facility] ([facility]) ID Date Data Source [id number] 08/17/2019 08:50:00 AM EDT [facility] ([facility]) Name Value Range Interpretation Code Description Data Elizabeth rce(s) Supporting Document(s) White Blood Count 14.1 10 4.0-10.0 Above high normal [facility] ([facility]) Red Blood Count 4.14 10 4.30-6.10 Below low normal [facility] ([facility]) Hematocrit 36.9 % 42.0-52.0 Below low normal [facility] ( [facility]) Hemoglobin 12.4 g/dL 13.5-17.5 Below low normal [facility] ( [facility]) Mean Corpuscular Volume 89.1 fl 80.0-96.0 Normal ( applies to non-numeric results) [facility] ([facility]) Mean Corpuscular Hemoglobin 30.0 pg 27.0-33.0 Norm al (applies to non-numeric results) [facility] ([facility]) Mean Corpuscular HGB Conc 33.6 g/dL 32.0-36.5 Normal (applies to non-numeric results) [facility] ([facility]) Red Cell Distribution Width 16.3 % 11.5-14.5 Above high normal [facility] ([facility]) Platelet Count, Automated 367 10 150-450 Normal (applies to non-numeric results) [facility] ([facility]) Nucleated Red Blood Cell % 0.0 % 0-0 Normal (applies to n on-numeric results) [facility] ([facility]) ID Date Data Source [id number] 08/16/2019 12:14:00 PM EDT [facility] ([facility]) Name Value Range Interpretation Code Description Data Elizabeth rce(s) Supporting Document(s) Surgical pathology study Laboratory test result [facility] ([facility]) FINAL DIAGNOSIS A - Left [...] MD 08/17/2019 1304 ID Date Data Source [id number] 08/03/2019 11:07:00 AM EDT [facility] ([facility]) Name Value Range Interpretation Code Description Data Elizabeth rce(s) Supporting Document(s) Microscopic observation [Identifier] in Unspecified specimen by Non- gynecological cytology method Laboratory test result [facility] ([facility]) SPECIMEN: Bronchial washing ( left [...] M.D. 08/04/2019 1202 ID Date Data Source [id number] 08/03/2019 11:05:00 AM EDT [facility] ([facility]) Name Value Range Interpretation Code Description Data Elizabeth rce(s) Supporting Document(s) Microscopic observation [Identifier] in Unspecified specimen by Non- gynecological cytology method Laboratory test result [facility] ([facility]) SPECIMEN: Bronchial brushing (left upper lobe) lung [place] in vial received SPECIMEN ADEQUACY: Satisfactory for evaluation CATEGORIZATION: Positive for Malignancy DESCRIPTIONS: Abundant malignant cells noted appearing adina and in groups. Some cells are keratinized and and have very high n/c ratios and hyperchromatic nuclei. 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 08/04/2019 - 1199 Signed AN RENTERIA(ASCP) 08/04/2019 1026 (Prelim) Signed Nola Clark M.D. 08/04/2019 1200 ID Date Data Source [id number] 08/03/2019 11:05:00 AM EDT [facility] ([facility]) Name Value Range Interpretation Code Description Data Elizabeth rce(s) Supporting Document(s) Microscopic observation [Identifier] in Unspecified specimen by Non- gynecological cytology method Laboratory test result [facility] ([facility]) SPECIMEN: Bronchial brushing (left upper lobe) lung [place] in vial received SPECIMEN ADEQUACY: Satisfactory for [...] M.D. 08/04/2019 1200 ID Date Data Source [id number] 08/03/2019 10:30:00 AM EDT [facility] ([facility]) Name Value Range Interpretation Code Description Data Elizabeth rce(s) Supporting Document(s) Gram Stain Laboratory test result Normal (applies to non-n umeric results) [facility] ([facility]) MANY RBCS MODERATE WBCS FEW GRAM POSITIVE COCCI FEW GRAM POSITIVE RODS Laboratory test finding (navigational concept) Laboratory test r esult Normal (applies to non-numeric results) [facility] ([facility]) FULL REPORT IN LAB NOTES (e[facility] and [facility] ). NORMAL TEODORO PRESENT ID Date Data Source [id number] 08/03/2019 10:30:00 AM EDT [facility] ([facility]) Name Value Range Interpretation Code Description Data Elizabeth rce(s) Supporting Document(s) Gram Stain Laboratory test result Normal (applies to non-n umeric results) [facility] ([facility]) MANY RBCS MODERATE WBCS FEW GRAM POSITIVE COCCI FEW GRAM POSITIVE RODS Bronchial Wash Culture Laboratory test result No rmal (applies to non-numeric results) [facility] ([facility]) FULL REPORT IN LAB NOTES ([facility] and [facility] ). NORMAL TEODORO PRESENT ID Date Data Source [id number] 08/03/2019 10:23:00 AM EDT [facility] ([facility]) Name Value Range Interpretation Code Description Data Elizabeth rce(s) Supporting Document(s) Surgical pathology study Laboratory test result [facility] ([facility]) Addendum 1 Entered: 08/30/2019-0814 PD-L1: [...] Clark M.D. 08/04/2019845 ID Date Data Source [id number] 07/06/2019 10:05:00 AM EDT [facility] ([facility]) Name Value Range Interpretation Code Description Data Elizabeth rce(s) Supporting Document(s) PET CT Laboratory test result [facility] ([facility]) ID Date Data Source [id number] 07/02/2019 04:09:00 [place] [address] PHONE: [phone] FAX: [phone] Name .................. : DEDE [place] Acct Number.................. : [id number] ROOM. ................. : MR Number ................... : [id number] Stay type ............. : O/P Discharge Date......... ... : 07/02/19 Admit Date ......... : 07/02/19 Admit Phys .................... : RICH HARD Date of ....... : 1965 Family Phys ................... : HILARIO HARD Phone .................. : [phone] Age ................................ : 53 Film# .................. .:[id number] Sex ................................. : M Unsigned transcriptions are preliminary reports and do not represent a medical or legal document CT THORAX W/CONTRAST 06735 COMPLETE:07/02/19 10:55 JO 58553 PULMONARY NODULE; PNEUMONIA CT SCAN OF THE [...] degenerative changes. IMPRESSION: Page 1 of 2 [facility] [address] [place] [address] PHONE: [phone] FAX: [phone] Name .................. : DEDE [place] Acct Number.................. : [id number] ROOM. ................. : MR Number ................... : [id number] Stay type ............. : O/P Discharge Date......... ... : 07/02/19 Admit Date ......... : 07/02/19 Admit Phys .................... : Cardiac Insight Date of ....... : 1965 Family Phys ................... : Card[facility] Insight Phone .................. : [phone] Age ................................ : 53 Film# .................. .:[id number] Sex ................................. : M Unsigned transcriptions are preliminary reports and do not represent a medical or legal document CT THORAX W/CONTRAST 06950 COMPLETE:07/02/19 10:55 JO 69013 PULMONARY NODULE; PNEUMONIA Left hilar mass with [...] By Wilbert Reinoso MD , 07/02/19 16:09, [facility] Transcribe Initials: MERCEDES , Transcribe Date: 07/02/19 13:02, Dictation Date: Copy for: [address] [place] [address] REC Page 2 of 2 Name Value Range Interpretation Code Description Data Elizabeth rce(s) Supporting Document(s) ID Date Data Source [id number] 06/29/2019 11:54:00 AM EDT [facility] [address] [place] [address] PHONE: [phone] FAX: [phone] Name .................. : DEDE [place] Acct Number.................. : [id number] ROOM. ................. : MR Number ................... : [id number] Stay type ............. : CLINIC Discharge Date......... ... : 06/29/19 Admit Date ......... : 06/29/19 Admit Phys .................... : RICH HARD Date of ....... : 1965 Family Phys ................... : RICH HARD Phone .................. : [phone] Age ................................ : 53 Film# .................. .:[id number] Sex ................................. : M Unsigned transcriptions are preliminary reports and do not represent a medical or legal document KNEE COMPLETE-4 OR MORE S L [id number] COMPLETE:06/29/19 09:51 KBO 44438 (REASON FOR PROCESS: EFFUSION LEFT KNEE SERIES: [...] rce(s) Supporting Document(s) ID Date Data Source [id number] 06/29/2019 11:54:00 [place] [address] PHONE: [phone] FAX: [phone] Name .................. : DEDE [place] Acct Number.................. : [id number] ROOM. ................. : Number ................... : [id number] Stay type ............. : CLINIC Discharge Date......... ... : 06/29/19 Admit Date ......... : 06/29/19 Admit Phys .................... : RICH HARD Date of ....... : 1965 Family Phys ................... : RICH HARD Phone .................. : [phone] Age ................................ : 53 Film# .................. .:[id number] Sex ................................. : M Unsigned transcriptions are preliminary reports and do not represent a medical or legal document CHEST 2 VIEWS 82629 COMPLETE:06/29/19 09:51 KBO 08963 (REASON FOR CHEST: PNEUMONIA CHEST X-RAY: 2-VIEWS [...] rce(s) Supporting Document(s) ID Date Data Source [id number] 06/29/2019 08:40:00 AM EDT [facility] ([facility]) Name Value Range Interpretation Code Description Data Elizabeth rce(s) Supporting Document(s) Erythrocyte sedimentation rate by Westergren method <pending> [facility] ([facility]) C reactive protein [Mass/volume] in Serum or Plasma by High sensitivity method 18.30 mg/L 1.00-3.00 Above high normal [facility] ([facility]) <content>CDC/S HS-CRP CUT-OFF: RELATIVE RISK:</content>
<content><1.0 mg/L Low</content>
<content>1.0 - 3.0 mg/L Average</lucrecia nt>
<content>>3.0 mg/L High</content>
<content>Optimally, the average of HS-CRP results repeated</content>
<content>two weeks apart should be used for risk assessment.</content>
<content></content> Urate [Mass/volume] in Serum or Plasma 6.8 mg/dL 2.5-8.5 [facility] ([facility]) ID Date Data Source [id number] 06/29/2019 08:40:00 AM EDT [facility] ([facility]) Name Value Range Interpretation Code Description Data Elizabeth rce(s) Supporting Document(s) Sed Rate 14 mm/hr 0-20 [facility] ([facility]) Sed Rate Reenter 14 [facility] ([facility]) ID Date Data Source [id number] 06/29/2019 08:40:00 AM EDT [facility] ([facility]) Name Value Range Interpretation Code Description Data Elizabeth rce(s) Supporting Document(s) WBC 9.4 10^3/uL 4.2-11.0 [facility] ([facility]) CBC W/Automated Diff Laboratory test result [facility] ([facility]) COMPLETE BLOOD COUNT Hemoglobin 11.8 g/dL 14.0-16.0 Below low normal [facility] ( [facility]) RBC 4.15 10^6/uL 4.50-6.30 Below low normal [facility] ([facility]) Hematocrit 35.7 % 41.0-51.0 Below low normal [facility] ( [facility]) MCH 28.4 pg 27.0-34.0 [facility] ([facility]) MCHC 33.1 g/dL 31.0-36.0 [facility] ([facility]) MCV 86.0 fL 80.0-94.0 [facility] ([facility]) RDW 15.8 % 11.5-14.8 Above high normal [facility] ([facility]) Platelets 363 10^3/uL 150-450 [facility] ([facility]) MPV 8.7 fL 7.4-10.4 [facility] ([facility]) [place] 5.7 % 3.0-8.0 [facility] ([facility]) Lymph 23.9 % 25.0-40.0 Below low normal [facility] ( [facility]) Neut 65.2 % 37.0-80.0 [facility] ([facility]) %NRBC 0.0 % 0.0-0.0 [facility] ([facility]) Baso 1.3 % 0.0-2.0 [facility] ([facility]) %Ig 1.4 % 0.0-0.0 Above high normal [facility] ([facility]) Eos 2.5 % 0.0-7.0 [facility] ([facility]) #Lymph 2.23 10^3/uL 0.60-3.40 [facility] ([facility]) #Neut 6.11 10^3/uL 2.00-6.90 [facility] ([facility]) #[place] 0.53 10^3/uL 0.00-0.90 [facility] ([facility]) #Baso 0.12 10^3/uL 0.00-0.20 [facility] ([facility]) #Ig 0.13 10^3/uL 0.00-0.10 Above high normal [facility] ([facility]) #Eos 0.23 10^3/uL 0.00-0.70 [facility] ([facility]) RBC Morph Laboratory test result [facility] ([facility]) #NRBC 0.00 10^3/uL 0.00-0.00 [facility] Manual Diff [facility] ID Date Data Source [id number] 06/29/2019 08:40:00 AM EDT [facility] ([facility]) Name Value Range Interpretation Code Description Data Elizabeth rce(s) Supporting Document(s) Rheumatoid factor [Units/volume] in Serum or Plasma 14 IU/ml 0-14 [facility] ([facility]) Nuclear Ab [Presence] in Serum Laboratory test result [facility] ([facility]) Borrelia burgdorferi C6 Ab [Units/volume] in Serum by Immunoassay Laboratory test result 0.00-0.90 [facility] <content>Negative <0.91</content >
<content>Equivocal 0.91 - 1.09</content>
<content>Positive >1.09</content>
<content></content> ID Date Data Source [id number] 07/03/2019 08:11:00 AM EDT [facility] Value Range Interpretation Code Description Data Elizabeth rce(s) Supporting Document(s) Nuclear Ab [Presence] in Serum Negative Negative [facility] ID Date Data Source [id number] 07/03/2019 08:11:00 AM EDT [facility] Value Range Interpretation Code Description Data Elizabeth rce(s) Supporting Document(s) Borrelia burgdorferi C6 Ab [Units/volume] in Serum by Immuno assay <0.91 index 0.00-0.90 [facility] Negative <0.91 Equivocal 0.91 - 1.09 Positive >1.09 ID Date Data Source [id number] 06/29/2019 03:03:00 PM EDT [facility] Value Range Interpretation Code Description Data Elizabeth rce(s) Supporting Document(s) Erythrocyte sedimentation rate by Westergren method 14 mm/hr 0 - 20 [facility] SED RATE REENTER 14 [facility] ID Date Data Source [id number] 06/29/2019 02:25:00 PM EDT [facility] Name Value Range Interpretation Code Description Data Elizabeth rce(s) Supporting Document(s) C reactive protein [Mass/volume] in Serum or Plasma by High sensitivity method 18.30 MG/L 1.00 - 3.00 H [facility] CDC/S HS-CRP CUT-OFF: RELATIVE RISK: <1.0 mg/L Low 1.0 - 3.0 mg/L Average >3.0 mg/L High Optimally, the average of HS-CRP results repeated two weeks apart should be used for risk assessment. ID Date Data Source [id number] 06/29/2019 02:23:00 PM EDT [facility] Name Value Range Interpretation Code Description Data Elizabeth rce(s) Supporting Document(s) RA QUANT 14 IU/mL 0 - 14 [facility] ID Date Data Source [id number] 06/29/2019 02:23:00 PM EDT [facility] Name Value Range Interpretation Code Description Data Elizabeth rce(s) Supporting Document(s) Urate [Mass/volume] in Serum or Plasma 6.8 MG/DL 2.5 - 8.5 [facility] ID Date Data Source [id number] 06/29/2019 02:08:00 PM T [facility] Name Value Range Interpretation Code Description Data Elizabeth rce(s) Supporting Document(s) CBC W/AUTOMATED DIFF [facility] COMPLETE BLOOD COUNT Leukocytes [#/volume] in Blood by Automated count 9.4 10^3/uL 4.2 - 1 1.0 [facility] Erythrocytes [#/volume] in Blood by Automated count 4.15 10^6/uL 4. 50 - 6.30 L [facility] Hemoglobin [Mass/volume] in Blood 11.8 g/dL 14.0 - 16.0 L [facility] Hematocrit [Volume Fraction] of Blood by Automated count 35.7 % 4 1.0 - 51.0 L [facility] Erythrocyte mean corpuscular volume [Entitic volume] by Auto mated count 86.0 fL 80.0 - 94.0 [facility] Erythrocyte mean corpuscular hemoglobin [Entitic mass] by Automated count 28.4 pg 27.0 - 34.0 [facility] Erythrocyte mean corpuscular hemoglobin concentration [Mass/volume] by Automated count 33.1 g/dL 31.0 - 36.0 [facility] Erythrocyte distribution width [Ratio] by Automated count 15.8 % 11.5 - 14.8 H [facility] Platelets [#/volume] in Blood by Automated count 363 10^3/uL 150 - 45 0 [facility] Platelet mean volume [Entitic volume] in Blood by Automated count 8.7 fL 7.4 - 10.4 [facility] Neutrophils/100 leukocytes in Blood by Automated count 65.2 % 37. 0 - 80.0 [facility] Lymphocytes/100 leukocytes in Blood by Manual count 23.9 % 25.0 - 40.0 L [facility] Monocytes/100 leukocytes in Blood by Automated count 5.7 % 3.0 - 8.0 [facility] Eosinophils/100 leukocytes in Blood by Automated count 2.5 % 0.0 - 7.0 [facility] Basophils/100 leukocytes in Blood by Automated count 1.3 % 0.0 - 2.0 [facility] %IG 1.4 % 0.0 - 0.0 [facility] % 0.0 - 0.[facility] al Neutrophils [#/volume] in Blood by Automated count 6.11 10^3/uL 2.00 - 6.90 [facility] Lymphocytes [#/volume] in Blood by Automated count 2.23 10^3/uL 0.60 - 3.40 [facility] Monocytes [#/volume] in Blood by Automated count 0.53 10^3/uL 0.00 - 0.90 [facility] Eosinophils [#/volume] in Blood by Automated count 0.23 10^3/uL 0.00 - 0.70 [facility] Basophils [#/volume] in Blood by Automated count 0.12 10^3/uL 0.00 - 0.20 [facility] #IG 0.13 10^3/uL 0.00 - 0.10 [facility] #NRBC 0.00 10^3/uL 0.00 - 0.00 [facility] MANUAL DIFF NOT INDICATED [facility] RBC MORPH NOT INDICATED [facility] ID Date Data Source [id number] 06/29/2019 08:30:00 AM EDT [facility] ([facility]) Name Value Range Interpretation Code Description Data Elizabeth rce(s) Supporting Document(s) Chest Xray 2 Views <pending> [facility] ([facility]) Knee Complete-4 Or More VWS LT <pending> [facility] ([facility]) ID Date Data Source [id number] 06/18/2019 10:37:00 AM EST [facility] [address] [place] [address] PHONE: [phone] FAX: [phone] Name .................. : DEDE [place] Acct Number.................. : [id number] ROOM. ................. : MR Number ................... : [id number] Stay type ............. : CLINIC Discharge Date......... ... : 06/16/19 Admit Date ......... : 06/16/19 Admit Phys .................... : RICH HARD Date of ....... : 1965 Family Phys ................... : RICH HARD Phone .................. : [phone] Age ................................ : 53 Film# .................. .:[id number] Sex ................................. : M Unsigned transcriptions are preliminary reports and do not represent a medical or legal document CHEST 2 VIEWS [id number] COMPLETE:06/16/19 16:41 SRG [id number] (REASON FOR CHEST: HTN CHEST X-RAY: 2-VIEWS INDICATION: Hypertension. FINDINGS: The lungs are well- expanded. There is a patchy infiltrate in the left upper lobe. The cardiac silhouette is normal in size and contour. No acute osseous abnormality. IMPRESSION: Left upper lobe pneumonia. Electronically Reviewed and Signed By Papo Das M.D. , 06/18/19 10:37, [facility] Transcribe Initials: DZ , Transcribe Date: 06/16/19 21:09, Dictation Date: Page 1 of 1 Name Value Range Interpretation Code Description Data Elizabeth rce(s) Supporting Document(s) ID Date Data Source [id number] 06/16/2019 01:23:00 PM EST [facility] ([facility]) Name Value Range Interpretation Code Description Data Elizabeth rce(s) Supporting Document(s) Inhouse EKG Laboratory test result M [facility] ([facility]) ID Date Data Source [id number] 06/16/2019 01:11:00 PM EST [facility] ([facility]) Name Value Range Interpretation Code Description Data Elizabeth rce(s) Supporting Document(s) Chest Xray 2 Views <pending> [facility] ([facility]) ID Date Data Source [id number] 06/16/2019 01:07:00 PM EST [facility] ([facility]) Name Value Range Interpretation Code Description Data Elizabeth rce(s) Supporting Document(s) Protime 12.1 s 11.0-15.5 [facility] ([facility]) Is patient fasting? N PTT 33.6 s 24.8-36.7 [facility] ([facility]) Is patient fasting? N Inr 0.89 0.93-1.23 Below low normal [facility] ([facility]) Is patient fasting? N ID Date Data Source [id number] 06/16/2019 01:07:00 PM EST [facility] ([facility]) Name Value Range Interpretation Code Description Data Elizabeth rce(s) Supporting Document(s) Comprehensive [employer]abo Laboratory test result [facility] ([facility]) Is patient fasting? N Sodium 127 meq/L 134-153 Below low normal [facility] ( [facility]) Is patient fasting? N Potassium 5.2 meq/L 3.6-5.0 Above high normal [facility] ([facility]) Is patient fasting? N Co2 19 meq/L 22-30 Below low normal [facility] ([facility]) Is patient fasting? N Chloride 98 meq/L 98-107 [facility] ([facility]) Is patient fasting? N Glucose 89 mg/dL 65-110 [facility] ([facility]) Is patient fasting? N BUN 18 mg/dL 7-21 [facility] ([facility]) Is patient fasting? N Creatinine 1.2 mg/dL 0.7-1.5 [facility] ([facility]) Is patient fasting? N Albumin 4.3 g/dL 3.9-5.0 [facility] Is patient fasting? N Total Protein 7.4 g/dL 6.3-8.2 [facility] ([facility]) Is patient fasting? N BUN/Creat 15 8-27 [facility] ([facility]) Is patient fasting? N Globulin 3.1 GM/DL 2.4-3.2 [facility] ([facility]) Is patient fasting? N A/G Ratio 1.4 0.8-2.0 [facility] ([facility]) Is patient fasting? N Calcium 10.0 mg/dL 8.4-10.2 [facility] ([facility]) Is patient fasting? N Total Bili Laboratory test result 0.2-1.3 ME [facility] ([facility]) Is patient fasting? N Sgot/Ast 16 U/L 5-40 [facility] ([facility]) Is patient fasting? N Alkaline Phos 82 U/L 38-126 [facility] ([facility]) Is patient fasting? N SGPT/Alt 22 U/L 7-56 [facility] ([facility]) Is patient fasting? N Anion Gap 10.0 mmol/L 8.0-16.0 [facility] ([facility]) Is patient fasting? N Afr Amer GFR Laboratory test result [facility] ([facility]) Is patient fasting? N Non-Aa GFR Laboratory test result [facility] ([facility]) Is patient fasting? N Age 53 yrs [facility] ([facility]) Is patient fasting? N ID Date Data Source [id number] 06/16/2019 01:07:00 PM EST [facility] ([facility]) Name Value Range Interpretation Code Description Data Elizabeth rce(s) Supporting Document(s) CBC W/Automated Diff Laboratory test result [facility] ([facility]) Is patient fasting? N RBC 4.10 10^6/uL 4.50-6.30 Below low normal [facility] ([facility]) Is patient fasting? N Hemoglobin 11.6 g/dL 14.0-16.0 Below low normal [facility] ( [facility]) Is patient fasting? N WBC 9.7 10^3/uL 4.2-11.0 [facility] Is patient fasting? N MCV 87.8 fL 80.0-94.0 [facility] ([facility]) Is patient fasting? N Hematocrit 36.0 % 41.0-51.0 Below low normal [facility] ( [facility]) Is patient fasting? N MCH 28.3 pg 27.0-34.0 [facility] ([facility]) Is patient fasting? N MCHC 32.2 g/dL 31.0-36.0 [facility] ([facility]) Is patient fasting? N RDW 15.6 % 11.5-14.8 Above high normal [facility] ([facility]) Is patient fasting? N Platelets 489 10^3/uL 150-450 Above high normal [facility] ([facility]) Is patient fasting? N MPV 8.5 fL 7.4-10.4 [facility] ([facility]) Is patient fasting? N Neut 64.8 % 37.0-80.0 [facility] ([facility]) Is patient fasting? N [place] 5.2 % 3.0-8.0 [facility] ([facility]) Is patient fasting? N Eos 2.2 % 0.0-7.0 [facility] ([facility]) Is patient fasting? N Lymph 25.8 % 25.0-40.0 [facility] ([facility]) Is patient fasting? N Baso 1.0 % 0.0-2.0 [facility] ([facility]) Is patient fasting? N %NRBC 0.0 % 0.0-0.0 [facility] ([facility]) Is patient fasting? N %Ig 1.0 % 0.0-0.0 Above high normal [facility] ([facility]) Is patient fasting? N #Lymph 2.49 10^3/uL 0.60-3.40 [facility] ([facility]) Is patient fasting? N #[place] 0.50 10^3/uL 0.00-0.90 [facility] ([facility]) Is patient fasting? N #Neut 6.26 10^3/uL 2.00-6.90 [facility] ([facility]) Is patient fasting? N #Baso 0.10 10^3/uL 0.00-0.20 [facility] ([facility]) Is patient fasting? N #Eos 0.21 10^3/uL 0.00-0.70 [facility] ([facility]) Is patient fasting? N #Ig 0.10 10^3/uL 0.00-0.10 [facility] ([facility]) Is patient fasting? N Manual Diff Laboratory test result M [facility] ([facility]) Is patient fasting? N #NRBC 0.00 10^3/uL 0.00-0.00 [facility] ([facility]) Is patient fasting? N RBC Morph Laboratory test result [facility] ([facility]) Is patient fasting? N ID Date Data Source [id number] 06/16/2019 05:59:00 PM EST [facility] Name Value Range Interpretation Code Description Data Elizabeth rce(s) Supporting Document(s) Prothrombin time (PT) 12.1 SECONDS 11.0 - 15.5 [facility] INR in Platelet poor plasma by Coagulation assay 0.89 0.93 - 1. 23 L [facility] aPTT in Blood by Coagulation assay 33.6 SECONDS 24.8 - 36.7 [facility] \\BLDo\\INR INTERPRETATION\\BLDx\\ Therapeutic range for Coumadin and related oral anticoagulants. - International Normalized Ratio (INR): 2.0 - 3.0 for Venous Thrombosis, Pulmonary Embolus, Tissue heart valves, Acute NM Atrial Fibrillation, Valvular heart disease and recurrent [...] and other interferences. ID Date Data Source [id number] 06/16/2019 05:54:00 PM EST [facility] Name Value Range Interpretation Code Description Data Elizabeth rce(s) Supporting Document(s) COMPREHENSIVE METABOLIC PANEL [facility] COMPREHENSIVE METABOLIC PANEL Sodium [Moles/volume] in Serum or Plasma 127 mEq/L 134 - 153 L [facility] Potassium [Moles/volume] in Serum or Plasma 5.2 mEq/L 3.6 - 5.0 H [facility] Chloride [Moles/volume] in Serum or Plasma 98 mEq/L 98 - 107 [facility] Carbon dioxide, total [Moles/volume] in Serum or Plasma 19 MEQ/L 22 - 30 L [facility] Glucose [Mass/volume] in Serum or Plasma 89 MG/DL 65 - 110 [facility] BUN 18 MG/DL 7 - 21 [facility] Creatinine [Mass/volume] in Serum or Plasma 1.2 MG/DL 0.7 - 1.5 [facility] BUN/CREAT 15 8 - 27 [facility] Protein [Mass/volume] in Serum or Plasma 7.4 G/DL 6.3 - 8.2 [facility] Albumin [Mass/volume] in Serum or Plasma 4.3 G/DL 3.9 - 5.0 [facility] Globulin [Mass/volume] in Serum by calculation 3.1 GM/DL 2.4 - 3.2 [facility] A/G RATIO 1.4 0.8 - 2.0 [facility] al Calcium [Mass/volume] in Serum or Plasma 10.0 MG/DL 8.4 - 10.2 [facility] Bilirubin.total [Mass/volume] in Serum or Plasma <0.7 MG/DL 0.2 - 1.3 [facility] Alkaline phosphatase [Enzymatic activity/volume] in Serum or Plasma 82 U/L 38 - 126 [facility] Aspartate aminotransferase [Enzymatic activity/volume] in Serum or Plasma 16 U/L 5 - 40 [facility] Alanine aminotransferase [Enzymatic activity/volume] in Seru m or Plasma 22 U/L 7 - 56 [facility] Anion gap 3 in Serum or Plasma 10.0 mmol/L 8.0 - 16.0 [facility]GE 53 yrs [facility] GFR >60 mL/min [facility] ital AFR AMER GFR >60 mL/min [facility] sp[facility] Male GFR In terprentation [...] >32 mL/min Normal ID Date Data Source [id number] 06/16/2019 05:31:00 PM EST [facility] Name Value Range Interpretation Code Description Data Elizabeth rce(s) Supporting Document(s) CBC W/AUTOMATED DIFF [facility] COMPLETE BLOOD COUNT Leukocytes [#/volume] in Blood by Automated count 9.7 10^3/uL 4.2 - 1 1.0 [facility] Erythrocytes [#/volume] in Blood by Automated count 4.10 10^6/uL 4. 50 - 6.30 L [facility] Hemoglobin [Mass/volume] in Blood 11.6 g/dL 14.0 - 16.0 L [facility] Hematocrit [Volume Fraction] of Blood by Automated count 36.0 % 4 1.0 - 51.0 L [facility] Erythrocyte mean corpuscular volume [Entitic volume] by Auto mated count 87.8 fL 80.0 - 94.0 [facility] Erythrocyte mean corpuscular hemoglobin [Entitic mass] by Automated count 28.3 pg 27.0 - 34.0 [facility] Erythrocyte mean corpuscular hemoglobin concentration [Mass/volume] by Automated count 32.2 g/dL 31.0 - 36.0 [facility] Erythrocyte distribution width [Ratio] by Automated count 15.6 % 11.5 - 14.8 H [facility] Platelets [#/volume] in Blood by Automated count 489 10^3/uL 150 - 45 0 H [facility] Platelet mean volume [Entitic volume] in Blood by Automated count 8.5 fL 7.4 - 10.4 [facility] Neutrophils/100 leukocytes in Blood by Automated count 64.8 % 37. 0 - 80.0 [facility] Lymphocytes/100 leukocytes in Blood by Manual count 25.8 % 25.0 - 40.0 [facility] Monocytes/100 leukocytes in Blood by Automated count 5.2 % 3.0 - 8.0 [facility] Eosinophils/100 leukocytes in Blood by Automated count 2.2 % 0.0 - 7.0 [facility] Basophils/100 leukocytes in Blood by Automated count 1.0 % 0.0 - 2.0 [facility] %IG 1.0 % 0.0 - 0.0 [facility] %NRBC 0.0 % 0.0 - 0.0 [facility] al Neutrophils [#/volume] in Blood by Automated count 6.26 10^3/uL 2.00 - 6.90 [facility] Lymphocytes [#/volume] in Blood by Automated count 2.49 10^3/uL 0.60 - 3.40 [facility] Monocytes [#/volume] in Blood by Automated count 0.50 10^3/uL 0.00 - 0.90 [facility] Eosinophils [#/volume] in Blood by Automated count 0.21 10^3/uL 0.00 - 0.70 [facility] Basophils [#/volume] in Blood by Automated count 0.10 10^3/uL 0.00 - 0.20 [facility] #IG 0.10 10^3/uL 0.00 - 0.10 [facility] #NRBC 0.00 10^3/uL 0.00 - 0.00 [facility] ospital MANUAL DIFF NOT INDICATED [facility] RBC MORPH NOT INDICATED [facility] spital ID Date Data Source [id number] 05/05/2019 08:53:00 AM EST [facility] ([facility]) Name Value Range Interpretation Code Description Data Elizabeth rce(s) Supporting Document(s) Color of Urine Laboratory test result [facility] ([facility]) Appearance of Urine Laboratory test result [facility] ([facility]) Leukocytes Laboratory test result [facility] ([facility]) [facility] [place] [facility] pH of Urine by Test strip 5 [facility] NT ([facility]) Protein [Presence] in Urine by Test strip Laboratory test result [facility] ([facility]) Inhouse Glucose Laboratory test result [facility] ([facility]) Nitrate [Presence] in Urine Laboratory test result [facility] ([facility]) Bilirubin.total [Presence] in Urine by Test strip Laboratory test res ult [facility] ([facility]) Urobilinogen Laboratory test result [facility] ([facility]) Ketones [Presence] in Urine by Test strip Laboratory test result [facility] ([facility]) Blood type and Indirect antibody screen panel - Blood Laboratory test result [facility] ([facility]) ID Date Data Source [id number] 05/03/2019 07:13:00 AM EST [facility] ([facility]) Name Value Range Interpretation Code Description Data Elizabeth rce(s) Supporting Document(s) Prostate specific Ag [Mass/volume] in Serum or Plasma 4.14 ng/mL 0.00-4.00 Above upper panic limits [facility] \\BLDo\\PSA INTERPRETATION\\BLDx\\ The PSA assay should not be used alone for a screening test or diagnosis for presence or absence of malignant disease. Predictions of disease recurrence should not be based solely on values obtained from serial patient serum values. The PSA result was determined by "[employer]", on the Mak[employer] FRANK 6000. Values obtained with different assay methods or kits cannot be used interchangeably. ID Date Data Source [id number] 05/03/2019 10:14:00 PM EST [facility] Name Value Range Interpretation Code Description Data Elizabeth rce(s) Supporting Document(s) Prostate specific Ag [Mass/volume] in Serum or Plasma 4.14 ng/mL 0.00 - 4.00 [facility] \\BLDo\\PSA INTERPRETA TION\\BLDx\\ The PSA assay [...] Body surface area 2.12 m2 2.12 m2 [facility] ([facility]) Body mass index (BMI) [Ratio] 25.5 kg/m2 25.5 k g/m2 [facility] ([facility]) Body height 73 [in_i] 73 [in_i] [facility] ([facility]) 6'1" Body weight 87.545 kg 87.545 kg [facility] ([facility]) Body weight 193.00 [lb_av] 193.00 [lb_av] [facility] ([facility]) Oxygen saturation in Arterial blood by Pulse oximetry 98 % 98 % [facility] ([facility]) Respiratory rate 24 /min 24 /min [facility] ( [facility]) Body temperature 98.4 [degF] 98.4 [degF] [facility] ([facility]) Heart rate 94 /min 94 /min [facility] ([facility]) Diastolic blood pressure 50 mm[Hg] 50 mm[Hg] [facility] ([facility]) Systolic blood pressure 112 mm[Hg] 112 mm[Hg] [facility] Body weight 90.720 kg 90.720 kg [facility] ([facility]) Body mass index (BMI) [Ratio] 26.4 kg/m2 26.4 k g/m2 [facility] ([facility]) Body weight 200.00 [lb_av] 200.00 [lb_av] [facility] ([facility]) Body height 73 [in_i] 73 [in_i] [facility] ([facility]) 6'1" Body temperature 97.5 [degF] 97.5 [degF] [facility] ([facility]) Oxygen saturation in Arterial blood by Pulse oximetry 98 % 98 % [facility] ([facility]) Room Air Heart rate 74 /min 74 /min [facility] ([facility]) Diastolic blood pressure 80 mm[Hg] 80 mm[Hg] [facility] ([facility]) Systolic blood pressure 130 mm[Hg] 130 mm[Hg] [facility] ([facility]) Body weight 88.452 kg 88.452 kg [facility] ([facility]) Body mass index (BMI) [Ratio] 25.7 kg/m2 25.7 k g/m2 [facility] ([facility]) Body weight 195.00 [lb_av] 195.00 [lb_av] [facility] ([facility]) Body height 73 [in_i] 73 [in_i] [facility] ([facility]) 6'1" Body temperature 98.1 [degF] 98.1 [degF] [facility] ([facility]) Oxygen saturation in Arterial blood by Pulse oximetry 98 % 98 % [facility] ([facility]) Room Air Heart rate 78 /min 78 /min [facility] ([facility]) Diastolic blood pressure 80 mm[Hg] 80 mm[Hg] [facility] ([facility]) Systolic blood pressure 130 mm[Hg] 130 mm[Hg] M [facility] ([facility] ) Body surface area 2.13 m2 2.13 m2 [facility] Body mass index (BMI) [Ratio] 25.9 kg/m2 25.9 k g/m2 [facility] Body height 73 [in_i] 73 [in_i] [facility] 6'1" Body weight 88.906 kg 88.906 kg [facility] ([facility]) Body weight 196.00 [lb_av] 196.00 [lb_av] [facility] ([facility]) Oxygen saturation in Arterial blood by Pulse oximetry 99 % 99 % [facility] Respiratory rate 18 /min 18 /min [facility] ( [facility]) Body temperature 98.7 [degF] 98.7 [degF] [facility] ([facility]) Heart rate 56 /min 56 /min [facility] Diastolic blood pressure 62 mm[Hg] 62 mm[Hg] [facility] ([facility]) Systolic blood pressure 132 mm[Hg] 132 mm[Hg] M [facility] ([facility]) Body surface area 2.11 m2 2.11 m2 [facility] ([facility]) Body mass index (BMI) [Ratio] 25.3 kg/m2 25.3 k g/m2 [facility] ([facility]) Body height 73 [in_i] 73 [in_i] [facility] 6'1" Body weight 87.091 kg 87.091 kg [facility] ([facility]) Body weight 192.00 [lb_av] 192.00 [lb_av] [facility] ([facility]) Oxygen saturation in Arterial blood by Pulse oximetry 95 % 95 % [facility] Respiratory rate 18 /min 18 /min [facility] ( [facility]) Body temperature 98.7 [degF] 98.7 [degF] [facility] ([facility]) Heart rate 77 /min 77 /min [facility] ([facility]) Diastolic blood pressure 60 mm[Hg] 60 mm[Hg] [facility] ([facility]) Systolic blood pressure 118 mm[Hg] 118 mm[Hg] M [facility] ([facility]) Body surface area 2.11 m2 2.11 m2 [facility] ([facility]) Body mass index (BMI) [Ratio] 25.2 kg/m2 25.2 k g/m2 [facility] ([facility]) Body height 73 [in_i] 73 [in_i] [facility] ([facility]) 6'1" Body weight 86.638 kg 86.638 kg [facility] ([facility]) Body weight 191.00 [lb_av] 191.00 [lb_av] [facility] ([facility]) Oxygen saturation in Arterial blood by Pulse oximetry 97 % 97 % [facility] ([facility]) Respiratory rate 18 /min 18 /min [facility] ( [facility]) Body temperature 97.3 [degF] 97.3 [degF] [facility] ([facility]) Heart rate 80 /min 80 /min [facility] Diastolic blood pressure 74 mm[Hg] 74 mm[Hg] [facility] Systolic blood pressure 132 mm[Hg] 132 mm[Hg] [facility] ([facility]) Body surface area 2.11 m2 2.11 m2 [facility] ([facility]) Body mass index (BMI) [Ratio] 25.3 kg/m2 25.3 k g/m2 [facility] ([facility]) Body height 73 [in_i] 73 [in_i] [facility] ([facility]) 6'1" Body weight 87.091 kg 87.091 kg [facility] ([facility]) Body weight 192.00 [lb_av] 192.00 [lb_av] [facility] ([facility]) Oxygen saturation in Arterial blood by Pulse oximetry 97 % 97 % [facility] ([facility]) Respiratory rate 20 /min 20 /min [facility] ( [facility]) Body temperature 97.0 [degF] 97.0 [degF] [facility] ([facility]) Heart rate 73 /min 73 /min [facility] ([facility]) Diastolic blood pressure 68 mm[Hg] 68 mm[Hg] [facility] ([facility]) Systolic blood pressure 115 mm[Hg] 115 mm[Hg] M [facility] ([facility]) Body weight 88.452 kg 88.452 kg [facility] ([facility] ) Body mass index (BMI) [Ratio] 25.7 kg/m2 25.7 k g/m2 [facility] ([facility], ) Body weight 195.00 [lb_av] 195.00 [lb_av] [facility] ([facility], ) Body height 73 [in_i] 73 [in_i] [facility] ([facility], ) 6'1"
[2020-05-03 14:34] LABS: CALCIUM LEVEL 8.7 MG/DL (8.5-10.1); CREATININE FOR GFR 1.57 MG/DL (0.70-1.30); GLOMERULAR FILTRATION RATE 48.9 (>56)
--- NOTE | 2020-05-03 15:26 | HPEPDOC ---
General Date of Admission May 03, 2020 at 13:13 Date of Service: May 03, 2020 Chief Complaint The patient is a 54-year-old male admitted with a reason for visit of Squamous Cell Carcinoma Of Oropharynx. 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 he lives alone. He has not been able to eat anything other than water and milk for the past 2 weeks due to dysgeusia and poor appetite. He does not have any pain during eating or swallowing. He does not have any dysphagia. He was noted to be cachectic. He was referred to ED for Failure to thrive and protein calorie malnourishment. In ED found to be anemic with hb of 6.1, he was noted to have low normal BPs. He reported cough with some phlegm production which is chronic present for years. reported loss of 60 lbs over the past 6 months so he is no longer hypertensive. He did complain of dizziness and light headedness on sudden change of posture and extreme fatigue. He was admitted for symptomatic anemia, severe protein calorie malnutrition and failure to thrive. Home Medications Scheduled Oxycodone HCl (Oxycodone HCl) 5 Mg/5 Ml Solution, 10 ML PO Q4H for pain Tamsulosin HCl (Flomax) 0.4 Mg Capsule, 0.4 MG PO QPM, (Reported) Umeclidinium [place] (Incruse Ellipta) 62.5 Mcg Blst.w.dev, 1 PUFF INH DAILY, (Reported) Scheduled PRN Albuterol Sulfate (Ventolin Hfa) 18 Gm Hfa.aer.ad, 2 PUFF INH QID PRN for SHORTNESS OF BREATH, (Reported) Magic Mouthwash (First-Mouthwash Blm) 1 Ea Susp, 10 ML PO QID PRN for MUCOSITIS (Diphenhydramine/maalox/lidocaine 1:1:1) May compound if kit unavailable/not covered by insurance Allergies Coded Allergies: No Known Allergies (Unverified , 08/12/19) Past Medical History Medical History 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 COPD, HTN, DLP, BPH, Gout, Family History Significant Family History: Cancer (grandfather had prostate cancer) Social History * Smoker: current smoker Alcohol: Denies (used to be a heavy beer drinker stopped when diagnosed to cancer.) A-FIB/CHADSVASC A-FIB History Current/History of A-Fib/PAF?: No Review of Systems Constitutional: Denies: Chills, Fever, Night Sweats Eyes: Denies: Pain, Vision change ENT: Reports: Other Symptoms (no odynophagia); Denies: Head Aches, Ear Pain, Dysphagia Skin: Reports: Rash, Dry Pulmonary: Reports: Cough (chronic); Denies: Dyspnea Cardiovascular: Denies: Chest Pain, Palpitations, Orthopnea, Paroxysmal Noc. Dyspnea, Lt Headedness Gastrointestinal: Denies: Nausea, Vomiting, Abdominal Pain, Diarrhea Genitourinary: Denies: Dysuria, Frequency, Incontinence, Retention Musculoskeletal: Denies: Neck Pain, Back Pain, Joint Pain, Muscle Pain, Spasms Neurological: Reports: Weakness Physical Examination General Exam: Positive: Alert, Cooperative, No Acute Distress Eye Exam: Positive: PERRLA, Conjunctiva & lids normal, EOMI; Negative: Sclera icteric ENT Exam: Positive: Atraumatic, Tongue Midline, Other ENT (No mucositis or thrush seen) Neck Exam: Positive: Supple; Negative: JVD, thyromegaly Chest Exam: Positive: Rhonchi (few scattered ronchi) Heart Exam: Positive: Rate Normal, Regular Rhythm, Normal S1, Normal S2; Negative: Murmurs, Rubs Abdomen Exam: Positive: Normal bowel sounds, Soft; Negative: Tenderness, Hepatospenomegaly Extremity Exam: Positive: Edema; Negative: Clubbing, Cyanosis Skin Exam: Positive: Rash (on the neck and upper chest) Neuro Exam: Positive: Normal Speech, Normal Tone Psych Exam: Positive: Memory Intact, Oriented x 3 Vital Signs Vital Signs Date Time Temp Pulse Resp B/P (MAP) Pulse Ox O2 Delivery O2 Flow Rate FiO2 05/03/20 14:16 98 100 05/03/20 14:15 95/69 (78) 05/03/20 10:43 97.2 18 Room Air Laboratory Data Labs 24H Laboratory Tests 2 05/03/20 11:23: Immature Granulocyte % (Auto) 2.0, Neutrophils (%) (Auto) 87.2H, Lymphocytes (%) (Auto) 3.7L, Monocytes (%) (Auto) 6.6H, Eosinophils (%) (Auto) 0.2, Basophils (%) (Auto) 0.3, Neutrophils # (Auto) 5.2, Lymphocytes # (Auto) 0.2L, Monocytes # (Auto) 0.4, Eosinophils # (Auto) 0.0, Basophils # (Auto) 0.0, Reticulocyte # (auto) 99.2H, Nucleated Red Blood Cells % (auto) 0.0, Percent Reticulocyte Count 4.8H, Reticulocyte Hemoglobin Equivalent 31.1, Prothrombin Time 14.7H, Prothromb Time International Ratio 1.12, Activated Partial Thromboplast Time 41.2H, Anion Gap 12, Glomerular Filtration Rate 42.9L, Lactic Acid Level 1.3, Calcium Level 9.0, Iron Level 29L, Total Iron Binding Capacity 169L, Transferrin % Saturation 17.2L, Ferritin 832H, Total Bilirubin 0.6, Direct Bilirubin 0.2, Aspartate Amino Transf (AST/SGOT) 12, Alanine Aminotransferase (ALT/SGPT) 14, Alkaline Phosphatase 82, Total Creatine Kinase 18L, Creatine Kinase MB 1.6, Creatine Kinase MB Relative Index 8.89H, Troponin I < 0.02, Total Protein 6.0L, Albumin 2.8L, Albumin/Globulin Ratio 0.9, Lipase 89 05/03/20 11:27: Coronavirus (COVID-19)(PCR) NEGATIVE, Influenza Type A (RT-PCR) NEGATIVE, Influenza Type B (RT-PCR) NEGATIVE, Respiratory Syncytial Virus (PCR) NEGATIVE 05/03/20 13:55: Anion Gap 10, Glomerular Filtration Rate 48.9L, Calcium Level 8.7 CBC/BMP Laboratory Tests 05/03/20 11:23 05/03/20 13:55 Microbiology Microbiology 05/03/20 Blood Culture, Received Pending 05/03/20 Blood Culture, Received Pending Assessment/Plan 54 year old male with 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 he lives alone. He has not been able to eat anything other than water and milk for the past 2 weeks due to dysgeusia and poor appetite. He does not have any pain during eating or swallowing. He does not have any dysphagia. He was noted to be cachectic. He was referred to ED for Failure to thrive and protein calorie malnourishment. In ED found to be anemic with hb of 6.1, he was noted to have low normal BPs. He reported cough with some phlegm production which is chronic present for years. reported loss of 60 lbs over the past 6 months so he is no longer hypertensive. He did complain of dizziness and light headedness on sudden change of posture and extreme fatigue. He was admitted for symptomatic anemia, severe protein calorie malnutrition and failure to thrive. Symptomatic anemia no overt bleeding, guaiac negative ferritin not low. will check vit b12 and folate levels will transfuse 2 units of prbc. Synchronous head and neck and lung cancer squamous cell s/p chemoradiation finished on 04/13/20 follow up with Radiation oncology and medical oncology has some radiation dermatitis but no mucositis. JURGEN possibly due to poor intake. Failure to thrive and protein calorie malnourishment Severe protein calorie malnutrition Due to cancer and cancer treatment. Has lost 60 lbs in the past 6 months BMI 19.8, bitemporal wasting. nutrition consult shawna. H/O Hypertension resolved with this massive weight loss Not on any meds Bp low normal at present will monitor. COPD continue spiriva and albuterol prn. BPH continue flomax. Bipedal edema probably due to anemia and hypoalbuminemia however will get doppler to rule out DVT. Plan / VTE VTE Prophylaxis Ordered?: Yes DAINA MORGAN MD May 03, 2020 15:26
[2020-05-03] MEDS ORDERED: oxyCODONE 5MG TAB PO PRN ×2 (15:30)
[2020-05-03] MEDS ORDERED: MAGIC MOUTHWASH SUSPENSION BTL PO PRN (15:30)
--- NOTE | 2020-05-03 17:55 | REPVR ---
PROCEDURE INFORMATION: Exam: US Duplex Lower Extremity Veins, Bilateral Exam date and time: 05/03/2020 4:15 PM Age: 54 years old Clinical indication: Edema, localized; Lower extremity, bilateral; Additional info: Pedal edema , dvt TECHNIQUE: Imaging protocol: Real-time duplex ultrasound of the extremities with 2-D choi scale, color Doppler flow and spectral waveform analysis with image documentation. Complete exam focused on the bilateral lower extremity veins. COMPARISON: No relevant prior studies available. FINDINGS: Right deep veins: Unremarkable. The common femoral, femoral, proximal profunda femoral and popliteal veins are patent without thrombus. Normal Doppler waveforms. Normal compressibility and/or augmentation response. Right superficial veins: Saphenofemoral junction is patent without thrombus. Left deep veins: Unremarkable. The common femoral, femoral, proximal profunda femoral and popliteal veins are patent without thrombus. Normal Doppler waveforms. Normal compressibility and/or augmentation response. Left superficial veins: Saphenofemoral junction is patent without thrombus. Soft tissues: There is a 2.9 x 0.7 x 1.8 cm hypoechoic mass likely a complex Gonzales's cyst present in the medial left popliteal fossa. IMPRESSION: 1. There is a large thrombus present in the left lower extremity vessels extending from the common femoral vein down to the left popliteal vein. The thrombus is occlusive in the proximal to mid left femoral vein. 2. A small nonocclusive thrombus is present in the right popliteal vein. 3. There is a 2.9 x 0.7 x 1.8 cm hypoechoic mass likely a complex Gonzales's cyst present in the medial left popliteal fossa. Electronically signed by: Luther Cabrera On 05/03/2020 17:55:07 PM
[2020-05-03] MEDS: ENOXAPARIN 80MG/0.8ML SYRINGE (J1650 PER 10MG) SC SCH (18:08)
[2020-05-03] MEDS: TAMSULOSIN 0.4 MG CAP PO SCH (20:02)
[2020-05-03 21:40] LABS: HEMATOCRIT 21.3 % (42.0-52.0); MEAN CORPUSCULAR HEMOGLOBIN 28.9 pg (27.0-33.0); MEAN CORPUSCULAR HGB CONC 31.5 g/dl (32.0-36.5); MEAN CORPUSCULAR VOLUME 91.8 fl (80.0-96.0); PLATELET COUNT, AUTOMATED 179 10^3/uL (150-450); RED BLOOD COUNT 2.32 10^6/uL (4.30-6.10); WHITE BLOOD COUNT 4.6 10^3/uL (4.0-10.0)
[2020-05-03 21:56] LABS: HEMOGLOBIN 6.7 g/dl (13.5-17.5)
[2020-05-04] VITALS (8 sets, daily range): BP systolic 105–113; BP diastolic 68–78
--- NOTE | 2020-05-04 00:40 | ECGEPIP ---
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
[2020-05-04] MEDS ORDERED: SODIUM CHLORIDE 0.9% INJ 10 ML SYR IV PRN (02:00)
[2020-05-04 02:28] LABS: HEMATOCRIT 23.1 % (42.0-52.0); HEMOGLOBIN 7.5 g/dl (13.5-17.5)
[2020-05-04] MEDS: ENOXAPARIN 80MG/0.8ML SYRINGE (J1650 PER 10MG) SC SCH ×2 (05:07→17:20)
[2020-05-04] MEDS: SODIUM CHLORIDE 0.9% INJ 10 ML SYR IV SCH (05:08)
[2020-05-04 05:19] LABS: BASO % 0.2 % (0.0-1.0); EOS % 0.7 % (0.0-3.0); HEMATOCRIT 23.9 % (42.0-52.0); HEMOGLOBIN 7.7 g/dl (13.5-17.5); LYMPH # 0.3 10^3/uL (1.5-5.0); LYMPH % 6.2 % (24.0-44.0); MEAN CORPUSCULAR HEMOGLOBIN 28.5 pg (27.0-33.0); MEAN CORPUSCULAR HGB CONC 32.2 g/dl (32.0-36.5); MEAN CORPUSCULAR VOLUME 88.5 fl (80.0-96.0); MONO # 0.3 10^3/uL (0.0-0.8); MONO % 7.8 % (0.0-5.0); NEUTROPHILS # 3.6 10^3/uL (1.5-8.5); NEUTROPHILS % 82.3 % (36.0-66.0); PLATELET COUNT, AUTOMATED 192 10^3/uL (150-450); WHITE BLOOD COUNT 4.4 10^3/uL (4.0-10.0)
[2020-05-04] MEDS: TIOTROPIUM INHALER/CAPSULE (SPIRIVA) INH SCH (06:24)
[2020-05-04 06:40] LABS: CALCIUM LEVEL 8.1 MG/DL (8.5-10.1); CREATININE FOR GFR 1.42 MG/DL (0.70-1.30); GLOMERULAR FILTRATION RATE 54.9 (>56); POTASSIUM SERUM 4.1 MEQ/L (3.5-5.1)
[2020-05-04] MEDS ORDERED: FUROSEMIDE 20MG/2ML VIAL (J1940) IV SCH (07:00)
[2020-05-04] MEDS ORDERED: ENOXAPARIN 40MG/0.4ML SYRINGE (J1650 PER 10MG) SC SCH (09:00)
--- NOTE | 2020-05-04 12:42 | RADENCPD ---
Date/Time of Encounter Date of Encounter: May 04, 2020 Time of Encounter: 12:31 Encounter Visited with Rakan on the med/surg floor today. He reports he is feeling a little better overall, less fatigued. He had just moved his bowels. I note the workup he has received to date showing anemia, acute kidney injury and low albumin, all consistent with malnutrition and dehydration, as well as DVT in the lower extremities. He has received 1 unit of blood today with plans for another. He has spoken to FARM EQUIPMENT SERVICE TECHNICIAN, and per him then intend to do a swallow study. Nutrition recommendations are pending. He is most concerned about his level of deconditioning and ability to function at home. PT/OT evaluation will be of great help in determining his post-hospital disposition. I encouraged Rakan to work with the specialists here, and that despite the immediate obstacles, his deconditioning is reversible, and through physical and nutritional rehab he can return to his prior independent functional status. There is a good probability that his cancer will remain in remission. I will follow along and ensure he has close follow up with me whatever his post- hospital disposition is. I agree fully with and appreciate the excellent care he is receiving while admitted. I remain available to assist in whatever way I can. JANAK MICHELLE MD May 04, 2020 12:42
--- NOTE | 2020-05-04 12:57 | IPNPDOC ---
Subjective Date Seen The patient was seen on 05/04/20. Subjective Chief Complaint/HPI Continues to be very weak though feels a little better than yesterday. Less fatigued. Objective Physical Examination General Exam: Positive: Alert, Cooperative, No Acute Distress Eye Exam: Positive: PERRLA, Conjunctiva & lids normal, EOMI; Negative: Sclera icteric ENT Exam: Positive: Atraumatic, Tongue Midline, Other ENT (No mucositis or thrush seen) Neck Exam: Positive: Supple; Negative: JVD, thyromegaly Chest Exam: Positive: Rhonchi (few scattered ronchi) Heart Exam: Positive: Rate Normal, Regular Rhythm, Normal S1, Normal S2; Negative: Murmurs, Rubs Abdomen Exam: Positive: Normal bowel sounds, Soft; Negative: Tenderness, Hepatospenomegaly Extremity Exam: Positive: Edema; Negative: Clubbing, Cyanosis Skin Exam: Positive: Rash (on the neck and upper chest) Neuro Exam: Positive: Normal Speech, Normal Tone Psych Exam: Positive: Memory Intact, Oriented x 3 Assessment /Plan Assessment 54 year old male with 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 he lives alone. He has not been able to eat anything other than water and milk for the past 2 weeks due to dysgeusia and poor appetite. He does not have any pain during eating or swallowing. He does not have any dysphagia. He was noted to be cachectic. He was referred to ED for Failure to t hrive and protein calorie malnourishment. In ED found to be anemic with hb of 6.1, he was noted to have low normal BPs. He reported cough with some phlegm production which is chronic present for years. reported loss of 60 lbs over the past 6 months so he is no longer hypertensive. He did complain of dizziness and light headedness on sudden change of posture and extreme fatigue. He was admitted for symptomatic anemia, severe protein calorie malnutrition and failure to thrive. Symptomatic anemia no overt bleeding, guaiac negative Dur to Cancer and chemo and radiotherapy. ferritin not low. Vit B12 and folate not low PRBC x 4 Bilateral lower extremity DVT with left occlusive thrombus from superficial femoral to popleteal vein. right smaller non occlusive thrombus. started on lovevox. Synchronous head and neck and lung cancer squamous cell s/p chemoradiation finished on 04/13/20 follow up with Radiation oncology and medical oncology has some radiation dermatitis but no mucositis. Appreciate Dr Valera's input. JURGEN possibly due to poor intake and anemia improving Failure to thrive and protein calorie malnourishment Severe protein calorie malnutrition Due to cancer and cancer treatment. Has lost 60 lbs in the past 6 months BMI 19.8, bitemporal wasting. nutrition consult ST eval. PT/OT/ARU eval H/O Hypertension resolved with massive weight loss Not on any meds Bp low normal at present will monitor. COPD continue spiriva and albuterol prn. BPH continue flomax. Plan/VTE VTE Prophylaxis Ordered?: Yes VS, I&O, 24H, Fishbone Vital Signs/I&O Vital Signs Date Time Temp Pulse Resp B/P (MAP) Pulse Ox O2 Delivery O2 Flow Rate FiO2 05/04/20 06:00 96.2 104 18 106/69 (81) 99 Room Air I&O- Last 24 Hours up to 6 AM 05/04/20 06:00 Intake Total 2860 ml Output Total 400 ml Balance 2460 ml Laboratory Data 24H LABS Laboratory Tests 2 05/03/20 13:55: Anion Gap 10, Glomerular Filtration Rate 48.9L, Calcium Level 8.7 05/03/20 21:33: Nucleated Red Blood Cells % (auto) 0.0 05/04/20 05:12: Anion Gap 12, Glomerular Filtration Rate 54.9L, Calcium Level 8.1L, Nucleated Red Blood Cells % (auto) 0.0, Immature Granulocyte % (Auto) 2.8, Neutrophils (%) (Auto) 82.3H, Lymphocytes (%) (Auto) 6.2L, Monocytes (%) (Auto) 7.8H, Eosinophils (%) (Auto) 0.7, Basophils (%) (Auto) 0.2, Neutrophils # (Auto) 3.6, Lymphocytes # (Auto) 0.3L, Monocytes # (Auto) 0.3, Eosinophils # (Auto) 0.0, Basophils # (Auto) 0.0, Vitamin B12 Level 1777H, Folate 6.0 05/04/20 12:03: Bedside Glucose (Misc Panel) 90 CBC/BMP Laboratory Tests 05/03/20 13:55 05/03/20 21:33 05/04/20 02:13 05/04/20 05:12 Microbiology Microbiology 05/03/20 Blood Culture - Preliminary, Resulted No growth after 24 hours . All specim... 05/03/20 Blood Culture - Preliminary, Resulted No growth after 24 hours . All specim... DAINA MORGAN MD May 04, 2020 12:57
[2020-05-04] MEDS: ALBUTEROL 90 MCG/ACT 8GM HFA INHALER INH PRN ×2 (17:17→23:14)
[2020-05-04] MEDS: TAMSULOSIN 0.4 MG CAP PO SCH (22:55)
[2020-05-05] MEDS: ENOXAPARIN 80MG/0.8ML SYRINGE (J1650 PER 10MG) SC SCH (05:15)
[2020-05-05 05:29] LABS: BASO % 0.5 % (0.0-1.0); EOS % 0.5 % (0.0-3.0); HEMATOCRIT 29.9 % (42.0-52.0); LYMPH # 0.2 10^3/uL (1.5-5.0); LYMPH % 5.4 % (24.0-44.0); MEAN CORPUSCULAR HEMOGLOBIN 28.9 pg (27.0-33.0); MEAN CORPUSCULAR HGB CONC 33.4 g/dl (32.0-36.5); MEAN CORPUSCULAR VOLUME 86.4 fl (80.0-96.0); MONO # 0.4 10^3/uL (0.0-0.8); MONO % 8.4 % (0.0-5.0); NEUTROPHILS # 3.5 10^3/uL (1.5-8.5); NEUTROPHILS % 82.6 % (36.0-66.0); PLATELET COUNT, AUTOMATED 190 10^3/uL (150-450); RED BLOOD COUNT 3.46 10^6/uL (4.30-6.10); WHITE BLOOD COUNT 4.3 10^3/uL (4.0-10.0)
[2020-05-05 06:00] VITALS: BP 108/73
[2020-05-05 06:04] LABS: BLOOD UREA NITROGEN 24 MG/DL (7-18); CALCIUM LEVEL 8.2 MG/DL (8.5-10.1); CARBON DIOXIDE LEVEL 21 MEQ/L (21-32); CHLORIDE LEVEL 100 MEQ/L (98-107); GLOMERULAR FILTRATION RATE > 60.0 (>56); GLUCOSE, FASTING 76 MG/DL (70-100); POTASSIUM SERUM 3.1 MEQ/L (3.5-5.1); SODIUM LEVEL 132 MEQ/L (136-145)
[2020-05-05] MEDS: TIOTROPIUM INHALER/CAPSULE (SPIRIVA) INH SCH (07:47)
[2020-05-05] MEDS: SODIUM CHLORIDE 0.9% INJ 10 ML SYR IV SCH (08:30)
[2020-05-05] MEDS ORDERED: POTASSIUM CHLORIDE 10 MEQ SR TABLET PO ONE (11:00)
[2020-05-05] MEDS ORDERED: ELIQ5TAB PO (20:43)
--- NOTE | 2020-05-05 20:47 | DS.PDOC ---
Discharge Summary General Date of Admission May 03, 2020 at 13:13 Date of Discharge 05/05/20 Discharge Summary PROCEDURES PERFORMED DURING STAY: [None]. DISCHARGE DIAGNOSES: Bilateral Lower extremity DVT Symptomatic anemia JURGEN Failure to thrive Severe protein calorie malnutrition Synchronous head and neck and lung cancer , squamous cell s/p chemoradiation finished on 04/13/20 COPD BPH COMPLICATIONS/CHIEF COMPLAINT: Squamous Cell Carcinoma Of Oropharynx. 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 he lives alone. He has not been able to eat anything other than water and milk for the past 2 weeks due to dysgeusia and poor appetite. He does not have any pain during eating or swallowing. He does not have any dysphagia. He was noted to be cachectic. He was referred to ED for Failure to thrive and protein calorie malnourishment. In ED found to be anemic with hb of 6.1, he was noted to have low normal BPs. He reported cough with some phlegm production which is chronic present for years. reported loss of 60 lbs over the past 6 months so he is no longer hypertensive. He did complain of dizziness and light headedness on sudden change of posture and extreme fatigue. He was admitted for symptomatic anemia, severe protein calorie malnutrition and failure to thrive. Symptomatic anemia no overt bleeding, guaiac negative, occult blood negative. Due to Cancer and chemo and radiotherapy. ferritin not low. Vit B12 and folate not low PRBC x 4 Bilateral lower extremity DVT with left occlusive thrombus from superficial femoral to popliteal vein. Right smaller non occlusive thrombus. will give Eliquis. Synchronous head and neck and lung cancer squamous cell s/p chemoradiation finished on 04/13/20 follow up with Radiation oncology and medical oncology has some radiation dermatitis but no mucositis. Appreciate Dr Valera's input. JURGEN possibly due to poor intake and anemia improving Failure to thrive and protein calorie malnourishment Severe protein calorie malnutrition Due to cancer and cancer treatment. Has lost 60 lbs in the past 6 months BMI 19.8, bitemporal wasting. nutrition consult ST eval. PT/OT/ARU eval H/O Hypertension resolved with massive weight loss Not on any meds Bp low normal at present will monitor. COPD continue spiriva and albuterol prn. BPH continue flomax. DISCHARGE MEDICATIONS: Please see below. ALLERGIES: Please see below. PHYSICAL EXAMINATION ON DISCHARGE: VITAL SIGNS: Please see below. General Exam: Positive: Alert, Cooperative, No Acute Distress Eye Exam: Positive: PERRLA, Conjunctiva & lids normal, EOMI; Negative: Sclera icteric ENT Exam: Positive: Atraumatic, Tongue Midline, Other ENT (No mucositis or thrush seen) Neck Exam: Positive: Supple; Negative: JVD, thyromegaly Chest Exam: Positive: Rhonchi (few scattered ronchi) Heart Exam: Positive: Rate Normal, Regular Rhythm, Normal S1, Normal S2; Negative: Murmurs, Rubs Abdomen Exam: Positive: Normal bowel sounds, Soft; Negative: Tenderness, Hepatospenomegaly Extremity Exam: Positive: Edema; Negative: Clubbing, Cyanosis Skin Exam: Positive: Rash (on the neck and upper chest) Neuro Exam: Positive: Normal Speech, Normal Tone Psych Exam: Positive: Memory Intact, Oriented x 3 LABORATORY DATA: Please see below. ACTIVITY: [As tolerated]. DIET: As tolerated DISPOSITION: 01 Home, Self-Care. DISCHARGE INSTRUCTIONS: Follow up with medical and radiation oncology as per outpatient schedule DISCHARGE CONDITION: [Stable]. TIME SPENT ON DISCHARGE: 35 minutes. Vital Signs/I&Os Vital Signs Date Time Temp Pulse Resp B/P (MAP) Pulse Ox O2 Delivery O2 Flow Rate FiO2 05/05/20 06:00 98.1 85 18 108/73 (85) 98 Room Air I&O- Last 24 Hours up to 6 AM 05/05/20 06:59 Intake Total 1840 ml Output Total 1000 ml Balance 840 ml Laboratory Data Labs 24H Laboratory Tests 2 05/05/20 05:06: Immature Granulocyte % (Auto) 2.6, Neutrophils (%) (Auto) 82.6H, Lymphocytes (%) (Auto) 5.4L, Monocytes (%) (Auto) 8.4H, Eosinophils (%) (Auto) 0.5, Basophils (%) (Auto) 0.5, Neutrophils # (Auto) 3.5, Lymphocytes # (Auto) 0.2L, Monocytes # (Auto) 0.4, Eosinophils # (Auto) 0.0, Basophils # (Auto) 0.0, Nucleated Red Blood Cells % (auto) 0.0 05/05/20 05:07: Anion Gap 11, Glomerular Filtration Rate > 60.0, Calcium Level 8.2L CBC/BMP Laboratory Tests 05/05/20 05:06 05/05/20 05:07 Microbiology Microbiology 05/05/20 Stool Occult Blood (TAYA) - Final, Complete 05/03/20 Blood Culture - Preliminary, Resulted No Growth after 48 hours. All Specime... 05/03/20 Blood Culture - Preliminary, Resulted No Growth after 48 hours. All Specime... Discharge Medications Scheduled Oxycodone HCl (Oxycodone HCl) 5 Mg/5 Ml Solution, 10 ML PO Q4H for pain Tamsulosin HCl (Flomax) 0.4 Mg Capsule, 0.4 MG PO QPM, (Reported) Umeclidinium [place] (Incruse Ellipta) 62.5 Mcg Blst.w.dev, 1 PUFF INH DAILY, (Reported) Scheduled PRN Albuterol Sulfate (Ventolin Hfa) 18 Gm Hfa.aer.ad, 2 PUFF INH QID PRN for SHORTNESS OF BREATH, (Reported) Magic Mouthwash (First-Mouthwash Blm) 1 Ea Susp, 10 ML PO QID PRN for MUCOSITIS (Diphenhydramine/maalox/lidocaine 1:1:1) May compound if kit unavailable/not covered by insurance Allergies Coded Allergies: No Known Allergies (Unverified , 08/12/19) DAINA MORGAN MD May 05, 2020 20:46
== END 2020-05-05 14:56 | disposition home health service (06) | DRG 197 ==
LOC: M ED 10:27 → M ED INP 13:13 → M MSPAV 14:27
PROVIDERS: ADMIT Internal Medicine Nephrology; ATTEND Internal Medicine Nephrology
PROC: 30233N1 Transfusion of Nonautologous Red Blood Cells into Peripheral Vein, Percutaneous Approach (ICD-10-PCS; principal; 2020-05-03)
DX: I82.813 Embolism and thrombosis of superficial veins of lower extremities, bilateral (principal); E43 Unspecified severe protein-calorie malnutrition; N17.9 Acute kidney failure, unspecified; C34.90 Malignant neoplasm of unspecified part of unspecified bronchus or lung; C76.0 Malignant neoplasm of head, face and neck; D64.81 Anemia due to antineoplastic chemotherapy; J44.9 Chronic obstructive pulmonary disease, unspecified; N40.0 Benign prostatic hyperplasia without lower urinary tract symptoms; F17.200 Nicotine dependence, unspecified, uncomplicated

== ENCOUNTER → 2020-05-03 | Outpatient (CLI) | payer OTHER ==
[~2020-05-03] MED LIST changes: +ELIQ5TAB PO
--- NOTE | 2020-05-03 11:05 | RADENCPD ---
Date/Time of Encounter Date of Encounter: May 03, 2020 Time of Encounter: 10:00 Encounter Rakan called and asked to be seen urgently due to mounting weakness and difficulty ambulating at home. 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 On exam he is in a wheelchair has no residual mucositis in the OPX. 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 His lungs are clear. He has 2+ pitting edema at the ankles. He is cachectic. VS Ht 73" Wt 142 lb T 97.2 P 137 RR 24 BP 86/66 Pain 1 Fatigue 10 Assessment: Failure to thrive and protein calorie malnourishment He reports no barrier to nutrition other than poor appetite and dysgeusia, the latter, takes months to resolve post-treatment. Has no active mucositis/odynophagia and reports no dysphagia. Needs optimized nutrition, likely rehab. Discussed PEG tube at onset of tx and he refused. I do not think he would benefit from PEG at this point. He has limited help at home. Discussed he would be appropriate for admission at this juncture, he agrees. Will send to ED. Will see patient while he is in house and ensure that whatever his ultimate disposition is that he has close oncologic follow up with me. Recommend nutrition consult and formal [employer] evaluation, PT/OT as well JANAK MICHELLE MD May 03, 2020 11:05
== END ==
LOC: M ONCR 10:02
PROVIDERS: ATTEND General Practice
DX: R53.1 Weakness (principal); C01 Malignant neoplasm of base of tongue; E46 Unspecified protein-calorie malnutrition; R62.7 Adult failure to thrive; R64 Cachexia

== ENCOUNTER → 2020-05-17 | Outpatient (CLI) | payer OTHER ==
[~2020-05-17] MED LIST changes: +ELIQ5TAB PO; +NICO2LOZ29 MT
--- NOTE | 2020-05-17 12:31 | RADENCPD ---
Date/Time of Encounter Date of Encounter: May 17, 2020 Time of Encounter: 11:56 Encounter Subjective: Rakan was seen for a 1 month global follow up post radiation to his HN and chest. He states he is feeling better s/p recent hospital admission for malnutrition, where he was found to have symptomatic anemia and a LE DVT for which he remains on eliquis. He is able to swallow but not chew effectively secondary to his edentulous status. He has no oral pain or pain with opening the mouth. He is apprehensive of swallowing solids, but has not choked. He is taking liquids and pureed foods but is unable to do anything solid. He states frankly he would like a PEG tube to aid in his recovery. He has markedly decreased energy, having to sit down after only a few steps. Objective: VS Wt 138 (from 142) BMI 18 T 97.4 P 115 RR 20 BP 115/68 O2 99% Pain 0 Fatigue 2 On exam, the OPX is clear no thrush or mucositis. The buccal mucosa is well- hydrated. There are no mucosal lesions. There is no trismus. The neck has no palpable adenopathy. The skin remains mildly hyperpigmented and dry. ECOG 2 Assessment: Rakan's functional recovery is ongoing, he is edentulous and apprehensive about swallowing, this is turn is limiting his caloric intake. BMI is now 18. He admits he wants a PEG tube for temporary nutrition while he recovers. He was opposed to this at the onset of treatment initially. I explained that I think this is a good idea. We can have it placed and drug and alcohol counsellor him on how to use it and what products to use to gain weight and strength back. I also explained that given his apprehension to swallow that he would benefit from [facility] eval and referral to home services. We will facilitate as well. He may qualify for tube feeding through insurance given his critical BMI. I also encouraged him to continue with salt and soda rinses, and to use emollients on his neck skin. Plan: PEG tube referral [facility]/home services referral Follow up 1 week post PEG placement PET as previously scheduled JANAK MICHELLE MD May 17, 2020 12:31
== END ==
LOC: M ONCR 11:21
PROVIDERS: ATTEND General Practice
DX: C01 Malignant neoplasm of base of tongue (principal); C34.02 Malignant neoplasm of left main bronchus

== ENCOUNTER → 2020-05-23 | Outpatient (POV) | payer OTHER ==
--- NOTE | 2020-05-25 14:31 | IRCOV ---
[facility] IR Consult Office Visit IR Consult Office Visit DATE: May 23, 2020 Patient agreed to this telephone consultation. I spent 30 minutes reviewing patient's records, imaging and talking to the patient. REASON FOR CONSULTATION/CHIEF COMPLAINT: Head and neck cancer. Referred for G- tube. 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 He then had progressive worsening dysphagia, workup for which demonstrated FDG avid lesion in the head and neck. He underwent chemotherapy and radiation treatment, last chemotherapy and radiation administered March 2020. He states since that time, he can't eat anything due to difficulty swallowing and dry mouth. He can drink water and may be milk. He has not been able to eat anything else since March 2020. He also reports his teeth were pulled out and he cannot chew. His weight is now down to 138 pounds from 210. He denies prior surgery to the stomach or significant reflux. ALLERGIES: Please see below. HOME MEDICATIONS: Please see below. PAST MEDICAL HISTORY: Gout Hypertension COPD BPH PAST SURGICAL HISTORY: Noncontributory FAMILY HISTORY: Noncontributory SOCIAL HISTORY: Patient smokes one and a half pack per day. Denies alcohol or drugs. REVIEW OF SYSTEMS: Otherwise negative. PHYSICAL EXAMINATION: No video on patient side. LABORATORY DATA: 05/05/2020 hemoglobin 10.0 hematocrit 29.9 WBC 4.3 platelets 190 sodium 132 potassium 3.1 BUN 24 creatinine 1.3 05/03/2020 INR 1.12 Imaging: I personally reviewed the CT chest performed December 2019. Stomach located below the diaphragm without significant hiatal hernia. ASSESSMENT/PLAN: 54-year-old male with head and neck cancer status post chemoradiation now unable to eat by mouth. We discussed the risks and benefits of gastrostomy placement and patient would like to proceed. We have scheduled the patient for G-tube placement. Thank you for this referral. Cc Dr. Valera Allergies Coded Allergies: No Known Allergies (Unverified , 08/12/19) Home Medications Scheduled Apixaban (Eliquis), 5 MG PO ASDIRECTED Oxycodone HCl (Oxycodone HCl), 10 ML PO Q4H Tamsulosin HCl (Flomax), 0.4 MG PO QPM, (Reported) Umeclidinium [place] (Incruse Ellipta), 1 PUFF INH DAILY, (Reported) Scheduled PRN Albuterol Sulfate (Ventolin Hfa), 2 PUFF INH QID PRN for SHORTNESS OF BREATH, (Reported) Magic Mouthwash (First-Mouthwash Blm), 10 ML PO QID PRN for MUCOSITIS Nicotine Polacrilex (Nicotine Lozenge), 2 MG MT Q1HP PRN for SMOKING CESSATION KIERA GALVEZ MD May 25, 2020 14:31
== END ==
LOC: M IRPOV 08:14
PROVIDERS: ATTEND Radiology Diagnostic Radiology
DX: C10.9 Malignant neoplasm of oropharynx, unspecified (principal); C34.92 Malignant neoplasm of unspecified part of left bronchus or lung; I10 Essential (primary) hypertension; J44.9 Chronic obstructive pulmonary disease, unspecified; N40.0 Benign prostatic hyperplasia without lower urinary tract symptoms; M10.9 Gout, unspecified; Z79.899 Other long term (current) drug therapy

== ENCOUNTER 2020-05-31 07:23 | Inpatient (IN) | payer OTHER ==
[~2020-05-31 07:23] MED LIST changes: +LISI10TA22 PO; -LISI10TA4 PO; -LISI40TA PO; +LISI40TA4 PO; +SIME80CH5 PO; -SIME80TA PO
[2020-05-31] MEDS ORDERED: LIDOCAINE 1% MDV 20ML VIAL As Ordered ONE (07:38)
[2020-05-31] MEDS ORDERED: ISOVUE-300 61% 50ML VIAL As Ordered ONE ×2 (07:38→09:27)
[2020-05-31] MEDS ORDERED: diphenhydrAMINE 50MG/ML VIAL (J1200) As Ordered ONE (07:45)
[2020-05-31] MEDS ORDERED: MIDAZOLAM INJ 2MG/2ML VIAL (J2250 PER 1MG) As Ordered ONE (07:45)
[2020-05-31] MEDS ORDERED: fentaNYL 100 MCG/2 ML INJECTION (J3010) As Ordered ONE (07:45)
[2020-05-31] MEDS ORDERED: ceFAZolin 2 GM/D5W 50 ML IV BAG (J0690 PER 500MG) As Ordered ONE (07:49)
[2020-05-31] MEDS ORDERED: LIDOCAINE 2% JELLY 30ML As Ordered ONE (07:49)
[2020-05-31] MEDS ORDERED: GLUCAGON INJ 1MG VIAL As Ordered ONE (08:16)
--- NOTE | 2020-05-31 08:42 | IRHP ---
[facility] IR Pre-Procedure H & P General Date of Service: May 31, 2020 Procedure: Same Day Surgery Interval History and Physical I have seen the patient and reviewed last H & P performed within 30 days. There is no significant interval change. History of Present Illness Chief Complaint The patient is a 54-year-old male admitted with a reason for visit of Head/Neck Ca. PRE-PROCEDURE DIAGNOSIS: head and neck cancer HEART: normal rate. LUNGS: normal breathing at rest. ASA Classification ASA Classification: III-Severe systemic dis. Mallampati Score: II NPO: Yes Problems with prior sedation: No Obstructive Sleep Apnea: No Plan moderate sedation Allergies Coded Allergies: No Known Allergies (Unverified , 08/12/19) Home Medications Scheduled Apixaban (Eliquis), 5 MG PO ASDIRECTED Tamsulosin HCl (Flomax), 0.4 MG PO QPM, (Reported) Umeclidinium [place] (Incruse Ellipta), 1 PUFF INH DAILY, (Reported) Scheduled PRN Albuterol Sulfate (Ventolin Hfa), 2 PUFF INH QID PRN for SHORTNESS OF BREATH, (Reported) Magic Mouthwash (First-Mouthwash Blm), 10 ML PO QID PRN for MUCOSITIS Nicotine Polacrilex (Nicotine Lozenge), 2 MG MT Q1HP PRN for SMOKING CESSATION Discontinued Medications Oxycodone HCl (Oxycodone HCl), 10 ML PO Q4H Discontinued Reason: Pt states not taking VS, I&O, 24H, Fishbone Vital Signs/I&O Vital Signs Date Time Temp Pulse Resp B/P (MAP) Pulse Ox O2 Delivery O2 Flow Rate FiO2 05/31/20 07:35 96.7 88 18 96 Room Air KIERA GALVEZ MD May 31, 2020 08:42
[2020-05-31] MEDS ORDERED: **UNRESOLVED NON-FORMULARY MED ORDER XX SCH (09:00)
--- NOTE | 2020-05-31 10:50 | REP ---
INDICATION: POST TUBE PLACEMENT, LIMITED COMPARISON: None TECHNIQUE: Axial noncontrast images of the mid abdomen only. This CT examination was performed using the following dose reduction techniques: Automated exposure control, adjustment of mA and/or kv according to the patient's size, and use of iterative reconstruction technique. FINDINGS: Pneumoperitoneum is appreciated. A percutaneous enterostomy tube is identified within the transverse colon via the anterior abdominal wall. Dilated loops of small and large bowel noted along with contrast material identified in the colon. IMPRESSION: 1. Pneumoperitoneum. 2. Percutaneous enterostomy tube via the anterior abdominal wall extends into the transverse colon. <Electronically signed by Sy Perla > 05/31/20 1042
--- NOTE | 2020-05-31 11:26 | POST-OPPD ---
Postoperative Procedure Note Date Of Procedure: May 31, 2020 Time Of Procedure: 11:19 Gastrostomy catheter placement with fluoroscopic guidance Clinical Information:Head and neck cancer. Unable to eat by mouth. Physician: Dr. Brandt. Procedure: The patient was advised of the benefits, risks, and alternatives of the procedure and informed consent was obtained. A time out was performed with verification of the patient's name, MRN, site of procedure, and type of procedure to be performed. The patient was positioned in the supine position on the angiographic table. The site was prepped and draped in the usual sterile fashion. Moderate sedation was performed by the physician including the presence of an independent trained RN, who assisted in monitoring the patient's level of consciousness and physiological status. Following the administration of fentanyl and Versed the physician spent 45 minutes of continuous [id number] time with the patient. A multi sensor operator radiograph reveals gaseous distention of stomach and bowel. A 5 [place] glide cath in conjunction with a Glidewire, was inserted through the nostril, under fluoroscopy guidance, down the esophagus into the stomach. The wire was removed. One mg of glucagon was administered intravenously. The stomach was insufflated and distended with air through the nasogastric tube. The soft tissues overlying the anticipated puncture sites were anesthetized with lidocaine. A gastropexy needle was advanced into the stomach and positioning was confirmed with contrast injection. The gastropexy suture was deployed and secured in the usual fashion. A total of 2 gastropexy sutures were deployed. An 18 gauge needle was advanced into the body of the stomach. Contrast was injected documenting intra- gastric position. An Amplatz wire was advanced into the stomach. After serial dilation, a peel-away sheath was advanced over the wire, under fluoroscopy guidance, into the stomach. An 18 F TAYA Gastrostomy catheter was then advanced over the wire, through the peel-away sheath into the stomach and the peel-away sheath was removed. The balloon was insufflated and the catheter retracted back to the the anterior stomach wall. The bumper on the catheter was positioned and secured to sandwich the anterior stomach wall. Contrast was injected to confirm catheter position. The NG tube was removed Due to gaseous distention of stomach and overlying bowel , a CT was obtained to confirm placement of gastrostomy catheter. Unfortunately, the CT showed the gastropexy sutures in the stomach but the tube in the overlying transverse colon. Therefore the catheter was removed. The patient tolerated the procedure well and was returned to the PRU in stable condition. EBL:Less than 5 mL. Complications:Incorrect gastrostomy catheter placement. Conclusion: 1. Attempt at gastrostomy catheter placement without success due to overlying distended bowel. 2. Patient will be placed on weeks long cephalosporin and metronidazole and followed up closely. KIERA BRANDT MD May 31, 2020 11:26
[2020-05-31] MEDS ORDERED: PERCOCET 5MG/325MG TAB As Ordered ONE (11:28)
[2020-05-31] MEDS ORDERED: MORPHINE 10 MG/ML 1ML VIAL (J2270) As Ordered ONE (11:46)
[2020-05-31] MEDS ORDERED: cefTRIAXone SOD 1GM VIAL (J0696 PER 250MG) As Ordered ONE (11:47)
[2020-05-31] MEDS ORDERED: ONDANSETRON 4MG/2ML VIAL As Ordered ONE (11:59)
[2020-05-31] MEDS ORDERED: metroNIDAZOLE 500 MG in IV 1 EA IV ONE (13:00)
--- OUTSIDE RECORDS SUMMARY | 2020-05-31 13:05 | CCD ---
Author Author [facility] Organization [facility] Address Unknown Phone Unavailable Care Team Providers Care Floorhand Name Role Phone Dread SANDHU MD Unavailable [...] T MEGHNA MD Unavailable Unavailable OBEN, T MGEHNA MD Unavailable Unavailable OBEN, T MEGHNA MD [...] OBEN, T MEGHNA MD Unavailable Unavailable OBEN, Teresa COFFMAN MD Unavailable Unavailable OBALBA, Teresa COFFMAN MD Unavailable Unavailable OBEN, Teresa COFFMAN MD Unavailable Unavailable OBEN, Teresa COFFMAN MD Unavailable Unavailable Bartoszewski, Dana Isabelle MS, [...] Unavailable RICH, LEONARD MD Unavailable Unavailable RICH, LEONRAD MD Unavailable Unavailable RICH, LEONARD MD Unavailable [...] is protected by Article 27-F of the [facility] Public Health law. If you continue you may have access to information: Regarding HIV / AIDS; Provided by facilities licensed or operated by the [facility] Office of Mental Health; or Provided by the [facility] Office for People With Developmental Disabilities. If such information is present, then the following [facility] mandated warning applies: This information has [...] law may result in a fine or prison sentence or both. A general authorization for the release of medical or other information is NOT sufficient authorization for further disc losure. Allergies and Adverse Reactions Type Description Substance Reaction Status Data Source(s ) No Known Drug Allergies No Known Drug Allergies [facility] No Known Environmental Allergies No Known Environmental Al lergies [facility] No Known Food Allergies No Known Food Allergies [facility] Family History Family Member Name Family Member Gender Family Member Status Date o f Status Description Data Source(s) Unknown Male Problem [facility] ([facility]) Unknown Female Problem [facility] ([facility]) Unknown Female Problem [facility] ([facility]) Encounters Encounter Providers Location Date Indications Data Source(s ) Outpatient Attender: LEONARD RICH MDConsultant: LEONARD Quintana MD 03/09/2020 07:06:00 AM EST - 03/09/2020 07:06:00 AM EST [facility] Outpatient Attender: MEGHNA RIVAS MDConsultant: LEONARD RICH MD 02/09/2020 07:57:00 AM EDT - 02/09/2020 07:57:00 AM EDT [facility] Outpatient Attender: LEONARD RICH MDConsultant: LEONARD Quintana MD 2019 06:53:00 AM EDT - 2019 06:53:00 AM EDT [facility] Outpatient Attender: LEONARD RICH MDConsultant: LEONARD Quintana MD 10/20/2019 06:48:00 AM EDT - 10/20/2019 06:48:00 AM EDT [facility] Outpatient 10/14/2019 04:48:00 AM EDT [facility] Out[facility] 10/14/2019 04:48:00 AM EDT [facility] Out[facility] 09/24/2019 05:36:00 AM EDT [facility] Outpatient Attender: LEONARD RICH MD Family Practice 09/22/2019 0 4:00:00 PM EDT [facility] ([facility]) Outpatient Attender: LEONARD RICH MDConsultant: LEONARD Quintana MD 09/22/2019 03:40:00 PM EDT - 09/22/2019 03:40:00 PM EDT [facility] Outpatient 08/10/2019 05:25:00 AM EDT [facility] Outpatient Attender: Al Sandhu/Mariaelena/Chad/Radha hines 08/09/2019 08:30:00 AM EDT [facility] ([facility] Outpatient 07/30/2019 05:46:00 AM EDT [facility] Outpatient Attender: Al Sandhu/Mariaelena/Chad/R eindl 07/16/2019 10:00:00 AM EDT [facility] ([facility] ) Outpatient Attender: LEONARD RICH MDConsultant: LEONARD Quintana MD 07/06/2019 07:06:00 AM EDT - 07/06/2019 07:06:00 AM EDT [facility] Outpatient Attender: LEONARD RICH MDConsultant: LEONARD Quintana MD 07/02/2019 09:10:00 AM EDT - 07/02/2019 10:10:00 AM EDT [facility] Outpatient Attender: LEONARD RICH MD Family [facility] 06/29/2019 0 8:20:00 AM EDT [facility] ([facility]) Outpatient Attender: LEONARD RICH MDConsultant: LEONARD Quintana MD 06/29/2019 08:05:00 AM EDT - 06/29/2019 08:05:00 AM EDT [facility] Outpatient Attender: LEONARD RICH MDConsultant: LEONARD Quintana MD 06/16/2019 12:41:00 PM EST - 06/16/2019 12:41:00 PM [facility] Outpatient Attender: MEGHNA RIVAS MDConsultant: LOENARD RICH MD 05/05/2019 08:22:00 AM EST - 05/05/2019 08:22:00 AM [facility] Outpatient Attender: Isabelle Vail MS, RPA-C Family [facility] 05/05/2019 07:30:00 AM EST [facility] Outpatient Attender: Isabelle Prajapati i MS, RPA-CAttender: LEONRAD RICH MDReferrer: MEGHNA RIVAS MDConsultant: LEONARD RICH MD 0 05/03/2019 02:07:00 PM EST - 05/03/2019 02:17:00 PM EST [facility] Attender: LEONARD RICH MDConsultant: LEONARD Quintana MD 05/03/2019 07:35:00 AM EST - 05/03/2019 07:35:00 AM [facility] Outpatient Attender: JERSON Sandhu/Mariaelena/Chad/Ike quintana 04/28/2019 08:15:00 AM EST [facility] ([facility] Outpatient 04/18/2019 06:26:00 PM EST [facility] Medications Medication Brand Name Start Date Product Form Dose Route Admi nistrative Instructions Pharmacy Instructions Status Indications Reaction Description Data Source(s) 2 mg 05/18/2020 12:00:00 AM EST lozenge 144 USE 1 LOZENGE EVERY HOUR NEEDED FOR SMOKING CESSATION MAXIMUM DAILY DOSE = 10 USE 1 LOZENGE EVERY HOUR NEEDED FOR SMOKING CESSATION MAXIMUM DAILY DOSE = 10 SOLD: 05/19/2020 [facility] 20 mg 04/08/2020 12:00:00 AM EST tablet [...] MEAL EACH DAY SOLD: 03/20/2020 [facility] [id number] 03/13/2020 12:00:00 AM EST suspension 480 TAKE 10ML BY MOUTH 4 TIMES DAILY NEEDED FOR MUCOSITIS TAKE 10ML BY MOUTH 4 TIMES DAILY NEED ED FOR MUCOSITIS SOLD: 04/19/2020 [facility] [id number] 03/13/2020 12:00:00 AM EST suspension 480 TAKE [...] DOSE = 60ML SOLD: 03/29/2020 [facility] [id number] 03/13/2020 12:00:00 AM EST suspension 480 TAKE [...] ONE PUFF BY MOUTH EVERY DAY SOLD: 05/18/2020 [facility] 62.5 mcg/actuation 03/07/2020 12:00:00 AM [...] MAXIMUM DAILY DOSE = 30ML SOLD: 03/08/2020 [facility] Atenolol 50 MG Oral Tablet ATENOLOL 02/25/2020 12:00:00 AM EST tablet 45 TAKE 1/2 TABLT BY MOUTH ONCE DAILY TAKE 1/2 TABLT BY MOUTH ONCE DAILY SOLD: 02/27/2020 [facility] 4 mg 01/30/2020 12:00:00 AM EDT [...] BY MOUTH EVERY 4-6 HOURS NEEDED SOLD: 05/14/2020 [facility] 90 mcg/actuation 01/12/2020 12:00:00 [...] EXPECTORATE FOUR TIMES A DAY SOLD: 12/14/2019 [facility] 0.12 % 12/10/2019 12:00:00 AM EDT [...] PUFF BY MOUTH EVERY DAY SOLD: 01/03/2020 [facility] 500 mg 2019 12:00:00 AM EDT capsule 4 TAKE FOUR TABLETS BY MOUTH ONE HOUR BEFORE APPOINTMENT TAKE FOUR TABLETS BY MOUTH ONE HOUR BEFORE APPOINTMENT SOLD: 01/03/2020 [facility] 500 mg 2019 12:00:00 AM EDT capsule 4 TAKE FOUR TABLETS BY MOUTH ONE HOUR BEFORE APPOINTMENT TAKE FOUR TABLETS BY MOUTH ONE HOUR BEFORE APPOINTMENT SOLD: 12/14/2019 [facility] 500 mg 2019 12:00:00 AM EDT capsule 4 TAKE FOUR TABLETS BY MOUTH ONE HOUR BEFORE APPOINTMENT TAKE FOUR TABLETS BY MOUTH ONE HOUR BEFORE APPOINTMENT SOLD: 12/14/2019 [facility] 50 mg 11/04/2019 12:00:00 AM EDT tablet 7 TAKE ONE TABLET BY MOUTH AT BEDTIME - MAXIMUM DAILY DOSE = 1 TAKE ONE TABLET BY MOUTH AT BEDTIME - RAMONITA HERNANDEZ DAILY DOSE = 1 SOLD: 11/11/2019 [facility] [...] TABLET BY MOUTH EVERY DAY SOLD: 10/05/2019 [facility] 100 mg 10/05/2019 12:00:00 AM EDT tablet 90 TAKE ONE TABLET BY MOUTH EVERY DAY TAKE ONE TABLET BY MOUTH EVERY DAY SOLD: 10/05/2019 [facility] 930-10-878-40 mg/30 mL 09/27/2019 12:00:00 AM EDT mouthwash 237 SWISH AND SPIT 5MLS BY MOUTH EVERY 4 HOURS NEEDED SWISH AND SPIT 5MLS BY MOUTH EVERY 4 HOURS NEEDED SOLD: 10/05/2019 [facility] 398-84-113-40 mg/30 mL 09/27/2019 12:00:00 AM EDT mouthwash 238 SWISH AND SPIT 5MLS BY MOUTH EVERY 4 HOURS NEEDED SWISH AND SPIT 5MLS BY MOUTH EVERY 4 HOURS NEEDED SOLD: 11/16/2019 [facility] 153-08-482-40 mg/30 mL 09/27/2019 12:00:00 AM EDT mouthwash 119 SWISH AND SPIT 5MLS BY MOUTH EVERY 4 HOURS NEEDED SWISH AND SPIT 5MLS BY MOUTH EVERY 4 HOURS NEEDED SOLD: 03/29/2020 [facility] 370-16-087-40 mg/30 mL 09/27/2019 12:00:00 AM EDT mouthwash 119 SWISH AND SPIT 5MLS BY MOUTH EVERY 4 HOURS NEEDED SWISH AND SPIT 5MLS BY MOUTH EVERY 4 HOURS NEEDED SOLD: 03/08/2020 [facility] 50 mg 09/23/2019 12:00:00 AM EDT tablet 7 TAKE ONE TABLET BY MOUTH AT NIGHT MAXIMUM DAILY DOSE = 1 TAKE ONE TABLET BY MOUTH AT NIGHT MAXIMUM DAILY DOSE = 1 SOLD: 09/23/2019 [facility] 50 mg 09/23/2019 12:00:00 AM EDT tablet 7 TAKE ONE TABLET BY MOUTH AT NIGHT MAXIMUM DAILY DOSE = 1 TAKE ONE TABLET BY MOUTH AT NIGHT MAXIMUM DAILY DOSE = 1 SOLD: 02/15/2020 [facility] 20 mg 09/23/2019 12:00:00 AM EDT tablet 10 TAKE TWO TABLETS BY MOUTH EVERY DAY TAKE TWO TABLETS BY MOUTH EVERY DAY SOLD: 09/23/2019 [facility] tramadol hydrochloride 50 MG Oral Tablet Tramadol HCL 09/22/2019 12:00:00 AM EDT ORAL active [facility] ([facility]) 125 mg 09/21/2019 12:00:00 AM EDT tablet,chewable 360 CHEW ONE TABLET BY MOUTH FOUR TIMES A DAY CHEW ONE TABLET BY MOUTH FOUR TIMES A DAY SOLD: 09/25/2019 [facility] Simethicone 125 MG Chewable Tablet Simethicone 09/20/2019 12:00:00 AM EDT ORAL active [facility] ([facility]) 750 mg 09/15/2019 12:00:00 AM EDT tablet 7 TAKE ONE TABLET BY MOUTH EVERY DAY TAKE ONE TABLET BY MOUTH EVERY DAY SOLD: 09/15/2019 [facility] 80 mg 09/15/2019 12:00:00 AM EDT tablet,chewable 20 ONE BY MOUTH THREE TIMES A DAY NEEDED FOR GAS PAIN ONE BY MOUTH THREE TIMES A DAY NEEDED FOR GAS PAIN SOLD: 09/20/2019 [facility] 123-28-862-40 mg/30 mL 09/15/2019 12:00:00 AM EDT mouthwash [...] 08/16/2019 12:00:00 AM EDT ORAL active [facility] ([facility] ) Amoxicillin 875 MG / Clavulanate [...] BY MOUTH TWICE A DAY SOLD: 09/07/2019 [facility] celecoxib 100 MG Oral Capsule Celecoxib 07/06/2019 12:00:00 AM EDT ORAL active [facility] ([facility]) Prednisone 20 MG Oral Tablet Prednisone 06/29/2019 12:00:00 AM EDT ORAL active [facility] ([facility]) 20 mg 06/29/2019 12:00:00 AM EDT tablet 10 TAKE TWO TABLETS BY MOUTH EVERY DAY TAKE TWO TABLETS BY MOUTH EVERY DAY SOLD: 07/05/2019 [facility] Levofloxacin 750 MG Oral Tablet Levofloxacin 06/16/2019 12:00:[address] ORAL completed [facility] ([facility]) 750 mg 06/16/2019 12:00:00 AM EST tablet 7 TAKE ONE TABLET BY MOUTH EVERY DAY FOR 7 DAYS TAKE ONE TABLET BY MOUTH EVERY DAY FOR 7 DAYS SOLD: 06/21/2019 [facility] sildenafil 50 MG Oral Tablet Sildenafil Citrate 05/26/2019 12:00:00 A M EST active [facility] ([facility]) 50 mg 05/26/2019 12:00:00 AM EST tablet 6 TAKE ONE TABLET BY MOUTH EVERY DAY NEEDED TAKE ONE TABLET BY MOUTH EVERY DAY NEEDED SOLD: 05/31/2019 [facility] 5 mg 05/05/2019 12:00:00 AM EST tablet 30 TAKE ONE TABLET BY MOUTH EVERY DAY TAKE ONE TABLET BY MOUTH EVERY DAY SOLD: 07/31/2019 [facility] 5 mg 05/05/2019 12:00:00 AM EST tablet 30 TAKE ONE TABLET BY MOUTH EVERY DAY TAKE ONE TABLET BY MOUTH EVERY DAY SOLD: 05/11/2019 [facility] 5 mg 05/05/2019 12:00:00 AM EST tablet 30 TAKE ONE TABLET BY MOUTH EVERY DAY TAKE ONE TABLET BY MOUTH EVERY DAY SOLD: 07/03/2019 [facility] 5 mg 05/05/2019 12:00:00 AM EST tablet 30 TAKE ONE TABLET BY MOUTH EVERY DAY TAKE ONE TABLET BY MOUTH EVERY DAY SOLD: 05/31/2019 [facility] atorvastatin 20 MG Oral Tablet ATORVASTATIN CALCIUM 03/08/2019 1 2:00:00 AM EST tablet 90 TAKE ONE TABLET BY MOUTH EVERY D AY TAKE ONE TABLET BY MOUTH EVERY DAY SOLD: 06/21/2019 [facility] 100 mg 03/08/2019 12:00:00 AM EST tablet 90 TAKE ONE TABLET BY MOUTH EVERY DAY TAKE ONE TABLET BY MOUTH EVERY DAY SOLD: 06/21/2019 [facility] 0.4 mg 02/23/2019 12:00:00 AM EST capsule [...] MOUTH EVERY DAY SOLD: 06/21/2019 [facility] 90 mcg/actuation 11/18/2018 12:00:00 AM EDT HFA aerosol inha ler 18 INHALE TWO PUFFS BY MOUTH EVERY 4-6 HOURS NEEDED INHALE TWO PUFFS BY MOUTH EVERY 4-6 HOURS NEEDED SOLD: 10/04/2019 [facility] 90 mcg/actuation 11/18/2018 12:00:00 AM EDT HFA aerosol inha ler 18 INHALE TWO PUFFS BY MOUTH EVERY 4-6 HOURS NEEDED INHALE TWO PUFFS BY MOUTH EVERY 4-6 HOURS NEEDED SOLD: 07/31/2019 [facility] 100-50 mcg/dose 11/18/2018 12:00:00 AM EDT blister with lu ce 60 INHALE ONE PUFF BY MOUTH TWICE A DAY INHALE ONE PUFF BY MOUTH TWICE A DAY SOLD: 04/15/2019 [facility] Insurance Providers Payer name Policy type / Coverage type Policy ID Covered green party ID Covered green party's relationship to pena Policy Pena Plan Information OMKAR [id number] SP [id number] [place] [id number] S [id number] OMKAR [id number] SP [id number] [place] [id number] SP [id number] [place] P[place] 302/307 [id number] SP [id number] [place] X[place] [id number] 18 [id number] [place] MAN -PHYSICIAN [place] [id number] 18 [id number] EXCELLUS BCBS B [id number] S [id number] [place] PPO 302/307 [id number] SP [id number] BLUE CROSS BLUE SHIELD CL BS [id number] 18 [id number] BLUE CROSS BLUE SHIELD-O/P [id number] 18 [id number] BLUE CROSS BLUE SHIELD-O/P [id number] 18 [id number] [place] PPO [place]/307 [id number] SP [id number] [place]/307 [id number] SP [id number] Excell[employer] BCBS Health Maintenance Organization (HMO) [id number] Self [id number] Blue Cross Blue Shield CL Commercial [id number] Self [id number] BLUE CROSS BLUE SHIELD-O/P [id number] 18 [id number] Blue Cross Blue Shield CL Commercial [id number] Self [id number] Blue Cross Blue Shield CL Commercial [id number] Self [id number] Blue Cross Blue Shield CL Commercial [id number] Self [id number] BLUE CROSS BLUE SHIELD -O/P BS [id number] 18 [id number] BLUE CROSS BLUE SHIELD CL BS [id number] 18 [id number] Blue Cross Blue Shield CL Commercial [id number] Self [id number] Blue Cross Blue Shield CL Commercial [id number] Self [id number] [place] PPO 302/307 [id number] SP [id number] Blue Cross Blue Shield CL Commercial [id number] Self [id number] Blue Cross Blue Shield CL Commercial [id number] Self [id number] Blue Cross Blue Shield CL Commercial [id number] Self [id number] EXCELLUS C [id number] Self [id number] BCBS [place] PPO 302/307 [id number] SP [id number] Blue Cross Blue Shield CL Commercial [id number] Self [id number] Blue Cross Blue Shield CL Commercial [id number] Self [id number] Blue Cross Blue Shield CL Commercial [id number] Self [id number] Blue Cross Blue Shield CL Commercial [id number] Self [id number] Blue Cross Blue Shield CL Commercial [id number] Self [id number] BLUE CROSS BLUE SHIELD -PHYSICIAN [id number] 18 [id number] Blue Cross Blue Shield CL Commercial [id number] Self [id number] Blue Cross Blue Shield CL Commercial [id number] Self [id number] BLUE CROSS BLUE SHIELD-CLINIC [id number] 18 [id number] BLUE CROSS BLUE SHIELD CL BS [id number] 18 [id number] Blue Cross Blue Shield CL Commercial [id number] Self [id number] Blue Cross Blue Shield CL Commercial Self EXCELLUS BCBS B [id number] S [id number] 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 [id number] SP [id number] ANJELICA CONCRETE [id number] SP [id number] BCBS [place] PPO 302/307 [id number] SP [id number] OTHER WORKERS COMPENSATION [id number] SP [id number] BLUE CROSS BLUE SHIELD-O/P [id number] 18 [id number] BLUE CROSS BLUE SHIELD-CLINIC [id number] 18 [id number] BLUE CROSS BLUE SHIELD-CLINIC [id number] 18 [id number] BLUE CROSS BLUE SHIELD -RECURRING [id number] 18 [id number] BLUE CROSS BLUE SHIELD-O/P [id number] 18 [id number] BLUE CROSS BLUE SHIELD-O/P [id number] 18 [id number] Problems, Conditions, and Diagnoses Code Display Name Description Problem Type Effective Dates Data Source(s) G4700 Insomnia, unspecified Insomnia, unspecified Diagnosis 03/09/2020 07:06:00 AM [facility] E559 Vitamin D deficiency, unspecified Vitamin D defi ciency, unspecified Diagnosis 03/09/2020 07:06:00 AM [facility] I10 Essential (primary) hypertension Essential (primary) h ypertension Diagnosis 03/09/2020 07:06:00 AM [facility] N400 Benign prostatic hyperplasia without low er urinary tract symptoms Benign prostatic hyperplasia without lower urinary tract symptoms Diagnosis 03/09/2020 07:06:00 AM [facility] 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, unspec ified Malignant neoplasm of oropharynx, unspecified Diagnosis 03/09/2020 07:06:00 AM [facility] C3490 Malignant neoplasm of unspecified part o f unspecified bronchus or lung Malignant neoplasm of unspecified part of unspecified bronchus or lung Diagnosis 03/09/2020 07:06:00 AM [facility] R9720 Elevated prostate specific antigen [PSA] Elevated prostate specific antigen [PSA] Diagnosis 02/09/2020 07:57:00 AM EDT [facility] Q20870 Nicotine dependence, cigarettes, uncompl icated Nicotine dependence, cigarettes, uncomplicated Diagnosis 2019 06:53:00 AM EDT [facility] J449 Chronic obstructive pulmonary disease, u nspecified Chronic obstructive pulmonary disease, unspecified Diagnosis 2019 06:53:[address] 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, left knee Ost eochondritis dissecans, left knee Diagnosis 07/06/2019 07:06:00 AM EDT [facility] J189 Pneumonia, unspecified organism Pneumonia, unspecified organism Diagnosis 07/02/2019 09:10:00 AM EDT [facility] R911 Solitary pulmonary nodule Solitary pulmonary nodule Di agnosis 07/02/2019 09:10:00 AM EDT [facility] G33505 Effusion, left knee Effusion, left knee Diagnosis 0 06/29/2019 08:05:00 AM EDT [facility] X56151 Encounter for other preprocedural examin ation Encounter for other preprocedural examination Diagnosis 06/16/2019 12:41:00 PM EST [facility] Surgeries/Procedures Procedure Description Date Indications Data Source(s) Bronchoscopy W/Brushing Or Protected Brushings 020 12:00:00 AM EDT [facility] Bronchoscopy W/Transbronchial Lung Biopsy 08/03/2019 1 2:00:00 AM EDT [facility] Spirometry 07/16/2019 12:00:00 AM [facility] Electrocardiogram Complete 06/16/2019 12:00:00 AM EST [facility] ([facility]) LARYNGOSCOPY FLEXIBLE FIBEROPTIC DIAGNOSTIC 04/28/2019 12:00:00 AM EST [facility] ([facility] ) Results ID Date Data Source [id number] 05/03/2020 11:27:00 AM EST [facility] Name Value Range Interpretation Code Description Data Elizabeth rce(s) Supporting Document(s) SARS coronavirus 2 RNA [Presence] in Res piratory specimen by JARVIS with probe detection NEGATIVE [facility] This lab was ordered by [facility] a nd reported by [facility]. ID Date Data Source [id number] 11/24/2019 02:33:00 PM EDT [facility] Name Value Range Interpretation Code Description Data Elizabeth rce(s) Supporting Document(s) Prostate specific Ag [Mass/volume] in Serum or Plasma 6.5 ng/mL 0.0- 4.0 H [facility] Mark ECLIA methodology.According to the [employer] [employer], Serum PSA shoulddecrease and remain at undetectable levels after radicalprostatectomy. The AUA defines biochemical recurrence as an initialPSA value 0.2 ng/mL or greater followed by a subsequent confirmatoryPSA value 0.2 ng/mL or greater.Values obtained with different assay methods or kits cannot be usedinterchangeably. Results cannot be interpreted as absolute evidenceof the presence or absence of malignant disease. Reflex Criteria COMMENT [facility] The percent free PSA is performed on a r eflex basis only when thetotal PSA is between 4.0 and 10.0 ng/mL. Prostate Specific Ag Free [Mass/volume] in Serum or Plasma 1.15 ng/mL N/A [facility] Mark ECLIA methodology. Prostate Specific Ag Free/Prostate specific Ag.total in Seru m or Plasma 17.7 % [facility] The table below lists the probability [...] population of men. ID Date Data Source [id number] 2019 01:40:00 PM EDT [facility] Name Value Range Interpretation Code Description Data Elizabeth rce(s) Supporting Document(s) COMPREHENSIVE METABOLIC PANEL [facility] COMPREHENSIVE METABOLIC PANEL Sodium [Moles/volume] in Serum or Plasma 133 mEq/L 134 - 153 L [facility] Potassium [Moles/volume] in Serum or Plasma 5.1 mEq/L 3.6 - 5.0 H [facility] Chloride [Moles/volume] in Serum or Plasma 98 mEq/L 98 - 107 [facility] Carbon dioxide, total [Moles/volume] in Serum or Plasma 23 MEQ/L 22 - 30 [facility] Glucose [Mass/volume] in Serum or Plasma 99 MG/DL 65 - 110 [facility] BUN 15 MG/DL 7 - 21 [facility] Creatinine [Mass/volume] in Serum or Plasma 1.7 MG/DL 0.7 - 1.5 H [facility] BUN/CREAT 9 8 - 27 [facility] Protein [Mass/volume] in Serum or Plasma 6.6 G/DL 6.3 - 8.2 [facility] Albumin [Mass/volume] in Serum or Plasma 4.3 G/DL 3.9 - 5.0 [facility] Globulin [Mass/volume] in Serum by calculation 2.3 GM/DL 2.4 - 3.2 L [facility] A/G RATIO 1.9 0.8 - 2.0 [facility] Calcium [Mass/volume] in Serum or Plasma 9.7 MG/DL 8.4 - 10.2 [facility] Bilirubin.total [Mass/volume] in Serum or Plasma <0.7 MG/DL 0.2 - 1.3 [facility] Alkaline phosphatase [Enzymatic activity/volume] in Serum or Plasma 77 U/L 38 - 126 [facility] Aspartate aminotransferase [Enzymatic activity/volume] in Serum or Plasma 19 U/L 5 - 40 [facility] Alanine aminotransferase [Enzymatic activity/volume] in Seru m or Plasma 17 U/L 7 - 56 [facility] Anion gap 3 in Serum or Plasma 12.0 mmol/L 8.0 - 16.0 [facility] AGE 54 yrs [facility] NON-AA GFR 45 mL/min [facility] A[facility] AMER GFR 54 mL/min [facility] Male GFR In terprentation [...] >32 mL/min Normal ID Date Data Source [id number] 2019 01:36:00 PM EDT [facility] Name Value Range Interpretation Code Description Data Elizabeth rce(s) Supporting Document(s) Thyroxine (T4) free index in Serum or Plasma by calculation 1.01 NG/DL 0.93 - 1.70 [facility] ID Date Data Source [id number] 2019 01:36:00 PM EDT [facility] Name Value Range Interpretation Code Description Data Elizabeth rce(s) Supporting Document(s) Thyrotropin [Units/volume] in Serum or Plasma by Detec tion limit <= 0.05 mIU/L 3.45 uIU/mL 0.47 - 5.01 [facility] ID Date Data Source [id number] 2019 01:29:00 PM EDT [facility] Name Value Range Interpretation Code Description Data Elizabeth rce(s) Supporting Document(s) CVE PANEL [facility] LIPID PANEL Cholesterol [Mass/volume] in Serum or Plasma 183 MG/DL 131 - 200 [facility] Deprecated Triglyceride [Mass/volume] in Serum or Plasma 113 MG/DL 3 5 - 160 [facility] HDL 44 MG/DL 29 - 86 [facility] Cholesterol in LDL [Mass/volume] in Serum or Plasma by Direc t assay 120 mg/dL 65 - 175 [facility] Cholesterol.total/Cholesterol in HDL [Mass Ratio] in Serum o r Plasma 4.2 3.4 - 4.9 [facility] LDL/HDL 2.73 1.00 - 3.55 [facility] ital CVE RISK CHOL/HDL LDL/HDLMEN: 1/2 AVERAGE 3.43 1.00 AVERAGE 4.97 3.55 2X AVERAGE 9.55 6.25 3X AVERAGE 23.99 7.99WOMEN: 1/2 AVERAGE 3.27 1.47 AVERAGE 4.44 3.22 2X AVERAGE 7.05 5.03 3X AVERAGE 11.04 6.14 ID Date Data Source [id number] 09/24/2019 08:43:00 AM EDT [facility] ([facility]) Name Value Range Interpretation Code Description Data Elizabeth rce(s) Supporting Document(s) Magnesium [Mass/volume] in Serum or Plasma 2.2 mg/dL 1.8-2 .4 Normal (applies to non-numeric results) [facility] ([facility]) ID Date Data Source [id number] 09/24/2019 08:43:00 AM EDT [facility] ([facility]) Name Value Range Interpretation Code Description Data Elizabeth rce(s) Supporting Document(s) Blood Urea Nitrogen 100 mg/dL 7-18 Above high normal [facility] ([facility]) Glucose, Fasting 113 mg/dL 70-100 Above high normal [facility] ([facility]) Creatinine For GFR 4.31 mg/dL 0.70-1.30 Above high normal [facility] ([facility]) Sodium Level 133 meq/L 136-145 Below low normal [facility] ([facility]) Glomerular Filtration Rate 15.3 Below low normal [facility] ([facility]) <content>Units are mL/min/1.73 m2</content>
<content></content>
<content>Chronic Kidney Disease Staging per NKF:</content>
<content></content>
<content>Stage I & II GFR >=60 Normal to Mildly Decreased</content>
<content>Stage III GFR 30- 59 Moderately Decreased</content>
<content>Stage IV GFR 15-29 Severely Decreased</content>
<content>Stage V GFR <15 Very Little GFR Left</content>
<content>ESRD GFR <15 on SENIOR NET PROGRAMMER</content>
<content></content> Carbon Dioxide Level 14 meq/L 21-32 Below low normal [facility] ([facility]) Chloride Level 102 meq/L 98-107 Normal (applies to non-numeric r esults) [facility] ([facility]) Potassium Serum 5.3 meq/L 3.5-5.1 Above high normal [facility] ([facility]) Anion Gap 17 meq/L 8-16 Above high normal [facility] ([facility]) Calcium Level 9.3 mg/dL 8.5-10.1 Normal (applies to non-numeric re sults) [facility] ([facility]) Ast/Sgot 15 U/L 7-37 Normal (applies to non-numeric resul ts) [facility] ([facility]) Alt/SGPT 28 U/L 12-78 Normal (applies to non-numeric resul ts) [facility] ([facility]) Bilirubin,Total 0.4 mg/dL 0.2-1.0 Normal (applies to non-numeric results) [facility] ([facility]) Alkaline Phosphatase 93 U/L 45-117 Normal (applies to non-num [facility] results) [facility] ([facility]) Albumin/Globulin Ratio 0.7 Normal (applies to non-n umeric results) [facility] ([facility]) Total Protein 6.5 GM/DL 6.4-8.2 Normal (applies to non-numeric re sults) [facility] ([facility]) Albumin 2.6 GM/DL 3.2-5.2 Below low normal [facility] ( [facility]) ID Date Data Source [id number] 09/24/2019 08:43:00 AM EDT [facility] ([facility]) Name Value Range Interpretation Code Description Data Elizabeth rce(s) Supporting Document(s) Neutrophils % 75.6 % 36.0-66.0 Above high normal [facility]E NT ([facility]) Eos % 0.0 % 0.0-3.0 Normal (applies to non-numeric resul ts) [facility] ([facility]) Lymph % 5.1 % 24.0-44.0 Below low normal [facility] ( [facility]) [place] % 1.3 % 0.0-5.0 Normal (applies to non-numeric resul ts) [facility] ([facility]) Baso % 0.2 % 0.0-1.0 Normal (applies to non-numeric resul ts) [facility] ([facility]) Immature Granulocyte % 17.8 % 0-3.0 Above high normal [facility] ([facility]) Lymph # 1.1 10 1.5-5.0 Below low normal [facility] ( [facility]) Neutrophils # 16.7 10 1.5-8.5 Above high normal [facility] ([facility]) [place] # 0.3 10 0.0-0.8 Normal (applies to non-numeric resul ts) [facility] ([facility]) Baso # 0.0 10 0.0-0.2 Normal (applies to non-numeric resul ts) [facility] ([facility]) Eos # 0.0 10 0.0-0.5 Normal (applies to non-numeric resul ts) [facility] ([facility]) ID Date Data Source [id number] 09/24/2019 08:43:00 AM EDT [facility] ([facility]) Name Value Range Interpretation Code Description Data Elizabeth rce(s) Supporting Document(s) Red Blood Count 3.64 10 4.30-6.10 Below low normal [facility] ([facility]) White Blood Count 22.1 10 4.0-10.0 Above high normal [facility] ([facility]) Hemoglobin 11.1 g/dL 13.5-17.5 Below low normal [facility] ( [facility]) Mean Corpuscular Volume 91.5 fl 80.0-96.0 Normal ( applies to non-numeric results) [facility] ([facility]) Hematocrit 33.3 % 42.0-52.0 Below low normal [facility] Red Cell Distribution Width 15.2 % 11.5-14.5 Above high normal [facility] Mean Corpuscular Hemoglobin 30.5 pg 27.0-33.0 Norm al (applies to non-numeric results) [facility] ([facility]) Mean Corpuscular HGB Conc 33.3 g/dL 32.0-36.5 Normal (applies to non-numeric results) [facility] ([facility]) Nucleated Red Blood Cell % 0.0 % 0-0 Normal (applies to n on-numeric results) [facility] ([facility]) Platelet Count, Automated 463 10 150-450 Above high normal [facility] ([facility]) ID Date Data Source [id number] 09/12/2019 04:34:00 PM EDT [facility] ([facility]) Name Value Range Interpretation Code Description Data Elizabeth rce(s) Supporting Document(s) Laboratory test finding (navigational concept) 35.0 % 3 8.0-51.0 Below low normal [facility] ([facility]) Laboratory test finding (navigational concept) 129 meq/L 1 36-145 Below low normal [facility] ([facility]) Laboratory test finding (navigational concept) 97 mg/dL 7 0-105 Normal (applies to non-numeric results) [facility] ([facility]) Laboratory test finding (navigational concept) 4.1 meq/L 3 .5-5.1 Normal (applies to non-numeric results) [facility] ([facility]) Laboratory test finding (navigational concept) 97 meq/L 98-109 Below low normal [facility] ([facility]) Laboratory test finding (navigational concept) 18.0 MM/L 2 3.0-27.0 Below low normal [facility] ([facility]) Laboratory test finding (navigational concept) 4.4 mg/dL 4 .5-5.3 Below low normal [facility] ([facility]) Laboratory test finding (navigational concept) 1.2 mg/dL 0 .6-1.3 Normal (applies to non-numeric results) [facility]) Laboratory test finding (navigational concept) 19 mg/dL 8 -26 Normal (applies to non-numeric results) [facility] ([facility]) ID Date Data Source [id number] 09/12/2019 04:33:00 PM EDT [facility] ([facility]) Name Value Range Interpretation Code Description Data Elizabeth rce(s) Supporting Document(s) Color, Urine RFX Laboratory test result Normal ( applies to non-numeric results) [facility] ([facility]) Appearance, Urine RFX Laboratory test result Nor mal (applies to non-numeric results) [facility]) Specific [place] Ur Auto RFX 1.012 1.002-1.035 Nor mal (applies to non-numeric results) [facility] ([facility]) PH,Urine RFX 6.0 units 5.0-9.0 Normal (applies to non-numeric res ults) [facility]) Protein, Urine Auto RFX Laboratory test result N ormal (applies to non-numeric results) [facility] ([facility]) Glucose, Urine (Ua) Auto RFX Laboratory test result Normal (applies to non- numeric results) [facility]) Ketone, Urine Auto RFX Laboratory test result No rmal (applies to non-numeric results) [facility] ([facility]) Urobilinogen, Urine Auto RFX 0.2 mg/dL 0.0-2.0 Nor mal (applies to non-numeric results) [facility] ([facility]) Bilirubin, Urine Auto RFX Laboratory test result Normal (applies to non- numeric results) [facility] ([facility]) Nitrite, Urine Auto RFX Laboratory test result N ormal (applies to non-numeric results) [facility] ([facility]) WBC, Urine Auto RFX 1 /HPF 0-3 Normal (applies to non-nume radha results) [facility] ([facility]) Leukocyte Esterase Ur Auto RFX Laboratory test result Normal (applies to non- numeric results) [facility] ([facility]) Blood, Urine Blood RFX Laboratory test result Above high n ormal [facility] ([facility]) Bacteria, Urine Auto RFX Laboratory test result Normal (applies to non-numeric results) [facility] ([facility]) RBC, Urine Auto RFX 1 /HPF 0-3 Normal (applies to non-nume radha results) [facility] ([facility]) Squam Epithelial Cell Ur Aurfx 0 /HPF 0-6 N ormal (applies to non-numeric results) [facility] ([facility]) Hyaline Cast, Urine Auto RFX 0 /LPF 0-1 Normal (appl ies to non-numeric results) [facility] ([facility]) Mucus, Urine RFX Laboratory test result Normal ( applies to non-numeric results) [facility] ([facility]) ID Date Data Source [id number] 09/12/2019 04:13:00 PM EDT [facility] ([facility]) Name Value Range Interpretation Code Description Data Elizabeth rce(s) Supporting Document(s) White Blood Count 0.8 10 4.0-10.0 Below lower panic limits [facility] ([facility]) Red Blood Count 3.67 10 4.30-6.10 Below low normal [facility] ([facility]) Hemoglobin 11.2 g/dL 13.5-17.5 Below low normal [facility] ( [facility]) Hematocrit 32.2 % 42.0-52.0 Below low normal [facility] ( [facility]) Mean Corpuscular HGB Conc 34.8 g/dL 32.0-36.5 Normal (applies to non-numeric results) [facility] ([facility]) Mean Corpuscular Volume 87.7 fl 80.0-96.0 Normal ( applies to non-numeric results) [facility] ([facility]) Mean Corpuscular Hemoglobin 30.5 pg 27.0-33.0 Norm al (applies to non-numeric results) [facility] ([facility]) Red Cell Distribution Width 14.6 % 11.5-14.5 Above high normal [facility] ([facility]) Platelet Count, Automated 107 10 150-450 Below low normal [facility] ([facility]) Nucleated Red Blood Cell % 0.0 % 0-0 Normal (applies to n on-numeric results) [facility] ([facility]) ID Date Data Source [id number] 09/12/2019 04:13:00 PM EDT [facility] ([facility]) Name Value Range Interpretation Code Description Data Elizabeth rce(s) Supporting Document(s) Neutrophils 13 % 28-66 Below low normal [facility] ([facility]) Bands 1 % Normal (applies to non-numeric resul ts) [facility] ([facility]) Lymphocytes 81 % 16-44 Above high normal [facility] ([facility]) Eosinophils 2 % 0-3 Normal (applies to non-numeric resu lts) [facility] ([facility]) Monocytes 1 % 0-5 Normal (applies to non-numeric resul ts) [facility] ([facility]) Basophils 2 % 0-1 Above high normal [facility] ([facility]) RBC Morphology Laboratory test result Normal (applies to non-numeric results) [facility] ([facility]) ID Date Data Source [id number] 09/12/2019 04:13:00 PM EDT [facility] ([facility]) Name Value Range Interpretation Code Description Data Elizabeth rce(s) Supporting Document(s) Platelets [#/volume] in Blood by Estimate Laboratory test result Normal (applies to non-numeric results) [facility]) ID Date Data Source [id number] 09/12/2019 04:13:00 PM EDT [facility] ([facility]) Name Value Range Interpretation Code Description Data Elizabeth rce(s) Supporting Document(s) CPK Creatine Phosphokinase 66 U/L 39-308 Adelia l (applies to non-numeric results) [facility] ([facility]) CK-MB Value Mass Laboratory test result Normal ( applies to non-numeric results) [facility] ([facility]) MB/CK Relative Index 1.52 Normal (applies to non-num [facility] results) [facility]) <content>DIAGNOSIS CRITERIA</content>
<content>MMB ng/ml Relative Index (RI)</content>
<content>NON-AMI < or = 5 N/A</content>
<content>STRONG ZONE > 5 < or = 4</content>
<content>AMI > 5 > 4</content>
<content></content> Troponin I Laboratory test result Normal (applies to non-n umeric results) [facility]) <content>Troponin I Reference Interval f or Siemens [place] LOCI:</content>
<content></content>
<content>99th Percentile= 0.00-0.045 ng/ml</content>
<content></content>
<content>Risk Stratification:</content>
<content><= 0.10 ng/ml Decreased Risk for Adverse Clinical</content>
<content>Events.</content>
<content>0.10-1.50 ng/ml Increased Risk for Adverse Clinical</content>
<content>Events. Evaluation of additional</content>
<content>criterion and/or repeat testing in 2-6</content>
<content>hours is suggested to rule out myocardial</content>
<content>damage.</content>
<content>>= 1.50 ng/ml Indicative of Myocardial Injury.</content>
<content></content> ID Date Data Source [id number] 09/12/2019 04:13:00 PM EDT [facility] ([facility]) Name Value Range Interpretation Code Description Data Elizabeth rce(s) Supporting Document(s) Ast/Sgot 20 U/L 7-37 Normal (applies to non-numeric resul ts) [facility] ([facility]) Alt/SGPT 33 U/L 12-78 Normal (applies to non-numeric resul ts) [facility] ([facility]) Bilirubin,Total 0.6 mg/dL 0.2-1.0 Normal (applies to non-numeric results) [facility] ([facility]) Alkaline Phosphatase 58 U/L 45-117 Normal (applies to non-num [facility] results) [facility] ([facility]) Bilirubin,Direct 0.2 mg/dL 0.0-0.2 Normal (applies to non-numeric results) [facility] ([facility]) Albumin/Globulin Ratio 1.0 Normal (applies to non-n umeric results) [facility] ([facility]) Total Protein 6.3 GM/DL 6.4-8.2 Below low normal [facility] T ([facility]) Albumin 3.1 GM/DL 3.2-5.2 Below low normal [facility] ( [facility]) ID Date Data Source [id number] 09/12/2019 04:13:00 PM EDT [facility] ([facility]) Name Value Range Interpretation Code Description Data Elizabeth rce(s) Supporting Document(s) Thyrotropin [Units/volume] in Serum or Plasma 1.590 uIU/ML 0. 358-3.740 Normal (applies to non-numeric results) [facility] ([facility]) Thyroxine (T4) [Mass/volume] in Serum or Plasma 8.4 ug/dL 4.5-12.0 Normal (applies to non-numeric results) [facility] ([facility]) Lactate [Mass/volume] in Serum or Plasma 0.6 mmol/L 0.4-2.0 Normal (applies to non-numeric results) [facility] ([facility]) Y/N query for Sepsis Lactate Rule: Y ID Date Data Source [id number] 09/10/2019 08:22:00 AM EDT [facility] ([facility]) Name Value Range Interpretation Code Description Data Elizabeth rce(s) Supporting Document(s) Glucose, Fasting 107 mg/dL 70-100 Above high normal [facility] ([facility]) Creatinine For GFR 1.20 mg/dL 0.70-1.30 Normal (applies to non -numeric results) [facility] ([facility]) Blood Urea Nitrogen 25 mg/dL 7-18 Above high normal [facility] ([facility]) Sodium Level 134 meq/L 136-145 Below low normal [facility] ([facility]) Glomerular Filtration Rate Laboratory test result Normal (applies to non- numeric results) [facility] ([facility]) <content>Units are mL/min/1.73 m2</content>
<content></content>
<content>Chronic Kidney Disease Staging per NKF:</content>
<content></content>
<content>Stage I & II GFR >=60 Normal to Mildly Decreased</content>
<content>Stage III GFR 30- 59 Moderately Decreased</content>
<content>Stage IV GFR 15-29 Severely Decreased</content>
<content>Stage V GFR <15 Very Little GFR Left</content>
<content>ESRD GFR <15 on SENIOR NET PROGRAMMER</content>
<content></content> Potassium Serum 3.7 meq/L 3.5-5.1 Normal (applies to non-numeric results) [facility] ([facility]) Chloride Level 104 meq/L 98-107 Normal (applies to non-numeric r esults) [facility] ([facility]) Carbon Dioxide Level 21 meq/L 21-32 Normal (applies to non-num [facility] results) [facility] ([facility]) Calcium Level 7.4 mg/dL 8.5-10.1 Below low normal [facility] ([facility]) Anion Gap 9 meq/L 8-16 Normal (applies to non-numeric resul ts) [facility] ([facility]) Alkaline Phosphatase 62 U/L 45-117 Normal (applies to non-num [facility] results) [facility] ([facility]) Alt/SGPT 47 U/L 12-78 Normal (applies to non-numeric resul ts) [facility] ([facility]) Ast/Sgot 35 U/L 7-37 Normal (applies to non-numeric resul ts) [facility] ([facility]) Bilirubin,Total 0.5 mg/dL 0.2-1.0 Normal (applies to non-numeric results) [facility] ([facility]) Total Protein 6.1 GM/DL 6.4-8.2 Below low normal [facility] ([facility]) Albumin 3.0 GM/DL 3.2-5.2 Below low normal [facility] ( [facility]) Albumin/Globulin Ratio 1.0 Normal (applies to non-n umeric results) [facility] ([facility]) ID Date Data Source [id number] 09/08/2019 08:14:00 AM EDT [facility] ([facility]) Name Value Range Interpretation Code Description Data Elizabeth rce(s) Supporting Document(s) Glucose, Fasting 110 mg/dL 70-100 Above high normal [facility] ([facility]) Blood Urea Nitrogen 17 mg/dL 7-18 Normal (applies to non-nume radha results) [facility] ([facility]) Glomerular Filtration Rate Laboratory test result Normal (applies to non- numeric results) [facility] ([facility]) <content>Units are mL/min/1.73 m2</content>
<content></content>
<content>Chronic Kidney Disease Staging per NKF:</content>
<content></content>
<content>Stage I & II GFR >=60 Normal to Mildly Decreased</content>
<content>Stage III GFR 30- 59 Moderately Decreased</content>
<content>Stage IV GFR 15-29 Severely Decreased</content>
<content>Stage V GFR <15 Very Little GFR Left</content>
<content>ESRD GFR <15 on SENIOR NET PROGRAMMER</content>
<content></content> Creatinine For GFR 1.28 mg/dL 0.70-1.30 Normal (applies to non -numeric results) [facility] ([facility]) Sodium Level 136 meq/L 136-145 Normal (applies to non-numeric res ults) [facility] ([facility]) Potassium Serum 3.8 meq/L 3.5-5.1 Normal (applies to non-numeric results) [facility] ([facility]) Chloride Level 106 meq/L 98-107 Normal (applies to non-numeric r esults) [facility] ([facility]) Carbon Dioxide Level 20 meq/L 21-32 Below low normal [facility] ([facility]) Ast/Sgot 27 U/L 7-37 Normal (applies to non-numeric resul ts) [facility] ([facility]) Calcium Level 7.3 mg/dL 8.5-10.1 Below low normal [facility] ([facility]) Anion Gap 10 meq/L 8-16 Normal (applies to non-numeric resul ts) [facility] ([facility]) Alt/SGPT 40 U/L 12-78 Normal (applies to non-numeric resul ts) [facility] ([facility]) Bilirubin,Total 0.4 mg/dL 0.2-1.0 Normal (applies to non-numeric results) [facility] ([facility]) Alkaline Phosphatase 63 U/L 45-117 Normal (applies to non-num [facility] results) [facility] ([facility]) Total Protein 6.6 GM/DL 6.4-8.2 Normal (applies to non-numeric re sults) [facility] ([facility]) Albumin 3.2 GM/DL 3.2-5.2 Normal (applies to non-numeric resul ts) [facility]) Albumin/Globulin Ratio 0.9 Normal (applies to non-n umeric results) [facility] ([facility]) ID Date Data Source [id number] 09/07/2019 10:25:00 AM EDT [facility] ([facility]) Name Value Range Interpretation Code Description Data Elizabeth rce(s) Supporting Document(s) Glucose, Fasting 118 mg/dL 70-100 Above high normal [facility] ([facility]) Blood Urea Nitrogen 16 mg/dL 7-18 Normal (applies to non-nume radha results) [facility] ([facility]) Creatinine For GFR 1.14 mg/dL 0.70-1.30 Normal (applies to non -numeric results) [facility] ([facility]) Glomerular Filtration Rate Laboratory test result Normal (applies to non- numeric results) [facility] ([facility]) <content>Units are mL/min/1.73 m2</content>
<content></content>
<content>Chronic Kidney Disease Staging per NKF:</content>
<content></content>
<content>Stage I & II GFR >=60 Normal to Mildly Decreased</content>
<content>Stage III GFR 30- 59 Moderately Decreased</content>
<content>Stage IV GFR 15-29 Severely Decreased</content>
<content>Stage V GFR <15 Very Little GFR Left</content>
<content>ESRD GFR <15 on SENIOR NET PROGRAMMER</content>
<content></content> Sodium Level 137 meq/L 136-145 Normal (applies to non-numeric res ults) [facility] ([facility]) Potassium Serum 4.5 meq/L 3.5-5.1 Normal (applies to non-numeric results) [facility]) Chloride Level 110 meq/L 98-107 Above high normal [facility] ([facility]) Carbon Dioxide Level 21 meq/L 21-32 Normal (applies to non-num [facility] results) [facility] ([facility]) Ast/Sgot 23 U/L 7-37 Normal (applies to non-numeric resul ts) [facility] ([facility]) Calcium Level 7.1 mg/dL 8.5-10.1 [facility] ([facility]) Anion Gap 6 meq/L 8-16 Below low normal [facility] ( [facility]) Alkaline Phosphatase 65 U/L 45-117 Normal (applies to non-num [facility] results) [facility] ([facility]) Alt/SGPT 36 U/L 12-78 Normal (applies to non-numeric resul ts) [facility] ([facility]) Bilirubin,Total 0.3 mg/dL 0.2-1.0 Normal (applies to non-numeric results) [facility] ([facility]) Total Protein 6.3 GM/DL 6.4-8.2 Below low normal [facility] ([facility]) Albumin 3.1 GM/DL 3.2-5.2 Below low normal [facility] ( [facility]) Albumin/Globulin Ratio 1.0 Normal (applies to non-n umeric results) [facility] ([facility]) ID Date Data Source [id number] 09/06/2019 07:49:00 AM EDT [facility] ([facility]) Name Value Range Interpretation Code Description Data Elizabeth rce(s) Supporting Document(s) Magnesium [Mass/volume] in Serum or Plasma 1.2 mg/dL 1.8-2.4 [place] w low normal [facility] ([facility]) ID Date Data Source [id number] 09/06/2019 07:49:00 AM EDT [facility] ([facility]) Name Value Range Interpretation Code Description Data Elizabeth rce(s) Supporting Document(s) Blood Urea Nitrogen 18 mg/dL 7-18 Normal (applies to non-nume radha results) [facility] ([facility]) Glucose, Fasting 183 mg/dL 70-100 Above high normal [facility] ([facility]) Creatinine For GFR 1.54 mg/dL 0.70-1.30 Above high normal [facility] ([facility]) Sodium Level 132 meq/L 136-145 Below low normal [facility] ([facility]) Glomerular Filtration Rate 50.2 Below low normal [facility] ([facility]) <content>Units are mL/min/1.73 m2</content>
<content></content>
<content>Chronic Kidney Disease Staging per NKF:</content>
<content></content>
<content>Stage I & II GFR >=60 Normal to Mildly Decreased</content>
<content>Stage III GFR 30- 59 Moderately Decreased</content>
<content>Stage IV GFR 15-29 Severely Decreased</content>
<content>Stage V GFR <15 Very Little GFR Left</content>
<content>ESRD GFR <15 on SENIOR NET PROGRAMMER</content>
<content></content> Carbon Dioxide Level 20 meq/L 21-32 Below low normal [facility] ([facility]) Chloride Level 104 meq/L 98-107 Normal (applies to non-numeric r esults) [facility] ([facility]) Potassium Serum 5.2 meq/L 3.5-5.1 Above high normal [facility] ([facility]) Ast/Sgot 15 U/L 7-37 Normal (applies to non-numeric resul ts) [facility] ([facility]) Calcium Level 8.9 mg/dL 8.5-10.1 Normal (applies to non-numeric re sults) [facility] Anion Gap 8 meq/L 8-16 Normal (applies to non-numeric resul ts) [facility] ([facility]) Alkaline Phosphatase 83 U/L 45-117 Normal (applies to non-num [facility] results) [facility] ([facility]) Alt/SGPT 39 U/L 12-78 Normal (applies to non-numeric resul ts) [facility] ([facility]) Bilirubin,Total 0.3 mg/dL 0.2-1.0 Normal (applies to non-numeric results) [facility] ([facility]) Total Protein 7.3 GM/DL 6.4-8.2 Normal (applies to non-numeric re sults) [facility] ([facility]) Albumin 3.5 GM/DL 3.2-5.2 Normal (applies to non-numeric resul ts) [facility] ([facility]) Albumin/Globulin Ratio 0.9 Normal (applies to non-n umeric results) [facility] ([facility]) ID Date Data Source [id number] 09/06/2019 07:49:00 AM EDT [facility] ([facility]) Name Value Range Interpretation Code Description Data Elizabeth rce(s) Supporting Document(s) Lymph % 9.2 % 24.0-44.0 Below low normal [facility] ( [facility]) [place] % 1.0 % 0.0-5.0 Normal (applies to non-numeric resul ts) [facility] ([facility]) Neutrophils % 88.1 % 36.0-66.0 Above high normal [facility] ([facility]) Eos % 0.0 % 0.0-3.0 Normal (applies to non-numeric resul ts) [facility] ([facility]) Baso % 0.1 % 0.0-1.0 Normal (applies to non-numeric resul ts) [facility] ([facility]) Lymph # 0.9 10 1.5-5.0 Below low normal [facility] ( [facility]) Neutrophils # 8.5 10 1.5-8.5 Normal (applies to non-numeric re sults) [facility] ([facility]) Immature Granulocyte % 1.6 % 0-3.0 Normal (applies to non-n umeric results) [facility] ([facility]) [place] # 0.1 10 0.0-0.8 Normal (applies to non-numeric resul ts) [facility] ([facility]) Eos # 0.0 10 0.0-0.5 Normal (applies to non-numeric resul ts) [facility] ([facility]) Baso # 0.0 10 0.0-0.2 Normal (applies to non-numeric resul ts) [facility] ([facility]) ID Date Data Source [id number] 09/06/2019 07:49:00 AM EDT [facility] ([facility]) Name Value Range Interpretation Code Description Data Elizabeth rce(s) Supporting Document(s) Red Blood Count 4.16 10 4.30-6.10 Below low normal [facility] ([facility]) White Blood Count 9.7 10 4.0-10.0 Normal (applies to non-numeri c results) [facility] ([facility]) Hemoglobin 12.7 g/dL 13.5-17.5 Below low normal [facility] ( [facility]) Mean Corpuscular Volume 89.9 fl 80.0-96.0 Normal ( applies to non-numeric results) [facility] ([facility]) Hematocrit 37.4 % 42.0-52.0 Below low normal [facility]) Mean Corpuscular Hemoglobin 30.5 pg 27.0-33.0 Norm al (applies to non-numeric results) [facility]) Mean Corpuscular HGB Conc 34.0 g/dL 32.0-36.5 Normal (applies to non-numeric results) [facility] ([facility]) Red Cell Distribution Width 15.2 % 11.5-14.5 Above high normal [facility] ([facility]) Nucleated Red Blood Cell % 0.0 % 0-0 Normal (applies to n on-numeric results) [facility] ([facility]) Platelet Count, Automated 301 10 150-450 Normal (applies to non-numeric results) [facility]) ID Date Data Source [id number] 08/27/2019 11:22:00 AM EDT [facility] ([facility]) Name Value Range Interpretation Code Description Data Elizabeth rce(s) Supporting Document(s) Prothrombin Time 12.5 s 11.8-14.0 Normal (applies to non-numeric results) [facility] ([facility]) Inr 0.96 Normal (applies to non-numeric resul ts) [facility]) THERAPUTIC HUMAN INR VALUES INDICATIONS NORMAL RANGES PROPHYLAXIS/TREATMENT OF: VENOUS THROMBOSIS 2.0-3.0 PULMONARY EMBOLISM 2.0-3.0 PREVENTION OF SYSTEMIC EMBOLISM FROM: TISSUE HEART VALVES 2.0-3.0 ACUTE MYOCARDIAL INFARCTION 2.0-3.0 VALVULAR HEART DISEASE 2.0-3.0 ATRIAL FIBRILLATION 2.0-3.0 MECHANICAL VALVES(HIGH RISK) 2.5-3.5 RECURRENT MYOCARDIAL INFARCTION 2.5-3.5 Partial Thromboplastin Time 34.2 s 25.0-38.4 Norm al (applies to non-numeric results) [facility]) ID Date Data Source [id number] 08/27/2019 09:11:00 AM EDT [facility] ([facility]) Name Value Range Interpretation Code Description Data Elizabeth rce(s) Supporting Document(s) Red Blood Count 4.22 10 4.30-6.10 Below low normal [facility] ([facility]) White Blood Count 7.6 10 4.0-10.0 Normal (applies to non-numeri c results) [facility] ([facility]) Hematocrit 38.1 % 42.0-52.0 Below low normal [facility]) Hemoglobin 13.1 g/dL 13.5-17.5 Below low normal [facility] ( [facility]) Mean Corpuscular Volume 90.3 fl 80.0-96.0 Normal ( applies to non-numeric results) [facility] ([facility]) Mean Corpuscular HGB Conc 34.4 g/dL 32.0-36.5 Normal (applies to non-numeric results) [facility] ([facility]) Red Cell Distribution Width 16.8 % 11.5-14.5 Above high normal [facility] ([facility]) Mean Corpuscular Hemoglobin 31.0 pg 27.0-33.0 Norm al (applies to non-numeric results) [facility] ([facility]) Nucleated Red Blood Cell % 0.0 % 0-0 Normal (applies to n on-numeric results) [facility] ([facility]) Platelet Count, Automated 318 10 150-450 Normal (applies to non-numeric results) [facility] ([facility]) ID Date Data Source [id number] 08/27/2019 09:11:00 AM EDT [facility] ([facility]) Name Value Range Interpretation Code Description Data Elizabeth rce(s) Supporting Document(s) Neutrophils % 61.4 % 36.0-66.0 Normal (applies to non-numeric re sults) [facility] ([facility]) Lymph % 27.4 % 24.0-44.0 Normal (applies to non-numeric resul ts) [facility] ([facility]) [place] % 7.9 % 0.0-5.0 Above high normal [facility] ([facility]) Baso % 0.8 % 0.0-1.0 Normal (applies to non-numeric resul ts) [facility]) Eos % 1.8 % 0.0-3.0 Normal (applies to non-numeric resul ts) [facility] ([facility]) Immature Granulocyte % 0.7 % 0-3.0 Normal (applies to non-n umeric results) [facility] ([facility]) Lymph # 2.1 10 1.5-5.0 Normal (applies to non-numeric resul ts) [facility] ([facility]) [place] # 0.6 10 0.0-0.8 Normal (applies to non-numeric resul ts) [facility] ([facility]) Neutrophils # 4.7 10 1.5-8.5 Normal (applies to non-numeric re sults) [facility] ([facility]) Eos # 0.1 10 0.0-0.5 Normal (applies to non-numeric resul ts) [facility] ([facility]) Baso # 0.1 10 0.0-0.2 Normal (applies to non-numeric resul ts) [facility] ([facility]) ID Date Data Source [id number] 08/27/2019 09:11:00 AM EDT [facility] ([facility]) Name Value Range Interpretation Code Description Data Elizabeth rce(s) Supporting Document(s) Blood Urea Nitrogen 15 mg/dL 7-18 Normal (applies to non-nume radha results) [facility] ([facility]) Glucose, Fasting 93 mg/dL 70-100 Normal (applies to non-numeric results) [facility] ([facility]) Glomerular Filtration Rate Laboratory test result Normal (applies to non- numeric results) [facility] ([facility]) <content>Units are mL/min/1.73 m2</content>
<content></content>
<content>Chronic Kidney Disease Staging per NKF:</content>
<content></content>
<content>Stage I & II GFR >=60 Normal to Mildly Decreased</content>
<content>Stage III GFR 30- 59 Moderately Decreased</content>
<content>Stage IV GFR 15-29 Severely Decreased</content>
<content>Stage V GFR <15 Very Little GFR Left</content>
<content>ESRD GFR <15 on SENIOR NET PROGRAMMER</content>
<content></content> Sodium Level 131 meq/L 136-145 Below low normal [facility] ([facility]) Creatinine For GFR 1.24 mg/dL 0.70-1.30 Normal (applies to non -numeric results) [facility] ([facility]) Potassium Serum 5.2 meq/L 3.5-5.1 Above high normal [facility] ([facility]) Carbon Dioxide Level 23 meq/L 21-32 Normal (applies to non-num mercy results) [facility] ([facility]) Chloride Level 103 meq/L 98-107 Normal (applies to non-numeric r esults) [facility] ([facility]) Ast/Sgot 13 U/L 7-37 Normal (applies to non-numeric resul ts) [facility] ([facility]) Calcium Level 9.3 mg/dL 8.5-10.1 Normal (applies to non-numeric re sults) [facility] ([facility]) Anion Gap 5 meq/L 8-16 Below low normal [facility] ( [facility]) Bilirubin,Total 0.5 mg/dL 0.2-1.0 Normal (applies to non-numeric results) [facility] ([facility]) Alkaline Phosphatase 82 U/L 45-117 Normal (applies to non-num mercy results) [facility] ([facility]) Alt/SGPT 31 U/L 12-78 Normal (applies to non-numeric resul ts) [facility] ([facility]) Total Protein 7.4 GM/DL 6.4-8.2 Normal (applies to non-numeric re sults) [facility] ([facility]) Albumin 3.5 GM/DL 3.2-5.2 Normal (applies to non-numeric resul ts) [facility] ([facility]) Albumin/Globulin Ratio 0.90 1.00-1.93 Below low normal [facility] ([facility]) ID Date Data Source [id number] 08/27/2019 09:11:00 AM EDT [facility] ([facility]) Name Value Range Interpretation Code Description Data Elizabeth rce(s) Supporting Document(s) Magnesium [Mass/volume] in Serum or Plasma 1.4 mg/dL 1.8-2.4 Belo w low normal [facility] ([facility]) Carcinoembryonic Ag [Mass/volume] in Serum or Plasma 2.0 ng/mL Normal (applies to non-numeric results) [facility] ([facility]) THE CEA ASSAY IS PERFORMED ON THE SHARYN [employer]AUR BY CHEMILUMINESCENCE AND SHOULD NOT BE COMPARED INTERCHANGEABLY WITH OTHER METHODS. IT SHOULD NOT BE USED ALONE A SCREENING TEST OR DIAGNOSIS FOR THE PRESENCE OR ABSENCE OF MALIGNANT DISEASE. PREDICTIONS OF DISEASE RECURRENCE SHOULD NOT BE BASED SOLELY ON VALUES OBTAINED FROM SERIAL PATIENT SERUM VALUES. ID Date Data Source [id number] 08/17/2019 08:50:00 AM EDT [facility] ([facility]) Name Value Range Interpretation Code Description Data Elizabeth rce(s) Supporting Document(s) Carcinoembryonic Ag [Mass/volume] in Serum or Plasma 1.6 ng/mL Normal (applies to non-numeric results) [facility] ([facility]) THE CEA ASSAY IS PERFORMED ON THE SHARYN CENTAUR BY CHEMILUMINESCENCE AND SHOULD NOT BE COMPARED INTERCHANGEABLY WITH OTHER METHODS. IT SHOULD NOT BE USED ALONE A SCREENING TEST OR DIAGNOSIS FOR THE PRESENCE OR ABSENCE OF MALIGNANT DISEASE. PREDICTIONS OF DISEASE RECURRENCE SHOULD NOT BE BASED SOLELY ON VALUES OBTAINED FROM SERIAL PATIENT SERUM VALUES. ID Date Data Source [id number] 08/17/2019 08:50:00 AM EDT [facility] ([facility]) Name Value Range Interpretation Code Description Data Elizabeth rce(s) Supporting Document(s) Glucose, Fasting 103 mg/dL 70-100 Above high normal [facility] ([facility]) Creatinine For GFR 1.56 mg/dL 0.70-1.30 Above high normal [facility] ([facility]) Blood Urea Nitrogen 20 mg/dL 7-18 Above high normal [facility] ([facility]) Glomerular Filtration Rate 49.4 Below low normal [facility] ([facility]) <content>Units are mL/min/1.73 m2</content>
<content></content>
<content>Chronic Kidney Disease Staging per NKF:</content>
<content></content>
<content>Stage I & II GFR >=60 Normal to Mildly Decreased</content>
<content>Stage III GFR 30- 59 Moderately Decreased</content>
<content>Stage IV GFR 15-29 Severely Decreased</content>
<content>Stage V GFR <15 Very Little GFR Left</content>
<content>ESRD GFR <15 on SENIOR NET PROGRAMMER</content>
<content></content> Potassium Serum 4.8 meq/L 3.5-5.1 Normal (applies to non-numeric results) [facility] ([facility]) Sodium Level 133 meq/L 136-145 Below low normal [facility] ([facility]) Chloride Level 103 meq/L 98-107 Normal (applies to non-numeric r esults) [facility] ([facility]) Carbon Dioxide Level 23 meq/L 21-32 Normal (applies to non-num mercy results) [facility] ([facility]) Anion Gap 7 meq/L 8-16 Below low normal [facility] ( [facility]) Calcium Level 8.8 mg/dL 8.5-10.1 Normal (applies to non-numeric re sults) [facility] ([facility]) Ast/Sgot 8 U/L 7-37 Normal (applies to non-numeric resul ts) [facility] ([facility]) Alt/SGPT 27 U/L 12-78 Normal (applies to non-numeric resul ts) [facility] ([facility]) Alkaline Phosphatase 78 U/L 45-117 Normal (applies to non-num mercy results) [facility] ([facility]) Total Protein 7.0 GM/DL 6.4-8.2 Normal (applies to non-numeric re sults) [facility] ([facility]) Bilirubin,Total 0.2 mg/dL 0.2-1.0 Normal (applies to non-numeric results) [facility] ([facility]) Albumin 3.6 GM/DL 3.2-5.2 Normal (applies to non-numeric resul ts) [facility] ([facility]) Albumin/Globulin Ratio 1.06 1.00-1.93 Normal (applies to non-numeric results) [facility] ([facility]) ID Date Data Source [id number] 08/17/2019 08:50:00 AM EDT [facility] ([facility]) Name Value Range Interpretation Code Description Data Elizabeth rce(s) Supporting Document(s) Lymph % 9.9 % 24.0-44.0 Below low normal [facility] ( [facility]) [place] % 7.0 % 0.0-5.0 Above high normal [facility] ([facility]) Neutrophils % 81.7 % 36.0-66.0 Above high normal [facility] ([facility]) Immature Granulocyte % 1.3 % 0-3.0 Normal (applies to non-n umeric results) [facility] ([facility]) Baso % 0.1 % 0.0-1.0 Normal (applies to non-numeric resul ts) [facility] ([facility]) Eos % 0.0 % 0.0-3.0 Normal (applies to non-numeric resul ts) [facility] ([facility]) Neutrophils # 11.5 10 1.5-8.5 Above high normal [facility] ([facility]) Lymph # 1.4 10 1.5-5.0 Below low normal [facility] ( [facility]) [place] # 1.0 10 0.0-0.8 Above high normal [facility] ([facility]) Eos # 0.0 10 0.0-0.5 Normal (applies to non-numeric resul ts) [facility] ([facility]) Baso # 0.0 10 0.0-0.2 Normal (applies to non-numeric resul ts) [facility] ([facility]) ID Date Data Source [id number] 08/17/2019 08:50:00 AM EDT [facility] ([facility]) Name Value Range Interpretation Code Description Data Elizabeth rce(s) Supporting Document(s) White Blood Count 14.1 10 4.0-10.0 Above high normal [facility] ([facility]) Red Blood Count 4.14 10 4.30-6.10 Below low normal [facility] ([facility]) Hematocrit 36.9 % 42.0-52.0 Below low normal [facility] ( [facility]) Hemoglobin 12.4 g/dL 13.5-17.5 Below low normal [facility] ( [facility]) Mean Corpuscular Volume 89.1 fl 80.0-96.0 Normal ( applies to non-numeric results) [facility] ([facility]) Mean Corpuscular Hemoglobin 30.0 pg 27.0-33.0 Norm al (applies to non-numeric results) [facility] ([facility]) Mean Corpuscular HGB Conc 33.6 g/dL 32.0-36.5 Normal (applies to non-numeric results) [facility] ([facility]) Red Cell Distribution Width 16.3 % 11.5-14.5 Above high normal [facility] ([facility]) Platelet Count, Automated 367 10 150-450 Normal (applies to non-numeric results) [facility] ([facility]) Nucleated Red Blood Cell % 0.0 % 0-0 Normal (applies to n on-numeric results) [facility] ([facility]) ID Date Data Source [id number] 08/16/2019 12:14:00 PM EDT [facility] ([facility], ) Name Value Range Interpretation Code Description Data Elizabeth rce(s) Supporting Document(s) Surgical pathology study Laboratory test result [facility] ([facility]) FINAL DIAGNOSIS A - Left [...] MD 08/17/2019 1304 ID Date Data Source [id number] 08/03/2019 11:07:00 AM EDT [facility] ([facility]) Name Value Range Interpretation Code Description Data Elizabeth rce(s) Supporting Document(s) Microscopic observation [Identifier] in Unspecified specimen by Non- gynecological cytology method Laboratory test result [facility] ([facility]) SPECIMEN: Bronchial washing ( left [...] M.D. 08/04/2019 1202 ID Date Data Source [id number] 08/03/2019 11:05:00 AM EDT [facility] ([facility]) Name Value Range Interpretation Code Description Data Elizabeth rce(s) Supporting Document(s) Microscopic observation [Identifier] in Unspecified specimen by Non- gynecological cytology method Laboratory test result [facility] ([facility]) SPECIMEN: Bronchial brushing (left upper lobe) lung Vicco in vial received SPECIMEN ADEQUACY: Satisfactory for evaluation CATEGORIZATION: Positive for Malignancy DESCRIPTIONS: Abundant malignant cells noted appearing adina and in groups. Some cells are keratinized and and have very high n/c ratios and hyperchromatic nuclei. 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 08/04/2019 - 1200 Signed AN RENTERIA(ASCP) 08/04/2019 1026 (Prelim) Signed Nola Clark M.D. 08/04/2019 1200 ID Date Data Source [id number] 08/03/2019 11:05:00 AM EDT [facility] ([facility]) Name Value Range Interpretation Code Description Data Elizabeth rce(s) Supporting Document(s) Microscopic observation [Identifier] in Unspecified specimen by Non- gynecological cytology method Laboratory test result [facility] ([facility]) SPECIMEN: Bronchial brushing (left upper lobe) lung Vicco in vial received SPECIMEN ADEQUACY: Satisfactory for evaluation CATEGORIZATION: Positive for Malignancy DESCRIPTIONS: Abundant malignant cells noted appearing adina and in groups. Some cells are keratinized and and have very high n/c ratios and hyperchromatic nuclei. 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 08/04/2019 - [address](ASCP) 08/04/2019 1026 (Prelim) Signed Nola Clark M.D. 08/04/2019 1200 ID Date Data Source [id number] 08/03/2019 10:30:00 AM EDT [facility] ([facility]) Name Value Range Interpretation Code Description Data Elizabeth rce(s) Supporting Document(s) Gram Stain Laboratory test result Normal (applies to non-n umeric results) [facility] ([facility]) MANY RBCS MODERATE WBCS FEW GRAM POSITIVE COCCI FEW GRAM POSITIVE RODS Laboratory test finding (navigational concept) Laboratory test r esult Normal (applies to non-numeric results) [facility] ([facility]) FULL REPORT IN LAB NOTES ([facility] and [facility] ). NORMAL TEODORO PRESENT ID Date Data Source [id number] 08/03/2019 10:30:00 AM EDT [facility] ([facility]) Name Value Range Interpretation Code Description Data Elizabeth rce(s) Supporting Document(s) Gram Stain Laboratory test result Normal (applies to non-n umeric results) [facility] ([facility]) MANY RBCS MODERATE WBCS FEW GRAM POSITIVE COCCI FEW GRAM POSITIVE RODS Bronchial Wash Culture Laboratory test result No rmal (applies to non-numeric results) [facility] ([facility]) FULL REPORT IN LAB NOTES ([facility]CW and [facility] ). NORMAL TEODORO PRESENT ID Date Data Source [id number] 08/03/2019 10:23:00 AM EDT [facility] ([facility]) Name Value Range Interpretation Code Description Data Elizabeth rce(s) Supporting Document(s) Surgical pathology study Laboratory test result [facility] ([facility]) Addendum 1 Entered: 08/30/2019-0814 PD-L1: No expression. No BRAF V600 mutation was detected in the provided specimen Negative for a rearrangement involving the ROS1 gene. Negative for a rearrangement involving the ALK gene No EGFR mutation was detected in the provided specimen. No loss of nuclear expression of MMR proteins. See EMR for detailed reports. 08/30/2019813 Addendum Signed____ AVE CASTRO MD 08/30/2019814 FINAL DIAGNOSIS Lung mass, left upper lobe, [...] Clark M.D. 08/04/2019845 ID Date Data Source [id number] 07/06/2019 10:05:00 AM EDT [facility] ([facility]) Name Value Range Interpretation Code Description Data Elizabeth rce(s) Supporting Document(s) PET CT Laboratory test result [facility] ([facility]) ID Date Data Source [id number] 07/02/2019 04:09:00 PM EDT [facility] [address] [place] [address] PHONE: [phone] FAX: [phone] Name .................. : DEDE [place] Acct Number.................. : [id number] ROOM. ................. : MR Number ................... : [id number] Stay type ............. : O/P Discharge Date......... ... : 07/02/19 Admit Date ......... : 07/02/19 Admit Phys .................... : RICH HARD Date of ....... : 1965 Family Phys ................... : [employer] HARD Phone .................. : [phone] Age ................................ : 53 Film# .................. .:[id number] Sex ................................. : M Unsigned transcriptions are preliminary reports and do not represent a medical or legal document CT THORAX W/CONTRAST 83664 COMPLETE:07/02/19 10:55 JO 75575 PULMONARY NODULE; PNEUMONIA CT SCAN OF THE [...] degenerative changes. IMPRESSION: Page 1 of 2 [facility] [address] [place] [address] PHONE: [phone] FAX: [phone] Name .................. : DEDE [place] Acct Number.................. : [id number] ROOM. ................. : MR Number ................... : [id number] Stay type ............. : O/P Discharge Date......... ... : 07/02/19 Admit Date ......... : 07/02/19 Admit Phys .................... : [employer] Date of ....... : 1965 Family Phys ................... : [employer] Phone .................. : [phone] Age ................................ : 53 Film# .................. .:[id number] Sex ................................. : M Unsigned transcriptions are preliminary reports and do not represent a medical or legal document CT THORAX W/CONTRAST 72077 COMPLETE:07/02/19 10:55 JO 50770 PULMONARY NODULE; PNEUMONIA Left hilar mass with [...] By Wilbert Reinoso MD , 07/02/19 16:09, [facility] Transcribe Initials: DZ , Transcribe Date: 07/02/19 13:02, Dictation Date: Copy for: [address] [place] [address] REC Page 2 of 2 Name Value Range Interpretation Code Description Data Elizabeth rce(s) Supporting Document(s) ID Date Data Source [id number] 06/29/2019 11:54:00 [place] [address] PHONE: [phone] FAX: [phone] Name .................. : D[employer] [place] Acct Number.................. : [id number] ROOM. ................. : MR Number ................... : [id number] Stay type ............. : CLINIC Discharge Date......... ... : 06/29/19 Admit Date ......... : 06/29/19 Admit Phys .................... : RICH HARD Date of ....... : 1965 Family Phys ................... : RICH HARD Phone .................. : [phone] Age ................................ : 53 Film# .................. .:[id number] Sex ................................. : M Unsigned transcriptions are preliminary reports and do not represent a medical or legal document KNEE COMPLETE-4 OR MORE [facility] [id number] COMPLETE:06/29/19 09:51 KBO 37202 (REASON FOR PROCESS: EFFUSION LEFT KNEE SERIES: [...] rce(s) Supporting Document(s) ID Date Data Source [id number] 06/29/2019 11:54:00 AM EDT [facility] [address] [place] [place] [address] PHONE: [phone] FAX: [phone] Name .................. : D[employer]E [place] Acct Number.................. : [id number] ROOM. ................. : MR Number ................... : [id number] Stay type ............. : CLINIC Discharge Date......... ... : 06/29/19 Admit Date ......... : 06/29/19 Admit Phys .................... : [employer] HARD Date of ....... : 1965 Family Phys ................... : [employer] HARD Phone .................. : [phone] Age ................................ : 53 Film# .................. .:[id number] Sex ................................. : M Unsigned transcriptions are preliminary reports and do not represent a medical or legal document CHEST 2 VIEWS 12748 COMPLETE:06/29/19 09:51 KBO 05287 (REASON FOR CHEST: PNEUMONIA CHEST X-RAY: 2-VIEWS [...] MD , 06/29/19 11:54, K[facility] Transcribe Initials: DZ , Transcribe Date: 06/29/19 11:06, Dictation Date: Page 1 of 1 Name Value Range Interpretation Code Description Data Elizabeth rce(s) Supporting Document(s) ID Date Data Source [id number] 06/29/2019 08:40:00 AM EDT [facility] ([facility]) Name Value Range Interpretation Code Description Data Elizabeth rce(s) Supporting Document(s) Erythrocyte sedimentation rate by Westergren method <pending> [facility] ([facility]) C reactive protein [Mass/volume] in Serum or Plasma by High sensitivity method 18.30 mg/L 1.00-3.00 Above high normal [facility] ([facility]) <content>CDC/S HS-CRP CUT-OFF: RELATIVE RISK:</content>
<content><1.0 mg/L Low</content>
<content>1.0 - 3.0 mg/L Average</lucrecia nt>
<content>>3.0 mg/L High</content>
<content>Optimally, the average of HS-CRP results repeated</content>
<content>two weeks apart should be used for risk assessment.</content>
<content></content> Urate [Mass/volume] in Serum or Plasma 6.8 mg/dL 2.5-8.5 [facility] ([facility]) ID Date Data Source [id number] 06/29/2019 08:40:00 AM EDT [facility] ([facility]) Name Value Range Interpretation Code Description Data Elizabeth rce(s) Supporting Document(s) Sed Rate 14 mm/hr 0-20 [facility] ([facility]) Sed Rate Reenter 14 [facility] ([facility]) ID Date Data Source [id number] 06/29/2019 08:40:00 AM EDT [facility] ([facility]) Name Value Range Interpretation Code Description Data Elizabeth rce(s) Supporting Document(s) WBC 9.4 10^3/uL 4.2-11.0 [facility] ([facility]) CBC W/Automated Diff Laboratory test result [facility] ([facility]) COMPLETE BLOOD COUNT Hemoglobin 11.8 g/dL 14.0-16.0 Below low normal [facility] ( [facility]) RBC 4.15 10^6/uL 4.50-6.30 Below low normal [facility] ([facility]) Hematocrit 35.7 % 41.0-51.0 Below low normal [facility] ( [facility]) MCH 28.4 pg 27.0-34.0 [facility] ([facility]) MCHC 33.1 g/dL 31.0-36.0 [facility] ([facility]) MCV 86.0 fL 80.0-94.0 [facility] ([facility]) RDW 15.8 % 11.5-14.8 Above high normal [facility] ([facility]) Platelets 363 10^3/uL 150-450 [facility] ([facility]) MPV 8.7 fL 7.4-10.4 [facility] ([facility]) [place] 5.7 % 3.0-8.0 [facility] ([facility]) Lymph 23.9 % 25.0-40.0 Below low normal [facility] ( [facility]) Neut 65.2 % 37.0-80.0 [facility] ([facility]) %NRBC 0.0 % 0.0-0.0 [facility] ([facility]) Baso 1.3 % 0.0-2.0 [facility] ([facility]) %Ig 1.4 % 0.0-0.0 Above high normal [facility] ([facility]) Eos 2.5 % 0.0-7.0 [facility] ([facility]) #Lymph 2.23 10^3/uL 0.60-3.40 [facility] ([facility]) #Neut 6.11 10^3/uL 2.00-6.90 [facility] ([facility]) #[place] 0.53 10^3/uL 0.00-0.90 [facility] ([facility]) #Baso 0.12 10^3/uL 0.00-0.20 [facility] ([facility]) #Ig 0.13 10^3/uL 0.00-0.10 Above high normal [facility] T ([facility]) #Eos 0.23 10^3/uL 0.00-0.70 [facility] ([facility]) RBC Morph Laboratory test result [facility] ([facility]) #NRBC 0.00 10^3/uL 0.00-0.00 [facility] ([facility]) Manual Diff Laboratory test result M [facility] ([facility]) ID Date Data Source [id number] 06/29/2019 08:40:00 AM EDT [facility] ([facility]) Name Value Range Interpretation Code Description Data Elizabeth rce(s) Supporting Document(s) Rheumatoid factor [Units/volume] in Serum or Plasma 14 IU/ml 0-14 [facility] ([facility]) Nuclear Ab [Presence] in Serum Laboratory test result [facility] ([facility]) Borrelia burgdorferi C6 Ab [Units/volume] in Serum by Immunoassay Laboratory test result 0.00-0.90 [facility]) <content>Negative <0.91</content >
<content>Equivocal 0.91 - 1.09</content>
<content>Positive >1.09</content>
<content></content> ID Date Data Source [id number] 07/03/2019 08:11:00 AM EDT [facility] Name Value Range Interpretation Code Description Data Elizabeth rce(s) Supporting Document(s) Nuclear Ab [Presence] in Serum Negative Negative [facility] ID Date Data Source [id number] 07/03/2019 08:11:00 AM EDT [facility] Name Value Range Interpretation Code Description Data Elizabeth rce(s) Supporting Document(s) Borrelia burgdorferi C6 Ab [Units/volume] in Serum by Immuno assay <0.91 index 0.00-0.90 [facility] Negative <0.91 Equivocal 0.91 - 1.09 Positive >1.09 ID Date Data Source [id number] 06/29/2019 03:03:00 PM EDT [facility] Name Value Range Interpretation Code Description Data Elizabeth rce(s) Supporting Document(s) Erythrocyte sedimentation rate by Westergren method 14 mm/hr 0 - 20 [facility] SED RATE REENTER 14 [facility] ID Date Data Source [id number] 06/29/2019 02:25:00 PM EDT [facility] Name Value Range Interpretation Code Description Data Elizabeth rce(s) Supporting Document(s) C reactive protein [Mass/volume] in Serum or Plasma by High sensitivity method 18.30 MG/L 1.00 - 3.00 H [facility] CDC/S HS-CRP CUT-OFF: RELATIVE RISK: <1.0 mg/L Low 1.0 - 3.0 mg/L Average >3.0 mg/L High Optimally, the average of HS-CRP results repeated two weeks apart should be used for risk assessment. ID Date Data Source [id number] 06/29/2019 02:23:00 PM EDT [facility] Name Value Range Interpretation Code Description Data Elizabeth rce(s) Supporting Document(s) RA QUANT 14 IU/mL 0 - 14 [facility] ID Date Data Source [id number] 06/29/2019 02:23:00 PM EDT [facility] Name Value Range Interpretation Code Description Data Elizabeth rce(s) Supporting Document(s) Urate [Mass/volume] in Serum or Plasma 6.8 MG/DL 2.5 - 8.5 [facility] ID Date Data Source [id number] 06/29/2019 02:08:00 PM EDT [facility] Name Value Range Interpretation Code Description Data Elizabeth rce(s) Supporting Document(s) CBC W/AUTOMATED DIFF [facility] COMPLETE BLOOD COUNT Leukocytes [#/volume] in Blood by Automated count 9.4 10^3/uL 4.2 - 1 1.0 [facility] Erythrocytes [#/volume] in Blood by Automated count 4.15 10^6/uL 4. 50 - 6.30 L [facility] Hemoglobin [Mass/volume] in Blood 11.8 g/dL 14.0 - 16.0 L [facility] Hematocrit [Volume Fraction] of Blood by Automated count 35.7 % 4 1.0 - 51.0 L [facility] Erythrocyte mean corpuscular volume [Entitic volume] by Auto mated count 86.0 fL 80.0 - 94.0 [facility] Erythrocyte mean corpuscular hemoglobin [Entitic mass] by Automated count 28.4 pg 27.0 - 34.0 [facility] Erythrocyte mean corpuscular hemoglobin concentration [Mass/volume] by Automated count 33.1 g/dL 31.0 - 36.0 [facility] Erythrocyte distribution width [Ratio] by Automated count 15.8 % 11.5 - 14.8 H [facility] Platelets [#/volume] in Blood by Automated count 363 10^3/uL 150 - 45 0 [facility] Platelet mean volume [Entitic volume] in Blood by Automated count 8.7 fL 7.4 - 10.4 [facility] Neutrophils/100 leukocytes in Blood by Automated count 65.2 % 37. 0 - 80.0 [facility] Lymphocytes/100 leukocytes in Blood by Manual count 23.9 % 25.0 - 40.0 L [facility] Monocytes/100 leukocytes in Blood by Automated count 5.7 % 3.0 - 8.0 [facility] Eosinophils/100 leukocytes in Blood by Automated count 2.5 % 0.0 - 7.0 [facility] Basophils/100 leukocytes in Blood by Automated count 1.3 % 0.0 - 2.0 [facility] %IG 1.4 % 0.0 - 0.0 [facility] %NRBC 0.0 % 0.0 - 0.0 [facility] Neutrophils [#/volume] in Blood by Automated count 6.11 10^3/uL 2.00 - 6.90 [facility] Lymphocytes [#/volume] in Blood by Automated count 2.23 10^3/uL 0.60 - 3.40 [facility] Monocytes [#/volume] in Blood by Automated count 0.53 10^3/uL 0.00 - 0.90 [facility] Eosinophils [#/volume] in Blood by Automated count 0.23 10^3/uL 0.00 - 0.70 [facility] Basophils [#/volume] in Blood by Automated count 0.12 10^3/uL 0.00 - 0.20 [facility] #IG 0.13 10^3/uL 0.00 - 0.10 H [facility] ospital #NRBC 0.00 10^3/uL 0.00 - 0.00 [facility]spital MANUAL DIFF NOT INDICATED [facility] RBC MORPH NOT INDICATED [facility] spital ID Date Data Source [id number] 06/29/2019 08:30:00 AM EDT [facility] ([facility]) Name Value Range Interpretation Code Description Data Elizabeth rce(s) Supporting Document(s) Chest Xray 2 Views <pending> [facility] ([facility]) Knee Complete-4 Or More VWS LT <pending> [facility] ([facility]) ID Date Data Source [id number] 06/18/2019 10:37:00 AM EST [facility] [address] [place] [address] PHONE: [phone] FAX: [phone] Name .................. : DEDE [place] Acct Number.................. : [id number] ROOM. ................. : MR Number ................... : [id number] Stay type ............. : CLINIC Discharge Date......... ... : 06/16/19 Admit Date ......... : 06/16/19 Admit Phys .................... : RICH HARD Date of ....... : 1965 Family Phys ................... : RICH HARD Phone .................. : [phone] Age ................................ : 53 Film# .................. .:[id number] Sex ................................. : M Unsigned transcriptions are preliminary reports and do not represent a medical or legal document CHEST 2 VIEWS [id number] COMPLETE:06/16/19 16:41 SRG [id number] (REASON FOR CHEST: HTN CHEST X-RAY: 2-VIEWS INDICATION: Hypertension. FINDINGS: The lungs are well- expanded. There is a patchy infiltrate in the left upper lobe. The cardiac silhouette is normal in size and contour. No acute osseous abnormality. IMPRESSION: Left upper lobe pneumonia. Electronically Reviewed and Signed By Papo Das M.D. , 06/18/19 10:37, [facility] Transcribe Initials: MERCEDES , Transcribe Date: 06/16/19 21:09, Dictation Date: Page 1 of 1 Name Value Range Interpretation Code Description Data Elizabeth rce(s) Supporting Document(s) ID Date Data Source [id number] 06/16/2019 01:23:00 PM EST [facility] ([facility]) Name Value Range Interpretation Code Description Data Elizabeth rce(s) Supporting Document(s) Inhouse EKG Laboratory test result M EDJAYDEN ([facility]) ID Date Data Source [id number] 06/16/2019 01:11:00 PM EST [facility] ([facility]) Name Value Range Interpretation Code Description Data Elizabeth rce(s) Supporting Document(s) Chest Xray 2 Views <pending> [facility] ([facility]) ID Date Data Source [id number] 06/16/2019 01:07:00 PM EST [facility] ([facility]) Name Value Range Interpretation Code Description Data Elizabeth rce(s) Supporting Document(s) Protime 12.1 s 11.0-15.5 [facility] ([facility]) Is patient fasting? N PTT 33.6 s 24.8-36.7 [facility] ([facility]) Is patient fasting? N Inr 0.89 0.93-1.23 Below low normal [facility] ([facility]) Is patient fasting? N ID Date Data Source [id number] 06/16/2019 01:07:00 PM EST [facility] ([facility]) Name Value Range Interpretation Code Description Data Elizabeth rce(s) Supporting Document(s) Comprehensive Metabo Laboratory test result [facility] ([facility]) Is patient fasting? N Sodium 127 meq/L 134-153 Below low normal [facility] ( [facility]) Is patient fasting? N Potassium 5.2 meq/L 3.6-5.0 Above high normal [facility] ([facility]) Is patient fasting? N Co2 19 meq/L 22-30 Below low normal [facility] ([facility]) Is patient fasting? N Chloride 98 meq/L 98-107 [facility] ([facility]) Is patient fasting? N Glucose 89 mg/dL 65-110 [facility] ([facility]) Is patient fasting? N BUN 18 mg/dL 7-21 [facility] ([facility]) Is patient fasting? N Creatinine 1.2 mg/dL 0.7-1.5 [facility] ([facility]) Is patient fasting? N Albumin 4.3 g/dL 3.9-5.0 [facility] ([facility]) Is patient fasting? N Total Protein 7.4 g/dL 6.3-8.2 [facility] ([facility]) Is patient fasting? N BUN/Creat 15 8-27 [facility] ([facility]) Is patient fasting? N Globulin 3.1 GM/DL 2.4-3.2 [facility] ([facility]) Is patient fasting? N A/G Ratio 1.4 0.8-2.0 [facility] ([facility]) Is patient fasting? N Calcium 10.0 mg/dL 8.4-10.2 [facility] ([facility]) Is patient fasting? N Total Bili Laboratory test result 0.2-1.3 ME DENT ([facility]) Is patient fasting? N Sgot/Ast 16 U/L 5-40 [facility] ([facility]) Is patient fasting? N Alkaline Phos 82 U/L 38-126 [facility] ([facility]) Is patient fasting? N SGPT/Alt 22 U/L 7-56 [facility] ([facility]) Is patient fasting? N Anion Gap 10.0 mmol/L 8.0-16.0 [facility] ([facility]) Is patient fasting? N Afr Amer GFR Laboratory test result [facility] ([facility]) Is patient fasting? N Non-Aa GFR Laboratory test result [facility] ([facility]) Is patient fasting? N Age 53 yrs [facility] ([facility]) Is patient fasting? N ID Date Data Source [id number] 06/16/2019 01:07:00 PM EST [facility] ([facility]) Name Value Range Interpretation Code Description Data Elizabeth rce(s) Supporting Document(s) CBC W/Automated Diff Laboratory test result [facility] ([facility]) Is patient fasting? N RBC 4.10 10^6/uL 4.50-6.30 Below low normal [facility] ([facility]) Is patient fasting? N Hemoglobin 11.6 g/dL 14.0-16.0 Below low normal [facility] Is patient fasting? N WBC 9.7 10^3/uL 4.2-11.0 [facility] ([facility]) Is patient fasting? N MCV 87.8 fL 80.0-94.0 [facility] ([facility]) Is patient fasting? N Hematocrit 36.0 % 41.0-51.0 Below low normal [facility] ( [facility]) Is patient fasting? N MCH 28.3 pg 27.0-34.0 [facility] ([facility]) Is patient fasting? N MCHC 32.2 g/dL 31.0-36.0 [facility] ([facility]) Is patient fasting? N RDW 15.6 % 11.5-14.8 Above high normal [facility] ([facility]) Is patient fasting? N Platelets 489 10^3/uL 150-450 Above high normal [facility] ([facility]) Is patient fasting? N MPV 8.5 fL 7.4-10.4 [facility] ([facility]) Is patient fasting? N Neut 64.8 % 37.0-80.0 [facility] ([facility]) Is patient fasting? N [place] 5.2 % 3.0-8.0 [facility] ([facility]) Is patient fasting? N Eos 2.2 % 0.0-7.0 [facility] ([facility]) Is patient fasting? N Lymph 25.8 % 25.0-40.0 [facility] ([facility]) Is patient fasting? N Baso 1.0 % 0.0-2.0 [facility] ([facility]) Is patient fasting? N %NRBC 0.0 % 0.0-0.0 [facility] ([facility]) Is patient fasting? N %Ig 1.0 % 0.0-0.0 Above high normal [facility] ([facility]) Is patient fasting? N #Lymph 2.49 10^3/uL 0.60-3.40 [facility] ([facility]) Is patient fasting? N #[place] 0.50 10^3/uL 0.00-0.90 [facility] ([facility]) Is patient fasting? N #Neut 6.26 10^3/uL 2.00-6.90 [facility] ([facility]) Is patient fasting? N #Baso 0.10 10^3/uL 0.00-0.20 [facility] ([facility]) Is patient fasting? N #Eos 0.21 10^3/uL 0.00-0.70 [facility] ([facility]) Is patient fasting? N #Ig 0.10 10^3/uL 0.00-0.10 [facility] ([facility]) Is patient fasting? N Manual Diff Laboratory test result M EDENT ([facility]) Is patient fasting? N #NRBC 0.00 10^3/uL 0.00-0.00 [facility] ([facility]) Is patient fasting? N RBC Morph Laboratory test result [facility] ([facility]) Is patient fasting? N ID Date Data Source [id number] 06/16/2019 05:59:00 PM EST [facility] Name Value Range Interpretation Code Description Data Elizabeth rce(s) Supporting Document(s) Prothrombin time (PT) 12.1 SECONDS 11.0 - 15.5 [facility] INR in Platelet poor plasma by Coagulation assay 0.89 0.93 - 1. 23 L [facility] aPTT in Blood by Coagulation assay 33.6 SECONDS 24.8 - 36.7 [facility] \\BLDo\\INR INTERPRETATION\\BLDx\\ Therapeutic range for Coumadin and related oral anticoagulants. - International Normalized Ratio (INR): 2.0 - 3.0 for Venous Thrombosis, Pulmonary Embolus, Tissue heart valves, Acute SD Atrial Fibrillation, Valvular heart disease and recurrent [...] and other interferences. ID Date Data Source [id number] 06/16/2019 05:54:00 PM EST [facility] Name Value Range Interpretation Code Description Data Elizabeth rce(s) Supporting Document(s) COMPREHENSIVE METABOLIC PANEL [facility] COMPREHENSIVE METABOLIC PANEL Sodium [Moles/volume] in Serum or Plasma 127 mEq/L 134 - 153 L [facility] Potassium [Moles/volume] in Serum or Plasma 5.2 mEq/L 3.6 - 5.0 H [facility] Chloride [Moles/volume] in Serum or Plasma 98 mEq/L 98 - 107 [facility] Carbon dioxide, total [Moles/volume] in Serum or Plasma 19 MEQ/L 22 - 30 L [facility] Glucose [Mass/volume] in Serum or Plasma 89 MG/DL 65 - 110 [facility] BUN 18 MG/DL 7 - 21 [facility] Creatinine [Mass/volume] in Serum or Plasma 1.2 MG/DL 0.7 - 1.5 [facility] BUN/CREAT 15 8 - 27 [facility] Protein [Mass/volume] in Serum or Plasma 7.4 G/DL 6.3 - 8.2 [facility] Albumin [Mass/volume] in Serum or Plasma 4.3 G/DL 3.9 - 5.0 [facility] Globulin [Mass/volume] in Serum by calculation 3.1 GM/DL 2.4 - 3.2 [facility] A/G RATIO 1.4 0.8 - 2.0 [facility] Calcium [Mass/volume] in Serum or Plasma 10.0 MG/DL 8.4 - 10.2 [facility] Bilirubin.total [Mass/volume] in Serum or Plasma <0.7 MG/DL 0.2 - 1.3 [facility] Alkaline phosphatase [Enzymatic activity/volume] in Serum or Plasma 82 U/L 38 - 126 [facility] Aspartate aminotransferase [Enzymatic activity/volume] in Serum or Plasma 16 U/L 5 - 40 [facility] Alanine aminotransferase [Enzymatic activity/volume] in Seru m or Plasma 22 U/L 7 - 56 [facility] Anion gap 3 in Serum or Plasma 10.0 mmol/L 8.0 - 16.0 [facility] AGE 53 yrs [facility] NON-AA GFR >60 mL/min [facility] AFR AMER GFR >60 mL/min [facility] spital Male GFR In terprentation [...] >32 mL/min Normal ID Date Data Source [id number] 06/16/2019 05:31:00 PM EST [facility] Name Value Range Interpretation Code Description Data Elizabeth rce(s) Supporting Document(s) CBC W/AUTOMATED DIFF [facility] COMPLETE BLOOD COUNT Leukocytes [#/volume] in Blood by Automated count 9.7 10^3/uL 4.2 - 1 1.0 [facility] Erythrocytes [#/volume] in Blood by Automated count 4.10 10^6/uL 4. 50 - 6.30 L [facility] Hemoglobin [Mass/volume] in Blood 11.6 g/dL 14.0 - 16.0 L [facility] Hematocrit [Volume Fraction] of Blood by Automated count 36.0 % 4 1.0 - 51.0 L [facility] Erythrocyte mean corpuscular volume [Entitic volume] by Auto mated count 87.8 fL 80.0 - 94.0 [facility] Erythrocyte mean corpuscular hemoglobin [Entitic mass] by Automated count 28.3 pg 27.0 - 34.0 [facility] Erythrocyte mean corpuscular hemoglobin concentration [Mass/volume] by Automated count 32.2 g/dL 31.0 - 36.0 [facility] Erythrocyte distribution width [Ratio] by Automated count 15.6 % 11.5 - 14.8 H [facility] Platelets [#/volume] in Blood by Automated count 489 10^3/uL 150 - 45 0 H [facility] Platelet mean volume [Entitic volume] in Blood by Automated count 8.5 fL 7.4 - 10.4 [facility] Neutrophils/100 leukocytes in Blood by Automated count 64.8 % 37. 0 - 80.0 [facility] Lymphocytes/100 leukocytes in Blood by Manual count 25.8 % 25.0 - 40.0 [facility] Monocytes/100 leukocytes in Blood by Automated count 5.2 % 3.0 - 8.0 [facility] Eosinophils/100 leukocytes in Blood by Automated count 2.2 % 0.0 - 7.0 [facility] Basophils/100 leukocytes in Blood by Automated count 1.0 % 0.0 - 2.0 [facility] %IG 1.0 % 0.0 - 0.0 [facility] %NRBC 0.0 % 0.0 - 0.0 [facility] Neutrophils [#/volume] in Blood by Automated count 6.26 10^3/uL 2.00 - 6.90 [facility] Lymphocytes [#/volume] in Blood by Automated count 2.49 10^3/uL 0.60 - 3.40 [facility] Monocytes [#/volume] in Blood by Automated count 0.50 10^3/uL 0.00 - 0.90 [facility] Eosinophils [#/volume] in Blood by Automated count 0.21 10^3/uL 0.00 - 0.70 [facility] Basophils [#/volume] in Blood by Automated count 0.10 10^3/uL 0.00 - 0.20 [facility] #IG 0.10 10^3/uL 0.00 - 0.10 [facility] ospital #NRBC 0.00 10^3/uL 0.00 - 0.00 [facility]spital MANUAL DIFF NOT INDICATED [facility] RBC MORPH NOT INDICATED [facility] spital ID Date Data Source [id number] 05/05/2019 08:53:00 AM EST [facility] ([facility]) Name Value Range Interpretation Code Description Data Elizabeth rce(s) Supporting Document(s) Color of Urine Laboratory test result [facility] ([facility]) Appearance of Urine Laboratory test result [facility] ([facility]) Leukocytes Laboratory test result [facility] ([facility]) Spec [place] 1.010 [facility] ([facility]) pH of Urine by Test strip 5 MEDE NT ([facility]) Protein [Presence] in Urine by Test strip Laboratory test result [facility] ([facility]) Inhouse Glucose Laboratory test result [facility] ([facility]) Nitrate [Presence] in Urine Laboratory test result [facility] ([facility]) Bilirubin.total [Presence] in Urine by Test strip Laboratory test res ult [facility] Urobilinogen Laboratory test result [facility] ([facility]) Ketones [Presence] in Urine by Test strip Laboratory test result [facility] ([facility]) Blood type and Indirect antibody screen panel - Blood Laboratory test result [facility] ([facility]) ID Date Data Source [id number] 05/03/2019 07:13:00 AM EST [facility] ([facility]) Name Value Range Interpretation Code Description Data Elizabeth rce(s) Supporting Document(s) Prostate specific Ag [Mass/volume] in Serum or Plasma 4.14 ng/mL 0.00-4.00 Above upper panic limits [facility] ([facility]) \\BLDo\\PSA INTERPRETATION\\BLDx\\ The PSA assay should not [...] be used interchangeably. ID Date Data Source [id number] 05/03/2019 10:14:00 PM EST [facility] Name Value Range Interpretation Code Description Data Elizabeth rce(s) Supporting Document(s) Prostate specific Ag [Mass/volume] in Serum or Plasma 4.14 ng/mL 0.00 - 4.00 [facility] \\BLDo\\PSA INTERPRETA TION\\BLDx\\ The PSA assay [...] Body surface area 2.12 m2 2.12 m2 [facility] ([facility]) Body mass index (BMI) [Ratio] 25.5 kg/m2 25.5 k g/m2 [facility] ([facility]) Body height 73 [in_i] 73 [in_i] [facility] ([facility]) 6'1" Body weight 87.545 kg 87.545 kg [facility] ([facility]) Body weight 193.00 [lb_av] 193.00 [lb_av] [facility] T ([facility]) Oxygen saturation in Arterial blood by Pulse oximetry 98 % 98 % [facility] ([facility]) Respiratory rate 24 /min 24 /min [facility] ( [facility]) Body temperature 98.4 [degF] 98.4 [degF] [facility] ([facility]) Heart rate 94 /min 94 /min [facility] ([facility]) Diastolic blood pressure 50 mm[Hg] 50 mm[Hg] [facility] ([facility]) Systolic blood pressure 112 mm[Hg] 112 mm[Hg] [facility] ([facility]) Body weight 90.720 kg 90.720 kg [facility] ([facility]) Body mass index (BMI) [Ratio] 26.4 kg/m2 26.4 k g/m2 [facility] ([facility]) Body weight 200.00 [lb_av] 200.00 [lb_av] [facility] T ([facility]) Body height 73 [in_i] 73 [in_i] [facility] ([facility]) 6'1" Body temperature 97.5 [degF] 97.5 [degF] [facility] ([facility]) Oxygen saturation in Arterial blood by Pulse oximetry 98 % 98 % [facility] ([facility]) Room Air Heart rate 74 /min 74 /min [facility] ([facility]) Diastolic blood pressure 80 mm[Hg] 80 mm[Hg] [facility] [facility]) Systolic blood pressure 130 mm[Hg] 130 mm[Hg] M [facility] ([facility]) Body weight 88.452 kg 88.452 kg [facility] ([facility]) Body mass index (BMI) [Ratio] 25.7 kg/m2 25.7 k g/m2 [facility] ([facility]) Body weight 195.00 [lb_av] 195.00 [lb_av] [facility] ([facility], ) Body height 73 [in_i] 73 [in_i] [facility] ([facility], ) 6'1" Body temperature 98.1 [degF] 98.1 [degF] [facility] ([facility], ) Oxygen saturation in Arterial blood by Pulse oximetry 98 % 98 % [facility] ([facility], ) Room Air Heart rate 78 /min 78 /min [facility], ) Diastolic blood pressure 80 mm[Hg] 80 mm[Hg] [facility] ([facility], ) Systolic blood pressure 130 mm[Hg] 130 mm[Hg] [facility] ([facility], ) Body surface area 2.13 m2 2.13 m2 [facility] ([facility]) Body mass index (BMI) [Ratio] 25.9 kg/m2 25.9 k g/m2 [facility] ([facility]) Body height 73 [in_i] 73 [in_i] [facility] ([facility]) 6'1" Body weight 88.906 kg 88.906 kg [facility] ([facility]) Body weight 196.00 [lb_av] 196.00 [lb_av] [facility] ([facility]) Oxygen saturation in Arterial blood by Pulse oximetry 99 % 99 % [facility] ([facility]) Respiratory rate 18 /min 18 /min [facility] ( [facility]) Body temperature 98.7 [degF] 98.7 [degF] [facility] ([facility]) Heart rate 56 /min 56 /min [facility] ([facility]) Diastolic blood pressure 62 mm[Hg] 62 mm[Hg] [facility] ([facility]) Systolic blood pressure 132 mm[Hg] 132 mm[Hg] [facility] Body surface area 2.11 m2 2.11 m2 [facility] ([facility]) Body mass index (BMI) [Ratio] 25.3 kg/m2 25.3 k g/m2 [facility] ([facility]) Body height 73 [in_i] 73 [in_i] [facility] ([facility]) 6'1" Body weight 87.091 kg 87.091 kg [facility] ([facility]) Body weight 192.00 [lb_av] 192.00 [lb_av] [facility] ([facility]) Oxygen saturation in Arterial blood by Pulse oximetry 95 % 95 % [facility] ([facility]) Respiratory rate 18 /min 18 /min [facility] ( [facility]) Body temperature 98.7 [degF] 98.7 [degF] [facility] ([facility]) Heart rate 77 /min 77 /min [facility] ([facility]) Diastolic blood pressure 60 mm[Hg] 60 mm[Hg] [facility] ([facility]) Systolic blood pressure 118 mm[Hg] 118 mm[Hg] M [facility] ([facility]) Body surface area 2.11 m2 2.11 m2 [facility] ([facility]) Body mass index (BMI) [Ratio] 25.2 kg/m2 25.2 k g/m2 [facility] ([facility]) Body height 73 [in_i] 73 [in_i] [facility] ([facility]) 6'1" Body weight 86.638 kg 86.638 kg [facility] ([facility]) Body weight 191.00 [lb_av] 191.00 [lb_av] [facility] ([facility]) Oxygen saturation in Arterial blood by Pulse oximetry 97 % 97 % [facility] ([facility]) Respiratory rate 18 /min 18 /min [facility] ( [facility]) Body temperature 97.3 [degF] 97.3 [degF] [facility] ([facility]) Heart rate 80 /min 80 /min [facility] ([facility]) Diastolic blood pressure 74 mm[Hg] 74 mm[Hg] [facility] Systolic blood pressure 132 mm[Hg] 132 mm[Hg] M [facility] ([facility]) Body surface area 2.11 m2 2.11 m2 [facility] ([facility]) Body mass index (BMI) [Ratio] 25.3 kg/m2 25.3 k g/m2 [facility] ([facility]) Body height 73 [in_i] 73 [in_i] [facility] ([facility]) 6'1" Body weight 87.091 kg 87.091 kg [facility] ([facility]) Body weight 192.00 [lb_av] 192.00 [lb_av] [facility] ([facility]) Oxygen saturation in Arterial blood by Pulse oximetry 97 % 97 % [facility] ([facility]) Respiratory rate 20 /min 20 /min [facility] ( [facility]) Body temperature 97.0 [degF] 97.0 [degF] [facility] ([facility]) Heart rate 73 /min 73 /min [facility] ([facility]) Diastolic blood pressure 68 mm[Hg] 68 mm[Hg] [facility] ([facility]) Systolic blood pressure 115 mm[Hg] 115 mm[Hg] [facility] Body weight 88.452 kg 88.452 kg [facility] ([facility], ) Body mass index (BMI) [Ratio] 25.7 kg/m2 25.7 k g/m2 [facility] ([facility], ) Body weight 195.00 [lb_av] 195.00 [lb_av] [facility], [facility] Body height 73 [in_i] 73 [in_i] [facility] ([facility], ) 6'1"
[2020-05-31 13:30] VITALS: BP 97/69
[2020-05-31 14:30] VITALS: BP 98/69
[2020-05-31] MEDS ORDERED: metroNIDAZOLE 500 MG in IV 1 EA IV SCH (15:00)
[2020-05-31] MEDS ORDERED: MORPHINE 2 MG/ML 1ML VIAL (J2270) IV PRN (15:15)
[2020-05-31] MEDS ORDERED: ALBUTEROL 90 MCG/ACT 8GM HFA INHALER INH PRN (15:15)
[2020-05-31 15:30] VITALS: BP 105/72
[2020-05-31] MEDS: NS 1,000 ML IV SCH ×2 (15:31→22:42)
[2020-05-31 16:30] VITALS: BP 98/70
[2020-05-31 22:00] VITALS: BP 101/70
[2020-05-31] MEDS: metroNIDAZOLE 500 MG in IV 1 EA IV SCH (22:41)
[2020-06-01 02:00] VITALS: BP 101/70
[2020-06-01] MEDS: NS 1,000 ML IV SCH ×2 (04:43→07:36)
[2020-06-01 06:00] VITALS: BP 113/84
[2020-06-01] MEDS: metroNIDAZOLE 500 MG in IV 1 EA IV SCH (06:19)
[2020-06-01] MEDS ORDERED: TIOTROPIUM INHALER/CAPSULE (SPIRIVA) INH SCH (08:00)
[2020-06-01] MEDS ORDERED: CEPH500T PO (08:46)
[2020-06-01] MEDS ORDERED: ELIQ5TAB PO (08:46)
[2020-06-01] MEDS ORDERED: METR-265 PO (08:46)
[2020-06-01] MEDS ORDERED: SODIUM CHLORIDE 0.9% INJ 10 ML SYR IV PRN (09:00)
[2020-06-01] MEDS ORDERED: SODIUM CHLORIDE 0.9% INJ 10 ML SYR IV SCH (09:00)
--- NOTE | 2020-06-01 09:41 | IRPN ---
[facility] IR Progress Note IR Progress Note DATE: Jun 01, 2020 FOLLOW-UP: Patient sitting up eager to go home. Denies increased pain, nausea, fevers or chills. ON EXAMINATION: Vital signs temperature 97.8 heart rate 73 respiratory 18 blood pressure 113/84 sats 97% on room air Abdomen: nondistended. Mild tenderness in the epigastric region. Soft. No rebound or guarding. IMPRESSION: 54 -year-old male with complications of G-tube placement, under observation for 24 hours, treated with IV ceftriaxone and metronidazole. Patient is eager to get home. No change in vitals or abdominal examination. Patient will be discharged on Keflex and metronidazole for 10 days. Patient instructed to resume broth and clear liquids this evening. Eliquis on hold until Friday. Patient to call us if there is any increased pain, fevers or chills. Patient to follow-up on Friday with IR. Allergies Coded Allergies: No Known Allergies (Unverified , 08/12/19) Current Medications Current Medications Medications (Trade) Dose Ordered Sig/[place] Route PRN Reason Start Time Stop Time Status Last Admin Dose Admin Albuterol Sulfate (Proventil, Ventolin Hfa) 2 puff QIDP PRN INH SHORTNESS OF BREATH 05/31/20 15:15 Ceftriaxone Sodium 1 gm/ Dextrose 50 ml @ 100 mls/hr Q24H IV 06/01/20 12:00 Heparin Sodium (Heparin (Flush)) 500 units ASDIRECTED PRN IV SEE LABEL COMMENTS 06/01/20 09:00 Heparin Sodium (Heparin (Flush)) 500 units DAILY IV 06/01/20 09:00 Metronidazole 500 mg/IV Miscellaneous Supplies 100 ml @ 100 mls/hr Q12H IV 05/31/20 15:00 05/31/20 20:13 DC 05/31/20 15:31 Metronidazole 500 mg/IV Miscellaneous Supplies 100 ml @ 100 mls/hr Q8H IV 05/31/20 23:00 06/01/20 06:19 Miscellaneous (Unresolved Non-Formulary Med Order) SEE LABEL COMMENTS DAILY XX 05/31/20 09:00 05/31/20 15:24 DC Morphine Sulfate (Morphine Sulfate Inj) 1 mg Q6H PRN IV MODERATE PAIN (PS 5-7) 05/31/20 15:15 05/31/20 20:49 Sodium Chloride 1,000 ml @ 200 mls/hr Q5H IV 05/31/20 15:15 06/01/20 04:43 Sodium Chloride (Saline Lock Flush) 10 ml ASDIRECTED PRN IV SEE LABEL COMMENTS 06/01/20 09:00 Sodium Chloride (Saline Lock Flush) 10 ml DAILY IV 06/01/20 09:00 Tiotropium Arab (Spiriva Handihaler) 1 inhalation DAILY@08 INH 06/01/20 08:00 06/01/20 07:19 VS,Fishbone, I+O VS, Fishbone, I+O Vital Signs Date Time Temp Pulse Resp B/P (MAP) Pulse Ox O2 Delivery O2 Flow Rate FiO2 06/01/20 06:00 97.8 73 18 113/84 (94) 97 Room Air 05/31/20 10:53 4 I&O- Last 24 Hours up to 6 AM 06/01/20 06:00 Intake Total 1000 ml Output Total 0 ml Balance 1000 ml KIERA GALVEZ MD Jun 01, 2020 09:41
[2020-06-01] MEDS ORDERED: cefTRIAXone SOD 1 GM in D5W MINI-BAG PLUS 50 ML IV SCH (12:00)
[2020-06-14] MEDS ORDERED: ELIQ5TAB4 PO (09:17)
--- NOTE | 2020-06-21 09:50 | DS.PDOC ---
Discharge Summary General Date of Admission May 31, 2020 at 12:59 Date of Discharge June 01 2020 0900 hrs. Discharge Summary PROCEDURES PERFORMED DURING STAY: Attempted Gastrostomy placement. ADMITTING DIAGNOSES: 1. Complication of gastrostomy placement. DISCHARGE DIAGNOSES: 1. Same. COMPLICATIONS/CHIEF COMPLAINT: Head/Neck Ca. HISTORY OF PRESENT ILLNESS: Patient underwent attempted gastrostomy placement which was complicated by overlying bowel and incorrect placement. Patient was therefore admitted for observation. HOSPITAL COURSE: During patient's hospital course, his vital signs stayed stable. His pain medication requirements were minimal. No increased pain, nausea or vomiting. He had a normal bowel movement. Prior to discharge his abdominal exam remained stable without distention, rigidity or guarding. DISCHARGE MEDICATIONS: Please see below. ALLERGIES: Please see below. PHYSICAL EXAMINATION ON DISCHARGE: VITAL SIGNS: Please see below. GENERAL: Alert oriented without distress. Able to get in and out of bed without pain. HEENT: No scleral icterus NECK: Normal movements CARDIOVASCULAR EXAMINATION: Normal rate RESPIRATORY EXAMINATION: Normal breathing at rest ABDOMINAL EXAMINATION: Nondistended. Soft. Mild tenderness in the epigastric region. No rebound or guarding. EXTREMITIES: Moving all 4 extremities. SKIN: No pallor NEUROLOGICAL EXAMINATION: Alert and oriented PSYCHIATRIC EXAMINATION: Appropriate to circumstance LABORATORY DATA: Please see below. PROGNOSIS: Good ACTIVITY: As tolerated. DIET: Resume normal liquid broth diet as unable to eat solids due to dysphagia. DISCHARGE PLAN: Follow-up in IR in 1 week for reevaluation with CT. DISPOSITION: 01 Home, Self-Care. DISCHARGE INSTRUCTIONS: 1. Patient to return if there is any increase abdominal pain, nausea, vomiting or difficulty with bowel movements. DISCHARGE CONDITION: Stable. TIME SPENT ON DISCHARGE: Greater than 30 minutes. Discharge Medications Scheduled Apixaban (Eliquis) 5 Mg Tab.ds.pk, 5 MG PO DAILY, (Reported) Potassium Chloride (Potassium Chloride) 20 Meq/15 Ml Liquid, 30 ML PO DAILY Tamsulosin HCl (Flomax) 0.4 Mg Capsule, 0.4 MG PO QPM, (Reported) Umeclidinium [place] (Incruse Ellipta) 62.5 Mcg Blst.w.dev, 1 PUFF INH DAILY, (Reported) Scheduled PRN Albuterol Sulfate (Ventolin Hfa) 18 Gm Hfa.aer.ad, 2 PUFF INH QID PRN for SHORTNESS OF BREATH, (Reported) Nicotine Polacrilex (Nicotine Lozenge) 2 Mg Lozenge, 2 MG MT Q1HP PRN for SMOKING CESSATION Allergies Coded Allergies: No Known Allergies (Unverified , 08/12/19) KIERA GALVEZ MD Jun 21, 2020 09:50
[2020-07-12] MEDS ORDERED: ALBU8.5H (08:17)
[2020-07-12] MEDS ORDERED: CEPH250REC (08:17)
[2020-07-12] MEDS ORDERED: PROSLIQ PO (11:47)
[2020-07-12] MEDS ORDERED: OXYC1SOL3 PO (11:48)
== END 2020-06-01 10:29 | disposition home or self-care (01) | DRG 252 ==
LOC: M IRPRO 07:23 → M MS5PR 12:59
PROVIDERS: ADMIT Radiology Diagnostic Radiology; ATTEND Radiology Diagnostic Radiology
PROC: 0DPDXUZ Removal of Feeding Device from Lower Intestinal Tract, External Approach (ICD-10-PCS; 2020-05-31)
PROC: 0DH63UZ Insertion of Feeding Device into Stomach, Percutaneous Approach (ICD-10-PCS; principal; 2020-05-31 08:30)
DX: K94.29 Other complications of gastrostomy (principal); C76.0 Malignant neoplasm of head, face and neck; Z79.899 Other long term (current) drug therapy

== ENCOUNTER → 2020-06-07 | Outpatient (CLI) | payer OTHER ==
[~2020-06-07] MED LIST changes: +CEPH500T PO; +METR-265 PO
--- NOTE | 2020-06-07 11:50 | RADENCPD ---
Date/Time of Encounter Date of Encounter: Jun 07, 2020 Time of Encounter: 11:38 Encounter Rakan came in for a brief follow up today. He is s/p attempted PEG tube placement on 05/31/20, which was complicated by misplacement/enterotomy. He is completing antibiotics and reports no abdominal pain. He has been having significant gas, no diarrhea or loose stools. With respect to eating, he has excellent appetite and no oropharyngeal pain, however he has significant dysphagia and chokes on soft foods. He is able to drink liquids without choking or reflux. He is generally agreeable to another attempt at PEG placement and will be seeing Dr. Brandt about this tomorrow. Objective: Wt 138 lbs (From peak 202 08/19/19, stable since 05/17/20) BMI 18 T 98 P 81 RR 18 BP 101/68 Pain 0 Fatigue 2 OPX: clear no mucosal lesions, well hydrated. Neck: BL mild fibrosis palpable, no lymphadenopathy. Overlying hyperpigmentation, mild submental lymphedema. Chest: CTAB, breath sounds normal LE: No edema Assessment: No signs of abdominal infection or sequelae of complicated attempted PEG insertion. Ongoing protein calorie malnutrition in setting of chemoradiation induced dysphagia. He would benefit from in home [facility] services as well as nursing services in anticipation of possible repeat PEG placement attempt. We will facilitate additional referrals for this. If PEG is placed, then I will facilitate tube feeding/nutrition orders. I discussed the option of dobhoff placement if PEG is not recommended, neither he nor I are enthusiastic about that option. He has a reassuring exam today. He has an upcoming PET-CT in June, which will be accompanied by endoscopic evaluation of the HN by me. I will touch base with Dr. Brandt. In the meantime he can always call with any needs. JANAK MICHELLE MD Jun 07, 2020 11:50
== END ==
LOC: M ONCR 10:20
PROVIDERS: ATTEND General Practice
DX: C01 Malignant neoplasm of base of tongue (principal); C34.02 Malignant neoplasm of left main bronchus

== ENCOUNTER → 2020-06-08 | Outpatient (CLI) | payer OTHER ==
--- NOTE | 2020-06-09 10:07 | IRPN ---
[facility] IR Progress Note IR Progress Note DATE: Jun 08, 2020 FOLLOW-UP: Patient doing well today. He states his abdominal pain is gone. He is able to tolerate his usual diet of broth and yoghurt, as usual. Normal bowel movements. Passing gas without issues. No fevers or chills. He is close to completing his antibiotics. ON EXAMINATION: Abdomen is nondistended. Soft. No rebound or guarding. IMPRESSION: Patient to complete his antibiotics and return next for G- tube placement under CT guidance. Allergies Coded Allergies: No Known Allergies (Unverified , 08/12/19) KIERA GALVEZ MD Jun 09, 2020 10:07
== END ==
LOC: M IRPRO 13:16
PROVIDERS: ATTEND Radiology Diagnostic Radiology
DX: C76.0 Malignant neoplasm of head, face and neck (principal); R10.9 Unspecified abdominal pain

== ENCOUNTER 2020-06-15 13:55 | Emergency (ER) | payer OTHER ==
[~2020-06-15] VITALS: Ht 185.4 cm; Wt 61.4 kg
[~2020-06-15 13:55] MED LIST changes: -ALBU8.5H; -CEPH250REC; -ISOVUE-300 61% 50ML VIAL As Ordered ONE; -LIDOCAINE 1% MDV 20ML VIAL As Ordered ONE; -LIDOCAINE 2% JELLY 30ML As Ordered ONE; -MIDAZOLAM INJ 2MG/2ML VIAL (J2250 PER 1MG) As Ordered ONE; -POTA20EL PO; -PROMETHAZINE INJ 25 MG/ML VIAL (J2550) As Ordered ONE; -PROSLIQ PO; -ceFAZolin 1GM VIAL (J0690 PER 500MG) As Ordered ONE; -ceFAZolin 2 GM/D5W 50 ML IV BAG (J0690 PER 500MG) As Ordered ONE; -diphenhydrAMINE 50MG/ML VIAL (J1200) As Ordered ONE; -fentaNYL 100 MCG/2 ML INJECTION (J3010) As Ordered ONE
--- OUTSIDE RECORDS SUMMARY | 2020-06-15 14:03 | CCD ---
Author Author [facility] Organization [facility] Address Unknown Phone Unavailable Care Team Providers Care Animal Shelter Manager Name Role Phone Dread SANDHU MD Unavailable [...] Unavailable Unavailable Dread SANDHU MD Unavailable Unavailable Derad SANDHU MD Unavailable Unavailable Dread SANDHU MD [...] Unavailable Raffi Rojas MD Unavailable Unavailable Raffi Roajs MD Unavailable Unavailable Raffi Rojas MD Unavailable Unavailable Raffi Rojas MD Unavailable Unavailable Raffi Rojsa MD Unavailable Unavailable Raffi Rojas MD Unavailable [...] is protected by Article 27-F of the [facility] Public Health law. If you continue you may have access to information: Regarding HIV / AIDS; Provided by facilities licensed or operated by the [facility] Office of Mental Health; or Provided by the [facility] Office for People With Developmental Disabilities. If such information is present, then the following [facility] mandated warning applies: This information [...] law may result in a fine or half-way sentence or both. A general authorization for the release of medical or other information is NOT sufficient authorization for further disc losure. Allergies and Adverse Reactions Type Description Substance Reaction Status Data Source(s ) No Known Drug Allergies No Known Drug Allergies [facility] No Known Environmental Allergies No Known Environmental Al lergies [facility] No Known Food Allergies No Known Food Allergies [facility] Family History Family Member Name Family Member Gender Family Member Status Date o f Status Description Data Source(s) Unknown Male Problem [facility] ([facility]) Unknown Female Problem [facility] ([facility]) Unknown Female Problem [facility] ([facility]) Encounters Encounter Providers Location Date Indications Data Source(s ) Outpatient Attender: LEONARD RICH MDConsultant: LEONARD Quintana MD 03/09/2020 07:06:00 AM EST - 03/09/2020 07:06:00 AM EST [facility] Outpatient Attender: MEGHNA RIVAS MDConsultant: LEONARD RICH MD 02/09/2020 07:57:00 AM EDT - 02/09/2020 07:57:00 AM EDT [facility] Outpatient Attender: LEONARD RICH MDConsultant: LEONARD Quintana MD 2019 06:53:00 AM EDT - 2019 06:53:00 AM EDT [facility] Outpatient Attender: LEONARD RICH MDConsultant: LEONARD Quintana MD 10/20/2019 06:48:00 AM EDT - 10/20/2019 06:48:00 AM EDT [facility] Outpatient 10/14/2019 04:48:00 AM EDT [facility] Outpatient 10/14/2019 04:48:00 AM EDT [facility] Outpatient 09/24/2019 05:36:00 AM EDT [facility] Outpatient Attender: LEONARD RICH MD Family Practice 09/22/2019 0 4:00:00 PM EDT [facility] ([facility]) Outpatient Attender: LEONARD RICH MDConsultant: LEONARD Quintana MD 09/22/2019 03:40:00 PM EDT - 09/22/2019 03:40:00 PM EDT [facility] Outpatient 08/10/2019 05:25:00 AM EDT [facility] Outpatient Attender: Al Sandhu/Mariaelena/Chad/Radha hines 08/09/2019 08:30:00 AM EDT [facility] ([facility] Outpatient 07/30/2019 05:46:00 AM EDT [facility] Outpatient Attender: Al Sandhu/Mariaelena/Chad/R eindl 07/16/2019 10:00:00 AM EDT [facility] ([facility], ) Outpatient Attender: LEONARD RICH MDConsultant: LEONARD Quintana MD 07/06/2019 07:06:00 AM EDT - 07/06/2019 07:06:00 AM EDT [facility] Outpatient Attender: LEONARD RICH MDConsultant: LEONRAD Quintana MD 07/02/2019 09:10:00 AM EDT - 07/02/2019 10:10:00 AM EDT [facility] Outpatient Attender: LEONARD RICH MD Family [facility] 06/29/2019 0 8:20:00 AM EDT [facility] ([facility]) Outpatient Attender: LEONARD RICH MDConsultant: LEONARD Quintana MD 06/29/2019 08:05:00 AM EDT - 06/29/2019 08:05:00 AM EDT [facility] Outpatient Attender: LEONARD RICH MDConsultant: LEONARD Quintana MD 06/16/2019 12:41:00 PM EST - 06/16/2019 12:41:00 PM [facility] Outpatient Attender: MEGHNA RIVAS MDConsultant: LEONARD RICH MD 05/05/2019 08:22:00 AM EST - 05/05/2019 08:22:00 AM [facility] Outpatient Attender: Isabelle Vail MS, RPA-C Family P [facility] 05/05/2019 07:30:00 AM EST [facility] ([facility] Outpatient Attender: Isabelle Prajapati i MS, RPA-CAttender: LEONARD RICH MDReferrer: MEGHNA RIVAS MDConsultant: LEONARD RICH MD 0 05/03/2019 02:07:00 PM EST - 05/03/2019 02:17:[address] [facility] Out[facility] Attender: LEONARD RICH MDConsultant: LEONARD Quintana MD 05/03/2019 07:35:00 AM EST - 05/03/2019 07:35:00 AM [facility] Outpatient Attender: JERSON Sandhu/Mariaelena/Chad/Ike quintana 04/28/2019 08:15:00 AM EST [facility] ([facility], ) Outpatient 04/18/2019 06:26:00 PM EST [facility] Medications Medication Brand Name Start Date Product Form Dose Route Admi nistrative Instructions Pharmacy Instructions Status Indications Reaction Description Data Source(s) Cephalexin 500 MG Oral Capsule CEPHALEXIN 06/05/2020 12:00:00 AM EST capsule 30 TAKE ONE CAPSULE BY MOUTH THREE TIMES A DAY TAKE ONE C APSULE BY MOUTH THREE TIMES A DAY SOLD: 06/12/2020 [facility] Metronidazole 500 MG Oral Tablet METRONIDAZOLE 06/05/2020 12:0 0:00 AM EST tablet 30 TAKE ONE TABLET BY MOUTH THREE T IMES A DAY TAKE ONE TABLET BY MOUTH THREE TIMES A DAY SOLD: 06/12/2020 [facility] 250 mg/5 mL 06/01/2020 12:00:00 AM EST suspension for recons titution 300 TAKE 10 ML BY MOUTH THREE TIMES A DAY FOR 10 DAYS TAKE 10 ML BY MOUTH THREE TIMES A DAY FOR 10 DAYS SOLD: 06/01/2020 [facility] 5 mg 06/01/2020 12:00:00 AM EST tablet 60 TAKE 2 TABLETS TWICE DAILY FOR 5 DAYS, THEN 1 TABLET TWICE DAILY TAKE 2 TABLETS TWICE DAILY FOR 5 DAYS, T HEN 1 TABLET TWICE DAILY SOLD: 06/01/2020 [facility] Cephalexin 500 MG Oral Capsule CEPHALEXIN 05/31/2020 12:00:00 AM EST capsule 21 TAKE ONE CAPSULE BY MOUTH THREE TIMES A DAY TAKE ONE C APSULE BY MOUTH THREE TIMES A DAY SOLD: 06/01/2020 [facility] Metronidazole 500 MG Oral Tablet METRONIDAZOLE 05/31/2020 12:0 0:00 AM EST tablet 14 TAKE ONE TABLET BY MOUTH TWICE A DAY FOR SEVEN DAYS TAKE ONE TABLET BY MOUTH TWICE A DAY FOR SEVEN DAYS SOLD: 06/01/2020 [facility] 2 mg 05/18/2020 12:00:00 AM EST lozenge [...] AFTER THE SAME MEAL EACH DAY SOLD: 06/12/2020 [facility] 0.4 mg 03/17/2020 12:00:00 AM EST capsule 30 TAKE ONE CAPSULE BY MOUTH EVERY DAY 30 MINUTES AFTER THE SAME MEAL EACH DAY TAKE ONE CAPSULE BY MOUTH EVERY DAY 30 MINUTES AFTER THE SAME MEAL EACH DAY SOLD: 03/20/2020 [facility] 0.4 mg 03/17/2020 12:00:00 AM EST capsule 30 TAKE ONE CAPSULE BY MOUTH EVERY DAY 30 MINUTES AFTER THE SAME MEAL EACH DAY TAKE ONE CAPSULE BY MOUTH EVERY DAY 30 MINUTES AFTER THE SAME MEAL EACH DAY SOLD: 04/19/2020 [facility] [id number] 03/13/2020 12:00:00 AM EST suspension 480 TAKE 10ML BY MOUTH 4 TIMES DAILY NEEDED FOR MUCOSITIS TAKE 10ML BY MOUTH 4 TIMES DAILY NEED ED FOR MUCOSITIS SOLD: 04/19/2020 [facility] [id number] 03/13/2020 12:00:00 AM EST suspension 480 TAKE 10ML BY MOUTH 4 TIMES DAILY NEEDED FOR MUCOSITIS TAKE 10ML BY MOUTH 4 TIMES DAILY NEED ED FOR MUCOSITIS SOLD: 03/29/2020 [facility] 5 mg/5 mL 03/13/2020 12:00:00 AM EST solution 840 TAKE 10ML BY MOUTH EVERY 4 HOURS FOR PAIN MAXIMUM DAILY DOSE = 60ML TAKE 10ML BY MOUTH EVERY 4 HOURS FOR PAIN MAXIMUM DAILY DOSE = 60ML SOLD: 03/29/2020 [facility] [id number] 03/13/2020 12:00:00 AM EST suspension 480 TAKE 10ML BY MOUTH 4 TIMES DAILY NEEDED FOR MUCOSITIS TAKE 10ML BY MOUTH 4 TIMES DAILY NEED ED FOR MUCOSITIS SOLD: 03/29/2020 [facility] 25 mg 03/10/2020 12:00:00 AM EST [...] PUFF BY MOUTH EVERY DAY SOLD: 03/29/2020 [facility] 0.5 mg 03/03/2020 12:00:00 AM EST [...] EXPECTORATE FOUR TIMES A DAY SOLD: 01/12/2020 [facility] 5-325 mg 12/10/2019 12:00:00 AM EDT [...] TABLET BY MOUTH AT BEDTIME - MA XIMUM DAILY DOSE = 1 SOLD: 11/11/2019 [facility] [...] MOUTH EVERY DAY SOLD: 10/05/2019 [facility] 347-75-585-40 mg/30 mL 09/27/2019 12:00:00 AM EDT mouthwash 237 SWISH AND SPIT 5MLS BY MOUTH EVERY 4 HOURS NEEDED SWISH AND SPIT 5MLS BY MOUTH EVERY 4 HOURS NEEDED SOLD: 10/05/2019 [facility] 179-08-052-40 mg/30 mL 09/27/2019 12:00:00 AM EDT mouthwash 238 SWISH AND SPIT 5MLS BY MOUTH EVERY 4 HOURS NEEDED SWISH AND SPIT 5MLS BY MOUTH EVERY 4 HOURS NEEDED SOLD: 11/16/2019 [facility] 850-15-405-40 mg/30 mL 09/27/2019 12:00:00 AM EDT mouthwash 119 SWISH AND SPIT 5MLS BY MOUTH EVERY 4 HOURS NEEDED SWISH AND SPIT 5MLS BY MOUTH EVERY 4 HOURS NEEDED SOLD: 03/29/2020 [facility] 979-76-355-40 mg/30 mL 09/27/2019 12:00:00 AM EDT mouthwash [...] BY MOUTH EVERY DAY SOLD: 09/23/2019 [facility] tramadol hydrochloride 50 MG Oral Tablet [...] GAS PAIN SOLD: 09/20/2019 [facility] 682-46-285-40 mg/30 mL 09/15/2019 12:00:00 AM EDT mouthwash [...] 08/16/2019 12:00:00 AM EDT ORAL active [facility] ([facility], ) Amoxicillin 875 MG / Clavulanate 125 [...] 07/06/2019 12:00:00 AM EDT ORAL active [facility] ([facility]) Prednisone 20 MG Oral Tablet Prednisone 06/29/2019 12:00:00 AM EDT ORAL active [facility] ([facility]) 20 mg 06/29/2019 12:00:00 AM EDT [...] Y DAY SOLD: 05/31/2019 [facility] 1 mg 11/25/2018 12:00:00 AM EDT tablet 90 TAKE ONE TABLET BY MOUTH EVERY DAY TAKE ONE TABLET BY MOUTH EVERY DAY SOLD: 06/21/2019 [facility] 90 mcg/actuation 11/18/2018 12:00:00 AM EDT HFA aerosol inha ler 18 INHALE TWO PUFFS BY MOUTH EVERY 4-6 HOURS NEEDED INHALE TWO PUFFS BY MOUTH EVERY 4-6 HOURS NEEDED SOLD: 10/04/2019 [facility] 90 mcg/actuation 11/18/2018 12:00:00 AM EDT HFA aerosol inha ler 18 INHALE TWO PUFFS BY MOUTH EVERY 4-6 HOURS NEEDED INHALE TWO PUFFS BY MOUTH EVERY 4-6 HOURS NEEDED SOLD: 07/31/2019 [facility] Insurance Providers Payer name Policy type / Coverage type Policy ID Covered alliance party ID Covered alliance party's relationship to pena Policy Pean Plan Information OMAKR [id number] SP [id number] OMKAR [id number] SP [id number] [place] [id number] S [id number] [place] [id number] SP [id number] [place]/307 [id number] SP [id number] [place] [id number] 18 [id number] [place]PHYSICIAN [place] [id number] 18 [id number] EXCELLUS BCBS B [id number] S [id number] [place] PPO 302/307 [id number] SP [id number] BLUE CROSS BLUE SHIELD CL BS [id number] 18 [id number] BLUE CROSS BLUE SHIELD-O/P [id number] 18 [id number] BLUE CROSS BLUE SHIELD-O/P [id number] 18 [id number] [place] P[place] 302/307 [id number] SP [id number] [place]/307 [id number] SP [id number] Excell[employer] BCBS Health Maintenance Organization (HMO) [id number] Self [id number] Blue Cross Blue Shield CL Commercial [id number] Self [id number] BLUE CROSS BLUE SHIELD-O/P [id number] 18 [id number] Blue Cross Blue Shield CL Commercial [id number] Self [id number] Blue Cross Blue Shield CL Commercial [id number] Self [id number] Blue Cross Blue Shield CL Commercial [id number] Self [id number] BLUE CROSS BLUE SHIELD -O/P BS [id number] 18 [id number] BLUE CROSS BLUE SHIELD CL BS [id number] 18 [id number] Blue Cross Blue Shield CL Commercial [id number] Self [id number] Blue Cross Blue Shield CL Commercial [id number] Self [id number] [place] PPO 302/307 [id number] SP [id number] Blue Cross Blue Shield CL Commercial [id number] Self [id number] Blue Cross Blue Shield CL Commercial [id number] Self [id number] Blue Cross Blue Shield CL Commercial [id number] Self [id number] EXCELLUS C [id number] Self [id number] [place] PPO 302/307 [id number] SP [id number] Blue Cross Blue Shield CL Commercial [id number] Self [id number] Blue Cross Blue Shield CL Commercial [id number] Self [id number] Blue Cross Blue Shield CL Commercial [id number] Self [id number] Blue Cross Blue Shield CL Commercial [id number] Self [id number] Blue Cross Blue Shield CL Commercial [id number] Self [id number] BLUE CROSS BLUE SHIELD -PHYSICIAN [id number] 18 [id number] Blue Cross Blue Shield CL Commercial [id number] Self [id number] Blue Cross Blue Shield CL Commercial [id number] Self [id number] BLUE CROSS BLUE SHIELD-CLINIC [id number] 18 [id number] BLUE CROSS BLUE SHIELD CL BS [id number] 18 [id number] Blue Cross Blue Shield CL Commercial [id number] Self [id number] Blue Cross Blue Shield CL Commercial Self EXCELLUS BCBS B [id number] S [id number] 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 [id number] SP [id number] ANJELICA CONCRETE [id number] SP [id number] [place]BS [place] PPO 302/307 [id number] SP [id number] OTHER WORKERS COMPENSATION [id number] BLUE CROSS BLUE SHIELD-O/P [id number] 18 [id number] [facility] [id number] 18 [id number] [facility] [id number] 18 [id number] [facility] [id number] 18 [id number] [facility] [id number] 18 [id number] [facility] [id number] 18 [id number] Problems, Conditions, and Diagnoses Code Display Name Description Problem Type Effective Dates Data Source(s) G4700 Insomnia, unspecified Insomnia, unspecified Diagnosis 03/09/2020 07:06:00 AM [facility] E559 Vitamin D deficiency, unspecified Vitamin D defi ciency, unspecified Diagnosis 03/09/2020 07:06:00 AM [facility] I10 Essential (primary) hypertension Essential (primary) h ypertension Diagnosis 03/09/2020 07:06:00 AM [facility] N400 Benign prostatic hyperplasia without low er urinary tract symptoms Benign prostatic hyperplasia without lower urinary tract symptoms Diagnosis 03/09/2020 07:06:00 AM [facility] 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, unspec ified Malignant neoplasm of oropharynx, unspecified Diagnosis 03/09/2020 07:06:00 AM [facility] C3490 Malignant neoplasm of unspecified part o f unspecified bronchus or lung Malignant neoplasm of unspecified part of unspecified bronchus or lung Diagnosis 03/09/2020 07:06:00 AM [facility] R9720 Elevated prostate specific antigen [PSA] Elevated prostate specific antigen [PSA] Diagnosis 02/09/2020 07:57:00 AM EDT [facility] [id number] Nicotine dependence, cigarettes, uncompl icated Nicotine dependence, cigarettes, uncomplicated Diagnosis 2019 06:53:00 AM EDT [facility] J449 Chronic obstructive pulmonary disease, u nspecified Chronic obstructive pulmonary disease, unspecified Diagnosis 2019 06:53:00 AM EDT [facility] N183 Chronic kidney disease, stage 3 (moderat e) Chronic kidney disease, stage 3 (moderate) Diagnosis 2019 06:53:00 AM EDT [facility] 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, left elbow Idiopathic gout, left elbo w Diagnosis 2019 06:53:00 AM EDT [facility] E785 Hyperlipidemia, unspecified Hyperlipidemia, unspecifie d Diagnosis 2019 06:53:00 AM EDT [facility] 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 Secondary malignant neoplasm of other specified sites Diagnosis 10/20/2019 06:48:00 AM EDT [facility] 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, left b ronchus or lung Malignant neoplasm of upper lobe, left bronchus or lung Diagnosis 10/20/2019 06:48:00 AM EDT [facility] R918 Other nonspecific abnormal finding of cynthia ng field Other nonspecific abnormal finding of lung field Diagnosis 07/06/2019 07:06:00 AM EDT [facility] 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, left knee Ost eochondritis dissecans, left knee Diagnosis 07/06/2019 07:06:00 AM EDT [facility] J189 Pneumonia, unspecified organism Pneumonia, unspecified organism Diagnosis 07/02/2019 09:10:00 AM EDT [facility] R911 Solitary pulmonary nodule Solitary pulmonary nodule Di agnosis 07/02/2019 09:10:00 AM EDT [facility] X06327 Effusion, left knee Effusion, left knee Diagnosis 0 06/29/2019 08:05:00 AM T [facility] [id number] Encounter for other preprocedural examin ation Encounter for other preprocedural examination Diagnosis 06/16/2019 12:41:00 PM [facility] Surgeries/Procedures Procedure Description Date Indications Data Source(s) Bronchoscopy W/Brushing Or Protected Brushings 020 12:00:00 AM EDT [facility] ([facility], ) Bronchoscopy W/Transbronchial Lung Biopsy 08/03/2019 1 2:00:00 AM EDT [facility] ([facility], ) Spirometry 07/16/2019 12:00:00 AM EDT [facility] ([facility], ) Electrocardiogram Complete 06/16/2019 12:00:00 AM EST [facility] ([facility]) LARYNGOSCOPY FLEXIBLE FIBEROPTIC DIAGNOSTIC 04/28/2019 12:00:00 AM EST [facility] ([facility], ) Results ID Date Data Source [id number] 05/03/2020 11:27:00 AM EST [facility] Name Value Range Interpretation Code Description Data Elizabeth rce(s) Supporting Document(s) SARS coronavirus 2 RNA [Presence] in Res piratory specimen by JARVIS with probe detection NEGATIVE [place] This lab was ordered by [facility] a nd reported by [facility]. ID Date Data Source [id number] 11/24/2019 02:33:00 PM EDT [facility] Name Value Range Interpretation Code Description Data Elizabeth rce(s) Supporting Document(s) Prostate specific Ag [Mass/volume] in Serum or Plasma 6.5 ng/mL 0.0- 4.0 H [facility] Mark ECLIA methodology.According to the [employer] [employer], Serum PSA shoulddecrease and remain at undetectable levels after radicalprostatectomy. The AUA defines biochemical recurrence as an initialPSA value 0.2 ng/mL or greater followed by a subsequent confirmatoryPSA value 0.2 ng/mL or greater.Values obtained with different assay methods or kits cannot be usedinterchangeably. Results cannot be interpreted as absolute evidenceof the presence or absence of malignant disease. Reflex Criteria COMMENT [facility] The percent free PSA is performed on a r eflex basis only when thetotal PSA is between 4.0 and 10.0 ng/mL. Prostate Specific Ag Free [Mass/volume] in Serum or Plasma 1.15 ng/mL N/A [facility] Mark ECLIA methodology. Prostate Specific Ag Free/Prostate specific Ag.total in Seru m or Plasma 17.7 % [facility] The table below lists the [...] population of men. ID Date Data Source [id number] 2019 01:40:00 PM EDT [facility] Name Value Range Interpretation Code Description Data Elizabeth rce(s) Supporting Document(s) COMPREHENSIVE METABOLIC PANEL [facility] COMPREHENSIVE METABOLIC PANEL Sodium [Moles/volume] in Serum or Plasma 133 mEq/L 134 - 153 L [facility] Potassium [Moles/volume] in Serum or Plasma 5.1 mEq/L 3.6 - 5.0 H [facility] Chloride [Moles/volume] in Serum or Plasma 98 mEq/L 98 - 107 [facility] Carbon dioxide, total [Moles/volume] in Serum or Plasma 23 MEQ/L 22 - 30 [facility] Glucose [Mass/volume] in Serum or Plasma 99 MG/DL 65 - 110 [facility] BUN 15 MG/DL 7 - 21 [facility] Creatinine [Mass/volume] in Serum or Plasma 1.7 MG/DL 0.7 - 1.5 H [facility] BUN/CREAT 9 8 - 27 [facility] Protein [Mass/volume] in Serum or Plasma 6.6 G/DL 6.3 - 8.2 [facility] Albumin [Mass/volume] in Serum or Plasma 4.3 G/DL 3.9 - 5.0 [facility] Globulin [Mass/volume] in Serum by calculation 2.3 GM/DL 2.4 - 3.2 L [facility] A/G RATIO 1.9 0.8 - 2.0 [facility] Calcium [Mass/volume] in Serum or Plasma 9.7 MG/DL 8.4 - 10.2 [facility] Bilirubin.total [Mass/volume] in Serum or Plasma <0.7 MG/DL 0.2 - 1.3 [facility] Alkaline phosphatase [Enzymatic activity/volume] in Serum or Plasma 77 U/L 38 - 126 [facility] Aspartate aminotransferase [Enzymatic activity/volume] in Serum or Plasma 19 U/L 5 - 40 [facility] Alanine aminotransferase [Enzymatic activity/volume] in Seru m or Plasma 17 U/L 7 - 56 [facility] Anion gap 3 in Serum or Plasma 12.0 mmol/L 8.0 - 16.0 [facility] AGE [address] [facility] NON-AA GFR 45 mL/min [facility] AFR AMER GFR 54 mL/min [facility] Male GFR In terprentation [...] >32 mL/min Normal ID Date Data Source [id number] 2019 01:36:00 PM EDT [facility] Name Value Range Interpretation Code Description Data Elizabeth rce(s) Supporting Document(s) Thyroxine (T4) free index in Serum or Plasma by calculation 1.01 NG/DL 0.93 - 1.70 [facility] ID Date Data Source [id number] 2019 01:36:00 PM EDT [facility] Name Value Range Interpretation Code Description Data Elizabeth rce(s) Supporting Document(s) Thyrotropin [Units/volume] in Serum or Plasma by Detec tion limit <= 0.05 mIU/L 3.45 uIU/mL 0.47 - 5.01 [facility] ID Date Data Source [id number] 2019 01:29:00 PM EDT [facility] Name Value Range Interpretation Code Description Data Elizabeth rce(s) Supporting Document(s) CVE PANEL [facility] LIPID PANEL Cholesterol [Mass/volume] in Serum or Plasma 183 MG/DL 131 - 200 [facility] Deprecated Triglyceride [Mass/volume] in Serum or Plasma 113 MG/DL 3 5 - 160 [facility] HDL 44 MG/DL 29 - 86 [facility] Cholesterol in LDL [Mass/volume] in Serum or Plasma by Direc t assay 120 mg/dL 65 - 175 [facility] Cholesterol.total/Cholesterol in HDL [Mass Ratio] in Serum o r Plasma 4.2 3.4 - 4.9 [facility] LDL/HDL 2.73 1.00 - 3.55 [facility] ital CVE RISK CHOL/HDL LDL/HDLMEN: 1/2 AVERAGE 3.43 1.00 AVERAGE 4.97 3.55 2X AVERAGE 9.55 6.25 3X AVERAGE 23.99 7.99WOMEN: 1/2 AVERAGE 3.27 1.47 AVERAGE 4.44 3.22 2X AVERAGE 7.05 5.03 3X AVERAGE 11.04 6.14 ID Date Data Source [id number] 09/24/2019 08:43:00 AM EDT [facility] ([facility]) Name Value Range Interpretation Code Description Data Elizabeth rce(s) Supporting Document(s) Magnesium [Mass/volume] in Serum or Plasma 2.2 mg/dL 1.8-2 .4 Normal (applies to non-numeric results) [facility] ([facility]) ID Date Data Source [id number] 09/24/2019 08:43:00 AM EDT [facility] ([facility]) Name Value Range Interpretation Code Description Data Elizabeth rce(s) Supporting Document(s) Blood Urea Nitrogen 100 mg/dL 7-18 Above high normal [facility] ([facility]) Glucose, Fasting 113 mg/dL 70-100 Above high normal [facility] ([facility]) Creatinine For GFR 4.31 mg/dL 0.70-1.30 Above high normal [facility] ([facility]) Sodium Level 133 meq/L 136-145 Below low normal [facility] ([facility]) Glomerular Filtration Rate 15.3 Below low normal [facility] ([facility]) <content>Units are mL/min/1.73 m2</content>
<content></content>
<content>Chronic Kidney Disease Staging per NKF:</content>
<content></content>
<content>Stage I & II GFR >=60 Normal to Mildly Decreased</content>
<content>Stage III GFR 30- 59 Moderately Decreased</content>
<content>Stage IV GFR 15-29 Severely Decreased</content>
<content>Stage V GFR <15 Very Little GFR Left</content>
<content>ESRD GFR <15 on INFORMATICS EDUCATOR</content>
<content></content> Carbon Dioxide Level 14 meq/L 21-32 Below low normal [facility] ([facility]) Chloride Level 102 meq/L 98-107 Normal (applies to non-numeric r esults) [facility] ([facility]) Potassium Serum 5.3 meq/L 3.5-5.1 Above high normal [facility] ([facility]) Anion Gap 17 meq/L 8-16 Above high normal [facility] ([facility]) Calcium Level 9.3 mg/dL 8.5-10.1 Normal (applies to non-numeric re sults) [facility] ([facility]) Ast/Sgot 15 U/L 7-37 Normal (applies to non-numeric resul ts) [facility] ([facility]) Alt/SGPT 28 U/L 12-78 Normal (applies to non-numeric resul ts) [facility] ([facility]) Bilirubin,Total 0.4 mg/dL 0.2-1.0 Normal (applies to non-numeric results) [facility] ([facility]) Alkaline Phosphatase 93 U/L 45-117 Normal (applies to non-num mercy results) [facility] ([facility]) Albumin/Globulin Ratio 0.7 Normal (applies to non-n umeric results) [facility] ([facility]) Total Protein 6.5 GM/DL 6.4-8.2 Normal (applies to non-numeric re sults) [facility] ([facility]) Albumin 2.6 GM/DL 3.2-5.2 Below low normal [facility] ( [facility]) ID Date Data Source [id number] 09/24/2019 08:43:00 AM EDT [facility] ([facility]) Name Value Range Interpretation Code Description Data Elizabeth rce(s) Supporting Document(s) Neutrophils % 75.6 % 36.0-66.0 Above high normal [facility] ([facility]) Eos % 0.0 % 0.0-3.0 Normal (applies to non-numeric resul ts) [facility] ([facility]) Lymph % 5.1 % 24.0-44.0 Below low normal [facility] ( [facility]) [place] % 1.3 % 0.0-5.0 Normal (applies to non-numeric resul ts) [facility] ([facility]) Baso % 0.2 % 0.0-1.0 Normal (applies to non-numeric resul ts) [facility] ([facility]) Immature Granulocyte % 17.8 % 0-3.0 Above high normal [facility] ([facility]) Lymph # 1.1 10 1.5-5.0 Below low normal [facility] ( [facility]) Neutrophils # 16.7 10 1.5-8.5 Above high normal [facility] ([facility]) [place] # 0.3 10 0.0-0.8 Normal (applies to non-numeric resul ts) [facility] ([facility]) Baso # 0.0 10 0.0-0.2 Normal (applies to non-numeric resul ts) [facility] ([facility]) Eos # 0.0 10 0.0-0.5 Normal (applies to non-numeric resul ts) [facility] ([facility]) ID Date Data Source [id number] 09/24/2019 08:43:00 AM EDT [facility] ([facility]) Name Value Range Interpretation Code Description Data Elizabeth rce(s) Supporting Document(s) Red Blood Count 3.64 10 4.30-6.10 Below low normal [facility] ([facility]) White Blood Count 22.1 10 4.0-10.0 Above high normal [facility] ([facility]) Hemoglobin 11.1 g/dL 13.5-17.5 Below low normal [facility] ( [facility]) Mean Corpuscular Volume 91.5 fl 80.0-96.0 Normal ( applies to non-numeric results) [facility] ([facility]) Hematocrit 33.3 % 42.0-52.0 Below low normal [facility] ( [facility]) Red Cell Distribution Width 15.2 % 11.5-14.5 Above high normal [facility] ([facility]) Mean Corpuscular Hemoglobin 30.5 pg 27.0-33.0 Norm al (applies to non-numeric results) [facility] ([facility]) Mean Corpuscular HGB Conc 33.3 g/dL 32.0-36.5 Normal (applies to non-numeric results) [facility] ([facility]) Nucleated Red Blood Cell % 0.0 % 0-0 Normal (applies to n on-numeric results) [facility] ([facility]) Platelet Count, Automated 463 10 150-450 Above high normal [facility] ID Date Data Source [id number] 09/12/2019 04:34:00 PM EDT [facility] ([facility]) Name Value Range Interpretation Code Description Data Elizabeth rce(s) Supporting Document(s) Laboratory test finding (navigational concept) 35.0 % 3 8.0-51.0 Below low normal [facility] ([facility]) Laboratory test finding (navigational concept) 129 meq/L 1 36-145 Below low normal [facility] Laboratory test finding (navigational concept) 97 mg/dL 7 0-105 Normal (applies to non-numeric results) [facility] ([facility]) Laboratory test finding (navigational concept) 4.1 meq/L 3 .5-5.1 Normal (applies to non-numeric results) [facility] Laboratory test finding (navigational concept) 97 meq/L 98-109 Below low normal [facility] ([facility]) Laboratory test finding (navigational concept) 18.0 MM/L 2 3.0-27.0 Below low normal [facility] ([facility]) Laboratory test finding (navigational concept) 4.4 mg/dL 4 .5-5.3 Below low normal [facility] ([facility]) Laboratory test finding (navigational concept) 1.2 mg/dL 0 .6-1.3 Normal (applies to non-numeric results) [facility] Laboratory test finding (navigational concept) 19 mg/dL 8 -26 Normal (applies to non-numeric results) [facility] ([facility]) ID Date Data Source [id number] 09/12/2019 04:33:00 PM EDT [facility] ([facility]) Name Value Range Interpretation Code Description Data Elizabeth rce(s) Supporting Document(s) Color, Urine RFX Laboratory test result Normal ( applies to non-numeric results) [facility] ([facility]) Appearance, Urine RFX Laboratory test result Nor mal (applies to non-numeric results) [facility] ([facility]) Specific [place] Ur Auto RFX 1.012 1.002-1.035 Nor mal (applies to non-numeric results) [facility] ([facility]) PH,Urine RFX 6.0 units 5.0-9.0 Normal (applies to non-numeric res ults) [facility]) Protein, Urine Auto RFX Laboratory test result N ormal (applies to non-numeric results) [facility] ([facility]) Glucose, Urine (Ua) Auto RFX Laboratory test result Normal (applies to non- numeric results) [facility] ([facility]) Ketone, Urine Auto RFX Laboratory test result No rmal (applies to non-numeric results) [facility] ([facility]) Urobilinogen, Urine Auto RFX 0.2 mg/dL 0.0-2.0 Nor mal (applies to non-numeric results) [facility]) Bilirubin, Urine Auto RFX Laboratory test result Normal (applies to non- numeric results) [facility] ([facility]) Nitrite, Urine Auto RFX Laboratory test result N ormal (applies to non-numeric results) [facility] ([facility]) WBC, Urine Auto RFX 1 /HPF 0-3 Normal (applies to non-nume radha results) [facility] ([facility]) Leukocyte Esterase Ur Auto RFX Laboratory test result Normal (applies to non- numeric results) [facility]) Blood, Urine Blood RFX Laboratory test result Above high n ormal [facility] ([facility]) Bacteria, Urine Auto RFX Laboratory test result Normal (applies to non-numeric results) [facility] ([facility]) RBC, Urine Auto RFX 1 /HPF 0-3 Normal (applies to non-nume radha results) [facility] ([facility]) Squam Epithelial Cell Ur Aurfx 0 /HPF 0-6 N ormal (applies to non-numeric results) [facility] ([facility]) Hyaline Cast, Urine Auto RFX 0 /LPF 0-1 Normal (appl ies to non-numeric results) [facility] ([facility]) Mucus, Urine RFX Laboratory test result Normal ( applies to non-numeric results) [facility] ([facility]) ID Date Data Source [id number] 09/12/2019 04:13:00 PM EDT [facility] ([facility]) Name Value Range Interpretation Code Description Data Elizabeth rce(s) Supporting Document(s) White Blood Count 0.8 10 4.0-10.0 Below lower panic limits [facility] ([facility]) Red Blood Count 3.67 10 4.30-6.10 Below low normal [facility] ([facility]) Hemoglobin 11.2 g/dL 13.5-17.5 Below low normal [facility] ( [facility]) Hematocrit 32.2 % 42.0-52.0 Below low normal [facility] ( [facility]) Mean Corpuscular HGB Conc 34.8 g/dL 32.0-36.5 Normal (applies to non-numeric results) [facility] ([facility]) Mean Corpuscular Volume 87.7 fl 80.0-96.0 Normal ( applies to non-numeric results) [facility] ([facility]) Mean Corpuscular Hemoglobin 30.5 pg 27.0-33.0 Norm al (applies to non-numeric results) [facility] ([facility]) Red Cell Distribution Width 14.6 % 11.5-14.5 Above high normal [facility] ([facility]) Platelet Count, Automated 107 10 150-450 Below low normal [facility] ([facility]) Nucleated Red Blood Cell % 0.0 % 0-0 Normal (applies to n on-numeric results) [facility] ([facility]) ID Date Data Source [id number] 09/12/2019 04:13:00 PM EDT [facility] ([facility]) Name Value Range Interpretation Code Description Data Elizabeth rce(s) Supporting Document(s) Neutrophils 13 % 28-66 Below low normal [facility] ([facility]) Bands 1 % Normal (applies to non-numeric resul ts) [facility] ([facility]) Lymphocytes 81 % 16-44 Above high normal [facility] ([facility]) Eosinophils 2 % 0-3 Normal (applies to non-numeric resu lts) [facility] ([facility]) Monocytes 1 % 0-5 Normal (applies to non-numeric resul ts) [facility] ([facility]) Basophils 2 % 0-1 Above high normal [facility] ([facility]) RBC Morphology Laboratory test result Normal (applies to non-numeric results) [facility] ([facility]) ID Date Data Source [id number] 09/12/2019 04:13:00 PM EDT [facility] ([facility]) Name Value Range Interpretation Code Description Data Elizabeth rce(s) Supporting Document(s) Platelets [#/volume] in Blood by Estimate Laboratory test result Normal (applies to non-numeric results) [facility] ([facility]) ID Date Data Source [id number] 09/12/2019 04:13:00 PM EDT [facility] ([facility]) Name Value Range Interpretation Code Description Data Elizabeth rce(s) Supporting Document(s) CPK Creatine Phosphokinase 66 U/L 39-308 Adelia l (applies to non-numeric results) [facility] ([facility]) CK-MB Value Mass Laboratory test result Normal ( applies to non-numeric results) [facility] ([facility]) MB/CK Relative Index 1.52 Normal (applies to non-num mercy results) [facility] ([facility]) <content>DIAGNOSIS CRITERIA</content>
<content>MMB ng/ml Relative Index (RI)</content>
<content>NON-AMI < or = 5 N/A</content>
<content>STRONG ZONE > 5 < or = 4</content>
<content>AMI > 5 > 4</content>
<content></content> Troponin I Laboratory test result Normal (applies to non-n umeric results) [facility] ([facility]) <content>Troponin I Reference Interval f or Siemens [place] LOCI:</content>
<content></content>
<content>99th Percentile= 0.00-0.045 ng/ml</content>
<content></content>
<content>Risk Stratification:</content>
<content><= 0.10 ng/ml Decreased Risk for Adverse Clinical</content>
<content>Events.</content>
<content>0.10-1.50 ng/ml Increased Risk for Adverse Clinical</content>
<content>Events. Evaluation of additional</content>
<content>criterion and/or repeat testing in 2-6</content>
<content>hours is suggested to rule out myocardial</content>
<content>damage.</content>
<content>>= 1.50 ng/ml Indicative of Myocardial Injury.</content>
<content></content> ID Date Data Source [id number] 09/12/2019 04:13:00 PM EDT [facility] ([facility]) Name Value Range Interpretation Code Description Data Elizabeth rce(s) Supporting Document(s) Ast/Sgot 20 U/L 7-37 Normal (applies to non-numeric resul ts) [facility] ([facility]) Alt/SGPT 33 U/L 12-78 Normal (applies to non-numeric resul ts) [facility] ([facility]) Bilirubin,Total 0.6 mg/dL 0.2-1.0 Normal (applies to non-numeric results) [facility] ([facility]) Alkaline Phosphatase 58 U/L 45-117 Normal (applies to non-num mercy results) [facility]) Bilirubin,Direct 0.2 mg/dL 0.0-0.2 Normal (applies to non-numeric results) [facility] ([facility]) Albumin/Globulin Ratio 1.0 Normal (applies to non-n umeric results) [facility] ([facility]) Total Protein 6.3 GM/DL 6.4-8.2 Below low normal [facility] ([facility]) Albumin 3.1 GM/DL 3.2-5.2 Below low normal [facility] ( [facility]) ID Date Data Source [id number] 09/12/2019 04:13:00 PM EDT [facility] ([facility]) Name Value Range Interpretation Code Description Data Elizabeth rce(s) Supporting Document(s) Thyrotropin [Units/volume] in Serum or Plasma 1.590 uIU/ML 0. 358-3.740 Normal (applies to non-numeric results) [facility] ([facility]) Thyroxine (T4) [Mass/volume] in Serum or Plasma 8.4 ug/dL 4.5-12.0 Normal (applies to non-numeric results) [facility] ([facility]) Lactate [Mass/volume] in Serum or Plasma 0.6 mmol/L 0.4-2.0 Normal (applies to non-numeric results) [facility] ([facility]) Y/N query for Sepsis Lactate Rule: Y ID Date Data Source [id number] 09/10/2019 08:22:00 AM EDT [facility] ([facility]) Name Value Range Interpretation Code Description Data Elizabeth rce(s) Supporting Document(s) Glucose, Fasting 107 mg/dL 70-100 Above high normal [facility] ([facility]) Creatinine For GFR 1.20 mg/dL 0.70-1.30 Normal (applies to non -numeric results) [facility] ([facility]) Blood Urea Nitrogen 25 mg/dL 7-18 Above high normal [facility] ([facility]) Sodium Level 134 meq/L 136-145 Below low [facility] Glomerular Filtration Rate Laboratory test result Normal (applies to non- numeric results) [facility] ([facility]) <content>Units are mL/min/1.73 m2</content>
<content></content>
<content>Chronic Kidney Disease Staging per NKF:</content>
<content></content>
<content>Stage I & II GFR >=60 Normal to Mildly Decreased</content>
<content>Stage III GFR 30- 59 Moderately Decreased</content>
<content>Stage IV GFR 15-29 Severely Decreased</content>
<content>Stage V GFR <15 Very Little GFR Left</content>
<content>ESRD GFR <15 on INFORMATICS EDUCATOR</content>
<content></content> Potassium Serum 3.7 meq/L 3.5-5.1 Normal (applies to non-numeric results) [facility] ([facility]) Chloride Level 104 meq/L 98-107 Normal (applies to non-numeric r esults) [facility] ([facility]) Carbon Dioxide Level 21 meq/L 21-32 Normal (applies to non-num mercy results) [facility] ([facility]) Calcium Level 7.4 mg/dL 8.5-10.1 Below low normal [facility] ([facility]) Anion Gap 9 meq/L 8-16 Normal (applies to non-numeric resul ts) [facility] ([facility]) Alkaline Phosphatase 62 U/L 45-117 Normal (applies to non-num mercy results) [facility] ([facility]) Alt/SGPT 47 U/L 12-78 Normal (applies to non-numeric resul ts) [facility] ([facility]) Ast/Sgot 35 U/L 7-37 Normal (applies to non-numeric resul ts) [facility] ([facility]) Bilirubin,Total 0.5 mg/dL 0.2-1.0 Normal (applies to non-numeric results) [facility] ([facility]) Total Protein 6.1 GM/DL 6.4-8.2 Below low normal [facility] ([facility]) Albumin 3.0 GM/DL 3.2-5.2 Below low normal [facility] ( [facility]) Albumin/Globulin Ratio 1.0 Normal (applies to non-n umeric results) [facility] ([facility]) ID Date Data Source [id number] 09/08/2019 08:14:00 AM EDT [facility] ([facility]) Name Value Range Interpretation Code Description Data Elizabeth rce(s) Supporting Document(s) Glucose, Fasting 110 mg/dL 70-100 Above high normal [facility] ([facility]) Blood Urea Nitrogen 17 mg/dL 7-18 Normal (applies to non-nume radha results) [facility] ([facility]) Glomerular Filtration Rate Laboratory test result Normal (applies to non- numeric results) [facility] ([facility]) <content>Units are mL/min/1.73 m2</content>
<content></content>
<content>Chronic Kidney Disease Staging per NKF:</content>
<content></content>
<content>Stage I & II GFR >=60 Normal to Mildly Decreased</content>
<content>Stage III GFR 30- 59 Moderately Decreased</content>
<content>Stage IV GFR 15-29 Severely Decreased</content>
<content>Stage V GFR <15 Very Little GFR Left</content>
<content>ESRD GFR <15 on INFORMATICS EDUCATOR</content>
<content></content> Creatinine For GFR 1.28 mg/dL 0.70-1.30 Normal (applies to non -numeric results) [facility] ([facility]) Sodium Level 136 meq/L 136-145 Normal (applies to non-numeric res ults) [facility] ([facility]) Potassium Serum 3.8 meq/L 3.5-5.1 Normal (applies to non-numeric results) [facility] ([facility]) Chloride Level 106 meq/L 98-107 Normal (applies to non-numeric r esults) [facility] ([facility]) Carbon Dioxide Level 20 meq/L 21-32 Below low normal [facility] ([facility]) Ast/Sgot 27 U/L 7-37 Normal (applies to non-numeric resul ts) [facility] ([facility]) Calcium Level 7.3 mg/dL 8.5-10.1 Below low normal [facility] ([facility]) Anion Gap 10 meq/L 8-16 Normal (applies to non-numeric resul ts) [facility] ([facility]) Alt/SGPT 40 U/L 12-78 Normal (applies to non-numeric resul ts) [facility] ([facility]) Bilirubin,Total 0.4 mg/dL 0.2-1.0 Normal (applies to non-numeric results) [facility] ([facility]) Alkaline Phosphatase 63 U/L 45-117 Normal (applies to non-num mercy results) [facility] ([facility]) Total Protein 6.6 GM/DL 6.4-8.2 Normal (applies to non-numeric re sults) [facility] ([facility]) Albumin 3.2 GM/DL 3.2-5.2 Normal (applies to non-numeric resul ts) [facility] ([facility]) Albumin/Globulin Ratio 0.9 Normal (applies to non-n umeric results) [facility] ([facility]) ID Date Data Source [id number] 09/07/2019 10:25:00 AM EDT [facility] ([facility]) Name Value Range Interpretation Code Description Data Elizabeth rce(s) Supporting Document(s) Glucose, Fasting 118 mg/dL 70-100 Above high normal [facility] Blood Urea Nitrogen 16 mg/dL 7-18 Normal (applies to non-nume radha results) [facility] ([facility]) Creatinine For GFR 1.14 mg/dL 0.70-1.30 Normal (applies to non -numeric results) [facility] ([facility]) Glomerular Filtration Rate Laboratory test result Normal (applies to non- numeric results) [facility]) <content>Units are mL/min/1.73 m2</content>
<content></content>
<content>Chronic Kidney Disease Staging per NKF:</content>
<content></content>
<content>Stage I & II GFR >=60 Normal to Mildly Decreased</content>
<content>Stage III GFR 30- 59 Moderately Decreased</content>
<content>Stage IV GFR 15-29 Severely Decreased</content>
<content>Stage V GFR <15 Very Little GFR Left</content>
<content>ESRD GFR <15 on INFORMATICS EDUCATOR</content>
<content></content> Sodium Level 137 meq/L 136-145 Normal (applies to non-numeric res ults) [facility] ([facility]) Potassium Serum 4.5 meq/L 3.5-5.1 Normal (applies to non-numeric results) [facility] ([facility]) Chloride Level 110 meq/L 98-107 Above high normal [facility] ([facility]) Carbon Dioxide Level 21 meq/L 21-32 Normal (applies to non-num mercy results) [facility] ([facility]) Ast/Sgot 23 U/L 7-37 Normal (applies to non-numeric resul ts) [facility] ([facility]) Calcium Level 7.1 mg/dL 8.5-10.1 [facility] Anion Gap 6 meq/L 8-16 Below low normal [facility] ( [facility]) Alkaline Phosphatase 65 U/L 45-117 Normal (applies to non-num mercy results) [facility] ([facility]) Alt/SGPT 36 U/L 12-78 Normal (applies to non-numeric resul ts) [facility] ([facility]) Bilirubin,Total 0.3 mg/dL 0.2-1.0 Normal (applies to non-numeric results) [facility] ([facility]) Total Protein 6.3 GM/DL 6.4-8.2 Below low normal [facility] ([facility]) Albumin 3.1 GM/DL 3.2-5.2 Below low normal [facility] ( [facility]) Albumin/Globulin Ratio 1.0 Normal (applies to non-n umeric results) [facility] ([facility]) ID Date Data Source [id number] 09/06/2019 07:49:00 AM EDT [facility] ([facility]) Name Value Range Interpretation Code Description Data Elizabeth rce(s) Supporting Document(s) Magnesium [Mass/volume] in Serum or Plasma 1.2 mg/dL 1.8-2.4 [place] w low normal [facility] ([facility]) ID Date Data Source [id number] 09/06/2019 07:49:00 AM EDT [facility] ([facility]) Name Value Range Interpretation Code Description Data Elizabeth rce(s) Supporting Document(s) Blood Urea Nitrogen 18 mg/dL 7-18 Normal (applies to non-nume radha results) [facility] ([facility]) Glucose, Fasting 183 mg/dL 70-100 Above high normal [facility] ([facility]) Creatinine For GFR 1.54 mg/dL 0.70-1.30 Above high normal [facility] ([facility]) Sodium Level 132 meq/L 136-145 Below low normal [facility] Glomerular Filtration Rate 50.2 Below low normal [facility] ([facility]) <content>Units are mL/min/1.73 m2</content>
<content></content>
<content>Chronic Kidney Disease Staging per NKF:</content>
<content></content>
<content>Stage I & II GFR >=60 Normal to Mildly Decreased</content>
<content>Stage III GFR 30- 59 Moderately Decreased</content>
<content>Stage IV GFR 15-29 Severely Decreased</content>
<content>Stage V GFR <15 Very Little GFR Left</content>
<content>ESRD GFR <15 on INFORMATICS EDUCATOR</content>
<content></content> Carbon Dioxide Level 20 meq/L 21-32 Below low normal [facility] ([facility]) Chloride Level 104 meq/L 98-107 Normal (applies to non-numeric r esults) [facility] ([facility]) Potassium Serum 5.2 meq/L 3.5-5.1 Above high normal [facility] ([facility]) Ast/Sgot 15 U/L 7-37 Normal (applies to non-numeric resul ts) [facility] ([facility]) Calcium Level 8.9 mg/dL 8.5-10.1 Normal (applies to non-numeric re sults) [facility] ([facility]) Anion Gap 8 meq/L 8-16 Normal (applies to non-numeric resul ts) [facility] ([facility]) Alkaline Phosphatase 83 U/L 45-117 Normal (applies to non-num mercy results) [facility] ([facility]) Alt/SGPT 39 U/L 12-78 Normal (applies to non-numeric resul ts) [facility] ([facility]) Bilirubin,Total 0.3 mg/dL 0.2-1.0 Normal (applies to non-numeric results) [facility] ([facility]) Total Protein 7.3 GM/DL 6.4-8.2 Normal (applies to non-numeric re sults) [facility] ([facility]) Albumin 3.5 GM/DL 3.2-5.2 Normal (applies to non-numeric resul ts) [facility] ([facility]) Albumin/Globulin Ratio 0.9 Normal (applies to non-n umeric results) [facility] ([facility]) ID Date Data Source [id number] 09/06/2019 07:49:00 AM EDT [facility] ([facility]) Name Value Range Interpretation Code Description Data Elizabeth rce(s) Supporting Document(s) Lymph % 9.2 % 24.0-44.0 Below low normal [facility] ( [facility]) [place] % 1.0 % 0.0-5.0 Normal (applies to non-numeric resul ts) [facility] ([facility]) Neutrophils % 88.1 % 36.0-66.0 Above high normal MEDE NT ([facility]) Eos % 0.0 % 0.0-3.0 Normal (applies to non-numeric resul ts) [facility] ([facility]) Baso % 0.1 % 0.0-1.0 Normal (applies to non-numeric resul ts) [facility] ([facility]) Lymph # 0.9 10 1.5-5.0 Below low normal [facility] ( [facility]) Neutrophils # 8.5 10 1.5-8.5 Normal (applies to non-numeric re sults) [facility] ([facility]) Immature Granulocyte % 1.6 % 0-3.0 Normal (applies to non-n umeric results) [facility] ([facility]) [place] # 0.1 10 0.0-0.8 Normal (applies to non-numeric resul ts) [facility] ([facility]) Eos # 0.0 10 0.0-0.5 Normal (applies to non-numeric resul ts) [facility] ([facility]) Baso # 0.0 10 0.0-0.2 Normal (applies to non-numeric resul ts) [facility] ([facility]) ID Date Data Source [id number] 09/06/2019 07:49:00 AM EDT [facility] ([facility]) Name Value Range Interpretation Code Description Data Elizabeth rce(s) Supporting Document(s) Red Blood Count 4.16 10 4.30-6.10 Below low normal MED ENT ([facility]) White Blood Count 9.7 10 4.0-10.0 Normal (applies to non-numeri c results) [facility] ([facility]) Hemoglobin 12.7 g/dL 13.5-17.5 Below low normal [facility] ( [facility]) Mean Corpuscular Volume 89.9 fl 80.0-96.0 Normal ( applies to non-numeric results) [facility] ([facility]) Hematocrit 37.4 % 42.0-52.0 Below low [facility] Mean Corpuscular Hemoglobin 30.5 pg 27.0-33.0 Norm al (applies to non-numeric results) [facility] ([facility]) Mean Corpuscular HGB Conc 34.0 g/dL 32.0-36.5 Normal (applies to non-numeric results) [facility] ([facility]) Red Cell Distribution Width 15.2 % 11.5-14.5 Above high normal [facility] ([facility]) Nucleated Red Blood Cell % 0.0 % 0-0 Normal (applies to n on-numeric results) [facility] ([facility]) Platelet Count, Automated 301 10 150-450 Normal (applies to non-numeric results) [facility] ([facility]) ID Date Data Source [id number] 08/27/2019 11:22:00 AM EDT [facility] ([facility]) Name Value Range Interpretation Code Description Data Elizabeth rce(s) Supporting Document(s) Prothrombin Time 12.5 s 11.8-14.0 Normal (applies to non-numeric results) [facility] ([facility]) Inr 0.96 Normal (applies to non-numeric resul ts) [facility] ([facility]) THERAPUTIC HUMAN INR VALUES INDICATIONS NORMAL RANGES PROPHYLAXIS/TREATMENT OF: VENOUS THROMBOSIS 2.0-3.0 PULMONARY EMBOLISM 2.0-3.0 PREVENTION OF SYSTEMIC EMBOLISM FROM: TISSUE HEART VALVES 2.0-3.0 ACUTE MYOCARDIAL INFARCTION 2.0-3.0 VALVULAR HEART DISEASE 2.0-3.0 ATRIAL FIBRILLATION 2.0-3.0 MECHANICAL VALVES(HIGH RISK) 2.5-3.5 RECURRENT MYOCARDIAL INFARCTION 2.5-3.5 Partial Thromboplastin Time 34.2 s 25.0-38.4 Norm al (applies to non-numeric results) [facility]) ID Date Data Source [id number] 08/27/2019 09:11:00 AM EDT [facility] ([facility]) Name Value Range Interpretation Code Description Data Elizabeth rce(s) Supporting Document(s) Red Blood Count 4.22 10 4.30-6.10 Below low normal MED [facility] ([facility]) White Blood Count 7.6 10 4.0-10.0 Normal (applies to non-numeri c results) [facility]) Hematocrit 38.1 % 42.0-52.0 Below low normal [facility] ( [facility]) Hemoglobin 13.1 g/dL 13.5-17.5 Below low normal [facility] ( [facility]) Mean Corpuscular Volume 90.3 fl 80.0-96.0 Normal ( applies to non-numeric results) [facility]) Mean Corpuscular HGB Conc 34.4 g/dL 32.0-36.5 Normal (applies to non-numeric results) [facility]) Red Cell Distribution Width 16.8 % 11.5-14.5 Above high normal [facility]) Mean Corpuscular Hemoglobin 31.0 pg 27.0-33.0 Norm al (applies to non-numeric results) [facility] ([facility]) Nucleated Red Blood Cell % 0.0 % 0-0 Normal (applies to n on-numeric results) [facility] ([facility]) Platelet Count, Automated 318 10 150-450 Normal (applies to non-numeric results) [facility] ([facility]) ID Date Data Source [id number] 08/27/2019 09:11:00 AM EDT [facility] ([facility]) Name Value Range Interpretation Code Description Data Elizabeth rce(s) Supporting Document(s) Neutrophils % 61.4 % 36.0-66.0 Normal (applies to non-numeric re sults) [facility] ([facility]) Lymph % 27.4 % 24.0-44.0 Normal (applies to non-numeric resul ts) [facility] ([facility]) [place] % 7.9 % 0.0-5.0 Above high normal [facility] ([facility]) Baso % 0.8 % 0.0-1.0 Normal (applies to non-numeric resul ts) [facility] ([facility]) Eos % 1.8 % 0.0-3.0 Normal (applies to non-numeric resul ts) [facility] ([facility]) Immature Granulocyte % 0.7 % 0-3.0 Normal (applies to non-n umeric results) [facility] ([facility]) Lymph # 2.1 10 1.5-5.0 Normal (applies to non-numeric resul ts) [facility] ([facility]) [place] # 0.6 10 0.0-0.8 Normal (applies to non-numeric resul ts) [facility] ([facility]) Neutrophils # 4.7 10 1.5-8.5 Normal (applies to non-numeric re sults) [facility] ([facility]) Eos # 0.1 10 0.0-0.5 Normal (applies to non-numeric resul ts) [facility] ([facility]) Baso # 0.1 10 0.0-0.2 Normal (applies to non-numeric resul ts) [facility] ([facility]) ID Date Data Source [id number] 08/27/2019 09:11:00 AM EDT [facility] ([facility]) Name Value Range Interpretation Code Description Data Elizabeth rce(s) Supporting Document(s) Blood Urea Nitrogen 15 mg/dL 7-18 Normal (applies to non-nume radha results) [facility] ([facility]) Glucose, Fasting 93 mg/dL 70-100 Normal (applies to non-numeric results) [facility] ([facility]) Glomerular Filtration Rate Laboratory test result Normal (applies to non- numeric results) [facility] ([facility]) <content>Units are mL/min/1.73 m2</content>
<content></content>
<content>Chronic Kidney Disease Staging per NKF:</content>
<content></content>
<content>Stage I & II GFR >=60 Normal to Mildly Decreased</content>
<content>Stage III GFR 30- 59 Moderately Decreased</content>
<content>Stage IV GFR 15-29 Severely Decreased</content>
<content>Stage V GFR <15 Very Little GFR Left</content>
<content>ESRD GFR <15 on INFORMATICS EDUCATOR</content>
<content></content> Sodium Level 131 meq/L 136-145 Below low normal [facility] ([facility]) Creatinine For GFR 1.24 mg/dL 0.70-1.30 Normal (applies to non -numeric results) [facility] ([facility]) Potassium Serum 5.2 meq/L 3.5-5.1 Above high normal [facility] ([facility]) Carbon Dioxide Level 23 meq/L 21-32 Normal (applies to non-num mercy results) [facility] ([facility]) Chloride Level 103 meq/L 98-107 Normal (applies to non-numeric r esults) [facility] ([facility]) Ast/Sgot 13 U/L 7-37 Normal (applies to non-numeric resul ts) [facility] ([facility]) Calcium Level 9.3 mg/dL 8.5-10.1 Normal (applies to non-numeric re sults) [facility] ([facility]) Anion Gap 5 meq/L 8-16 Below low normal [facility] ( [facility]) Bilirubin,Total 0.5 mg/dL 0.2-1.0 Normal (applies to non-numeric results) [facility] ([facility]) Alkaline Phosphatase 82 U/L 45-117 Normal (applies to non-num mercy results) [facility] ([facility]) Alt/SGPT 31 U/L 12-78 Normal (applies to non-numeric resul ts) [facility] ([facility]) Total Protein 7.4 GM/DL 6.4-8.2 Normal (applies to non-numeric re sults) [facility] ([facility]) Albumin 3.5 GM/DL 3.2-5.2 Normal (applies to non-numeric resul ts) [facility] ([facility]) Albumin/Globulin Ratio 0.90 1.00-1.93 Below low normal [facility] ([facility]) ID Date Data Source [id number] 08/27/2019 09:11:00 AM EDT [facility] ([facility]) Name Value Range Interpretation Code Description Data Elizabeth rce(s) Supporting Document(s) Magnesium [Mass/volume] in Serum or Plasma 1.4 mg/dL 1.8-2.4 Belo w low normal [facility] ([facility]) Carcinoembryonic Ag [Mass/volume] in Serum or Plasma 2.0 ng/mL Normal (applies to non-numeric results) [facility] ([facility]) THE CEA ASSAY IS PERFORMED ON THE [employer] BY CHEMILUMINESCENCE AND SHOULD NOT BE COMPARED INTERCHANGEABLY WITH OTHER METHODS. IT SHOULD NOT BE USED ALONE A SCREENING TEST OR DIAGNOSIS FOR THE PRESENCE OR ABSENCE OF MALIGNANT DISEASE. PREDICTIONS OF DISEASE RECURRENCE SHOULD NOT BE BASED SOLELY ON VALUES OBTAINED FROM SERIAL PATIENT SERUM VALUES. ID Date Data Source [id number] 08/17/2019 08:50:00 AM EDT [facility] ([facility]) Name Value Range Interpretation Code Description Data Elizabeth rce(s) Supporting Document(s) Carcinoembryonic Ag [Mass/volume] in Serum or Plasma 1.6 ng/mL Normal (applies to non-numeric results) [facility] ([facility]) THE CEA ASSAY IS PERFORMED ON THE [employer] BY CHEMILUMINESCENCE AND SHOULD NOT BE COMPARED INTERCHANGEABLY WITH OTHER METHODS. IT SHOULD NOT BE USED ALONE A SCREENING TEST OR DIAGNOSIS FOR THE PRESENCE OR ABSENCE OF MALIGNANT DISEASE. PREDICTIONS OF DISEASE RECURRENCE SHOULD NOT BE BASED SOLELY ON VALUES OBTAINED FROM SERIAL PATIENT SERUM VALUES. ID Date Data Source [id number] 08/17/2019 08:50:00 AM EDT [facility] ([facility]) Name Value Range Interpretation Code Description Data Elizabeth rce(s) Supporting Document(s) Glucose, Fasting 103 mg/dL 70-100 Above high normal M [facility] ([facility]) Creatinine For GFR 1.56 mg/dL 0.70-1.30 Above high normal [facility] ([facility]) Blood Urea Nitrogen 20 mg/dL 7-18 Above high [facility] Glomerular Filtration Rate 49.4 Below low normal [facility] ([facility]) <content>Units are mL/min/1.73 m2</content>
<content></content>
<content>Chronic Kidney Disease Staging per NKF:</content>
<content></content>
<content>Stage I & II GFR >=60 Normal to Mildly Decreased</content>
<content>Stage III GFR 30- 59 Moderately Decreased</content>
<content>Stage IV GFR 15-29 Severely Decreased</content>
<content>Stage V GFR <15 Very Little GFR Left</content>
<content>ESRD GFR <15 on INFORMATICS EDUCATOR</content>
<content></content> Potassium Serum 4.8 meq/L 3.5-5.1 Normal (applies to non-numeric results) [facility] ([facility]) Sodium Level 133 meq/L 136-145 Below low [facility] Chloride Level 103 meq/L 98-107 Normal (applies to non-numeric r esults) [facility] ([facility]) Carbon Dioxide Level 23 meq/L 21-32 Normal (applies to non-num mercy results) [facility] ([facility]) Anion Gap 7 meq/L 8-16 Below low normal [facility] ( [facility]) Calcium Level 8.8 mg/dL 8.5-10.1 Normal (applies to non-numeric re sults) [facility] ([facility]) Ast/Sgot 8 U/L 7-37 Normal (applies to non-numeric resul ts) [facility] ([facility]) Alt/SGPT 27 U/L 12-78 Normal (applies to non-numeric resul ts) [facility] ([facility]) Alkaline Phosphatase 78 U/L 45-117 Normal (applies to non-num mercy results) [facility] ([facility]) Total Protein 7.0 GM/DL 6.4-8.2 Normal (applies to non-numeric re sults) [facility] ([facility]) Bilirubin,Total 0.2 mg/dL 0.2-1.0 Normal (applies to non-numeric results) [facility] ([facility]) Albumin 3.6 GM/DL 3.2-5.2 Normal (applies to non-numeric resul ts) [facility] ([facility]) Albumin/Globulin Ratio 1.06 1.00-1.93 Normal (applies to non-numeric results) [facility] ([facility]) ID Date Data Source [id number] 08/17/2019 08:50:00 AM EDT [facility] ([facility]) Name Value Range Interpretation Code Description Data Elizabeth rce(s) Supporting Document(s) Lymph % 9.9 % 24.0-44.0 Below low normal [facility] ( [facility]) [place] % 7.0 % 0.0-5.0 Above high normal [facility] ([facility]) Neutrophils % 81.7 % 36.0-66.0 Above high normal [facility] ([facility]) Immature Granulocyte % 1.3 % 0-3.0 Normal (applies to non-n umeric results) [facility] ([facility]) Baso % 0.1 % 0.0-1.0 Normal (applies to non-numeric resul ts) [facility] ([facility]) Eos % 0.0 % 0.0-3.0 Normal (applies to non-numeric resul ts) [facility] ([facility]) Neutrophils # 11.5 10 1.5-8.5 Above high normal [facility] ([facility]) Lymph # 1.4 10 1.5-5.0 Below low normal [facility] ( [facility]) [place] # 1.0 10 0.0-0.8 Above high normal [facility] ([facility]) Eos # 0.0 10 0.0-0.5 Normal (applies to non-numeric resul ts) [facility] ([facility]) Baso # 0.0 10 0.0-0.2 Normal (applies to non-numeric resul ts) [facility] ([facility]) ID Date Data Source [id number] 08/17/2019 08:50:00 AM EDT [facility] ([facility]) Name Value Range Interpretation Code Description Data Elizabeth rce(s) Supporting Document(s) White Blood Count 14.1 10 4.0-10.0 Above high normal [facility] ([facility]) Red Blood Count 4.14 10 4.30-6.10 Below low normal [facility] ([facility]) Hematocrit 36.9 % 42.0-52.0 Below low normal [facility] ( [facility]) Hemoglobin 12.4 g/dL 13.5-17.5 Below low normal [facility] ( [facility]) Mean Corpuscular Volume 89.1 fl 80.0-96.0 Normal ( applies to non-numeric results) [facility] ([facility]) Mean Corpuscular Hemoglobin 30.0 pg 27.0-33.0 Norm al (applies to non-numeric results) [facility] ([facility]) Mean Corpuscular HGB Conc 33.6 g/dL 32.0-36.5 Normal (applies to non-numeric results) [facility] ([facility]) Red Cell Distribution Width 16.3 % 11.5-14.5 Above high normal [facility] ([facility]) Platelet Count, Automated 367 10 150-450 Normal (applies to non-numeric results) [facility] ([facility]) Nucleated Red Blood Cell % 0.0 % 0-0 Normal (applies to n on-numeric results) [facility] ([facility]) ID Date Data Source [id number] 08/16/2019 12:14:00 PM EDT [facility] ([facility], ) Name Value Range Interpretation Code Description Data Elizabeth rce(s) Supporting Document(s) Surgical pathology study Laboratory test result [facility] ([facility], ) FINAL DIAGNOSIS A - Left posterior pharyngeal [...] MD 08/17/2019 1304 ID Date Data Source [id number] 08/03/2019 11:07:00 AM EDT [facility] ([facility], ) Name Value Range Interpretation Code Description Data Elizabeth rce(s) Supporting Document(s) Microscopic observation [Identifier] in Unspecified specimen by Non- gynecological cytology method Laboratory test result [facility] ([facility], ) SPECIMEN: Bronchial washing ( left upper lobe) 8ml Red SPECIMEN ADEQUACY: Satisfactory for evaluation CATEGORIZATION: Positive for Malignancy DESCRIPTIONS: Scattered small keratinized cells noted exhibiting high n/c ratios and hyperchronmatic nuclei in a background of abundant blood. COMMENTS: Findings consistent witjh sqaumous cell carcinoma. 08/04/2019 - [address](ASCP) 08/04/2019 1029 (Prelim) Signed Nola Clark M.D. 08/04/2019 1202 ID Date Data Source [id number] 08/03/2019 11:05:00 AM EDT [facility] ([facility]) Name Value Range Interpretation Code Description Data Elizabeth rce(s) Supporting Document(s) Microscopic observation [Identifier] in Unspecified specimen by Non- gynecological cytology method Laboratory test result [facility] ([facility]) SPECIMEN: Bronchial brushing (left upper lobe) lung Hawley in vial received SPECIMEN ADEQUACY: Satisfactory for evaluation CATEGORIZATION: Positive for Malignancy DESCRIPTIONS: Abundant malignant cells noted appearing adina and in groups. Some cells are keratinized and and have very high n/c ratios and hyperchromatic nuclei. 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 08/04/20191199 Signed AN RENTERIA(ASCP) 08/04/2019 1026 (Prelim) Signed Nola Clark M.D. 08/04/2019 1200 ID Date Data Source [id number] 08/03/2019 11:05:00 AM EDT [facility] ([facility], ) Name Value Range Interpretation Code Description Data Elizabeth rce(s) Supporting Document(s) Microscopic observation [Identifier] in Unspecified specimen by Non- gynecological cytology method Laboratory test result [facility] ([facility]) SPECIMEN: Bronchial brushing (left upper lobe) lung Hawley in vial received SPECIMEN ADEQUACY: Satisfactory for evaluation CATEGORIZATION: Positive for Malignancy DESCRIPTIONS: Abundant malignant cells noted appearing adina and in groups. Some cells are keratinized and and have very high n/c ratios and hyperchromatic nuclei. 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 08/04/2019 - 1199 Signed AN RENTERIA(ASCP) 08/04/2019 1026 (Prelim) Signed Nola Clark M.D. 08/04/2019 1200 ID Date Data Source [id number] 08/03/2019 10:30:00 AM EDT [facility] ([facility]) Name Value Range Interpretation Code Description Data Elizabeth rce(s) Supporting Document(s) Gram Stain Laboratory test result Normal (applies to non-n umeric results) [facility] ([facility]) MANY RBCS MODERATE WBCS FEW GRAM POSITIVE COCCI FEW GRAM POSITIVE RODS Laboratory test finding (navigational concept) Laboratory test r esult Normal (applies to non-numeric results) [facility] ([facility]) FULL REPORT IN LAB NOTES (eCW and [facility] ). NORMAL TEODORO PRESENT ID Date Data Source [id number] 08/03/2019 10:30:00 AM EDT [facility] ([facility]) Name Value Range Interpretation Code Description Data Elizabeth rce(s) Supporting Document(s) Gram Stain Laboratory test result Normal (applies to non-n umeric results) [facility] ([facility]) MANY RBCS MODERATE WBCS FEW GRAM POSITIVE COCCI FEW GRAM POSITIVE RODS Bronchial Wash Culture Laboratory test result No rmal (applies to non-numeric results) [facility] ([facility]) [facility] NORMAL TEODORO PRESENT ID Date Data Source [id number] 08/03/2019 10:23:00 AM EDT [facility] ([facility]) Name Value Range Interpretation Code Description Data Elizabeth rce(s) Supporting Document(s) Surgical pathology study Laboratory test result [facility] ([facility]) Addendum 1 Entered: 08/30/2019-0814 PD-L1: No expression. No BRAF V600 mutation was detected in the provided specimen Negative for a rearrangement involving the ROS1 gene. Negative for a rearrangement involving the ALK gene No EGFR mutation was detected in the provided specimen. No loss of nuclear expression of MMR proteins. See EMR for detailed reports. 08/30/2019813 Addendum Signed____ AVE CASTRO MD 08/30/201915 FINAL DIAGNOSIS Lung mass, left upper lobe, bronchoscopic biopsy: Squamous cell carcinoma, moderately differentiated. -4/tr See note. Note: Due to limited tissue, no additional studies were performed at current time. Please contact lab. if any specific study is indicated clinically. 08/04/2019 - 845 CLINICAL DIAGNOSIS Abnormal x-ray 08/03/20191518 GROSS DIAGNOSIS Received in formalin labeled "left upper lobe forceps biopsy" are a few fragments of bagged soft tissue, aggregating approximately 0.5 x 0.3 x 0.1 cm. All in one. -YZ 08/03/2019 - 1518 Signed Nola Clark M.D. 08/04/2019845 ID Date Data Source [id number] 07/06/2019 10:05:00 AM EDT [facility] ([facility]) Name Value Range Interpretation Code Description Data Elizabeth rce(s) Supporting Document(s) PET CT Laboratory test result [facility] ([facility]) ID Date Data Source [id number] 07/02/2019 04:09:00 [place] [address] PHONE: [phone] FAX: [phone] Name .................. : AGUAYOMARCEL [place] Acct Number.................. : [id number] ROOM. ................. : MR Number ................... : [id number] Stay type ............. : O/P Discharge Date......... ... : 07/02/19 Admit Date ......... : 07/02/19 Admit Phys .................... : RICH HARD Date of ....... : 1965 Family Phys ................... : RICH HARD Phone .................. : [phone] Age ................................ : 53 Film# .................. .:[id number] Sex ................................. : M Unsigned transcriptions are preliminary reports and do not represent a medical or legal document CT THORAX W/CONTRAST [id number] COMPLETE:07/02/19 10:55 JO 43789 PULMONARY NODULE; PNEUMONIA CT SCAN OF THE [...] degenerative changes. IMPRESSION: Page 1 of [address] [facility] [address] [place] [address] PHONE: [phone] FAX: [phone] Name .................. : DEDE [place] Acct Number.................. : [id number] ROOM. ................. : Number ................... : [id number] Stay type ............. : O/P Discharge Date......... ... : 07/02/19 Admit Date ......... : 07/02/19 Admit Phys .................... : RICH HARD Date of ....... : 1965 Family Phys ................... : [employer] HARD Phone .................. : [phone] Age ................................ : 53 Film# .................. .:[id number] Sex ................................. : M Unsigned transcriptions are preliminary reports and do not represent a medical or legal document CT THORAX W/CONTRAST 95908 COMPLETE:07/02/19 10:55 JO 52779 PULMONARY NODULE; PNEUMONIA Left hilar mass with [...] By Wilbert Reinoso MD , 07/02/19 16:09, AML Transcribe Initials: DZ , Transcribe Date: 07/02/19 13:02, Dictation Date: Copy for: 710 MED REC Page 2 of 2 Name Value Range Interpretation Code Description Data Elizabeth rce(s) Supporting Document(s) ID Date Data Source [id number] 06/29/2019 11:54:00 AM EDT [facility] [address] [place] [address] PHONE: [phone] FAX: [phone] Name .................. : DEDE [place] Acct Number.................. : [id number] ROOM. ................. : MR Number ................... : [id number] Stay type ............. : CLINIC Discharge Date......... ... : 06/29/19 Admit Date ......... : 06/29/19 Admit Phys .................... : RICH HARD Date of ....... : 1965 Family Phys ................... : [employer] HARD Phone .................. : [phone] Age ................................ : 53 Film# .................. .:[id number] Sex ................................. : M Unsigned transcriptions are preliminary reports and do not represent a medical or legal document KNEE COMPLETE-4 OR MORE S L [id number] COMPLETE:06/29/19 09:51 KBO 65467 (REASON FOR PROCESS: EFFUSION LEFT KNEE SERIES: [...] rce(s) Supporting Document(s) ID Date Data Source [id number] 06/29/2019 11:54:00 [place] [address] PHONE: [phone] FAX: [phone] Name .................. : DEDE [place] Acct Number.................. : [id number] ROOM. ................. : MR Number ................... : [id number] Stay type ............. : CLINIC Discharge Date......... ... : 06/29/19 Admit Date ......... : 06/29/19 Admit Phys .................... : RICH HARD Date of ....... : 1965 Family Phys ................... : RICH HARD Phone .................. : [phone] Age ................................ : 53 Film# .................. .:[id number] Sex ................................. : M Unsigned transcriptions are preliminary reports and do not represent a medical or legal document CHEST 2 VIEWS [id number] COMPLETE:06/29/19 09:51 KBO [id number] (REASON FOR CHEST: PNEUMONIA CHEST X-RAY: 2-VIEWS [...] By Anshu Mario MD , 06/29/19 11:54, MILES Transcribe Initials: MERCEDES , Transcribe Date: 06/29/19 11:06, Dictation Date: Page 1 of 1 Name Value Range Interpretation Code Description Data Elizabeth rce(s) Supporting Document(s) ID Date Data Source [id number] 06/29/2019 08:40:00 AM EDT [facility] ([facility]) Name Value Range Interpretation Code Description Data Elizabeth rce(s) Supporting Document(s) Erythrocyte sedimentation rate by Westergren method <pending> [facility] ([facility]) C reactive protein [Mass/volume] in Serum or Plasma by High sensitivity method 18.30 mg/L 1.00-3.00 Above high normal [facility] ([facility]) <content>CDC/S HS-CRP CUT-OFF: RELATIVE RISK:</content>
<content><1.0 mg/L Low</content>
<content>1.0 - 3.0 mg/L Average</lucrecia nt>
<content>>3.0 mg/L High</content>
<content>Optimally, the average of HS-CRP results repeated</content>
<content>two weeks apart should be used for risk assessment.</content>
<content></content> Urate [Mass/volume] in Serum or Plasma 6.8 mg/dL 2.5-8.5 [facility] ([facility]) ID Date Data Source [id number] 06/29/2019 08:40:00 AM EDT [facility] ([facility]) Name Value Range Interpretation Code Description Data Elizabeth rce(s) Supporting Document(s) Sed Rate 14 mm/hr 0-20 [facility] ([facility]) Sed Rate Reenter 14 [facility] ([facility]) ID Date Data Source [id number] 06/29/2019 08:40:00 AM EDT [facility] ([facility]) Name Value Range Interpretation Code Description Data Elizabeth rce(s) Supporting Document(s) WBC 9.4 10^3/uL 4.2-11.0 [facility] ([facility]) CBC W/Automated Diff Laboratory test result [facility] ([facility]) COMPLETE BLOOD COUNT Hemoglobin 11.8 g/dL 14.0-16.0 Below low normal [facility] ( [facility]) RBC 4.15 10^6/uL 4.50-6.30 Below low normal [facility] ([facility]) Hematocrit 35.7 % 41.0-51.0 Below low normal [facility] ( [facility]) MCH 28.4 pg 27.0-34.0 [facility] ([facility]) MCHC 33.1 g/dL 31.0-36.0 [facility] ([facility]) MCV 86.0 fL 80.0-94.0 [facility] ([facility]) RDW 15.8 % 11.5-14.8 Above high normal [facility] ([facility]) Platelets 363 10^3/uL 150-450 [facility] ([facility]) MPV 8.7 fL 7.4-10.4 [facility] ([facility]) [place] 5.7 % 3.0-8.0 [facility] ([facility]) Lymph 23.9 % 25.0-40.0 Below low normal [facility] ( [facility]) Neut 65.2 % 37.0-80.0 [facility] ([facility]) %NRBC 0.0 % 0.0-0.0 [facility] ([facility]) Baso 1.3 % 0.0-2.0 [facility] ([facility]) %Ig 1.4 % 0.0-0.0 Above high normal [facility] ([facility]) Eos 2.5 % 0.0-7.0 [facility] ([facility]) #Lymph 2.23 10^3/uL 0.60-3.40 [facility] ([facility]) #Neut 6.11 10^3/uL 2.00-6.90 [facility] ([facility]) #[place] 0.53 10^3/uL 0.00-0.90 [facility] ([facility]) #Baso 0.12 10^3/uL 0.00-0.20 [facility] ([facility]) #Ig 0.13 10^3/uL 0.00-0.10 Above high normal [facility] T ([facility]) #Eos 0.23 10^3/uL 0.00-0.70 [facility] ([facility]) RBC Morph Laboratory test result [facility] ([facility]) #NRBC 0.00 10^3/uL 0.00-0.00 [facility] ([facility]) Manual Diff [facility] ID Date Data Source [id number] 06/29/2019 08:40:00 AM EDT [facility] ([facility]) Name Value Range Interpretation Code Description Data Elizabeth rce(s) Supporting Document(s) Rheumatoid factor [Units/volume] in Serum or Plasma 14 IU/ml 0-14 [facility] ([facility]) Nuclear Ab [Presence] in Serum Laboratory test result [facility] ([facility]) Borrelia burgdorferi C6 Ab [Units/volume] in Serum by Immunoassay Laboratory test result 0.00-0.90 [facility] ([facility]) <content>Negative <0.91</content >
<content>Equivocal 0.91 - 1.09</content>
<content>Positive >1.09</content>
<content></content> ID Date Data Source [id number] 07/03/2019 08:11:00 AM EDT [facility] Name Value Range Interpretation Code Description Data Elizabeth rce(s) Supporting Document(s) Nuclear Ab [Presence] in Serum Negative Negative [facility] ID Date Data Source [id number] 07/03/2019 08:11:00 AM EDT [facility] Name Value Range Interpretation Code Description Data Elizabeth rce(s) Supporting Document(s) Borrelia burgdorferi C6 Ab [Units/volume] in Serum by Immuno assay <0.91 index 0.00-0.90 [facility] Negative <0.91 Equivocal 0.91 - 1.09 Positive >1.09 ID Date Data Source [id number] 06/29/2019 03:03:00 PM EDT [facility] Name Value Range Interpretation Code Description Data Elizabeth rce(s) Supporting Document(s) Erythrocyte sedimentation rate by Westergren method 14 mm/hr 0 - 20 [facility] SED RATE REENTER 14 [facility] ID Date Data Source [id number] 06/29/2019 02:25:00 PM EDT [facility] Name Value Range Interpretation Code Description Data Elizabeth rce(s) Supporting Document(s) C reactive protein [Mass/volume] in Serum or Plasma by High sensitivity method 18.30 MG/L 1.00 - 3.00 H [facility] CDC/S HS-CRP CUT-OFF: RELATIVE RISK: <1.0 mg/L Low 1.0 - 3.0 mg/L Average >3.0 mg/L High Optimally, the average of HS-CRP results repeated two weeks apart should be used for risk assessment. ID Date Data Source [id number] 06/29/2019 02:23:00 PM EDT [facility] Name Value Range Interpretation Code Description Data Elizabeth rce(s) Supporting Document(s) RA QUANT 14 IU/mL 0 - 14 [facility] ID Date Data Source [id number] 06/29/2019 02:23:00 PM T [facility] Name Value Range Interpretation Code Description Data Elizabeth rce(s) Supporting Document(s) Urate [Mass/volume] in Serum or Plasma 6.8 MG/DL 2.5 - 8.5 [facility] ID Date Data Source [id number] 06/29/2019 02:08:00 PM EDT [facility] Name Value Range Interpretation Code Description Data Elizabeth rce(s) Supporting Document(s) CBC W/AUTOMATED DIFF [facility] COMPLETE BLOOD COUNT Leukocytes [#/volume] in Blood by Automated count 9.4 10^3/uL 4.2 - 1 1.0 [facility] Erythrocytes [#/volume] in Blood by Automated count 4.15 10^6/uL 4. 50 - 6.30 L [facility] Hemoglobin [Mass/volume] in Blood 11.8 g/dL 14.0 - 16.0 L [facility] Hematocrit [Volume Fraction] of Blood by Automated count 35.7 % 4 1.0 - 51.0 L [facility] Erythrocyte mean corpuscular volume [Entitic volume] by Auto mated count 86.0 fL 80.0 - 94.0 [facility] Erythrocyte mean corpuscular hemoglobin [Entitic mass] by Automated count 28.4 pg 27.0 - 34.0 [facility] Erythrocyte mean corpuscular hemoglobin concentration [Mass/volume] by Automated count 33.1 g/dL 31.0 - 36.0 [facility] Erythrocyte distribution width [Ratio] by Automated count 15.8 % 11.5 - 14.8 H [facility] Platelets [#/volume] in Blood by Automated count 363 10^3/uL 150 - 45 0 [facility] Platelet mean volume [Entitic volume] in Blood by Automated count 8.7 fL 7.4 - 10.4 [facility] Neutrophils/100 leukocytes in Blood by Automated count 65.2 % 37. 0 - 80.0 [facility] Lymphocytes/100 leukocytes in Blood by Manual count 23.9 % 25.0 - 40.0 L [facility] Monocytes/100 leukocytes in Blood by Automated count 5.7 % 3.0 - 8.0 [facility] Eosinophils/100 leukocytes in Blood by Automated count 2.5 % 0.0 - 7.0 [facility] Basophils/100 leukocytes in Blood by Automated count 1.3 % 0.0 - 2.0 [facility] %IG 1.4 % 0.0 - 0.[address] [facility] %NRBC 0.0 % 0.0 - 0.0 [facility] al Neutrophils [#/volume] in Blood by Automated count 6.11 10^3/uL 2.00 - 6.90 [facility] Lymphocytes [#/volume] in Blood by Automated count 2.23 10^3/uL 0.60 - 3.40 [facility] Monocytes [#/volume] in Blood by Automated count 0.53 10^3/uL 0.00 - 0.90 [facility] Eosinophils [#/volume] in Blood by Automated count 0.23 10^3/uL 0.00 - 0.70 [facility] Basophils [#/volume] in Blood by Automated count 0.12 10^3/uL 0.00 - 0.20 [facility] #IG 0.13 10^3/uL 0.00 - 0.10 H [facility] ospital #NRBC 0.00 10^3/uL 0.00 - 0.00 [facility] ospital MANUAL DIFF NOT INDICATED [facility] RBC MORPH NOT INDICATED [facility] ID Date Data Source [id number] 06/29/2019 08:30:00 AM EDT [facility] ([facility]) Name Value Range Interpretation Code Description Data Elizabeth rce(s) Supporting Document(s) Chest Xray 2 Views <pending> [facility] ([facility]) Knee Complete-4 Or More VWS LT <pending> [facility] ([facility]) ID Date Data Source [id number] 06/18/2019 10:37:00 AM EST [facility] [address] [place] [address] PHONE: [phone] FAX: [phone] Name .................. : DEDE [place] Acct Number.................. : [id number] ROOM. ................. : MR Number ................... : [id number] Stay type ............. : CLINIC Discharge Date......... ... : 06/16/19 Admit Date ......... : 06/16/19 Admit Phys .................... : [employer] Date of ....... : 1965 Family Phys ................... : [employer] Phone .................. : [phone] Age ................................ : 53 Film# .................. .:[id number] Sex ................................. : M Unsigned transcriptions are preliminary reports and do not represent a medical or legal document CHEST 2 VIEWS [id number] COMPLETE:06/16/19 16:41 [place] [id number] (REASON FOR CHEST: HTN CHEST X-RAY: 2-VIEWS INDICATION: Hypertension. FINDINGS: The lungs are well- expanded. There is a patchy infiltrate in the left upper lobe. The cardiac silhouette is normal in size and contour. No acute osseous abnormality. IMPRESSION: Left upper lobe pneumonia. Electronically Reviewed and Signed By Papo Das M.D. , 06/18/19 10:37, [facility] Transcribe Initials: DZ , Transcribe Date: 06/16/19 21:09, Dictation Date: Page 1 of 1 Name Value Range Interpretation Code Description Data Elizabeth rce(s) Supporting Document(s) ID Date Data Source [id number] 06/16/2019 01:23:00 PM EST [facility] ([facility]) Name Value Range Interpretation Code Description Data Elizabeth rce(s) Supporting Document(s) Inhouse EKG Laboratory test result M [facility] ([facility]) ID Date Data Source [id number] 06/16/2019 01:11:00 PM EST [facility] ([facility]) Name Value Range Interpretation Code Description Data Elizabeth rce(s) Supporting Document(s) Chest Xray 2 Views <pending> [facility] ([facility]) ID Date Data Source [id number] 06/16/2019 01:07:00 PM EST [facility] ([facility]) Name Value Range Interpretation Code Description Data Elizabeth rce(s) Supporting Document(s) Protime 12.1 s 11.0-15.5 [facility] ([facility]) Is patient fasting? N PTT 33.6 s 24.8-36.7 [facility] ([facility]) Is patient fasting? N Inr 0.89 0.93-1.23 Below low normal [facility] ([facility]) Is patient fasting? N ID Date Data Source [id number] 06/16/2019 01:07:00 PM EST [facility] ([facility]) Name Value Range Interpretation Code Description Data Elizabeth rce(s) Supporting Document(s) Comprehensive Metabo Laboratory test result [facility] ([facility]) Is patient fasting? N Sodium 127 meq/L 134-153 Below low normal [facility] ( [facility]) Is patient fasting? N Potassium 5.2 meq/L 3.6-5.0 Above high normal [facility] ([facility]) Is patient fasting? N Co2 19 meq/L 22-30 Below low normal [facility] ([facility]) Is patient fasting? N Chloride 98 meq/L 98-107 [facility] ([facility]) Is patient fasting? N Glucose 89 mg/dL 65-110 [facility] ([facility]) Is patient fasting? N BUN 18 mg/dL 7-21 [facility] ([facility]) Is patient fasting? N Creatinine 1.2 mg/dL 0.7-1.5 [facility] ([facility]) Is patient fasting? N Albumin 4.3 g/dL 3.9-5.0 [facility] ([facility]) Is patient fasting? N Total Protein 7.4 g/dL 6.3-8.2 [facility] ([facility]) Is patient fasting? N BUN/Creat 15 8-27 [facility] ([facility]) Is patient fasting? N Globulin 3.1 GM/DL 2.4-3.2 [facility] Is patient fasting? N A/G Ratio 1.4 0.8-2.0 [facility] ([facility]) Is patient fasting? N Calcium 10.0 mg/dL 8.4-10.2 [facility] ([facility]) Is patient fasting? N Total Bili Laboratory test result 0.2-1.3 [facility] ([facility]) Is patient fasting? N Sgot/Ast 16 U/L 5-40 [facility] ([facility]) Is patient fasting? N Alkaline Phos 82 U/L 38-126 [facility] ([facility]) Is patient fasting? N SGPT/Alt 22 U/L 7-56 [facility] ([facility]) Is patient fasting? N Anion Gap 10.0 mmol/L 8.0-16.0 [facility] ([facility]) Is patient fasting? N Afr Amer GFR Laboratory test result [facility] ([facility]) Is patient fasting? N Non-Aa GFR Laboratory test result [facility] ([facility]) Is patient fasting? N Age 53 yrs [facility] ([facility]) Is patient fasting? N ID Date Data Source [id number] 06/16/2019 01:07:00 PM EST [facility] ([facility]) Name Value Range Interpretation Code Description Data Elizabeth rce(s) Supporting Document(s) CBC W/Automated Diff Laboratory test result [facility] ([facility]) Is patient fasting? N RBC 4.10 10^6/uL 4.50-6.30 Below low normal [facility] ([facility]) Is patient fasting? N Hemoglobin 11.6 g/dL 14.0-16.0 Below low normal [facility] ( [facility]) Is patient fasting? N WBC 9.7 10^3/uL 4.2-11.0 [facility] ([facility]) Is patient fasting? N MCV 87.8 fL 80.0-94.0 [facility] ([facility]) Is patient fasting? N Hematocrit 36.0 % 41.0-51.0 Below low normal [facility] ( [facility]) Is patient fasting? N MCH 28.3 pg 27.0-34.0 [facility] ([facility]) Is patient fasting? N MCHC 32.2 g/dL 31.0-36.0 [facility] ([facility]) Is patient fasting? N RDW 15.6 % 11.5-14.8 Above high normal [facility] ([facility]) Is patient fasting? N Platelets 489 10^3/uL 150-450 Above high normal [facility] ([facility]) Is patient fasting? N MPV 8.5 fL 7.4-10.4 [facility] ([facility]) Is patient fasting? N Neut 64.8 % 37.0-80.0 [facility] ([facility]) Is patient fasting? N [place] 5.2 % 3.0-8.0 [facility] ([facility]) Is patient fasting? N Eos 2.2 % 0.0-7.0 [facility] ([facility]) Is patient fasting? N Lymph 25.8 % 25.0-40.0 [facility] ([facility]) Is patient fasting? N Baso 1.0 % 0.0-2.0 [facility] ([facility]) Is patient fasting? N %NRBC 0.0 % 0.0-0.0 [facility] ([facility]) Is patient fasting? N %Ig 1.0 % 0.0-0.0 Above high normal [facility] ([facility]) Is patient fasting? N #Lymph 2.49 10^3/uL 0.60-3.40 [facility] ([facility]) Is patient fasting? N #[place] 0.50 10^3/uL 0.00-0.90 [facility] ([facility]) Is patient fasting? N #Neut 6.26 10^3/uL 2.00-6.90 [facility] ([facility]) Is patient fasting? N #Baso 0.10 10^3/uL 0.00-0.20 [facility] ([facility]) Is patient fasting? N #Eos 0.21 10^3/uL 0.00-0.70 [facility] ([facility]) Is patient fasting? N #Ig 0.10 10^3/uL 0.00-0.10 [facility] ([facility]) Is patient fasting? N Manual Diff Laboratory test result M [facility] ([facility]) Is patient fasting? N #NRBC 0.00 10^3/uL 0.00-0.00 [facility] ([facility]) Is patient fasting? N RBC Morph Laboratory test result [facility] ([facility]) Is patient fasting? N ID Date Data Source [id number] 06/16/2019 05:59:00 PM EST [facility] Name Value Range Interpretation Code Description Data Elizabeth rce(s) Supporting Document(s) Prothrombin time (PT) 12.1 SECONDS 11.0 - 15.5 [facility] INR in Platelet poor plasma by Coagulation assay 0.89 0.93 - 1. 23 L [facility] aPTT in Blood by Coagulation assay 33.6 SECONDS 24.8 - 36.7 [facility] \\BLDo\\INR INTERPRETATION\\BLDx\\ Therapeutic range for Coumadin and related oral anticoagulants. - International Normalized Ratio (INR): 2.0 - 3.0 for Venous Thrombosis, Pulmonary Embolus, Tissue heart valves, Acute PR Atrial Fibrillation, Valvular heart disease and recurrent [...] and other interferences. ID Date Data Source [id number] 06/16/2019 05:54:00 PM EST [facility] Name Value Range Interpretation Code Description Data Elizabeth rce(s) Supporting Document(s) COMPREHENSIVE METABOLIC PANEL [facility] COMPREHENSIVE METABOLIC PANEL Sodium [Moles/volume] in Serum or Plasma 127 mEq/L 134 - 153 L [facility] Potassium [Moles/volume] in Serum or Plasma 5.2 mEq/L 3.6 - 5.0 H [facility] Chloride [Moles/volume] in Serum or Plasma 98 mEq/L 98 - 107 [facility] Carbon dioxide, total [Moles/volume] in Serum or Plasma 19 MEQ/L 22 - 30 L [facility] Glucose [Mass/volume] in Serum or Plasma 89 MG/DL 65 - 110 [facility] BUN 18 MG/DL 7 - 21 [facility] Creatinine [Mass/volume] in Serum or Plasma 1.2 MG/DL 0.7 - 1.5 [facility] BUN/CREAT 15 8 - 27 [facility] al Protein [Mass/volume] in Serum or Plasma 7.4 G/DL 6.3 - 8.2 [facility] Albumin [Mass/volume] in Serum or Plasma 4.3 G/DL 3.9 - 5.0 [facility] Globulin [Mass/volume] in Serum by calculation 3.1 GM/DL 2.4 - 3.2 [facility] A/G RATIO 1.4 0.8 - 2.0 [facility] al Calcium [Mass/volume] in Serum or Plasma 10.0 MG/DL 8.4 - 10.2 [facility] Bilirubin.total [Mass/volume] in Serum or Plasma <0.7 MG/DL 0.2 - 1.3 [facility] Alkaline phosphatase [Enzymatic activity/volume] in Serum or Plasma 82 U/L 38 - 126 [facility] Aspartate aminotransferase [Enzymatic activity/volume] in Serum or Plasma 16 U/L 5 - 40 [facility] Alanine aminotransferase [Enzymatic activity/volume] in Seru m or Plasma 22 U/L 7 - 56 [facility] Anion gap 3 in Serum or Plasma 10.0 mmol/L 8.0 - 16.0 [facility]GE 53 [facility] G[facility] >60 mL/min [facility] ital AFR AMER GFR >60 mL/min [facility] Male GFR In terprentation [...] >32 mL/min Normal ID Date Data Source [id number] 06/16/2019 05:31:00 PM EST [facility] Name Value Range Interpretation Code Description Data Elizabeth rce(s) Supporting Document(s) CBC W/AUTOMATED DIFF [facility] COMPLETE BLOOD COUNT Leukocytes [#/volume] in Blood by Automated count 9.7 10^3/uL 4.2 - 1 1.0 [facility] Erythrocytes [#/volume] in Blood by Automated count 4.10 10^6/uL 4. 50 - 6.30 L [facility] Hemoglobin [Mass/volume] in Blood 11.6 g/dL 14.0 - 16.0 L [facility] Hematocrit [Volume Fraction] of Blood by Automated count 36.0 % 4 1.0 - 51.0 L [facility] Erythrocyte mean corpuscular volume [Entitic volume] by Auto mated count 87.8 fL 80.0 - 94.0 [facility] Erythrocyte mean corpuscular hemoglobin [Entitic mass] by Automated count 28.3 pg 27.0 - 34.0 [facility] Erythrocyte mean corpuscular hemoglobin concentration [Mass/volume] by Automated count 32.2 g/dL 31.0 - 36.0 [facility] Erythrocyte distribution width [Ratio] by Automated count 15.6 % 11.5 - 14.8 H [facility] Platelets [#/volume] in Blood by Automated count 489 10^3/uL 150 - 45 0 H [facility] Platelet mean volume [Entitic volume] in Blood by Automated count 8.5 fL 7.4 - 10.4 [facility] Neutrophils/100 leukocytes in Blood by Automated count 64.8 % 37. 0 - 80.0 [facility] Lymphocytes/100 leukocytes in Blood by Manual count 25.8 % 25.0 - 40.0 [facility] Monocytes/100 leukocytes in Blood by Automated count 5.2 % 3.0 - 8.0 [facility] Eosinophils/100 leukocytes in Blood by Automated count 2.2 % 0.0 - 7.0 [facility] Basophils/100 leukocytes in Blood by Automated count 1.0 % 0.0 - 2.0 [facility] %IG 1.0 % 0.0 - 0.0 H [facility] al %NRBC 0.0 % 0.0 - 0.0 [facility] al Neutrophils [#/volume] in Blood by Automated count 6.26 10^3/uL 2.00 - 6.90 [facility] Lymphocytes [#/volume] in Blood by Automated count 2.49 10^3/uL 0.60 - 3.40 [facility] Monocytes [#/volume] in Blood by Automated count 0.50 10^3/uL 0.00 - 0.90 [facility] Eosinophils [#/volume] in Blood by Automated count 0.21 10^3/uL 0.00 - 0.70 [facility] Basophils [#/volume] in Blood by Automated count 0.10 10^3/uL 0.00 - 0.20 [facility] #IG 0.10 10^3/uL 0.00 - 0.10 [facility] ospital #NRBC 0.00 10^3/uL 0.00 - 0.00 [facility] ospital MANUAL DIFF NOT INDICATED [facility] RBC MORPH NOT INDICATED [facility] spital ID Date Data Source [id number] 05/05/2019 08:53:00 AM EST [facility] ([facility]) Name Value Range Interpretation Code Description Data Elizabeth rce(s) Supporting Document(s) Color of Urine Laboratory test result [facility] ([facility]) Appearance of Urine Laboratory test result [facility] ([facility]) Leukocytes Laboratory test result [facility] ([facility]) Spec [place] 1.010 [facility] ([facility]) pH of Urine by Test strip 5 [facility] NT ([facility]) Protein [Presence] in Urine by Test strip Laboratory test result [facility] ([facility]) Inhouse Glucose Laboratory test result [facility] ([facility]) Nitrate [Presence] in Urine Laboratory test result [facility] ([facility]) Bilirubin.total [Presence] in Urine by Test strip Laboratory test res ult [facility] ([facility]) Urobilinogen Laboratory test result [facility] ([facility]) Ketones [Presence] in Urine by Test strip Laboratory test result [facility] ([facility]) Blood type and Indirect antibody screen panel - Blood Laboratory test result [facility] ([facility]) ID Date Data Source [id number] 05/03/2019 07:13:00 AM EST [facility] ([facility]) Name Value Range Interpretation Code Description Data Elizabeth rce(s) Supporting Document(s) Prostate specific Ag [Mass/volume] in Serum or Plasma 4.14 ng/mL 0.00-4.00 Above upper panic limits [facility] ([facility]) \\BLDo\\PSA INTERPRETATION\\BLDx\\ The PSA assay should [...] be used interchangeably. ID Date Data Source [id number] 05/03/2019 10:14:00 PM EST [facility] Name Value Range Interpretation Code Description Data Elizabeth rce(s) Supporting Document(s) Prostate specific Ag [Mass/volume] in Serum or Plasma 4.14 ng/mL 0.00 - 4.00 [facility] [facility]BLDo\\PSA INTERPRETA TION\\BLDx\\ The PSA [...] Body surface area 2.12 m2 2.12 m2 [facility] ([facility]) Body mass index (BMI) [Ratio] 25.5 kg/m2 25.5 k g/m2 [facility] ([facility]) Body height 73 [in_i] 73 [in_i] [facility] ([facility]) 6'1" Body weight 87.545 kg 87.545 kg [facility] ([facility]) Body weight 193.00 [lb_av] 193.00 [lb_av] [facility] ([facility]) Oxygen saturation in Arterial blood by Pulse oximetry 98 % 98 % [facility] ([facility]) Respiratory rate 24 /min 24 /min [facility] ( [facility]) Body temperature 98.4 [degF] 98.4 [degF] [facility] ([facility]) Heart rate 94 /min 94 /min [facility] ([facility]) Diastolic blood pressure 50 mm[Hg] 50 mm[Hg] [facility] ([facility]) Systolic blood pressure 112 mm[Hg] 112 mm[Hg] [facility] Body weight 90.720 kg 90.720 kg [facility] ([facility]) Body mass index (BMI) [Ratio] 26.4 kg/m2 26.4 k g/m2 [facility] ([facility]) Body weight 200.00 [lb_av] 200.00 [lb_av] [facility] ([facility]) Body height 73 [in_i] 73 [in_i] [facility] ([facility]) 6'1" Body temperature 97.5 [degF] 97.5 [degF] [facility] ([facility]) Oxygen saturation in Arterial blood by Pulse oximetry 98 % 98 % [facility] ([facility]) Room Air Heart rate 74 /min 74 /min [facility] ([facility]) Diastolic blood pressure 80 mm[Hg] 80 mm[Hg] [facility] ([facility]) Systolic blood pressure 130 mm[Hg] 130 mm[Hg] [facility] ([facility]) Body weight 88.452 kg 88.452 kg [facility] ([facility]) Body mass index (BMI) [Ratio] 25.7 kg/m2 25.7 k g/m2 [facility] ([facility]) Body weight 195.00 [lb_av] 195.00 [lb_av] [facility] Body height 73 [in_i] 73 [in_i] [facility] ([facility]) 6'1" Body temperature 98.1 [degF] 98.1 [degF] [facility] ([facility]) Oxygen saturation in Arterial blood by Pulse oximetry 98 % 98 % [facility] ([facility]) Room Air Heart rate 78 /min 78 /min [facility] ([facility]) Diastolic blood pressure 80 mm[Hg] 80 mm[Hg] [facility] ([facility]) Systolic blood pressure 130 mm[Hg] 130 mm[Hg] M [facility] ([facility]) Body surface area 2.13 m2 2.13 m2 [facility] ([facility]) Body mass index (BMI) [Ratio] 25.9 kg/m2 25.9 k g/m2 [facility] ([facility]) Body height 73 [in_i] 73 [in_i] [facility] ([facility]) 6'1" Body weight 88.906 kg 88.906 kg [facility] ([facility]) Body weight 196.00 [lb_av] 196.00 [lb_av] [facility] ([facility]) Oxygen saturation in Arterial blood by Pulse oximetry 99 % 99 % [facility] ([facility]) Respiratory rate 18 /min 18 /min [facility] ( [facility]) Body temperature 98.7 [degF] 98.7 [degF] [facility] ([facility]) Heart rate 56 /min 56 /min [facility] ([facility]) Diastolic blood pressure 62 mm[Hg] 62 mm[Hg] [facility] ([facility]) Systolic blood pressure 132 mm[Hg] 132 mm[Hg] [facility] ([facility]) Body surface area 2.11 m2 2.11 m2 [facility] ([facility]) Body mass index (BMI) [Ratio] 25.3 kg/m2 25.3 k g/m2 [facility] ([facility]) Body height 73 [in_i] 73 [in_i] [facility] ([facility]) 6'1" Body weight 87.091 kg 87.091 kg [facility] ([facility]) Body weight 192.00 [lb_av] 192.00 [lb_av] [facility] ([facility]) Oxygen saturation in Arterial blood by Pulse oximetry 95 % 95 % [facility] ([facility]) Respiratory rate 18 /min 18 /min [facility] ( [facility]) Body temperature 98.7 [degF] 98.7 [degF] [facility] ([facility]) Heart rate 77 /min 77 /min [facility] ([facility]) Diastolic blood pressure 60 mm[Hg] 60 mm[Hg] [facility] ([facility]) Systolic blood pressure 118 mm[Hg] 118 mm[Hg] M [facility] ([facility]) Body surface area 2.11 m2 2.11 m2 [facility] ([facility]) Body mass index (BMI) [Ratio] 25.2 kg/m2 25.2 k g/m2 [facility] Body height 73 [in_i] 73 [in_i] [facility] ([facility]) 6'1" Body weight 86.638 kg 86.638 kg [facility] ([facility]) Body weight 191.00 [lb_av] 191.00 [lb_av] [facility] ([facility]) Oxygen saturation in Arterial blood by Pulse oximetry 97 % 97 % [facility] ([facility]) Respiratory rate 18 /min 18 /min [facility] ( [facility]) Body temperature 97.3 [degF] 97.3 [degF] [facility] ([facility]) Heart rate 80 /min 80 /min [facility] ([facility]) Diastolic blood pressure 74 mm[Hg] 74 mm[Hg] [facility] ([facility]) Systolic blood pressure 132 mm[Hg] 132 mm[Hg] M [facility] ([facility]) Body surface area 2.11 m2 2.11 m2 [facility] ([facility]) Body mass index (BMI) [Ratio] 25.3 kg/m2 25.3 k g/m2 [facility] ([facility]) Body height 73 [in_i] 73 [in_i] [facility] ([facility]) 6'1" Body weight 87.091 kg 87.091 kg [facility] ([facility]) Body weight 192.00 [lb_av] 192.00 [lb_av] [facility] ([facility]) Oxygen saturation in Arterial blood by Pulse oximetry 97 % 97 % [facility] ([facility]) Respiratory rate 20 /min 20 /min [facility] ( [facility]) Body temperature 97.0 [degF] 97.0 [degF] [facility] Heart rate 73 /min 73 /min [facility] ([facility]) Diastolic blood pressure 68 mm[Hg] 68 mm[Hg] [facility] ([facility]) Systolic blood pressure 115 mm[Hg] 115 mm[Hg] M LAKESHIA ([facility]) Body weight 88.452 kg 88.452 kg [facility] ([facility], ) Body mass index (BMI) [Ratio] 25.7 kg/m2 25.7 k g/m2 [facility] ([facility], ) Body weight 195.00 [lb_av] 195.00 [lb_av] MARIA FERNANDA Moore ([facility], ) Body height 73 [in_i] 73 [in_i] [facility]N ([facility], ) 6'1"
[2020-06-15] MEDS ORDERED: KCL 20MEQ IN 100ML SWI (KRUN) 20 MEQ in IV 1 EA IV ONE ×4 (14:20→16:00)
[2020-06-15] MEDS ORDERED: SODIUM CHLORIDE 0.9% INJ 10 ML SYR IV PRN (14:20)
[2020-06-15] MEDS ORDERED: POTASSIUM CHLORIDE 10% LIQ 20 MEQ/15 ML UDC PO ONE (15:00)
[2020-06-15] MEDS ORDERED: POTA20EL PO (17:40)
[2020-06-15 17:43] VITALS: BP 108/75
== END 2020-06-15 18:09 | disposition home or self-care (01) ==
LOC: M ED 13:55
DX: E87.6 Hypokalemia (principal); C34.92 Malignant neoplasm of unspecified part of left bronchus or lung; C10.9 Malignant neoplasm of oropharynx, unspecified; J44.9 Chronic obstructive pulmonary disease, unspecified; N18.9 Chronic kidney disease, unspecified; N40.2 Nodular prostate without lower urinary tract symptoms; F17.210 Nicotine dependence, cigarettes, uncomplicated; Z79.01 Long term (current) use of anticoagulants; Z79.899 Other long term (current) drug therapy

== ENCOUNTER → 2020-06-15 | Outpatient (CLI) | payer OTHER ==
[~2020-06-15] MED LIST changes: +ALBU8.5H; +CEPH250REC; +ELIQ5TAB4 PO; +ISOVUE-300 61% 50ML VIAL As Ordered ONE; +LIDOCAINE 1% MDV 20ML VIAL As Ordered ONE; +LIDOCAINE 2% JELLY 30ML As Ordered ONE; +MIDAZOLAM INJ 2MG/2ML VIAL (J2250 PER 1MG) As Ordered ONE; +POTA20EL PO; +PROMETHAZINE INJ 25 MG/ML VIAL (J2550) As Ordered ONE; +PROSLIQ PO; +ceFAZolin 1GM VIAL (J0690 PER 500MG) As Ordered ONE; +ceFAZolin 2 GM/D5W 50 ML IV BAG (J0690 PER 500MG) As Ordered ONE; +diphenhydrAMINE 50MG/ML VIAL (J1200) As Ordered ONE; +fentaNYL 100 MCG/2 ML INJECTION (J3010) As Ordered ONE
--- NOTE | 2020-06-15 12:09 | IRHP ---
[facility] IR Pre-Procedure H & P General Date of Service: Jun 15, 2020 Procedure: Same Day Surgery Interval History and Physical I have seen the patient and reviewed last H & P performed within 30 days. There is no significant interval change. History of Present Illness Chief Complaint The patient is a 54-year-old male admitted with a reason for visit of Head/Neck Ca. PRE-PROCEDURE DIAGNOSIS: head and neck cancer HEART: normal rate. LUNGS: normal breathing at rest. ASA Classification ASA Classification: III-Severe systemic dis. Mallampati Score: II NPO: Yes Problems with prior sedation: No Obstructive Sleep Apnea: No Plan moderate sedation Allergies Coded Allergies: No Known Allergies (Unverified , 08/12/19) Home Medications Scheduled Apixaban (Eliquis), 5 MG PO DAILY, (Reported) Tamsulosin HCl (Flomax), 0.4 MG PO QPM, (Reported) Umeclidinium [place] (Incruse Ellipta), 1 PUFF INH DAILY, (Reported) Scheduled PRN Albuterol Sulfate (Ventolin Hfa), 2 PUFF INH QID PRN for SHORTNESS OF BREATH, (Reported) Nicotine Polacrilex (Nicotine Lozenge), 2 MG MT Q1HP PRN for SMOKING CESSATION Discontinued Medications Apixaban (Eliquis), 5 MG PO ASDIRECTED Discontinued Reason: Re-entering as new Cephalexin (Cephalexin), 500 MG PO TID Discontinued Reason: Pt states not taking Magic Mouthwash (First-Mouthwash Blm), 10 ML PO QID PRN for MUCOSITIS Discontinued Reason: Pt states not taking Metronidazole (Metronidazole), 500 MG PO TID Discontinued Reason: Pt states not taking KIERA GALVEZ MD Jun 15, 2020 12:08
[2020-06-15 12:37] LABS: HEMATOCRIT 27.7 % (42.0-52.0); HEMOGLOBIN 9.3 g/dl (13.5-17.5); MEAN CORPUSCULAR HEMOGLOBIN 29.2 pg (27.0-33.0); MEAN CORPUSCULAR HGB CONC 33.6 g/dl (32.0-36.5); MEAN CORPUSCULAR VOLUME 86.8 fl (80.0-96.0); PLATELET COUNT, AUTOMATED 215 10^3/uL (150-450); RED BLOOD COUNT 3.19 10^6/uL (4.30-6.10); WHITE BLOOD COUNT 4.6 10^3/uL (4.0-10.0)
[2020-06-15 12:49] LABS: INR 1.07; PROTHROMBIN TIME 14.1 SECONDS (12.5-14.3)
[2020-06-15 13:15] VITALS: BP 103/72
[2020-06-15 13:37] LABS: BLOOD UREA NITROGEN 8 MG/DL (7-18); CALCIUM LEVEL 7.7 MG/DL (8.5-10.1); CARBON DIOXIDE LEVEL 22 MEQ/L (21-32); CHLORIDE LEVEL 101 MEQ/L (98-107); GLOMERULAR FILTRATION RATE > 60.0 (>56); GLUCOSE, FASTING 72 MG/DL (70-100); POTASSIUM SERUM 2.2 MEQ/L (3.5-5.1); SODIUM LEVEL 137 MEQ/L (136-145)
--- NOTE | 2020-06-15 16:11 | POST-OPPD ---
Postoperative Procedure Note Date Of Procedure: Jun 15, 2020 Time Of Procedure: 16:[address] guidance for G tube placement. Findings: There is no current percutaneous window to stomach due to overlying colon. Patient will be re evaluated in 1 week. Complications : None EBL: None Plan: Follow up in 1 week in IR. KIERA GALVEZ MD Jun 15, 2020 16:11
== END ==
LOC: M IRPRO 11:45
PROVIDERS: ATTEND Radiology Diagnostic Radiology
DX: C76.0 Malignant neoplasm of head, face and neck (principal); Z79.899 Other long term (current) drug therapy
CPT/HCPCS: 74150; 80048; 85027; 85610; J0690; J1642; J2250; J3010; Q9967

== ENCOUNTER → 2020-06-28 | Outpatient (CLI) | payer OTHER ==
[~2020-06-28] MED LIST changes: +GLUCAGON INJ 1MG VIAL As Ordered ONE; +ISOVUE-300 61% 50ML VIAL As Ordered ONE; +LIDOCAINE 1% MDV 20ML VIAL As Ordered ONE; +LIDOCAINE 2% JELLY 5ML TUBE As Ordered ONE; +LIDOCAINE 4% CREAM 5GM (LMX4) As Ordered ONE; +MIDAZOLAM INJ 2MG/2ML VIAL (J2250 PER 1MG) As Ordered ONE; +PERCOCET 5MG/325MG TAB As Ordered ONE; +PERCOCET 5MG/325MG TAB PO ONE; +POTA20EL PO; +ceFAZolin 1GM VIAL (J0690 PER 500MG) As Ordered ONE; +diphenhydrAMINE 50MG/ML VIAL (J1200) As Ordered ONE; +fentaNYL 100 MCG/2 ML INJECTION (J3010) As Ordered ONE
--- NOTE | 2020-06-28 14:17 | IRPN ---
[facility] IR Progress Note IR Progress Note DATE: Jun 28, 2020 Findings: Axial CT images obtained through the abdomen demonstrate no percutaneous window for gastrostomy catheter placement. Impression: CT demonstrates no percutaneous window for gastrostomy catheter placement. Allergies Coded Allergies: No Known Allergies (Unverified , 08/12/19) KIERA GALVEZ MD Jun 28, 2020 14:17
[2020-06-28 18:45] VITALS: BP 106/82
--- NOTE | 2020-06-29 08:34 | IRHP ---
[facility] IR Pre-Procedure H & P General Date of Service: Jun 28, 2020 Procedure: Same Day Surgery Interval History and Physical I have seen the patient and reviewed last H & P performed within 30 days. There is no significant interval change. History of Present Illness Chief Complaint The patient is a 54-year-old male admitted with a reason for visit of Head/Neck Ca. PRE-PROCEDURE DIAGNOSIS: Head and neck cancer. Dysphagia. HEART: Normal rate. LUNGS: Normal breathing at rest. ASA Classification ASA Classification: II-Mild systemic disease Mallampati Score: II NPO: Yes Problems with prior sedation: No Obstructive Sleep Apnea: No Plan moderate sedation Allergies Coded Allergies: No Known Allergies (Unverified , 08/12/19) Home Medications Scheduled Apixaban (Eliquis), 5 MG PO DAILY, (Reported) Potassium Chloride (Potassium Chloride), 30 ML PO DAILY Tamsulosin HCl (Flomax), 0.4 MG PO QPM, (Reported) Umeclidinium [place] (Incruse Ellipta), 1 PUFF INH DAILY, (Reported) Scheduled PRN Albuterol Sulfate (Ventolin Hfa), 2 PUFF INH QID PRN for SHORTNESS OF BREATH, (Reported) Nicotine Polacrilex (Nicotine Lozenge), 2 MG MT Q1HP PRN for SMOKING CESSATION VS, I&O, 24H, Fishbone Vital Signs/I&O Vital Signs Date Time Temp Pulse Resp B/P (MAP) Pulse Ox O2 Delivery O2 Flow Rate FiO2 06/28/20 18:45 62 18 100 Room Air 06/28/20 17:10 2 06/28/20 13:28 98.6 KIERA GALVEZ MD Jun 29, 2020 08:34
--- NOTE | 2020-06-30 09:46 | IRPON ---
IR Postoperative Note Date Of Procedure: Jun 28, 2020 Time Of Procedure: 16:00 IR Postoperative Note IR Gastrostomy catheter placement with CT and fluoroscopic guidance. IR Moderate sedation. Clinical Information:Head and neck cancer. Dysphagia. Malnourished. Overlying dilated transverse colon makes fluoroscopy-guided gastrostomy placement challenging. Therefore CT is used in addition for further guidance. Physician: Dr. Brandt. Procedure: The patient was advised of the benefits, risks, and alternatives of the procedure and informed consent was obtained. A time out was performed with verification of the patient's name, MRN, site of procedure, and type of procedure to be performed. A 4 Romanian glide cath was inserted through the right nostril under fluoroscopy guidance and in conjunction with the wire was used to catheterize the esophagus and the stomach. The catheter was positioned in the stomach and the wire was removed. The catheter was secured to the nose. The patient was positioned in the supine position on the CT table. The stomach w as insufflated with air through the NG tube. After sufficient insufflation of the stomach, a CT scan was performed. This demonstrates small percutaneous window into the stomach. The site was prepped and draped in the usual sterile fashion. Moderate sedation was performed by the physician including the presence of an independent trained RN, who assisted in monitoring the patient's level of consciousness and physiological status. Following the administration of fentanyl and Versed the physician spent 90 minutes of continuous [id number] time with the patient. The anticipated puncture site was anesthetized with lidocaine. The stomach was re-insufflated through the NG tube. Repeat CT demonstrates percutaneous window into the stomach and anterior stomach wall up against the anterior abdominal wall without intervening bowel. A gastropexy needle was inserted under intermittent CT guidance into the stomach. After CT confirmation, the gastropexy needle was deployed as usual to tack the anterior stomach wall to the anterior abdominal wall. An 18-gauge needle was then inserted into the stomach under CT guidance and after CT confirmation of correct placement, an Amplatz wire was advanced through the needle into the stomach. Repeat CT confirms Amplatz wire coiled in the stomach. The needle was removed over the wire. The tract was dilated with an 8 Romanian dilator and an 8 Romanian pigtail catheter was then inserted over the wire, into the stomach. The pigtail was formed. Follow-up CT confirms percutaneous access into the stomach and pigtail catheter in the stomach. The patient was then transferred to fluoroscopy. A secret service agent radiograph reveals air within the stomach. Pigtail drainage catheter located at the antrum of the stomach. NG tube in place. The pigtail catheter was injected with contrast under fluoroscopy guidance. This confirms the catheter enters in the gastric body, the pigtail is located in the distal antrum. An 035 wire was then advanced through the pigtail catheter, the catheter was removed over the wire. A kumpe catheter was advanced over the wire and used with the wire, to catheterize the gastric fundus. Injection of contrast confirmed catheterization of the gastric fundus. A new 8 Romanian pigtail catheter was then advanced over the wire under fluoroscopic guidance, into the gastric fundus. The pigtail was formed and the catheter was secured in position. A follow-up CT confirms catheter pigtail located in the stomach. There is contrast in the stomach and postprocedural pneumoperitoneum as expected. No contrast in the colon or or peritoneal space. The NG tube was removed The patient tolerated the procedure well and was returned to the PRU in stable condition. EBL:Less than 5 mL. Complications:None. Conclusion: 1. Successful CT-guided gastropexy and placement of 8 Romanian pigtail catheter percutaneously into the stomach to secure percutaneous access for gastrostomy. 2. Patient will return next week after resolution of pneumoperitoneum for exchange of this track to a gastrostomy catheter. Thank you for this referral. KIERA BRANDT MD Jun 30, 2020 09:46
== END ==
LOC: M IRPRO 13:03
PROVIDERS: ATTEND Radiology Diagnostic Radiology
DX: C76.0 Malignant neoplasm of head, face and neck (principal); R13.10 Dysphagia, unspecified; E46 Unspecified protein-calorie malnutrition; K59.89 Other specified functional intestinal disorders; Z79.899 Other long term (current) drug therapy
CPT/HCPCS: 49440; 77012; 99152; 99153; C1769; C1887; C1894; J0690; J1610; J1642; J2250; J3010; Q9967

== ENCOUNTER 2020-07-06 08:25 | Observation (INO) | payer OTHER ==
[~2020-07-06 08:25] MED LIST changes: -GLUCAGON INJ 1MG VIAL As Ordered ONE; -ISOVUE-300 61% 50ML VIAL As Ordered ONE; -LIDOCAINE 1% MDV 20ML VIAL As Ordered ONE; -LIDOCAINE 2% JELLY 5ML TUBE As Ordered ONE; -LIDOCAINE 4% CREAM 5GM (LMX4) As Ordered ONE; -MIDAZOLAM INJ 2MG/2ML VIAL (J2250 PER 1MG) As Ordered ONE; -PERCOCET 5MG/325MG TAB As Ordered ONE; -PERCOCET 5MG/325MG TAB PO ONE; -ceFAZolin 1GM VIAL (J0690 PER 500MG) As Ordered ONE; -diphenhydrAMINE 50MG/ML VIAL (J1200) As Ordered ONE; -fentaNYL 100 MCG/2 ML INJECTION (J3010) As Ordered ONE
[2020-07-06] MEDS ORDERED: ceFAZolin 2 GM/D5W 50 ML IV BAG (J0690 PER 500MG) As Ordered ONE (09:10)
[2020-07-06] MEDS ORDERED: ISOVUE-300 61% 50ML VIAL As Ordered ONE ×2 (10:08→11:28)
[2020-07-06] MEDS ORDERED: LIDOCAINE 1% MDV 20ML VIAL As Ordered ONE (10:08)
[2020-07-06] MEDS ORDERED: diphenhydrAMINE 50MG/ML VIAL (J1200) As Ordered ONE (10:25)
[2020-07-06] MEDS ORDERED: MIDAZOLAM INJ 2MG/2ML VIAL (J2250 PER 1MG) As Ordered ONE ×2 (10:26→11:14)
[2020-07-06] MEDS ORDERED: fentaNYL 100 MCG/2 ML INJECTION (J3010) As Ordered ONE ×2 (10:26→11:14)
[2020-07-06] MEDS ORDERED: PROMETHAZINE INJ 25 MG/ML VIAL (J2550) As Ordered ONE (11:08)
--- NOTE | 2020-07-06 11:58 | IRHP ---
[facility] IR Pre-Procedure H & P General Date of Service: Jul 06, 2020 Procedure: Same Day Surgery Interval History and Physical I have seen the patient and reviewed last H & P performed within 30 days. There is no significant interval change. History of Present Illness Chief Complaint The patient is a 54-year-old male admitted with a reason for visit of Head/Neck Ca. PRE-PROCEDURE DIAGNOSIS: Head and neck cancer HEART: Normal rate. LUNGS: Normal breathing at rest. ASA Classification ASA Classification: III-Severe systemic dis. Mallampati Score: II NPO: Yes Problems with prior sedation: No Obstructive Sleep Apnea: No Plan moderate sedation Allergies Coded Allergies: No Known Allergies (Unverified , 08/12/19) Home Medications Scheduled Apixaban (Eliquis), 5 MG PO DAILY, (Reported) Potassium Chloride (Potassium Chloride), 30 ML PO DAILY Tamsulosin HCl (Flomax), 0.4 MG PO QPM, (Reported) Umeclidinium [place] (Incruse Ellipta), 1 PUFF INH DAILY, (Reported) Scheduled PRN Albuterol Sulfate (Ventolin Hfa), 2 PUFF INH QID PRN for SHORTNESS OF BREATH, (Reported) Discontinued Medications Nicotine Polacrilex (Nicotine Lozenge), 2 MG MT Q1HP PRN for SMOKING CESSATION Discontinued Reason: Pt states not taking VS, I&O, 24H, Fishbone Vital Signs/I&O Vital Signs Date Time Temp Pulse Resp B/P (MAP) Pulse Ox O2 Delivery O2 Flow Rate FiO2 07/06/20 11:40 74 18 100 Nasal Cannula 2 07/06/20 08:46 98.7 KIERA GALVEZ MD Jul 06, 2020 11:58
[2020-07-06] MEDS ORDERED: D5W/0.9% SODIUM CHLORIDE 1,000 ML IV SCH (13:06)
[2020-07-06 13:15] VITALS: BP 94/68
[2020-07-06] MEDS ORDERED: PERCOCET 5MG/325MG TAB As Ordered ONE (14:12)
--- NOTE | 2020-07-06 14:33 | RADENCPD ---
Date/Time of Encounter Date of Encounter: Jul 06, 2020 Time of Encounter: 14:29 Encounter Note the days events. PEG tube exchange was unsuccessful. Per Dr. Gallo's request I spoke to Rakan in the IR suite to encourage him to stay overnight for antibiotics to prevent peritonitis. After deliberation he stated he would stay. I remain available to assist in any way I can with his care. I will have him see me in the office early next week. If further attempts at percutaneous PEG placement are not feasible or safe, then we can explore other means of getting him necessary nutrition and hydration. JANAK MICHELLE MD Jul 06, 2020 14:32
[2020-07-06] MEDS ORDERED: cefTRIAXone SOD 1 GM in D5W MINI-BAG PLUS 50 ML IV SCH (15:00)
[2020-07-06] MEDS ORDERED: metroNIDAZOLE 500 MG in IV 1 EA IV SCH (16:00)
--- NOTE | 2020-07-06 16:04 | HPEPDOC ---
General Date of Admission Jul 06, 2020 at 12:38 Date of Service: Jul 06, 2020 Chief Complaint The patient is a 54-year-old male admitted with a reason for visit of Head/Neck Ca. History of Present Illness 54 year old male with Synchronous head, neck and lung squamous cell cancer f inished chemoradiation in mar 2020 now with severe protein calorie malnutrition and massive weigh loss due to dysphagia unable to tolerate oral food has been seen and followed by IR for gastrostomy tube placement since May 2020 with complications. He had a pig tail tube placement 1 week ago. Today came to IR for change of gastrostomy tube over guidewire however the tract was lost and the gastrostomy could not be placed. Ir recommended admission for 24 hours with IV antibiotics to prevent against peritonitis and NPO for 24 hours . So the patient was admitted to the hospitalist service. Patient complains of pain at the procedure site in the epigastrium, sharp burning in nature about 8/10 in intensity. 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 Family History Significant Family History: Cancer (prostate cancer in grand father) Social History * Smoker: current smoker Alcohol: Denies (used to be a heavy beer drinker stopped when diagnosed to cancer.) A-FIB/CHADSVASC A-FIB History Current/History of A-Fib/PAF?: No Review of Systems Constitutional: Reports: Weakness, Fatigue, Weight Loss; Denies: Chills, Fever, Night Sweats Eyes: Denies: Pain, Vision change ENT: Denies: Head Aches, Ear Pain, Dysphagia Skin: Denies: Rash, Lesions, Jaundice, Bruising, Itching, Dry, Breakdown, Nail Changes, Other Pulmonary: Reports: Cough Cardiovascular: Denies: Chest Pain, Palpitations, Orthopnea Gastrointestinal: Reports: Abdominal Pain; Denies: Nausea, Vomiting, Diarrhea Physical Examination General Exam: Positive: Alert, Cooperative, No Acute Distress Eye Exam: Positive: PERRLA, Conjunctiva & lids normal, EOMI; Negative: Sclera icteric ENT Exam: Positive: Atraumatic, Mucous membr. moist/pink, Pharynx Normal Neck Exam: Positive: Supple; Negative: JVD, thyromegaly Chest Exam: Positive: Clear to auscultation, Diminished Heart Exam: Positive: Rate Normal, Regular Rhythm, Normal S1, Normal S2; Negative: Murmurs, Rubs Abdomen Exam: Positive: BS Hypoactive, Soft, Tenderness (in the epigastrium) Extremity Exam: Negative: Clubbing, Cyanosis, Edema Skin Exam: Positive: Nl turgor and temperature; Negative: Breakdown, Lesion Psych Exam: Positive: Memory Intact, Oriented x 3 Vital Signs Vital Signs Date Time Temp Pulse Resp B/P (MAP) Pulse Ox O2 Delivery O2 Flow Rate FiO2 07/06/20 11:40 74 18 100 Nasal Cannula 2 07/06/20 08:46 98.7 Assessment/Plan 54 year old male with 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 He had a pig tail tube placement 1 week ago. Today came to IR for change of gastrostomy tube over guidewire however the tract was lost and the gastrostomy could not be placed. Ir recommended admission for 24 hours with IV antibiotics to prevent against peritonitis and NPO for 24 hours . Gastrostomy tube placement complications loss of tract and unable to place gastrostomy tube watch for peritonitis. NPO tonight, clear liquids from tomorrow. ceftriaxone and flagyl for now will need 1 week of antibiotics on discharge cephalexin and flagyl. Bilateral lower extremity DVT with left occlusive thrombus from superficial femoral to popliteal vein. Right smaller non occlusive thrombus. On Eliquis. Synchronous head and neck and lung cancer squamous cell s/p chemoradiation finished on 04/13/20 follow up with Radiation oncology and medical oncology as outpatient. Severe protein calorie malnutrition with dysphagia Due to cancer and cancer treatment. Has lost 60 lbs in the past 6 months BMI 19.8, bitemporal wasting. On Full liquids at baseline with Ensure Anemia of Chronic disease Due to Cancer and chemo and radiotherapy. ferritin not low ,Vit B12 and folate not low HH stable. H/O Hypertension resolved with massive weight loss Not on any meds HLD resolved after massive weight loss COPD continue spiriva and albuterol prn. BPH continue flomax. Plan / VTE VTE Prophylaxis Ordered?: Yes DAINA MORGAN MD Jul 06, 2020 13:06
--- NOTE | 2020-07-06 17:00 | IRPON ---
IR Postoperative Note Date Of Procedure: Jul 06, 2020 Time Of Procedure: 16:39 IR Postoperative Note IR Gastrostomy catheter placement under fluoroscopy guidance. IR Moderate sedation. Clinical information: Head and neck cancer with dysphagia. Malnourished. Needs gastrostomy tube for additional nourishment. Patient had gastropexy and pigtail catheter in the stomach placed a week ago under CT guidance due to difficult anatomy and presents for upsize and revision to regular gastrostomy catheter today. Physician: Dr. Brandt. Procedure: The patient was advised of the benefits, risks and alternatives of the procedure and informed consent was obtained. The time-out was performed with verification of the patient's name, MRN, site of procedure and type of procedure to be performed. The patient was positioned in the prone position on the angiographic table. The site was prepped and draped in the usual sterile fashion. Moderate sedation was performed by the physician including the presence of an independent trained RN who assisted and monitored the patient's level of consciousness and physiologic status. Following the administration of fentanyl and Versed , the physician spent 45 minutes of continuous face to face time with the patient. A e learning manager radiograph reveals a pigtail catheter in expected location. Contrast injected through the existing pigtail catheter confirms the pigtail is in the stomach. Gastropexy sutures is still in place. The catheter was cut, and an Amplatz wire was advanced under fluoroscopy guidance, through the catheter and into the stomach. The pigtail catheter was removed over the wire. The tract was serially dilated under fluoroscopy guidance, and a peel-away sheath was advanced over the wire into the stomach. A 14 Moroccan gastrostomy catheter was then advanced over the wire, under fluoroscopy guidance but could not be advanced into the stomach. The peel-away sheath was removed. A short sheath was advanced over the wire under fluoroscopy guidance. Repeat injection through the sheath confirmed location within the stomach. The sheath was removed over the wire. Repeat attempt was made to advance the 14 Moroccan gastrostomy catheter over the wire and into the stomach but could not be passed into the stomach. Additional attempts were made to try to dilate the tract under fluoroscopy guidance however the wire flipped out of the stomach. Repeat attempt to recanalize the tract under fluoroscopy guidance was not successful as the tract is fresh. Catheter, wire and sheath were all removed, pressure held and hemostasis achieved. A sterile dressing was applied to the site. The patient tolerated the procedure well and was returned to the PRU in stable condition. EBL: Less than 5 ml. Complications: Unsuccessful gastrostomy placement. Conclusion: 1. Unsuccessful gastrostomy catheter placement. 2. Patient was referred for admission under the hospitalist team for observation and overnight IV antibiotics, the primary concern being potential for peritonitis. I explained my concerns to the patient. However the patient left AMA. KIERA BRANDT MD Jul 06, 2020 17:00
--- NOTE | 2020-07-06 20:09 | IPNPDOC ---
Text Note Date of Service The patient was seen on 07/06/20. NOTE Soon after admission nurse informed me that the patietn did not want to stay. Dr Brandt, myself and Dr Valera all of us spoke with him and urged him to stay so that he can get some IV antibiotics . However he was adamant about not wanting to stay in the hospital and left AMA. VS,Fishbone, I+O VS, Fishbone, I+O Vital Signs Date Time Temp Pulse Resp B/P (MAP) Pulse Ox O2 Delivery O2 Flow Rate FiO2 07/06/20 13:15 65 19 100 Room Air 07/06/20 11:40 2 07/06/20 08:46 98.7 DAINA MORGAN MD Jul 06, 2020 20:09
[2020-07-12] MEDS ORDERED: ALBU8.5H (08:17)
[2020-07-12] MEDS ORDERED: CEPH250REC (08:17)
[2020-07-12] MEDS ORDERED: PROSLIQ PO (11:47)
[2020-07-12] MEDS ORDERED: OXYC1SOL3 PO (11:48)
== END 2020-07-06 15:03 | disposition left against medical advice (07) ==
LOC: M IRPRO 08:25 → M MSPAV 12:38 → INTOOBSV 12:38
PROVIDERS: ADMIT Radiology Diagnostic Radiology; ATTEND Radiology Diagnostic Radiology
DX: C76.0 Malignant neoplasm of head, face and neck (principal); R13.10 Dysphagia, unspecified; E43 Unspecified severe protein-calorie malnutrition; J44.9 Chronic obstructive pulmonary disease, unspecified; Z79.01 Long term (current) use of anticoagulants; N40.0 Benign prostatic hyperplasia without lower urinary tract symptoms; M10.9 Gout, unspecified; F17.218 Nicotine dependence, cigarettes, with other nicotine-induced disorders; R62.7 Adult failure to thrive; N17.9 Acute kidney failure, unspecified; Z79.899 Other long term (current) drug therapy
CPT/HCPCS: 49440; 99152; 99153; C1729; C1769; C1887; C1894; J0690; J1200; J1642; J2250; J3010; Q9967

== ENCOUNTER → 2020-07-12 | Outpatient (CLI) | payer OTHER ==
[~2020-07-12] MED LIST changes: +ALBU8.5H; +CEPH250REC; +PROSLIQ PO
--- NOTE | 2020-07-12 11:55 | RADENCPD ---
Date/Time of Encounter Date of Encounter: Jul 12, 2020 Time of Encounter: 11:48 Encounter Rakan came in for a brief follow up today. He reports that he continues on antibiotics per Dr. Brandt s/p attempts at PEG placement. Given the unsuccessful attempts he no longer wishes to have one placed. Additionally he has ongoing abdominal pain from the procedure. He is taking 3 ensure PO daily and some milk, and soft foods. His main barrier to eating is ongoing dysgeusia, most foods are off putting to him because of this. He is however swallowing without pain. He does have significant dysphagia to solids ongoing, tried pizza and choked recently. This is typical unless foods are pureed consistency. 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 He is committed to increasing his PO intake. On exam he has no trismus, the oral cavity is without lesions, he has post radiation hyperpigmentation and fibrosis of the neck, he has cervical kyphosis. His PEG insertion site is healing without evidence of infection. Assessment: Protein calorie malnutrition, PEG tube insertion has failed and is no longer an option Rakan is wishing to consider. I explained that if he commits to eating 5-6 ensure daily then, he will slowly gain weight. A good goal for him woulf be 0.5 lbs/week He will try to increase his caloric intake. He may do so at the expense of free water. I will also add prosource 30 ml daily Plan: Increase ensure to 5-6 daily Add prosource 7 day oxycodone script for abdominal pain Follow up with me for PET-CT in July as previously scheduled JANAK MICHELLE MD Jul 12, 2020 11:55
== END ==
LOC: M ONCR 10:35
PROVIDERS: ATTEND General Practice
DX: C01 Malignant neoplasm of base of tongue (principal); C34.02 Malignant neoplasm of left main bronchus

== ENCOUNTER → 2020-07-14 | Outpatient (CLI) | payer OTHER ==
--- NOTE | 2020-07-14 17:54 | REP ---
INDICATION: OROPHARYNGEAL DYSPHAGIA. COMPARISON: NONE TECHNIQUE: The procedure was performed under the direct supervision of . The procedure was performed with Arely Dorsey from speech pathology present. 5 CC aliquots of thin, nectar, honey and Puree rate consistency barium was administered. 0.7 minutes of fluoroscopy time was utilized for this procedure. FINDINGS: With thin consistency barium there is aspiration. With nectar honey and puree consistency there is laryngeal penetration. The epiglottis does not invert. A detailed report of this examination will be provided by speech pathology. IMPRESSION: With thin consistency barium there is aspiration. With nectar, honey and puree consistency there is laryngeal penetration. The epiglottis does not invert. A detailed report of this examination will be provided by speech pathology. <Electronically signed by Nguyễn Eli > 07/14/20 1614 <Electronically signed by Raphael Arreola > 07/14/20 [id number]
== END ==
LOC: M ST 09:58
PROVIDERS: ATTEND General Practice
DX: R13.12 Dysphagia, oropharyngeal phase (principal)

== ENCOUNTER → 2020-07-24 | Outpatient (CLI) | payer OTHER | LOC: M PLARAD 08:53 | PROVIDERS: ATTEND General Practice | DX: C01 Malignant neoplasm of base of tongue (principal) ==

== ENCOUNTER → 2020-08-22 | Outpatient (CLI) | payer OTHER ==
[~2020-08-22] MED LIST changes: +GUAI100L6 PO; +MIDO2.5T
--- NOTE | 2020-08-22 11:52 | RADONC ---
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 He received several cycles of induction chemotherapy, which was poorly tolerated, and had delayed receiving dental extractions needed prior to chemoradiation. He eventually completed chemoradiation to both primary sites synchronously; 60 Gy in 30 fractions to the lung 02/15/20-03/30/20; and 70 Gy in 35 fractions to the HN from 02/15/20-04/13/20. The head and neck treatment was complicated by intractable anxiety from his mask, which resulted in several delays in completing as scheduled, eventually due to missed fractions we decided together to accelerate the final phase of his course, he then completed the final 10 outstanding fractions BID over 5 days. He tolerated this well. His post- treatment course however was marked by failure to thrive and difficulty with PO intake, despite lack of pain. Attempt was made to place a PEG tube x 3 percutaneously which was complicated by enterotomy. Further attempts were refused. He is seen today following restaging CT scans (he was unable to tolerate PET-CT due to same anxiety) and for survivorship care. Diagnosis/Treatment History Oncologic History As above Recent data: 08/17/20 CT neck FINDINGS: Paranasal sinuses: There is mild right maxillary sinus mucosal thickening. Nasopharynx: Unremarkable. Oropharynx: Unremarkable. No significant tonsillar enlargement. Hypopharynx: Unremarkable. Larynx: Unremarkable. Normal epiglottis. Retropharyngeal space: Unremarkable. Submandibular/Parotid glands: Normal. Glands are normal in size. Thyroid: Normal. No enlarged or calcified nodules. Lymph nodes: Small, scattered cervical lymph nodes appear unchanged. There is no worrisome cervical lymphadenopathy. Trachea: Visualized trachea is unremarkable. Lungs: There is biapical scarring. Bones/joints: There is degenerative disc disease and spondylosis, most pronounced at C5/6. Soft tissues: Unremarkable. No significant soft tissue swelling. IMPRESSION: No acute abnormality. 08/17/20 CT chest FINDINGS: Preliminary digital immunology teacher radiograph demonstrates marked gaseous distention of the transverse colon in the upper abdomen. A right-sided [id number]-I-Yqif catheter is noted. There is no evidence of pleural or pericardial effusion. There is a linear fibro atelectatic band like density in the left upper lobe which is essentially unchanged in distribution and extent when compared with the most recent prior study of December 31, 2019. This is improved when compared with the September 13, 2019 study. There are some inspissated endobronchial secretions in the left upper lobe and there is peribronchial soft tissue density and narrowing of the airway in the left upper lobe bronchial tree. This is unchanged from the most recent prior study as well and improved from the earlier exam September 13, 2019. There is a bronchitis pattern in the lingular and left lower lobe bronchi with peribronchial thickening and some and inspissated bronchial secretions. On today's study, there is a new zone of linear platelike atelectasis in the right upper lobe just above the minor fissure. No new infiltrate is seen. There is no evidence of new hilar or mediastinal mass or adenopathy. Patient is extremely thin. See abdominal CT report for intra-findings. There is some vascular calcification. IMPRESSION: Stable bronchial narrowing and peribronchial thickening left upper lobe. Bronchitis pattern lingula and left lower lobe. New area of platelike atelectasis in the right upper lobe. Otherwise no acute abnormality. 08/17/20 CT abdomen pelvis FINDINGS: The liver, gallbladder, spleen, pancreas, adrenal glands, and kidneys are unc hanged. The abdominal aorta and para-aortic regions are unchanged. There is gaseous colonic distention. There is no evidence of free air. Multiple dilated gas and contrast filled small bowel loops are identified. There is no evidence of intestinal obstruction. There is no significant change in the osseous structures. IMPRESSION: There is gaseous distention of the colon. There are multiple dilated gas and contrast filled small bowel loops. Survivorship: Test Due Next Last result Notes TSH, T4 6m post-tx, then q1y November 2020 Carotid US q10 y post-tx 2029 Smoking cessation Assess annually if applicable November [address] q1y once CR confirmed November 2020 (surveillance for NSCLC) CBC,CMP, Lipids q1y November 2020 Echocardiogram q10 y post tx 2029 Interval History Rakan reports he is taking 5-6 ensure PO daily and also prosource. He notes he cough up lots of green phlegm, as well as blowing the same thick secretions from his nose. He has no pain whatsoever. He desires dentures so he can take some softer foods without choking. He has minimal choking with liquids. He is fully ambulatory at home. Takes care of his . No financial concerns at this time. Has VNS assistance. Discussed smoking cessation. He wants to quit but not ready for an earnest attempt now. Did not tolerate lozenges. Would consider wellbutrin in future. Agrees to revisit next visit. Current Therapy Surveillance Stage NSCLC left lung [id number] Stage IIB OPX [id number] (overlapping sites) stage TATE Social History: Current everyday smoker Former drinker, does not anymore Allergies / Meds Allergies: Coded Allergies: No Known Allergies (Unverified , 08/12/19) Home Meds Active Scripts Oxycodone HCl (Oxycodone HCl) 5 Mg/5 Ml Solution, 5 ML PO Q6HP PRN for pain MDD 30 Milliliter(s) for 7 Days, #210 ML Prov:JANAK MICHELLE MD 07/12/20 Amino AC/Protein Hydr/Whey Pro (Prosource Protein Liquid) 946 Ml Liquid, 946 ML PO ASDIRECTED, #1 CONTAINER 1 Refill Take 30 ml by mouth daily Prov:JANAK MICHELLE MD 07/12/20 Potassium Chloride (Potassium Chloride) 20 Meq/15 Ml Liquid, 30 ML PO DAILY, #1 L Prov:Sid Caballero M.D. 06/15/20 Reported Medications Midodrine HCl (Midodrine HCl) 2.5 Mg Tablet 08/22/20 Albuterol Sulfate (Albuterol Sulfate Hfa) 8.5 Gm Hfa.aer.ad 07/12/20 Apixaban (Eliquis) 5 Mg Tab.ds.pk, 5 MG PO DAILY 06/14/20 Umeclidinium Confluence (Incruse Ellipta) 62.5 Mcg Blst.w.dev, 1 PUFF INH DAILY 02/14/20 Tamsulosin HCl (Flomax) 0.4 Mg Capsule, 0.4 MG PO QPM, CAP 06/11/19 Albuterol Sulfate (Ventolin Hfa) 18 Gm Hfa.aer.ad, 2 PUFF INH QID PRN for SHORTNESS OF BREATH 06/11/19 Discontinued Reported Medications Cephalexin Monohydrate (Cephalexin) 250 Mg/5 Ml Susp.recon 07/12/20 Review of Systems Review of Systems Constitutional: Denies: Chills, Fever, Weight Loss Eyes: Denies: Pain HEENT: Reports: Sinus Congestion, Post Nasal Drip; Denies: Head Aches Skin: Denies: Rash Pulmonary: Denies: Dyspnea, Cough Cardiovascular: Denies: Chest Pain Gastrointestinal: Denies: Nausea, Abdominal Pain Hematologic: Denies: Bruising Endocrine: Denies: Cold Intolerance Musculoskeletal: Denies: Neck pain, Back pain Neurological: Denies: Weakness, Numbness Psych: Reports: Mood Normal Physical Examination Vital Signs Wt 134 lbs T 97.6 P 89 RR 18 BP 86/60 O2 96% Pain 0 Fatigue 1 General Exam: Positive: Alert, Cooperative, No Acute Distress, Other (Temporal wasting still evident) Eye Exam: Positive: PERRLA, EOMI ENT EXAM: Positive: Atraumatic, Pharynx Normal, Tongue Midline; Negative: Other ENT (No palpable or visible mucosal or FOM lesions. No pal pable tonsil or tongue base lesions. ) Neck Exam: Positive: Supple; Negative: Lymphadenopathy Chest Exam: Positive: Clear to auscultation Heart Exam: Positive: Rate Normal Abdomen Exam: Positive: Normal bowel sounds, Soft Extremity Exam: Negative: Edema Skin Exam: Positive: Nl turgor and temperature Neuro Exam: Positive: Normal Gait, Normal Speech, Cranial Nerves 3-12 NL Psych Exam: Positive: Mental status NL Other Physical Findings Laryngoscopy: Patient provided verbal consent to be scoped. Cetacaine was introduced in the right nostril for anesthesia. The scope was introduced and passed easily through the nasal passages to the nasopharynx, there were no nasopharyngeal lesions. There was copious yellow mucus present adherent to the posterior pharyngeal wall. The scope passed easily to the oropharynx. The BL tongue bases and vallecula was normal appearing, pink mucosa without masses or ulceration. The epiglottis was prominent in stance and sharp rimmed, the larynx was freely mobile with phonation, no apparent lesions. The BL pyriform sinuses were patent and without lesions. The scope was withdrawn, there was notable adherent mucus on the tip. The patient tolerate the procedure well. Diagnostic and Laboratory Diagnostic Review Radiologic images, relevant labs and pathology reports were personally reviewed and discussed with Mr. Hernández. Assessment and Plan Impression Assessment Mr. 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 His scans show no evidence of recurrence or de edwin metastatic disease (although CT scans are suboptimal compared to PET-CT which he was not able to tolerate). His scope exam today is without apparent residual disease. In summation he is in clinical and radiographic remission. He was happy to hear this. I discussed with him that he may be eligible for adjuvant immunotherapy given his stage IIB lung cancer, I will refer him back to medical oncology for consideration of this. I will continue chest surveillance again in [address] scans. I will not image the neck at that time, but rather perform another laryngoscopic exam. We can consider another CT neck for a subsequent visit, or if there is a questionable finding on clinical exam. I discussed adding mucinex for his thick mucus and post-nasal drip. I recommended he have a PEG tube placed because of the aspiration evident on his last swallow study. He understandably and politely refused this (given the fraught prior attempts at placement). Despite the residual dysphagia his weight is up. I encouraged him to continue his current regiment of ensure and prosource. We can see about getting him dentures. We can also revisit [employer] therapy and repeat swallow studies down the line. I provided him with aspiration precaution information. He agreed to the above. Performance Status ECOG [address] chest 3 months Referral to medical oncology Referral to dentistry Mucinex TID PRN Will reach out to [employer] via email for recs at this time. Plan to revisit in future Mr. Hernández was encouraged to call with questions or concerns in the interim period. Billing Statement Total time of [54] minutes was spent preparing for the visit [3], obtaining HPI [6], examining the patient [12], reviewing diagnostic tests [4], discussing management options [15], coordinating care [4], and writing this note [10]. JANAK MICHELLE MD August 22, 2020 11:27
== END ==
LOC: M ONCR 08:53
PROVIDERS: ATTEND General Practice
DX: C01 Malignant neoplasm of base of tongue (principal); C34.02 Malignant neoplasm of left main bronchus

== ENCOUNTER → 2020-11-29 | Outpatient (CLI) | payer OTHER ==
[~2020-11-29] MED LIST changes: +ISOVUE-370 76% 100ML VIAL As Ordered ONE; +LIDO1CRE42 TOP; -LIDO2.5C15 TOP
--- NOTE | 2020-11-29 11:58 | REP ---
INDICATION: LUNG CA. COMPARISON: 08/17/2020. TECHNIQUE: SCANS WERE OBTAINED DURING CONTRAST ADMINISTRATION. FINDINGS: THERE IS SCARRING IN THE LEFT UPPER LOBE EXTENDING FROM THE LEFT HILUM IN ALL DIRECTIONS. THERE IS A 1.5 X 1.8 CM LEFT HILAR NODULE WHICH IS INCREASED SLIGHTLY IN SIZE WHEN COMPARED WITH THE PREVIOUS STUDY. PLEURAL THICKENING NOTED IN THE LEFT UPPER HEMITHORAX. NO ACTIVE PROCESS DEMONSTRATED IN THE RIGHT LUNG OR LEFT LOWER LUNG. NO ADENOPATHY. ADRENAL GLANDS NOT ENLARGED. IMPRESSION: 1.5 X 1.8 CM LEFT HILAR MASS WAS STELLATE ADJACENT PARENCHYMAL SCARRING IN THE LEFT UPPER LOBE. SLIGHTLY INCREASED SIZE OF MASS WHEN COMPARED WITH THE PREVIOUS STUDY. NO NEW MASSES. MEDIPORT CATHETER IN PLACE WITH TIP IN SUPERIOR VENA CAVA. <Electronically signed by Garret Gates > 11/29/20 [id number]
== END ==
LOC: M RAD 11:11
PROVIDERS: ATTEND General Practice
DX: C34.02 Malignant neoplasm of left main bronchus (principal); C01 Malignant neoplasm of base of tongue
CPT/HCPCS: 71260; J1642; Q9967

== ENCOUNTER → 2020-12-06 | Outpatient (CLI) | payer OTHER ==
[~2020-12-06] MED LIST changes: +FLUC100T PO; -ISOVUE-370 76% 100ML VIAL As Ordered ONE
--- NOTE | 2020-12-06 11:56 | RADONC ---
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 He received several cycles of induction chemotherapy, which was poorly tolerated, and had delayed receiving dental extractions needed prior to chemoradiation. He eventually completed chemoradiation to both primary sites synchronously; 60 Gy in 30 fractions to the lung 02/15/20-03/30/20; and 70 Gy in 35 fractions to the HN from 02/15/20-04/13/20. The head and neck treatment was complicated by intractable anxiety from his mask, which resulted in several delays in completing as scheduled, eventually due to missed fractions we decided together to accelerate the final phase of his course, he then completed the final 10 outstanding fractions BID over 5 days. He tolerated this well. His post- treatment course however was marked by failure to thrive and difficulty with PO intake, despite lack of pain. Attempt was made to place a PEG tube x 3 percutaneously which was complicated by enterotomy. Diagnosis/Treatment History Oncologic History Recent data: 11/29/20 CT chest FINDINGS: THERE IS SCARRING IN THE LEFT UPPER LOBE EXTENDING FROM THE LEFT HILUM IN ALL DIRECTIONS. THERE IS A 1.5 X 1.8 CM LEFT HILAR NODULE WHICH IS INCREASED SLIGHTLY IN SIZE WHEN COMPARED WITH THE PREVIOUS STUDY. PLEURAL THICKENING NOTED IN THE LEFT UPPER HEMITHORAX. NO ACTIVE PROCESS DEMONSTRATED IN THE RIGHT LUNG OR LEFT LOWER LUNG. NO ADENOPATHY. ADRENAL GLANDS NOT ENLARGED. IMPRESSION: 1.5 X 1.8 CM LEFT HILAR MASS WAS STELLATE ADJACENT PARENCHYMAL SCARRING IN THE LEFT UPPER LOBE. SLIGHTLY INCREASED SIZE OF MASS WHEN COMPARED WITH THE PREVIOUS ANDRÉS DY. NO NEW MASSES. MEDIPORT CATHETER IN PLACE WITH TIP IN SUPERIOR VENA CAVA. Test Due Next Last result Notes TSH, T4 6m post-tx, then q1y Followed by Dr. Castillo on synthroid 25 mcg Carotid US q10 y post-tx 2029 Smoking cessation Assess annually if applicable Fall 2020 Today, not willing, smoking 2 ppd CXR or screening CT q1y once CR confirmed Fall 2020 Today, growing left suprahilar mass CBC,CMP, Lipids q1y Followed by Dr. Castillo Echocardiogram q10 y post tx 2030 Interval History Rakan feels generally well, no pain, weight up, energy levels improving slowly. He is able to eat soft foods. No dentures yet. Recently started on synthroid by PCP. Also treated for thrush recently with nystatin. He struggles with swallowing, bread and meat, no mason aspiration. He notes abrupt onset of hoarseness in late September 2020. Has been persistent since then. He has increased his smoking, now 2 ppd. Current Therapy Surveillance Stage NSCLC left lung T2N1M0 Stage IIB OPX [id number] (overlapping sites) stage TATE Social History: Current everyday smoker 2 ppd Former drinker, does not anymore Allergies / Meds Allergies: Coded Allergies: No Known Allergies (Unverified , 08/12/19) Home Meds Active Scripts Guaifenesin (Guaifenesin) 100 Mg/5 Ml Liquid, 10 ML PO TID for Mucus, #500 ML 5 Refills Prov:JANAK MICHELLE MD 08/22/20 Oxycodone HCl (Oxycodone HCl) 5 Mg/5 Ml Solution, 5 ML PO Q6HP PRN for pain MDD 30 Milliliter(s) for 7 Days, #210 ML Prov:JANAK MICHELLE MD 07/12/20 Amino AC/Protein Hydr/Whey Pro (Prosource Protein Liquid) 946 Ml Liquid, 946 ML PO ASDIRECTED, #1 CONTAINER 1 Refill Take 30 ml by mouth daily Prov:JANAK MICHELLE MD 07/12/20 Potassium Chloride (Potassium Chloride) 20 Meq/15 Ml Liquid, 30 ML PO DAILY, #1 L Prov:Sid Caballero M.D. 06/15/20 Reported Medications Midodrine HCl (Midodrine HCl) 2.5 Mg Tablet 08/22/20 Albuterol Sulfate (Albuterol Sulfate Hfa) 8.5 Gm Hfa.aer.ad 07/12/20 Apixaban (Eliquis) 5 Mg Tab.ds.pk, 5 MG PO DAILY 06/14/20 Umeclidinium [place] (Incruse Ellipta) 62.5 Mcg Blst.w.dev, 1 PUFF INH DAILY 02/14/20 Tamsulosin HCl (Flomax) 0.4 Mg Capsule, 0.4 MG PO QPM, CAP 06/11/19 Albuterol Sulfate (Ventolin Hfa) 18 Gm Hfa.aer.ad, 2 PUFF INH QID PRN for SHORTNESS OF BREATH 06/11/19 Review of Systems Review of Systems Constitutional: Denies: Chills, Fever, Weight Loss Eyes: Denies: Pain HEENT: Reports: Post Nasal Drip; Denies: Head Aches, Sore Throat Skin: Denies: Rash Pulmonary: Denies: Dyspnea, Cough Cardiovascular: Denies: Chest Pain, Palpitations Gastrointestinal: Denies: Abdominal Pain Hematologic: Denies: Enlarged Lymph Nodes Endocrine: Denies: Cold Intolerance Musculoskeletal: Denies: Neck pain, Back pain Neurological: Denies: Weakness, Numbness Psych: Reports: Mood Normal Physical Examination Vital Signs Wt 141 lbs (from 134 lbs on 08/22/20) T 96.8 P 68 RR 20 BP 122/72 O2 98% Pain 0 Fatigue 0 General Exam: Alert, Cooperative, No Acute Distress Eye Exam: PERRLA, EOMI ENT EXAM: Other ENT (Complete oral cavity exam performed: There are no visible mucosal lesions in the buccal, gingival, oral tonuge, FOM, RMT, tonsillar fossae or soft palate. There are no palpable lesions in these areas or BOT. Palate elevates appropriately. There is no palpabele cervical adenopathy. Laryngeal crepitus and elevation with swallow intact. There is no trismus. There is mild hyperpigmentaiton of the BL necks with minimal submental lymphedema. There is palpable fibrosis in the neck . ) Chest Exam: Clear to auscultation, Normal air movement; Negative: Rales, Wheezing Heart Exam: Rate Normal, Regular Rhythm Abdomen Exam: Soft; Negative: Tenderness Extremity Exam: Negative: Edema Neuro Exam: Normal Gait; Negative: Normal Speech (Hoarseness noted. ) Psych Exam: Mental status NL, Mood NL Other Physical Findings Laryngoscopy: Patient provided verbal consent to be scoped. Cetacaine was introduced in the left nare for anesthesia. The scope was introduced and passed easily through the nasal passage to the nasopharynx. No lesions were noted here, there was copious clear mucus noted however, and this was adherent to the posterior pharyngeal wall. The OPX was well visualized, there was thrush present on the BL BOT R>L. There were no mucosal lesions of the BOT or vallecula. The hypopharynx was without lesions, no pooled secretions were noted, the BL pyriform sinuses were visualized and free of lesions. The epiglottis was noted to be upright in orientation and thin-rimmed. The larynx was freely mobile with phonation, however the true cords were incompetent and there was an obvious portion of the posterior cords that did not fully occlude. There were no lesions of the supraglottis or glottis. The scope was withdrawn and the patient tolerated well. Diagnostic and Laboratory Diagnostic Review Radiologic images, relevant labs and pathology reports were personally reviewed and discussed with Mr. Hernández. Assessment and Plan Impression Assessment Mr. 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 He received several cycles of induction chemotherapy, which was poorly tolerated, and had delayed receiving dental extractions needed prior to chemoradiation. He eventually completed chemoradiation to both primary sites synchronously; 60 Gy in 30 fractions to the lung 02/15/20-03/30/20; and 70 Gy in 35 fractions to the HN from 02/15/20-04/13/20. The head and neck treatment was complicated by intractable anxiety from his mask, which resulted in several delays in completing as scheduled, eventually due to missed fractions we decided together to accelerate the final phase of his course, he then completed the final 10 outstanding fractions BID over 5 days. He tolerated this well. His post- treatment course however was marked by failure to thrive and difficulty with PO intake, despite lack of pain. Attempt was made to place a PEG tube x 3 percutaneously which was complicated by enterotomy. First from a weight gain perspective I am pleased that he is over 140 lbs. 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 He had previously been under [facility] [employer] therapy, but this peaked and he has not had follow up in the recent months. I will email Arely Nunez on his behalf and see if there is any additional recommended treatment. Otherwise, he is protecting his airway well- enough and does not have significant aspiration signs on the recent CT chest. He has no evidence of recurrent HN cancer on exam, however he has a small nodule in the left supra-hilar region which is growing, this was in the prior radiation field, it is spiculated and does not look like a LN. We will need to follow it closely. Salvage SBRT would be the option if the lesion proves to continue to grow, I would advocate for biopsy of the lesion but Rakan expressed reticence to invasive diagnostics in general. We can revisit in the future if warranted by further growth on CT. For his thrush I will prescribe fluconazole for 1 week this should resolve it. For his medical oncology follow up to which he has been lost, I will facilitate an appointment in the next month. He will need port flushes at a minimum. For smoking cessation we spent 4 minutes discussing the barriers, aids for, and rationale of quitting. He is up to 2 ppd in recent months, I do think that this may be contributing to or exacerbating his hoarseness. He is not ready to mount a quit attempt today. Will revisit in coming appointment. Performance Status ECOG [address] chest and follow up in 3 months w/ scope exam Will reach out to [employer] [facility] Will facilitate medical oncology follow up/port flushes Fluconazole Rx sent Mr. Hernández was encouraged to call with questions or concerns in the interim period. Billing Statement Total time of [48] minutes was spent preparing for the visit [2], obtaining HPI [8], examining the patient [9], reviewing diagnostic tests [5], discussing management options [7], coordinating care [6], and writing this note [11]. JANAK MICHELLE MD Dec 06, 2020 11:56
== END ==
LOC: M ONCR 09:46
PROVIDERS: ATTEND General Practice
DX: C01 Malignant neoplasm of base of tongue (principal); C34.02 Malignant neoplasm of left main bronchus; F17.210 Nicotine dependence, cigarettes, uncomplicated; R13.10 Dysphagia, unspecified; B37.0 Candidal stomatitis; Z79.899 Other long term (current) drug therapy; Z92.21 Personal history of antineoplastic chemotherapy; Z92.3 Personal history of irradiation
CPT/HCPCS: 31575; G0463

== ENCOUNTER → 2021-02-26 | Outpatient (CLI) | payer OTHER ==
[~2021-02-26] MED LIST changes: +ISOVUE-370 76% 100ML VIAL As Ordered ONE; +SYNT50TA PO
--- NOTE | 2021-02-26 11:38 | REP ---
INDICATION: C34.02 LUNG CA. COMPARISON: 11/29/2020, 08/17/2020, 12/31/2019. TECHNIQUE: Bolus 75 mL Isovue 370 scanning through the chest with coronal and sagittal reconstructions. FINDINGS: There is a right jugular port catheter again seen with tip in SVC. Lung sahni are well inflated there is apical pleuroparenchymal scarring on the right is clearing of a small nodule in the subpleural medial segment right middle lobe seen previously on the image 70 on 11/29/2020. Some peripheral curvilinear fibro atelectatic change in the lateral segment right middle lobe again seen and unchanged. Right upper lobe without nodule or mass. It has minimal apical pleuroparenchymal scarring. In the left upper lobe there is an 18 mm suprahilar spiculated nodule and this is unchanged. There is bronchiectatic change in curvilinear fibrotic change associated with the extending anteriorly in the left upper lobe and also posteriorly to the posterior pleura of the left upper lobe zone of pleural thickening is unchanged. Overall this area is stable. Left lower lobe shows no new or significant findings. No pleural effusion. The heart is not grossly enlarged no pericardial thickening or effusion. I see no hiatal hernia. The aorta has atherosclerotic calcifications without aneurysm there are coronary artery calcifications seen. No pathologic right paratracheal, precarinal AP window or prevascular space adenopathy. No pathologic sized hilar nodes are evident on either side. There is retraction/scarring with elevation of the left hilum as before. The bone windows show the spine with some degenerative changes. But no defined sclerotic zone in the right half of the T1 vertebral body unchanged. A sclerotic focus at the inferior endplate of T11 also unchanged. No destructive lesions are identified in the spine. Sternum, manubrium, visible clavicles, scapulae, humeral heads and ribs are all without fracture or destructive lesion. The upper abdomen shows that portion of liver to be unremarkable. Spleen not enlarged without focal lesion gallbladder is partially contracted without calcified stone. Adrenal glands are normal. Upper pole cysts on the left kidney noted. That portion of pancreas seen and stomach were intact. Calcified upper abdominal aorta without aneurysm. IMPRESSION: 1. Suprahilar 18 mm spiculated lesion in the left upper lobe which is unchanged in size or contour and there are curvilinear fibrotic areas extending from it anteriorly and heavier posterior appearance toward the pleura but the appearance stable. There are no new or acute infiltrates, other nodules, parenchymal masses, pleural effusion or pleural based masses. No pathologic sized mediastinal or hilar adenopathy. COPD, some emphysematous changes, fibrotic changes and cylindrical bronchiectasis again seen. 2. Bones are unchanged with sclerotic foci at T1 and T11 vertebral bodies, stable no compression deformity destructive lesion, the other bones are intact. 3. Upper abdominal structures grossly unremarkable for any acute finding. <Electronically signed by Waldemar Go > 02/26/21 [id number]
== END ==
LOC: M RAD 10:26
PROVIDERS: ATTEND General Practice
DX: C34.02 Malignant neoplasm of left main bronchus (principal); J44.9 Chronic obstructive pulmonary disease, unspecified
CPT/HCPCS: 71260; J1642; Q9967

== ENCOUNTER → 2021-03-08 | Outpatient (CLI) | payer OTHER ==
[~2021-03-08] MED LIST changes: -ISOVUE-370 76% 100ML VIAL As Ordered ONE
--- NOTE | 2021-03-08 12:38 | RADONC ---
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 He received several cycles of induction chemotherapy, which was poorly tolerated, and had delayed receiving dental extractions needed prior to chemoradiation. He eventually completed chemoradiation to both primary sites synchronously; 60 Gy in 30 fractions to the lung 02/15/20-03/30/20; and 70 Gy in 35 fractions to the HN from 02/15/20-04/13/20. The head and neck treatment was complicated by intractable anxiety from his mask, which resulted in several delays in completing as scheduled, eventually due to missed fractions we decided together to accelerate the final phase of his course, he then completed the final 10 outstanding fractions BID over 5 days. He tolerated this well. His post- treatment course however was marked by failure to thrive and difficulty with PO intake, despite lack of pain. Attempt was made to place a PEG tube x 3 percutaneously which was complicated by enterotomy. 11/29/20 CT chest showed stable left suprahilar nodule 1.8 cm. No additional disease in the chest. Diagnosis/Treatment History Oncologic History As above. 02/28/21 CT chest Stable 1.8 cm left suprahilar nodule, stable [place]ANC[place] post-radiation changes Test Due Next Last result Notes TSH, T4 6m post-tx, then q1y Followed by Dr. Castillo on synthroid 50 mcg Carotid US q10 y post-tx 2029 Smoking cessation Assess annually if applicable Winter 2021 Today, not willing, smoking 2 ppd CXR or screening CT q1y once CR confirmed Spring 2021 Today, stable [place] nodule CBC,CMP, Lipids q1y Followed by Dr. Castillo Echocardiogram q10 y post tx 2030 Interval History Rakan feels well, he is having difficulty swallowing still. His PCP has suggested EGD. He is able to take liquids and soft solids without difficulty, meat and bread do not go down however. Energy levels good, no change in breathing. Still smoking, not willing to consider quitting today. Current Therapy Surveillance Stage NSCLC left lung T2N1M0 Stage IIB OPX [id number] (overlapping sites) stage TATE Social History: Current smoker 2 PPD Former drinker Allergies / Meds Allergies: Coded Allergies: No Known Allergies (Unverified , 08/12/19) Home Meds Active Scripts Amino AC/Protein Hydr/Whey Pro (Prosource Protein Liquid) 946 Ml Liquid, 946 ML PO ASDIRECTED, #1 CONTAINER 5 Refills Take 30 ml by mouth daily Prov:JANAK MICHELLE MD 03/08/21 Fluconazole (Fluconazole) 100 Mg Tablet, 1 TAB PO DAILY for thrush for 7 Days, #7 TAB Prov:JANAK MICHELLE MD 12/06/20 Potassium Chloride (Potassium Chloride) 20 Meq/15 Ml Liquid, 30 ML PO DAILY, #1 L Prov:Sid Caballero M.D. 06/15/20 Reported Medications Levothyroxine Sodium (Synthroid) 50 Mcg Tablet, 1 TAB PO DAILY for 30 Days, #30 TAB 12/12/20 Midodrine HCl (Midodrine HCl) 2.5 Mg Tablet 08/22/20 Albuterol Sulfate (Albuterol Sulfate Hfa) 8.5 Gm Hfa.aer.ad 07/12/20 Apixaban (Eliquis) 5 Mg Tab.ds.pk, 5 MG PO DAILY 06/14/20 Umeclidinium [place] (Incruse Ellipta) 62.5 Mcg Blst.w.dev, 1 PUFF INH DAILY 02/14/20 Tamsulosin HCl (Flomax) 0.4 Mg Capsule, 0.4 MG PO QPM, CAP 06/11/19 Review of Systems Review of Systems Constitutional: Denies: Fatigue, Weight Loss Eyes: Denies: Pain HEENT: Reports: Dysphagia; Denies: Head Aches Pulmonary: Denies: Dyspnea, Cough Cardiovascular: Denies: Chest Pain Gastrointestinal: Denies: Abdominal Pain Musculoskeletal: Denies: Neck pain, Back pain Neurological: Denies: Weakness, Numbness Psych: Reports: Mood Normal Physical Examination Vital Signs Wt 143 lbs General Exam: Alert, Cooperative, No Acute Distress Eye Exam: PERRLA, EOMI ENT EXAM: Other ENT (Oral cavity exam, he is edentulous, no exposed bone. Some aj, anterior mandible, No palpable or visible lesions. No trismus. Laryngeal crepitus intact, elevates appropriately with swallowing. ) Neck Exam: Negative: Lymphadenopathy Chest Exam: Clear to auscultation, Normal air movement Heart Exam: Rate Normal Abdomen Exam: Soft; Negative: Tenderness Extremity Exam: Negative: Edema Skin Exam: Nl turgor and temperature Neuro Exam: Normal Gait, Normal Speech, Cranial Nerves 3-12 NL Psych Exam: Mental status NL Other Physical Findings Laryngoscopy: Patient provided verbal consent to be scoped. Cetacaine was introduced in the right nare for anesthesia. The scope was introduced and passed easily through the nasal passage to the nasopharynx. No lesions present. The posterior pharyngeal wall was normal appearing. The OPX was well visualized. There were no mucosal lesions of the BOT or vallecula. The hypopharynx was without lesions, no pooled secretions were noted, the BL pyriform sinuses were visualized and free of lesions. The epiglottis was noted to be upright in orientation and thin-rimmed. The larynx was freely mobile with phonation, the cords fully adducted and abducted, symmetrically. There were no lesions of the supraglottis or glottis. The scope was withdrawn and the patient tolerated well. Diagnostic and Laboratory Diagnostic Review Radiologic images, relevant labs and pathology reports were personally reviewed and discussed with Mr. Hernández. Assessment and Plan Impression Assessment Mr. 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 He received several cycles of induction chemotherapy, which was poorly tolerated, and had delayed receiving dental extractions needed prior to chemoradiation. He eventually completed chemoradiation to both primary sites synchronously; 60 Gy in 30 fractions to the lung 02/15/20-03/30/20; and 70 Gy in 35 fractions to the HN from 02/15/20-04/13/20. The head and neck treatment was complicated by intractable anxiety from his mask, which resulted in several delays in completing as scheduled, eventually due to missed fractions we decided together to accelerate the final phase of his course, he then completed the final 10 outstanding fractions BID over 5 days. He tolerated this well. His post- treatment course however was marked by failure to thrive and difficulty with PO intake, despite lack of pain. Attempt was made to place a PEG tube x 3 percutaneously which was complicated by enterotomy. 11/29/20 CT chest showed stable left suprahilar nodule 1.8 cm. No additional disease in the chest. He has a reassuringly stable CT chest from 02/26/21, I believe the area in the left suprahilum is a scar and not active disease. Will continue to monitor next in 6 months. He has no evidence of disease on laryngoscopy today. Will recheck TFTs. He has dysphagia to solids, which has been chronic, his PCP considered referring for EGD, I think this is a good idea. Follow up in 3 months for next scope exam. Performance Status ECOG 1 Plan [address] chest in 6 months TFTs today Refilled Prosource Revisit smoking cessation next visit Mr. Hernández was encouraged to call with questions or concerns in the interim period. Billing Statement Total time of [38] minutes was spent preparing for the visit [3], obtaining HPI [7], examining the patient [8], reviewing diagnostic tests [4], discussing management options [7], coordinating care [2], and writing this note [7]. JANAK MICHELLE MD Mar 08, 2021 12:38
== END ==
LOC: M ONCR 09:53
PROVIDERS: ATTEND General Practice
DX: C01 Malignant neoplasm of base of tongue (principal); C34.02 Malignant neoplasm of left main bronchus; F17.210 Nicotine dependence, cigarettes, uncomplicated; Z92.21 Personal history of antineoplastic chemotherapy; Z92.3 Personal history of irradiation; Z79.899 Other long term (current) drug therapy
CPT/HCPCS: 31575; G0463

== ENCOUNTER → 2021-06-13 | Outpatient (CLI) | payer OTHER ==
[~2021-06-13] MED LIST changes: -FLUC100T PO; +FLUC100T3 PO; +OMEP-173 PO; -OMEP-218 PO
== END ==
LOC: M ONCR 09:01
PROVIDERS: ATTEND General Practice
DX: C10.8 Malignant neoplasm of overlapping sites of oropharynx (principal); F17.210 Nicotine dependence, cigarettes, uncomplicated; Z79.899 Other long term (current) drug therapy
CPT/HCPCS: 31575; G0463

== ENCOUNTER → 2021-07-05 | Outpatient (CLI) | payer OTHER ==
[~2021-07-05] MED LIST changes: +ENSULIQ9 PO; -MIDO2.5T; +MIDO2.5T PO; +[UNRECOGNIZED DRUG - CODE] PO
== END ==
LOC: M LABSMTC 10:22
PROVIDERS: ATTEND Anesthesiology
DX: Z01.812 Encounter for preprocedural laboratory examination (principal); Z20.822 Contact with and (suspected) exposure to COVID-19

== ENCOUNTER 2021-07-10 12:08 | Day surgery (SDC) | payer OTHER ==
[~2021-07-10] VITALS: Ht 185.4 cm; Wt 69.4 kg
[~2021-07-10 12:08] MED LIST changes: +LIDOCAINE 2% 100MG/5ML SDV (FOR ANES.) As Ordered ONE; +NS 1,000 ML IV ONE; +fentaNYL 100 MCG/2 ML INJECTION As Ordered ONE; +propofoL 200 MG/20 ML VIAL As Ordered ONE
[2021-07-10] MEDS ORDERED: SODIUM CHLORIDE 0.9% INJ 10 ML SYR IV PRN (14:05)
[2021-07-10] MEDS ORDERED: propofoL 200 MG/20 ML VIAL As Ordered ONE (14:59)
[2021-07-10 15:40] VITALS: BP 128/77
== END 2021-07-10 16:01 | disposition home or self-care (01) ==
LOC: M OPP 12:08
PROVIDERS: ATTEND Internal Medicine Gastroenterology
DX: R13.12 Dysphagia, oropharyngeal phase (principal); K22.89 Other specified disease of esophagus
CPT/HCPCS: 43239; 43450; 88305; J3010

== ENCOUNTER → 2021-09-10 | Outpatient (CLI) | payer OTHER ==
[~2021-09-10] MED LIST changes: +ISOVUE-370 76% 100ML VIAL As Ordered ONE; -LIDOCAINE 2% 100MG/5ML SDV (FOR ANES.) As Ordered ONE; -NS 1,000 ML IV ONE; -fentaNYL 100 MCG/2 ML INJECTION As Ordered ONE; -propofoL 200 MG/20 ML VIAL As Ordered ONE
== END ==
LOC: M RAD 10:38
PROVIDERS: ATTEND General Practice
DX: C34.02 Malignant neoplasm of left main bronchus (principal)
CPT/HCPCS: 71260; J1642; Q9967

== ENCOUNTER → 2021-09-18 | Outpatient (CLI) | payer OTHER ==
[~2021-09-18] MED LIST changes: -ISOVUE-370 76% 100ML VIAL As Ordered ONE
== END ==
LOC: M ONCR 08:54
PROVIDERS: ATTEND General Practice
DX: C02.8 Malignant neoplasm of overlapping sites of tongue (principal); N28.89 Other specified disorders of kidney and ureter; F17.210 Nicotine dependence, cigarettes, uncomplicated; Z79.51 Long term (current) use of inhaled steroids; Z79.899 Other long term (current) drug therapy; Z92.21 Personal history of antineoplastic chemotherapy; Z92.3 Personal history of irradiation
CPT/HCPCS: 31575; 96360; 96361; G0463

== ENCOUNTER → 2021-12-12 | Outpatient (CLI) | payer OTHER ==
[~2021-12-12] MED LIST changes: +GASTROGRAFIN SOLUTION 30ML (Q9963) As Ordered ONE; +ISOVUE-370 76% 100ML VIAL As Ordered ONE; +LEVO1TAB40 PO; -LEVO750T13 PO
== END ==
LOC: M RAD 07:50
PROVIDERS: ATTEND General Practice
DX: C01 Malignant neoplasm of base of tongue (principal); C34.02 Malignant neoplasm of left main bronchus
CPT/HCPCS: 70491; 71260; 74177; J1642; Q9963; Q9967

== ENCOUNTER → 2021-12-18 | Outpatient (CLI) | payer OTHER ==
[~2021-12-18] MED LIST changes: -GASTROGRAFIN SOLUTION 30ML (Q9963) As Ordered ONE; -ISOVUE-370 76% 100ML VIAL As Ordered ONE
== END ==
LOC: M ONCR 09:16
PROVIDERS: ATTEND General Practice
DX: C02.8 Malignant neoplasm of overlapping sites of tongue (principal); C34.02 Malignant neoplasm of left main bronchus; F17.210 Nicotine dependence, cigarettes, uncomplicated; Z79.51 Long term (current) use of inhaled steroids; Z79.899 Other long term (current) drug therapy; Z92.21 Personal history of antineoplastic chemotherapy; Z92.3 Personal history of irradiation
CPT/HCPCS: 31575; G0463

== ENCOUNTER → 2022-02-01 | Outpatient (CLI) | payer OTHER | LOC: M RAD 12:51 | PROVIDERS: ATTEND Specialist | DX: D41.02 Neoplasm of uncertain behavior of left kidney (principal) ==

== ENCOUNTER → 2022-03-06 | Outpatient (CLI) | payer OTHER | LOC: M RAD 07:59 | PROVIDERS: ATTEND Physician Assistant | DX: D41.02 Neoplasm of uncertain behavior of left kidney (principal) | CPT/HCPCS: 78707; A9562; J1642 ==

== ENCOUNTER → 2022-04-26 | Outpatient (CLI) | payer OTHER ==
[~2022-04-26] MED LIST changes: +SILD20TA11 PO
== END ==
LOC: M ONCR 09:16
PROVIDERS: ATTEND General Practice
DX: C01 Malignant neoplasm of base of tongue (principal); C34.02 Malignant neoplasm of left main bronchus; F17.210 Nicotine dependence, cigarettes, uncomplicated; N28.89 Other specified disorders of kidney and ureter; Z79.01 Long term (current) use of anticoagulants; Z79.890 Hormone replacement therapy; Z79.899 Other long term (current) drug therapy; Z92.21 Personal history of antineoplastic chemotherapy; Z92.3 Personal history of irradiation
CPT/HCPCS: 31575; G0463

== ENCOUNTER → 2022-05-01 | Outpatient (CLI) | payer OTHER ==
[~2022-05-01] MED LIST changes: +LIDOCAINE 1% MDV 20ML VIAL As Ordered ONE
[2022-05-01 12:15] VITALS: BP 120/64
== END ==
LOC: M IRPRO 07:49
PROVIDERS: ATTEND Specialist
DX: C22.9 Malignant neoplasm of liver, not specified as primary or secondary (principal)

== ENCOUNTER → 2022-05-24 | Outpatient (CLI) | payer OTHER ==
[~2022-05-24] MED LIST changes: +LIDO2SO; -LIDO2SOL9; -LIDOCAINE 1% MDV 20ML VIAL As Ordered ONE
== END ==
LOC: M ONCR 09:14
PROVIDERS: ATTEND General Practice
DX: C64.2 Malignant neoplasm of left kidney, except renal pelvis (principal); C76.0 Malignant neoplasm of head, face and neck; C34.00 Malignant neoplasm of unspecified main bronchus; Z71.2 Person consulting for explanation of examination or test findings

== ENCOUNTER 2022-07-10 07:30 | Inpatient (IN) | payer OTHER ==
[~2022-07-10] VITALS: Ht 185.4 cm; Wt 60.8 kg
[~2022-07-10 07:30] MED LIST changes: -LIDO2SO; +LIDO2SOL9
[2022-07-16] MEDS ORDERED: ELIQ2.5T PO (08:24)
[2022-07-16] MEDS ORDERED: OMEP-173 PO (08:24)
[2022-07-18] MEDS ORDERED: ceFAZolin SOD 2 GM in IV 1 EA IV ONE (06:30)
[2022-07-18] MEDS ORDERED: LR 1,000 ML IV SCH ×3 (06:55→14:05)
[2022-07-18] MEDS ORDERED: MIDO2.5T PO (06:56)
[2022-07-18] MEDS ORDERED: ALBU8.5H INH (06:56)
[2022-07-18] MEDS ORDERED: [UNRECOGNIZED DRUG - CODE] PO (06:56)
[2022-07-18] MEDS ORDERED: OMEP-173 PO (06:56)
[2022-07-18] MEDS ORDERED: SYNT50TA PO (06:56)
[2022-07-18] MEDS ORDERED: ENSU1LIQ PO (06:56)
[2022-07-18] MEDS ORDERED: HOME MED LIST COMPLETE! XX SCH (07:00)
[2022-07-18] MEDS ORDERED: LIDOCAINE 2% 100MG/5ML SDV (FOR ANES.) As Ordered ONE (07:09)
[2022-07-18] MEDS ORDERED: ONDANSETRON 4MG 2ML VIAL As Ordered ONE (07:09)
[2022-07-18] MEDS ORDERED: ROCURONIUM BROMIDE 50MG/5ML VIAL As Ordered ONE (07:09)
[2022-07-18] MEDS ORDERED: fentaNYL 100 MCG/2 ML INJECTION As Ordered ONE (07:09)
[2022-07-18] MEDS ORDERED: propofoL 200 MG/20 ML VIAL As Ordered ONE (07:09)
[2022-07-18] MEDS ORDERED: MIDAZOLAM INJ 2MG/2ML VIAL As Ordered ONE (07:09)
[2022-07-18] MEDS ORDERED: HYDROmorphone HCL 2MG/ML 1ML VIAL As Ordered ONE (07:09)
[2022-07-18] MEDS ORDERED: SUGAMMADEX SODIUM 500 MG/5 ML VIAL (BRIDION) As Ordered ONE (07:16)
[2022-07-18] MEDS ORDERED: ACETAMINOPHEN 1000MG 100ML IV BAG As Ordered ONE (07:16)
[2022-07-18] MEDS ORDERED: LIDOCAINE 1% SDV 30ML VIAL As Ordered ONE (07:19)
[2022-07-18] MEDS ORDERED: BUPIVACAINE HCL 0.25% 30ML VIAL As Ordered ONE (07:19)
[2022-07-18] MEDS ORDERED: ONDANSETRON 4MG 2ML VIAL IV PRN ×3 (07:20→14:05)
[2022-07-18] MEDS: NS 1,000 ML IV SCH ×2 (07:20→18:04)
[2022-07-18] MEDS ORDERED: PERCOCET 5MG/325MG TAB PO PRN (07:20)
[2022-07-18] MEDS ORDERED: SODIUM CHLORIDE 0.9% INJ 10 ML SYR IV PRN (08:00)
[2022-07-18] MEDS ORDERED: PHENYLephrine 500MCG 5ML (100MCG/ML) SYRINGE As Ordered ONE ×2 (08:32→08:48)
[2022-07-18] MEDS ORDERED: PHENYLEPHRINE 10MG/ML 1ML VIAL As Ordered ONE (08:52)
[2022-07-18] MEDS: DOCUSATE SODIUM 100MG CAPSULE PO SCH ×2 (09:00→21:00)
[2022-07-18] MEDS: SODIUM CHLORIDE 0.9% INJ 10 ML SYR IV SCH (09:00)
[2022-07-18] MEDS ORDERED: GLYCOPYRROLATE INJ 0.2 MG/ML 2 ML VIAL As Ordered ONE (09:03)
[2022-07-18] MEDS ORDERED: oxyCODONE 5MG TAB PO PRN ×2 (11:45→14:05)
[2022-07-18] MEDS: MIDODRINE 2.5 MG TAB PO SCH ×2 (12:00→18:04)
[2022-07-18] MEDS: fentaNYL 100 MCG/2 ML INJECTION IV PRN ×4 (12:06→12:21)
[2022-07-18] MEDS: HYDROMORPHONE HCL 0.5 MG/ 0.5 ML SYRINGE IV PRN ×2 (12:39→12:57)
[2022-07-18] MEDS ORDERED: PILL CUTTER 1 EACH XX ONE (12:40)
[2022-07-18 12:53] LABS: HEMATOCRIT 42.1 % (42.0-52.0); HEMOGLOBIN 14.2 g/dl (13.5-17.5); MEAN CORPUSCULAR HEMOGLOBIN 32.8 pg (27.0-33.0); MEAN CORPUSCULAR HGB CONC 33.7 g/dl (32.0-36.5); MEAN CORPUSCULAR VOLUME 97.2 fl (80.0-96.0); PLATELET COUNT, AUTOMATED 208 10^3/uL (150-450); RED BLOOD COUNT 4.33 10^6/uL (4.30-6.10); WHITE BLOOD COUNT 8.5 10^3/uL (4.0-10.0)
[2022-07-18 13:21] LABS: BLOOD UREA NITROGEN 13 MG/DL (9-23); CALCIUM LEVEL 8.4 MG/DL (8.5-10.1); CARBON DIOXIDE LEVEL 21 MMOL/L (20-31); CHLORIDE LEVEL 104 MMOL/L (98-107); CREATININE FOR GFR 1.11 MG/DL (0.70-1.30); GLOMERULAR FILTRATION RATE > 60.0 (>56); GLUCOSE, FASTING 120 MG/DL (60-100); POTASSIUM SERUM 3.9 MMOL/L (3.5-5.1); SODIUM LEVEL 136 MMOL/L (136-145)
[2022-07-18] MEDS: HEPARIN SOD (PORCINE) 5000UNITS/ML 1ML VIAL/SYRINGE SC SCH ×2 (14:00→21:33)
[2022-07-18] MEDS ORDERED: HYDROMORPHONE HCL 0.5 MG/ 0.5 ML SYRINGE IV PRN (14:05)
[2022-07-18 14:40] VITALS: BP 131/85
[2022-07-18 15:40] VITALS: BP 126/74
[2022-07-18 16:40] VITALS: BP 126/73
[2022-07-18 17:51] VITALS: BP 122/75
[2022-07-18] MEDS: ceFAZolin SOD 1 GM in D5W MINI-BAG PLUS 50 ML IV SCH (18:04)
[2022-07-18] MEDS: TAMSULOSIN 0.4 MG CAP PO SCH (21:31)
[2022-07-18] MEDS: ACETAMINOPHEN TAB 650MG DOSE (2X325MG) PO PRN (21:31)
[2022-07-18] MEDS: OMEPRAZOLE 20MG CAP PO SCH (21:31)
[2022-07-18 21:50] VITALS: BP 143/80
[2022-07-19] VITALS (7 sets, daily range): BP systolic 119–142; BP diastolic 65–80; O2SAT 95
[2022-07-19] MEDS: ceFAZolin SOD 1 GM in D5W MINI-BAG PLUS 50 ML IV SCH (00:03)
[2022-07-19] MEDS: PERCOCET 5MG/325MG TAB PO PRN ×3 (00:05→21:21)
[2022-07-19] MEDS ORDERED: MORPHINE 2 MG/ML 1ML VIAL IV ONE (01:45)
[2022-07-19] MEDS: NS 1,000 ML IV SCH ×2 (04:33→13:56)
[2022-07-19] MEDS: HEPARIN SOD (PORCINE) 5000UNITS/ML 1ML VIAL/SYRINGE SC SCH ×3 (05:14→21:14)
[2022-07-19] MEDS: LEVOTHYROXINE 50MCG TABLET (0.05MG) PO SCH (05:14)
[2022-07-19] MEDS: ACETAMINOPHEN TAB 650MG DOSE (2X325MG) PO PRN (05:31)
[2022-07-19] MEDS: DOCUSATE SOD LIQ 100MG/10ML UDC PO SCH ×2 (08:28→21:14)
[2022-07-19] MEDS: MIDODRINE 2.5 MG TAB PO SCH ×3 (08:28→17:18)
[2022-07-19] MEDS: TIOTROPIUM INHALER/CAPSULE (SPIRIVA) INH SCH (08:33)
[2022-07-19] MEDS: SODIUM CHLORIDE 0.9% INJ 10 ML SYR IV SCH (08:38)
[2022-07-19 09:28] LABS: HEMATOCRIT 38.7 % (42.0-52.0); MEAN CORPUSCULAR HEMOGLOBIN 32.4 pg (27.0-33.0); MEAN CORPUSCULAR HGB CONC 33.6 g/dl (32.0-36.5); MEAN CORPUSCULAR VOLUME 96.5 fl (80.0-96.0); PLATELET COUNT, AUTOMATED 217 10^3/uL (150-450); RED BLOOD COUNT 4.01 10^6/uL (4.30-6.10); WHITE BLOOD COUNT 13.5 10^3/uL (4.0-10.0)
[2022-07-19 09:39] LABS: CALCIUM LEVEL 8.1 MG/DL (8.5-10.1); CREATININE FOR GFR 1.54 MG/DL (0.70-1.30); GLOMERULAR FILTRATION RATE 49.6 (>56); POTASSIUM SERUM 4.3 MMOL/L (3.5-5.1)
[2022-07-19] MEDS ORDERED: FUROSEMIDE 20MG/2ML VIAL IV ONE (09:45)
[2022-07-19] MEDS: ALBUTEROL 90 MCG/ACT 8GM HFA INHALER INH PRN (12:52)
[2022-07-19] MEDS ORDERED: DOCU10ELUD PO (17:30)
[2022-07-19] MEDS ORDERED: OXYC1SOL3 PO (17:30)
[2022-07-19] MEDS: TAMSULOSIN 0.4 MG CAP PO SCH (21:14)
[2022-07-19] MEDS: OMEPRAZOLE 20MG CAP PO SCH (21:14)
[2022-07-19] MEDS: IPRATROPIUM 0.5MG/ALBUTEROL 2.5MG INH SOL UD 3ML (DUONEB) NEB PRN (21:33)
[2022-07-20] MEDS: NS 1,000 ML IV SCH (00:45)
[2022-07-20 02:00] VITALS: BP 130/73
[2022-07-20] MEDS: PERCOCET 5MG/325MG TAB PO PRN ×2 (03:28→08:39)
[2022-07-20] MEDS: IPRATROPIUM 0.5MG/ALBUTEROL 2.5MG INH SOL UD 3ML (DUONEB) NEB PRN (03:42)
[2022-07-20] MEDS: LEVOTHYROXINE 50MCG TABLET (0.05MG) PO SCH (05:39)
[2022-07-20] MEDS: HEPARIN SOD (PORCINE) 5000UNITS/ML 1ML VIAL/SYRINGE SC SCH (05:39)
[2022-07-20 05:48] VITALS: BP 126/74
[2022-07-20 06:20] LABS: HEMATOCRIT 38.6 % (42.0-52.0); HEMOGLOBIN 12.9 g/dl (13.5-17.5); MEAN CORPUSCULAR HEMOGLOBIN 32.7 pg (27.0-33.0); MEAN CORPUSCULAR HGB CONC 33.4 g/dl (32.0-36.5); MEAN CORPUSCULAR VOLUME 97.7 fl (80.0-96.0); PLATELET COUNT, AUTOMATED 205 10^3/uL (150-450); RED BLOOD COUNT 3.95 10^6/uL (4.30-6.10); WHITE BLOOD COUNT 7.6 10^3/uL (4.0-10.0)
[2022-07-20 06:44] LABS: CALCIUM LEVEL 8.5 MG/DL (8.5-10.1); CREATININE FOR GFR 1.56 MG/DL (0.70-1.30); GLOMERULAR FILTRATION RATE 48.9 (>56); POTASSIUM SERUM 3.7 MMOL/L (3.5-5.1)
[2022-07-20] MEDS: TIOTROPIUM INHALER/CAPSULE (SPIRIVA) INH SCH (07:15)
[2022-07-20] MEDS: ALBUTEROL 90 MCG/ACT 8GM HFA INHALER INH PRN (07:16)
[2022-07-20] MEDS: MIDODRINE 2.5 MG TAB PO SCH ×2 (08:00→12:31)
[2022-07-20] MEDS: SODIUM CHLORIDE 0.9% INJ 10 ML SYR IV SCH (08:26)
[2022-07-20 08:35] VITALS: BP 136/88
[2022-07-20] MEDS: DOCUSATE SOD LIQ 100MG/10ML UDC PO SCH (08:39)
[2022-07-20 12:32] VITALS: BP 112/70
== END 2022-07-20 13:56 | disposition home or self-care (01) | DRG 442 ==
LOC: M OR 07-18 06:15 → M RR INP 07-18 13:15 → M MSPAV 07-18 14:38
PROVIDERS: ADMIT Urology; ATTEND Urology
PROC: 8E0W4CZ Robotic Assisted Procedure of Trunk Region, Percutaneous Endoscopic Approach (ICD-10-PCS; 2022-07-18)
PROC: 0TT14ZZ Resection of Left Kidney, Percutaneous Endoscopic Approach (ICD-10-PCS; principal; 2022-07-18 07:30)
DX: C64.2 Malignant neoplasm of left kidney, except renal pelvis (principal); Z79.899 Other long term (current) drug therapy

== ENCOUNTER → 2022-07-11 | Outpatient (CLI) | payer OTHER ==
[~2022-07-11] MED LIST changes: +ELIQ2.5T PO
== END ==
LOC: M RAD 08:45
PROVIDERS: ATTEND Urology
DX: C64.2 Malignant neoplasm of left kidney, except renal pelvis (principal)
CPT/HCPCS: 74170; J1642

== ENCOUNTER → 2022-07-15 | Outpatient (CLI) | payer OTHER | LOC: M LABSMTC 08:13 | PROVIDERS: ATTEND Anesthesiology | DX: Z20.822 Contact with and (suspected) exposure to COVID-19 (principal) ==

== ENCOUNTER → 2022-10-18 | Outpatient (CLI) | payer OTHER ==
[~2022-10-18] MED LIST changes: +ALBU8.5H INH; +DOCU10ELUD PO; +ENSU1LIQ PO; +ISOVUE-370 76% 100ML VIAL As Ordered ONE; +LIDO2SOBTL; -LIDO2SOL9
== END ==
LOC: M RAD 07:18
PROVIDERS: ATTEND General Practice
DX: C01 Malignant neoplasm of base of tongue (principal); C34.02 Malignant neoplasm of left main bronchus
CPT/HCPCS: 70491; 71260; Q9967

== ENCOUNTER → 2022-10-24 | Outpatient (CLI) | payer OTHER ==
[~2022-10-24] MED LIST changes: +AMIT50TA PO; +CYMB1CAP5 PO; -ISOVUE-370 76% 100ML VIAL As Ordered ONE
== END ==
LOC: M ONCR 08:49
PROVIDERS: ATTEND General Practice
DX: C01 Malignant neoplasm of base of tongue (principal); C34.02 Malignant neoplasm of left main bronchus; C64.2 Malignant neoplasm of left kidney, except renal pelvis; Z79.891 Long term (current) use of opiate analgesic; Z79.890 Hormone replacement therapy; Z79.899 Other long term (current) drug therapy; Z71.2 Person consulting for explanation of examination or test findings; F17.210 Nicotine dependence, cigarettes, uncomplicated; Z92.21 Personal history of antineoplastic chemotherapy; Z92.3 Personal history of irradiation; Z90.5 Acquired absence of kidney
CPT/HCPCS: 31575; G0463

== ENCOUNTER → 2022-11-14 | Outpatient (CLI) | payer OTHER ==
[~2022-11-14] MED LIST changes: -LIDO1CRE42 TOP; +LIDO30CR18 TOP
== END ==
LOC: M ONCR 08:45
PROVIDERS: ATTEND General Practice
DX: C02.1 Malignant neoplasm of border of tongue (principal); Z79.891 Long term (current) use of opiate analgesic; Z92.3 Personal history of irradiation

== ENCOUNTER → 2022-12-04 | Outpatient (CLI) | payer OTHER | LOC: M ONCR 09:17 | PROVIDERS: ATTEND General Practice | DX: R64 Cachexia (principal); M54.2 Cervicalgia; Z79.891 Long term (current) use of opiate analgesic ==

== ENCOUNTER 2022-12-09 08:13 | Day surgery (SDC) | payer OTHER ==
[~2022-12-09] VITALS: Ht 185.4 cm; Wt 50.5 kg
[~2022-12-09 08:13] MED LIST changes: +LIDOCAINE 2% 100MG/5ML SDV (FOR ANES.) As Ordered ONE; +ceFAZolin SOD 2 GM in IV 1 EA IV ONE; +propofoL 200 MG/20 ML VIAL As Ordered ONE
[2022-12-09] MEDS ORDERED: SODIUM CHLORIDE 0.9% INJ 10 ML SYR IV PRN (09:25)
[2022-12-09 11:04] VITALS: BP 104/64; TEMP 96.4; O2SAT 99
[2022-12-09] MEDS ORDERED: OXYC-1 PO (13:14)
[2022-12-10] MEDS ORDERED: OXYC5SOL11 (08:00)
[2022-12-10] MEDS ORDERED: AMIT50TA PO (08:00)
[2022-12-10] MEDS ORDERED: DULO1CAP5 PO (08:00)
[2022-12-10] MEDS ORDERED: OXYC10TA3 PO (14:48)
== END 2022-12-09 11:00 | disposition home or self-care (01) ==
LOC: M SDC 08:13
PROVIDERS: ATTEND Surgery
DX: C32.9 Malignant neoplasm of larynx, unspecified (principal); C15.9 Malignant neoplasm of esophagus, unspecified; R13.12 Dysphagia, oropharyngeal phase; K31.89 Other diseases of stomach and duodenum; Z43.1 Encounter for attention to gastrostomy; R63.39 Other feeding difficulties; D37.05 Neoplasm of uncertain behavior of pharynx; Z92.21 Personal history of antineoplastic chemotherapy; Z92.3 Personal history of irradiation; F17.210 Nicotine dependence, cigarettes, uncomplicated; E03.9 Hypothyroidism, unspecified; K21.9 Gastro-esophageal reflux disease without esophagitis; Z86.718 Personal history of other venous thrombosis and embolism; Z79.01 Long term (current) use of anticoagulants; J44.9 Chronic obstructive pulmonary disease, unspecified; N40.0 Benign prostatic hyperplasia without lower urinary tract symptoms; Z79.51 Long term (current) use of inhaled steroids; Z79.899 Other long term (current) drug therapy; D64.9 Anemia, unspecified
CPT/HCPCS: 43246; J0690

== ENCOUNTER 2022-12-30 11:14 | Day surgery (SDC) | payer OTHER ==
[~2022-12-30] VITALS: Ht 185.4 cm; Wt 47.3 kg
[~2022-12-30 11:14] MED LIST changes: -CELE1CAP7 PO; +CELE1CAP8 PO; +DULO1CAP5 PO; -LIDOCAINE 2% 100MG/5ML SDV (FOR ANES.) As Ordered ONE; +OXYC-1 PO; +OXYC10TA3 PO; +OXYC5SOL11; -ceFAZolin SOD 2 GM in IV 1 EA IV ONE; -propofoL 200 MG/20 ML VIAL As Ordered ONE
[2022-12-30] MEDS ORDERED: OXYC1SOL3 PO (11:15)
[2022-12-30] MEDS ORDERED: LR 1,000 ML IV SCH ×3 (12:05→15:35)
[2022-12-30] MEDS ORDERED: OXYMETAZOLINE 0.05% NASAL SPRAY (AFRIN) As Ordered ONE (14:13)
[2022-12-30] MEDS ORDERED: ONDANSETRON 4MG 2ML VIAL As Ordered ONE (14:57)
[2022-12-30] MEDS ORDERED: MIDAZOLAM INJ 2MG/2ML VIAL As Ordered ONE (14:57)
[2022-12-30] MEDS ORDERED: PHENYLephrine 500MCG 5ML (100MCG/ML) SYRINGE As Ordered ONE (14:57)
[2022-12-30] MEDS ORDERED: propofoL 200 MG/20 ML VIAL As Ordered ONE (14:57)
[2022-12-30] MEDS ORDERED: ACETAMINOPHEN 1000MG 100ML IV BAG As Ordered ONE (14:57)
[2022-12-30] MEDS ORDERED: ROCURONIUM BROMIDE 50MG/5ML VIAL As Ordered ONE (14:57)
[2022-12-30] MEDS ORDERED: LIDOCAINE 2% 100MG/5ML SDV (FOR ANES.) As Ordered ONE (14:57)
[2022-12-30] MEDS ORDERED: fentaNYL 250 MCG/5 ML INJECTION As Ordered ONE (14:57)
[2022-12-30] MEDS ORDERED: SUGAMMADEX SODIUM 500 MG/5 ML VIAL (BRIDION) As Ordered ONE (14:58)
[2022-12-30] MEDS ORDERED: fentaNYL 100 MCG/2 ML INJECTION IV PRN (15:10)
[2022-12-30] MEDS ORDERED: HYDROMORPHONE HCL 0.5 MG/ 0.5 ML SYRINGE IV PRN (15:10)
[2022-12-30] MEDS ORDERED: ONDANSETRON 4MG 2ML VIAL IV PRN (15:10)
[2022-12-30] MEDS ORDERED: oxyCODONE 5MG TAB PO PRN (15:10)
[2022-12-30] MEDS ORDERED: HYDROcodone/APAP LIQUID 7.5-325MG 15ML UDC (LORTAB ELIXIR) PO PRN (15:50)
[2022-12-30 16:35] VITALS: BP 113/60; TEMP 97.1; O2SAT 95
[2023-01-03] MEDS ORDERED: LORA1TAB23 PEG (15:46)
== END 2022-12-30 16:48 | disposition home or self-care (01) ==
LOC: M SDC 11:14
PROVIDERS: ATTEND Otolaryngology
DX: C32.9 Malignant neoplasm of larynx, unspecified (principal); C01 Malignant neoplasm of base of tongue; C10.0 Malignant neoplasm of vallecula; Z92.21 Personal history of antineoplastic chemotherapy; Z92.3 Personal history of irradiation; J44.9 Chronic obstructive pulmonary disease, unspecified; F17.218 Nicotine dependence, cigarettes, with other nicotine-induced disorders; Z99.81 Dependence on supplemental oxygen; N40.0 Benign prostatic hyperplasia without lower urinary tract symptoms; K21.9 Gastro-esophageal reflux disease without esophagitis; E03.9 Hypothyroidism, unspecified; Z79.01 Long term (current) use of anticoagulants; Z79.51 Long term (current) use of inhaled steroids; Z79.899 Other long term (current) drug therapy
CPT/HCPCS: 31536; 88305; J0131; J1100; J2250; J2371; J2405; J3010

== ENCOUNTER → 2023-01-24 | Outpatient (CLI) | payer OTHER ==
[~2023-01-24] MED LIST changes: +LORA1TAB23 PEG
== END ==
LOC: M ONCR 09:28
PROVIDERS: ATTEND General Practice
DX: C01 Malignant neoplasm of base of tongue (principal); C34.02 Malignant neoplasm of left main bronchus; C64.2 Malignant neoplasm of left kidney, except renal pelvis